=== PATIENT | female | born 1955 | race Caucasian/White ===

== ENCOUNTER 2022-06-28 22:09 | Emergency (ER) | payer MEDICARE, SELFPAY ==
[2022-06-28] VITALS (14 sets, daily range): BP systolic 133–173; BP diastolic 77–97; PULSE 61–73; RESP 20; TEMP 36.3; O2SAT 89–98
--- NOTE | 2022-06-28 22:41 | ED.GENADULT ---
HPI - General Adult General Time Seen by Provider: 22:42 <Ricardo Moore MD - Last Filed: 06/29/22 00:52> Date Seen: 06/28/22 <Ricardo Moore MD - Last Filed: 06/29/22 00:52> Chief complaint: Chest Pain <Ricardo Moore MD - Last Filed: 06/29/22 00:52> Stated complaint: chest pain, pain in arm, hard time breathing <Ricardo Moore MD - Last Filed: 06/29/22 00:52> Time Seen by Provider: 06/28/22 22:25 <Ricardo Moore MD - Last Filed: 06/29/22 00:52> Source: patient, RN notes reviewed and old records reviewed <Ricardo Moore MD - Last Filed: 06/29/22 00:52> Mode of arrival: ambulatory <Ricardo Moore MD - Last Filed: 06/29/22 00:52> Limitations: no limitations <Ricardo Moore MD - Last Filed: 06/29/22 00:52> History of Present Illness HPI narrative: 67-year-old female presents with chest pain and shortness of breath. Review of prior records shows history of obesity, DVT, coronary artery disease with multiple coronary stents in the past. Patient presents today with chest pressure will going into her back and well into her neck, radiation of left arm along with shortness of breath. These represent her typical anginal symptoms. They have been constant all day today, worse with activity, but not gone away. She took her usual medications earlier today. She denies fever chills. No numbness or tingling in the arms or legs. <Ricardo Moore MD - Last Filed: 06/29/22 00:52> Related Data Home medications: Home Medications Medication Instructions Recorded Confirmed aspirin 81 mg tablet,delayed 81 mg PO DAILY 06/28/22 06/28/22 release (Adult Low Dose Aspirin) cholecalciferol (vitamin D3) 50 2,000 unit PO DAILY 06/28/22 06/28/22 mcg (2,000 unit) tablet (Vitamin D3) clopidogrel 75 mg tablet 75 mg PO QAM 06/28/22 06/28/22 esomeprazole magnesium 20 mg 40 mg PO DAILY 06/28/22 06/28/22 capsule,delayed release isosorbide mononitrate 30 mg 30 mg PO TID 06/28/22 06/28/22 tablet,extended release 24 hr lisinopril 20 mg tablet 20 mg PO DAILY 06/28/22 06/28/22 losartan 50 mg tablet 50 mg PO QAM 06/28/22 06/28/22 metformin 500 mg tablet,extended 500 mg PO QAM 06/28/22 06/28/22 release 24 hr metoprolol succinate 25 mg 25 mg PO DAILY 06/28/22 06/28/22 tablet,extended release 24 hr nitroglycerin 0.4 mg sublingual 0.4 mg sublingual PRN angina 06/28/22 06/28/22 tablet pantoprazole 20 mg tablet,delayed 20 mg PO DAILY 06/28/22 06/28/22 release rosuvastatin 40 mg tablet 40 mg PO DAILY 06/28/22 06/28/22 <Ricardo Moore MD - Last Filed: 06/29/22 00:52> Allergies/adverse reactions: Allergies Allergy/AdvReac Type Severity Reaction Status Date / Time Iodinated Contrast Media Allergy Severe Anaphylaxis Verified 06/28/22 22:53 Sulfa (Sulfonamide Allergy Severe Anaphylaxis Verified 06/28/22 22:53 Antibiotics) bees Allergy Mild Uncoded 06/28/22 22:21 duloxetine Allergy Mild Uncoded 06/28/22 22:22 <Ricardo Moore MD - Last Filed: 06/29/22 00:52> Review of Systems Status of ROS: Reports: 10 or more systems reviewed and unremarkable except as noted in History and below <Ricardo Moore MD - Last Filed: 06/29/22 00:52> [facility] Medical History: Medical History (Updated 06/29/22 @ 00:22 by Ricardo Moore MD) CAD (coronary artery disease) Fibromyalgia GERD (gastroesophageal reflux disease) Hypertension Leg pain NSTEMI (non-ST elevated myocardial infarction) Type 2 diabetes mellitus Venous reflux <Ricardo Moore MD - Last Filed: 06/29/22 00:52> Surgical History: Surgical History (Updated 06/28/22 @ 23:23 by Ainsley Vivar RN) S/P angioplasty with stent <Ricardo Moore MD - Last Filed: 06/29/22 00:52> Social History: Social History Do you use any of these nicotine containing products: None Non-prescribed substance use: denies use <Ricardo Moore MD - Last Filed: 06/29/22 00:52> Exam Narrative: Exam Narrative: General: Well-developed and well-nourished, no acute distress Head: Atraumatic and normocephalic Eyes: Pupils are equal reactive, extraocular motions intact, conjunctiva clear ENT: External nose and ears are normal, posterior pharynx without erythema or exudate Neck: No midline cervical tenderness, full spontaneous range of motion the neck, trachea midline, no adenopathy Heart: Regular rate and rhythm no murmurs or thrills Lungs: Clear to auscultation bilaterally without wheezes or crackles Abdomen: Soft, nontender, nondistended with active bowel sounds Musculoskeletal: No tenderness, deformity, or edema Neurologic: Awake, alert, and oriented x3, no gross focal neurologic deficits, cranial nerves intact as tested Psych: Mood and affect are appropriate Skin: No rashes <Ricardo Moore MD - Last Filed: 06/29/22 00:52> Const: Vital Signs, click to edit/add: Vital Signs - 24 hr 06/29/22 01:10 06/29/22 01:11 06/29/22 01:12 Temperature Pulse Rate 67 66 69 Respiratory Rate 16 Blood Pressure 147/87 H Pulse Oximetry 92 94 94 Oxygen Delivery Me thod Oxygen Flow Rate 06/29/22 01:20 06/29/22 01:22 06/29/22 01:30 Temperature Pulse Rate 64 66 62 Respiratory Rate Blood Pressure 160/91 H Pulse Oximetry 94 95 96 Oxygen Delivery Me thod Oxygen Flow Rate 06/29/22 01:32 06/29/22 01:40 06/29/22 01:42 Temperature Pulse Rate 68 72 69 Respiratory Rate Blood Pressure 179/97 H 192/81 H Pulse Oximetry 96 95 96 Oxygen Delivery Me thod Oxygen Flow Rate 06/29/22 01:52 06/29/22 02:02 06/29/22 02:12 Temperature Pulse Rate 67 67 Respiratory Rate Blood Pressure 161/93 H 178/83 H 165/88 H Pulse Oximetry 96 97 Oxygen Delivery Me thod Oxygen Flow Rate 06/29/22 02:22 06/29/22 02:32 06/29/22 02:42 Temperature Pulse Rate 69 68 65 Respiratory Rate Blood Pressure 145/81 H 155/78 H 139/77 Pulse Oximetry 94 95 96 Oxygen Delivery Me thod Oxygen Flow Rate 06/29/22 02:52 06/29/22 03:02 06/29/22 03:22 Temperature Pulse Rate 66 65 69 Respiratory Rate Blood Pressure 162/86 H 171/92 H 157/80 H Pulse Oximetry 96 98 98 Oxygen Delivery Me thod Nasal Cannula Nasal Cannula Oxygen Flow Rate 2 2 06/29/22 03:42 06/29/22 04:02 06/29/22 04:22 Temperature Pulse Rate 68 67 66 Respiratory Rate 16 Blood Pressure 148/84 H 163/88 H 158/80 H Pulse Oximetry 96 96 95 Oxygen Delivery Me thod Nasal Cannula Oxygen Flow Rate 2 06/29/22 04:42 06/29/22 05:02 06/29/22 05:22 Temperature Pulse Rate 61 62 64 Respiratory Rate 16 Blood Pressure 145/90 H 137/78 154/83 H Pulse Oximetry 96 95 98 Oxygen Delivery Me thod Oxygen Flow Rate 06/29/22 05:42 06/29/22 03:00 06/29/22 06:02 Temperature 98.4 F Pulse Rate 67 73 Respiratory Rate 16 Blood Pressure 166/89 H 149/99 H Pulse Oximetry 98 97 95 Oxygen Delivery Me thod Nasal Cannula Oxygen Flow Rate 2 <Ricardo Moore MD - Last Filed: 06/29/22 00:52> Vital Signs, click to edit/add: Vital Signs - 24 hr 06/29/22 01:10 06/29/22 01:11 06/29/22 01:12 Temperature Pulse Rate 67 66 69 Respiratory Rate 16 Blood Pressure 147/87 H Pulse Oximetry 92 94 94 Oxygen Delivery Me thod Oxygen Flow Rate 06/29/22 01:20 06/29/22 01:22 06/29/22 01:30 Temperature Pulse Rate 64 66 62 Respiratory Rate Blood Pressure 160/91 H Pulse Oximetry 94 95 96 Oxygen Delivery Me thod Oxygen Flow Rate 06/29/22 01:32 06/29/22 01:40 06/29/22 01:42 Temperature Pulse Rate 68 72 69 Respiratory Rate Blood Pressure 179/97 H 192/81 H Pulse Oximetry 96 95 96 Oxygen Delivery Me thod Oxygen Flow Rate 06/29/22 01:52 06/29/22 02:02 06/29/22 02:12 Temperature Pulse Rate 67 67 Respiratory Rate Blood Pressure 161/93 H 178/83 H 165/88 H Pulse Oximetry 96 97 Oxygen Delivery Me thod Oxygen Flow Rate 06/29/22 02:22 06/29/22 02:32 06/29/22 02:42 Temperature Pulse Rate 69 68 65 Respiratory Rate Blood Pressure 145/81 H 155/78 H 139/77 Pulse Oximetry 94 95 96 Oxygen Delivery Me thod Oxygen Flow Rate 06/29/22 02:52 06/29/22 03:02 06/29/22 03:22 Temperature Pulse Rate 66 65 69 Respiratory Rate Blood Pressure 162/86 H 171/92 H 157/80 H Pulse Oximetry 96 98 98 Oxygen Delivery Me thod Nasal Cannula Nasal Cannula Oxygen Flow Rate 2 2 06/29/22 03:42 06/29/22 04:02 06/29/22 04:22 Temperature Pulse Rate 68 67 66 Respiratory Rate 16 Blood Pressure 148/84 H 163/88 H 158/80 H Pulse Oximetry 96 96 95 Oxygen Delivery Me thod Nasal Cannula Oxygen Flow Rate 2 06/29/22 04:42 06/29/22 05:02 06/29/22 05:22 Temperature Pulse Rate 61 62 64 Respiratory Rate 16 Blood Pressure 145/90 H 137/78 154/83 H Pulse Oximetry 96 95 98 Oxygen Delivery Me thod Oxygen Flow Rate 06/29/22 05:42 06/29/22 03:00 06/29/22 06:02 Temperature 98.4 F Pulse Rate 67 73 Respiratory Rate 16 Blood Pressure 166/89 H 149/99 H Pulse Oximetry 98 97 95 Oxygen Delivery Me thod Nasal Cannula Oxygen Flow Rate 2 <Francis Jay MD - Last Filed: 06/30/22 01:06> Course Course Hospital Course: Patient seen and examined, prior records are reviewed. Differential diagnosis includes but not limited to acute coronary syndrome, and angina, heart failure, pneumonia, aortic pathology. Patient with history of coronary disease and numerous stents who comes in today with her typical anginal symptoms of chest tightness radiating to the back and left arm as well as left jaw, shortness of breath. Initial EKG is reassuring initial, troponin negative. Aspirin and nitroglycerin are ordered. Further treatment based on clinical course. <Ricardo Moore MD - Last Filed: 06/29/22 00:52> Reevaluation(s) Reevaluation #1: Labs independently interpreted by me demonstrate normal CBC other than mild anemia, basic panel with mild hyperglycemia otherwise reassuring, BNP is pending, initial troponin negative. Pain improved after nitroglycerin but still present, additional nitroglycerin ordered. <Ricardo Moore MD - Last Filed: 06/29/22 00:52> Time: 23:28 <Ricardo Moore MD - Last Filed: 06/29/22 00:52> Reevaluation #2: Pain improved but not resolved after nitroglycerin. No beds at [facility] and will not consult. Discussed with patient, will contact [facility]. <Ricardo Moore MD - Last Filed: 06/29/22 00:52> Time: 23:35 <Ricardo Moore MD - Last Filed: 06/29/22 00:52> Reevaluation #3: Care discussed with Dr. Lewis, [facility] who agrees with plan for heparin and nitroglycerin. No beds are available at [facility], patient is on the wait list. Care discussed with Dr. Mancia at [facility] in [place] accepts the patient for transfer. Waiting for final bed acceptance. <Ricardo Moore MD - Last Filed: 06/29/22 00:52> Time: 00:20 <Ricardo Moore MD - Last Filed: 06/29/22 00:52> Additional Reevaluation(s): 12:51 a.m. sign out to oncoming provider pending transport to [place]. <Ricardo Moore MD - Last Filed: 06/29/22 00:52> Vital Signs Vital signs: Initial Vital Signs Temperature 97.3 F L 06/28/22 22:18 Temperature Source Temporal Artery Scan 06/28/22 22:18 Pulse Rate 73 06/28/22 22:18 Pulse Rhythm 06/28/22 22:18 Respiratory Rate 20 06/28/22 22:18 Blood Pressure 162/97 H 06/28/22 22:18 Blood Pressure Mean 118 06/28/22 22:18 Blood Pressure Position Sitting 06/28/22 22:18 Pulse Oximetry 98 06/28/22 22:18 Oxygen Delivery Method 06/28/22 22:18 Vital Signs Temperature 97.3 F L 06/28/22 22:18 Pulse Rate 73 06/28/22 22:18 Respiratory Rate 20 06/28/22 22:18 Blood Pressure 162/97 H 06/28/22 22:18 Pulse Oximetry 98 06/28/22 22:18 Oxygen Delivery Method 06/28/22 22:18 Temperature 98.4 F 06/29/22 05:42 Pulse Rate 73 06/29/22 06:02 Respiratory Rate 16 06/29/22 05:42 Blood Pressure 149/99 H 06/29/22 06:02 Pulse Oximetry 95 06/29/22 06:02 Oxygen Delivery Method 06/29/22 03:42 Oxygen Flow Rate 2 06/29/22 03:42 <Ricardo Moore MD - Last Filed: 06/29/22 00:52> Initial Vital Signs Temperature 97.3 F L 06/28/22 22:18 Temperature Source Temporal Artery Scan 06/28/22 22:18 Pulse Rate 73 06/28/22 22:18 Pulse Rhythm 06/28/22 22:18 Respiratory Rate 20 06/28/22 22:18 Blood Pressure 162/97 H 06/28/22 22:18 Blood Pressure Mean 118 06/28/22 22:18 Blood Pressure Position Sitting 06/28/22 22:18 Pulse Oximetry 98 06/28/22 22:18 Oxygen Delivery Method 06/28/22 22:18 Vital Signs Temperature 97.3 F L 06/28/22 22:18 Pulse Rate 73 06/28/22 22:18 Respiratory Rate 20 06/28/22 22:18 Blood Pressure 162/97 H 06/28/22 22:18 Pulse Oximetry 98 06/28/22 22:18 Oxygen Delivery Method 06/28/22 22:18 Temperature 98.4 F 06/29/22 05:42 Pulse Rate 73 06/29/22 06:02 Respiratory Rate 16 06/29/22 05:42 Blood Pressure 149/99 H 06/29/22 06:02 Pulse Oximetry 95 06/29/22 06:02 Oxygen Delivery Method 06/29/22 03:42 Oxygen Flow Rate 2 06/29/22 03:42 <Francis Jay MD - Last Filed: 06/30/22 01:06> Medical Decision Making MDM Narrative Medical decision making narrative: 1:11 a.m. Received Ms.Jr at change of shift. Anticipating transfer to source of primary cardiac care in [place]. Diagnosis of unstable angina and has been initiated on nitro drip and heparin. Vitals stable well. 2:20 a.m. had confirmed prior that discomfort that she would associate with angina is markedly improved with nitro. I go to assess Ms. Norris also on report of intense right-sided neck pain that has been increasing. There is no pulsatile mass in the neck. She is quite tender in the upper right sternocleidomastoid musculature; flinches/jumps with palpation of this. This appears to be the area pain. There are no bruits. Heart in regular rate and rhythm. Pain though is not elicited with rotational movement of the neck/head or flexion toward that side. Strong equal radial pulses. Area of typical discomfort in her mid upper back along the paraspinal musculature is not actually reproducible. D-dimer was added with some concern of dissection/vascular disruption. Unfortunately this is elevated at 1. Unsure what to make of this frankly. I returned to reassess and I discussed my differential with her and son. She notes that is now more relaxed and her neck pain has lessened. With reported anaphylactic allergy to contrast and improved pain with clear reproducibility in the sternocleidomastoid well hold for now on further evaluation. They are in agreement. Transferred ultimately to [place] as planned at 6:00 a.m. managed to sleep in the emergency department. <Francis Jay MD - Last Filed: 06/30/22 01:06> Medical Records Medical records reviewed: Yes I reviewed the patient's medical records <Ricardo Moore MD - Last Filed: 06/29/22 00:52> Lab Data Lab results reviewed: Yes I reviewed the patient's lab results <Ricardo Moore MD - Last Filed: 06/29/22 00:52> Labs: Lab Results 06/28/22 06/28/22 06/28/22 Range/Units 22:25 22:25 22:25 WBC 9.67 (4.50-11.00) K/uL RBC 4.39 (4.00-5.20) m/uL Hgb 11.8 L (12.0-16.0) gm/dL Hct 37.1 (33.0-51.0) % MCV 85 (80-100) fL MCH 27 (26-34) pg MCHC 32 (32-36) gm/dL RDW Coeff of Felicia 14.0 (11.5-15.5) % Plt Count 299 (140-440) K/uL Neut % (Auto) 51.8 (42.0-72.0) % Lymph % (Auto) 37.0 (20-44) % [place] % (Auto) 7.0 (0.0-11.0) % Eos % (Auto) 3.7 (0.0-7.0) % Baso % (Auto) 0.3 (0.0-3.0) % Neut # (Auto) 5.00 (1.7-7.0) K/uL Lymph # (Auto) 3.58 H (0.90-2.90) K/uL Winona # (Auto) 0.70 (0.00-0.90) K/UL Eos # (Auto) 0.36 (0.00-0.50) K/uL Baso # (Auto) 0.03 (0.00-0.30) K/uL INR 0.87 L (0.91-1.10) APTT 25 (23-33) Seconds D-Dimer Quant (PE/DVT) 1.05 H (0.00-0.50) ug/ml Sodium 138 (135-149) mmol/L Potassium 3.6 (3.6-5.1) mmol/L Chloride 104 (96-114) mmol/L Carbon Dioxide 28 (20-32) mmol/L BUN 13 (7-30) mg/dL Creatinine 0.9 (0.5-1.5) mg/dL Estimated GFR 71 ml/min Glucose 116 H (60-115) mg/dL Calcium 9.1 (8.4-10.6) mg/dL NT-Pro-B Natriuret Pep 164 pg/mL POC Troponin I (0.01-0.04) ng/ml 06/28/22 06/29/22 Range/Units 22:25 00:30 WBC (4.50-11.00) K/uL RBC (4.00-5.20) m/uL Hgb (12.0-16.0) gm/dL Hct (33.0-51.0) % MCV (80-100) fL MCH (26-34) pg MCHC (32-36) gm/dL RDW Coeff of Felicia (11.5-15.5) % Plt Count (140-440) K/uL Neut % (Auto) (42.0-72.0) % Lymph % (Auto) (20-44) % [place] % (Auto) (0.0-11.0) % Eos % (Auto) (0.0-7.0) % Baso % (Auto) (0.0-3.0) % Neut # (Auto) (1.7-7.0) K/uL Lymph # (Auto) (0.90-2.90) K/uL Win[place] # (Auto) (0.00-0.90) K/UL Eos # (Auto) (0.00-0.50) K/uL Baso # (Auto) (0.00-0.30) K/uL INR (0.91-1.10) APTT (23-33) Seconds D-Dimer Quant (PE/DVT) (0.00-0.50) ug/ml Sodium (135-149) mmol/L Potassium (3.6-5.1) mmol/L Chloride (96-114) mmol/L Carbon Dioxide (20-32) mmol/L BUN (7-30) mg/dL Creatinine (0.5-1.5) mg/dL Estimated GFR ml/min Glucose (60-115) mg/dL Calcium (8.4-10.6) mg/dL NT-Pro-B Natriuret Pep pg/mL POC Troponin I 0.00 L 0.00 L (0.01-0.04) ng/ml <Ricardo Moore MD - Last Filed: 06/29/22 00:52> Lab Results 06/28/22 06/28/22 06/28/22 Range/Units 22:25 22:25 22:25 WBC 9.67 (4.50-11.00) K/uL RBC 4.39 (4.00-5.20) m/uL Hgb 11.8 L (12.0-16.0) gm/dL Hct 37.1 (33.0-51.0) % MCV 85 (80-100) fL MCH 27 (26-34) pg MCHC 32 (32-36) gm/dL RDW Coeff of Felicia 14.0 (11.5-15.5) % Plt Count 299 (140-440) K/uL Neut % (Auto) 51.8 (42.0-72.0) % Lymph % (Auto) 37.0 (20-44) % [place] % (Auto) 7.0 (0.0-11.0) % Eos % (Auto) 3.7 (0.0-7.0) % Baso % (Auto) 0.3 (0.0-3.0) % Neut # (Auto) 5.00 (1.7-7.0) K/uL Lymph # (Auto) 3.58 H (0.90-2.90) K/uL Win[place] # (Auto) 0.70 (0.00-0.90) K/UL Eos # (Auto) 0.36 (0.00-0.50) K/uL Baso # (Auto) 0.03 (0.00-0.30) K/uL INR 0.87 L (0.91-1.10) APTT 25 (23-33) Seconds D-Dimer Quant (PE/DVT) 1.05 H (0.00-0.50) ug/ml Sodium 138 (135-149) mmol/L Potassium 3.6 (3.6-5.1) mmol/L Chloride 104 (96-114) mmol/L Carbon Dioxide 28 (20-32) mmol/L BUN 13 (7-30) mg/dL Creatinine 0.9 (0.5-1.5) mg/dL Estimated GFR 71 ml/min Glucose 116 H (60-115) mg/dL Calcium 9.1 (8.4-10.6) mg/dL NT-Pro-B Natriuret Pep 164 pg/mL POC Troponin I (0.01-0.04) ng/ml 06/28/22 06/29/22 Range/Units 22:25 00:30 WBC (4.50-11.00) K/uL RBC (4.00-5.20) m/uL Hgb (12.0-16.0) gm/dL Hct (33.0-51.0) % MCV (80-100) fL MCH (26-34) pg MCHC (32-36) gm/dL RDW Coeff of Felicia (11.5-15.5) % Plt Count (140-440) K/uL Neut % (Auto) (42.0-72.0) % Lymph % (Auto) (20-44) % Win[place] % (Auto) (0.0-11.0) % Eos % (Auto) (0.0-7.0) % Baso % (Auto) (0.0-3.0) % Neut # (Auto) (1.7-7.0) K/uL Lymph # (Auto) (0.90-2.90) K/uL Win[place] # (Auto) (0.00-0.90) K/UL Eos # (Auto) (0.00-0.50) K/uL Baso # (Auto) (0.00-0.30) K/uL INR (0.91-1.10) APTT (23-33) Seconds D-Dimer Quant (PE/DVT) (0.00-0.50) ug/ml Sodium (135-149) mmol/L Potassium (3.6-5.1) mmol/L Chloride (96-114) mmol/L Carbon Dioxide (20-32) mmol/L BUN (7-30) mg/dL Creatinine (0.5-1.5) mg/dL Estimated GFR ml/min Glucose (60-115) mg/dL Calcium (8.4-10.6) mg/dL NT-Pro-B Natriuret Pep pg/mL POC Troponin I 0.00 L 0.00 L (0.01-0.04) ng/ml <Francis Jay MD - Last Filed: 06/30/22 01:06> Imaging Data Chest x-ray: Attestation: I have reviewed the pertinent imaging results. <Ricardo Moore MD - Last Filed: 06/29/22 00:52> My impression: Negative <Ricardo Moore MD - Last Filed: 06/29/22 00:52> ECG Data Attestation: I personally reviewed and interpreted this ECG as follows: <Ricardo Moore MD - Last Filed: 06/29/22 00:52> Prior ECG tracings: not available for review <Ricardo Moore MD - Last Filed: 06/29/22 00:52> Interpretation: Performed at 10:17 p.m. independently interpreted by me demonstrates normal sinus rhythm rate 79, no acute ST elevations or depressions, normal intervals, normal axis, QTC 463, CA 172. No prior for comparison. <Ricardo Moore MD - Last Filed: 06/29/22 00:52> Critical Care Time Critical Care Time Critical Care Time: Yes Attestation: The patient required my highest level preparedness to intervene emergently and I personally spent this critical care time directly and personally managing the patient. This critical care time included: Obtaining a history; Examining the patient; Pulse oximetry; Ordering and reviewing of studies; Arranging urgent treatment with development of a management plan; Evaluation of patients response to treatment; Frequent reassessment discussions with other providers. This critical care time was performed to assess and manage the high probability of imminent life-threatening deterioration that could result in multiorgan failure. It was exclusive of separate billable procedures and treating other patients and teaching time. <Ricardo Moore MD - Last Filed: 06/29/22 00:52> Total Critical Care Time in Minutes: 140 <Ricardo Moore MD - Last Filed: 06/29/22 00:52> Discharge Plan Discharge Clinical Impression: CAD (coronary artery disease), Unstable angina pectoris <Ricardo Moore MD - Last Filed: 06/29/22 00:52> Patient Disposition: [facility] <Ricardo Moore MD - Last Filed: 06/29/22 00:52> Condition: Stable <Ricardo Moore MD - Last Filed: 06/29/22 00:52> Additional Instructions: To [facility] <Ricardo oMore MD - Last Filed: 06/29/22 00:52>
--- NOTE | 2022-06-28 22:57 | CRLHL7_ITS ---
For Patients: As a result of the Century Cures Act, medical imaging exams and procedure reports are released immediately into your electronic medical record. You may view this report before your referring provider. If you have questions, please contact your health care provider. INDICATION: chest pain, dyspnea INDICATION: Chest pain, dyspnea. TECHNIQUE: Chest 1 view. COMPARISON: None FINDINGS: Cardiovascular and mediastinum: Heart size and vasculature are normal in caliber and appearance. Mediastinum is within normal limits. Lungs and pleural space: Lungs are clear. No sign of infiltrate or mass. No sign of pleural effusion. No pneumothorax. Bones and soft tissues: secured entrance monitor leads overlie the patient. IMPRESSION: Lungs are clear. Dictated by Arpan Alexander MD @ 06/28/2022 11:59:31 PM Dictated by: Arpan Alexander MD @ 06/28/2022 23:59:37 (Electronically Signed)
[2022-06-28] MEDS: NITROGLYCERIN 0.4 MG TAB.SUBL SUBLINGUAL ×3 (22:58→23:43)
[2022-06-28] MEDS: ASPIRIN 81 MG TAB.CHEW 324 MG PO (22:58)
[2022-06-28 23:06] LABS: Basophils Absolute Auto 0.03 K/uL (0.00-0.30); Basophils Percent Auto 0.3 % (0.0-3.0); Eosinophils Absolute Auto 0.36 K/uL (0.00-0.50); Eosinophils Percent Auto 3.7 % (0.0-7.0); Hematocrit 37.1 % (33.0-51.0); Hemoglobin* 11.8 gm/dL (12.0-16.0); Immature Granulocytes Abs Auto 0.02 K/uL (0.00-0.30); Immature Granulocytes Pct Auto 0.2 %; Lymphocytes Absolute Auto 3.58 K/uL (0.90-2.90); Mean Corpuscular HGB Conc 32 gm/dL (32-36); Mean Corpuscular Hemoglobin 27 pg (26-34); Mean Corpuscular Volume 85 fL (80-100); Neutrophils Percent Auto 51.8 % (42.0-72.0); Platelet Count* 299 K/uL (140-440); Red Blood Count 4.39 m/uL (4.00-5.20); White Blood Count* 9.67 K/uL (4.50-11.00)
--- NOTE | 2022-06-28 23:08 | ED.NURSE ---
Addendum entered by Ainsley Vivar RN 06/28/22 23:11: MD Updated. Original Note: post nitro, pain 8 to 6, pt states this is a good relief.
[2022-06-28 23:15] LABS: Slide Review Reflex No
[2022-06-28 23:19] LABS: Chloride* 104 mmol/L (96-114); Potassium* 3.6 mmol/L (3.6-5.1); Sodium* 138 mmol/L (135-149)
[2022-06-28 23:21] LABS: INR 0.87 (0.91-1.10); Prothrombin Time 12.4 Seconds
[2022-06-28 23:22] LABS: Carbon Dioxide* 28 mmol/L (20-32); Creatinine* 0.9 mg/dL (0.5-1.5); Estimated Glomerular Filt Rate 71 ml/min
[2022-06-28 23:23] LABS: Blood Urea Nitrogen* 13 mg/dL (7-30); Calcium* 9.1 mg/dL (8.4-10.6); Glucose* 116 mg/dL (60-115)
[2022-06-28 23:33] LABS: NT Pro B Type NatriureticPept* 164 pg/mL
--- NOTE | 2022-06-28 23:45 | ED.NURSE ---
patient states pain decreased to 4 after 2nd nitro. 3rd given per MD verbal.
[2022-06-29] VITALS (38 sets, daily range): BP systolic 134–192; BP diastolic 77–99; PULSE 60–73; RESP 16; TEMP 36.9; O2SAT 92–98
[2022-06-29] MEDS: NITROGLYCERIN 0.4 MG TAB.SUBL SUBLINGUAL (00:41)
[2022-06-29] MEDS: HEPARIN 5,000 UNIT/0.5 ML INJ 4000 UNIT IVP (01:03)
[2022-06-29] MEDS: NITROGLYCERIN/DEXTROSE 25,000 MCG/250 ML BOTTLE 6 MCG IVPB (01:03)
[2022-06-29] MEDS: HEPARIN 25,000 UNIT/500 ML BAG 20 UNIT IV (01:04)
[2022-06-29 01:07] LABS: Partial Thromboplastin Time* 25 Seconds (23-33)
--- NOTE | 2022-06-29 01:24 | ED.NURSE ---
report to [facility] nurse Sherly MATIAS. will update once transport arranged.
[2022-06-29 01:57] LABS: D Dimer Quantitative* 1.05 ug/ml (0.00-0.50)
--- NOTE | 2022-06-29 02:40 | ED.NURSE ---
2LNC applied - pt dozing off and o2 saturation dropping to mid/low 80%. Pt states she has ANASTASIA but has not done her final sleep study yet, when patient awakens on room air pt returns to 96%.
--- NOTE | 2022-06-29 06:15 | ED.NURSE ---
Report to [facility] at bedside, pt transported with no CP or SOB.
== END 2022-06-29 06:15 | disposition short-term general hospital (02) ==
PROVIDERS: Emergency Provider Family Medicine; PCP Internal Medicine
DX: I25.110 Atherosclerotic heart disease of native coronary artery with unstable angina pectoris (principal)
CPT/HCPCS: 36415; 71045; 80048; 83880; 84484; 85025; 85379; 85610; 85730; 93005; 99285; 99291; 99292; A9270; J1644

== ENCOUNTER 2022-06-29 06:03 | Outpatient (CLI) | payer MEDICARE, SELFPAY | END 2022-06-29 06:04 | disposition home or self-care (01) | LOC: AMB 06-30 11:26 | PROVIDERS: PCP Internal Medicine; Visit Provider Family Medicine | DX: R07.89 Other chest pain (principal) | CPT/HCPCS: A0425; A0434 ==

== ENCOUNTER 2022-07-15 10:29 | Outpatient (CLI) | payer MEDICARE, SELFPAY ==
--- NOTE | 2022-07-15 10:45 | CRLHL7_ITS ---
For Patients: As a result of the Cures Act, medical imaging exams and procedure reports are released immediately into your electronic medical record. You may view this report before your referring provider. If you have questions, please contact your health care provider. BILATERAL SCREENING MAMMOGRAM WITH COMPUTER-AIDED DETECTION AND TOMOSYNTHESIS TECHNIQUE: CC and MLO views were obtained. These mammographic images have been obtained using full-field digital technique. These mammographic images were interpreted with the benefit of computer-aided detection. Breast tomosynthesis was used in this interpretation. COMPARISON FILM: 01/19/21, 12/14/17,12/08/17,03/08/13. FINDINGS: There are scattered areas of fibroglandular density. IMPRESSION: There is no radiographic evidence for malignancy. ASSESSMENT: BI-RADS Category 2: Benign RECOMMENDATION: Routine screening mammogram in 1 year. A lay language report of this examination will be provided to the patient. FRANCIS RAMOS M.D. Diagnostic Radiologist [email or web address] Transcribed: 07/27/2022, 11:[address]/Dictated by: Francis Ramos MD @ 07/26/2022 8:21:00 AM (Electronically Signed)
== END 2022-07-15 10:30 | disposition home or self-care (01) ==
LOC: MAMMO 10:30
PROVIDERS: Visit Provider Internal Medicine
DX: Z12.31 Encounter for screening mammogram for malignant neoplasm of breast (principal)
CPT/HCPCS: 77063; 77067

== ENCOUNTER 2022-10-17 11:30 | Outpatient (CLI) | payer MEDICARE, SELFPAY | END 2022-10-17 11:31 | disposition home or self-care (01) | PROVIDERS: PCP Internal Medicine; Visit Provider Internal Medicine | DX: I10 Essential (primary) hypertension (principal); E11.9 Type 2 diabetes mellitus without complications | CPT/HCPCS: 80048 ==

== ENCOUNTER 2023-05-30 08:06 | Outpatient (CLI) | payer MEDICARE, SELFPAY | END 2023-05-30 08:07 | disposition home or self-care (01) | LOC: NFLDREF 16:05 | PROVIDERS: PCP Internal Medicine; Referring Provider Internal Medicine; Visit Provider Internal Medicine | DX: E11.9 Type 2 diabetes mellitus without complications (principal); E78.5 Hyperlipidemia, unspecified; I10 Essential (primary) hypertension; E66.9 Obesity, unspecified; I25.10 Atherosclerotic heart disease of native coronary artery without angina pectoris | CPT/HCPCS: 80053; 80061; 82043; 82570 ==

== ENCOUNTER 2023-07-11 09:45 | Outpatient (CLI) | payer MEDICARE, SELFPAY ==
--- NOTE | 2023-07-11 11:42 | W.ANESCHARGE ---
Anesthesia Charges Start Date/Time Anesthesia Start Date: 07/11/23 Anesthesia Start Time: 10:39 Stop Date/Time Anesthesia Stop Date: 07/11/23 Anesthesia Stop Time: 11:09
--- NOTE | 2023-07-11 12:10 | W.ANESCHARGE ---
Anesthesia Charges Start Date/Time Anesthesia Start Date: 07/11/23 Anesthesia Start Time: 10:39 Stop Date/Time Anesthesia Stop Date: 07/11/23 Anesthesia Stop Time: 11:09
== END 2023-07-11 09:46 | disposition home or self-care (01) ==
PROVIDERS: PCP Internal Medicine; Visit Provider Surgery
DX: Z12.11 Encounter for screening for malignant neoplasm of colon (principal); Z80.0 Family history of malignant neoplasm of digestive organs
CPT/HCPCS: 00811; 00812; 45378; J2704

== ENCOUNTER 2023-10-03 12:43 | Outpatient (CLI) | payer MEDICARE, SELFPAY ==
--- OUTSIDE RECORDS SUMMARY | 2023-10-03 12:46 | XMS_ITS | Encounter Summary ---
Author Organization [facility] Address [address] [place] [address] Care Team Providers Care Cable Supervisor Name Role Phone Carolynn Norris MD Primary Care Provider Tana Louie MD Primary Care Provider Unavailab le Provider, No Primary Primary Care Provider Unava ilable Carolynn Norris MD Unavailable [phone] Tana Louie MD Unavailable Unavailable Anisa Diana Unavailable Unavailabl e Provider, No Primary Unavailable Unavailable Carolynn Norris MD Primary Care Provider [phone] Skyler Roman MD Unavailable [phone] Skyler Roman MD Unavailable August Reina MD Unavailable [phone] August Reina MD Unavailable [phone] Nawaf Tian MD Primary Care Provider Unavail able Yen Zuluaga TECHNICAL SERVICES SPECIALIST Unavailable -[id number] Lenny Alatorre MD Primary Care Provider [phone] Provider, No Primary Primary Care Provider Unava ilable August Reina MD Unavailable [phone] Encounter Details Date Type Department Care Team (Late st Contact Info) Description 12/19/2006 HIM Supervisor Treating And Pumping Generic Supervisor Treating And Pumping [address] [id number] Social History Tobacco Use Types Packs/Day Years Used Date Smoking Tobacco: Never Alcohol Use Standard Drinks/Week Comments No 0 (1 standard drink = 0.6 oz pur e alcohol) Sex and Gender Information Value Date Recorded Sex Assigned at Not on file Gender Identity Not on file Sexual Orientation Not on file documented as of this encounter Plan of Treatment Not on file documented as of this encounter Visit Diagnoses Not on filedocumented in this encounter Care Teams Cable Supervisor Relationship Specialty Start Date End Date Carolynn Norris MD [address] [id number] PCP - General 03/02/07 10/02/16 Tana Louie MD PCP - General 10/24/06 03/01/07 Provider, [place] [address] PCP - General 10/03/16 08/09/17 Carolynn Norris MD [address] [address] PCP - General Internal Medicine 08/10/17 01/10/21 Nawaf Tian MD [address] [place] [address] PCP - General Student Education Training 01/11/21 10/14/21 Lenny Alatorre MD [address] [facility] [address] [place] [id number] PCP - General Student Education Training 10/15/21 11/04/21 Provider, No Primary . [place] [address] PCP - General 11/05/21 Carolynn Norris MD [address] [place] [address] 05/15/17 Tana Louie MD 05/15/17 Anisa Diana PA 05/15/17 Provider, No Primary . 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
--- OUTSIDE RECORDS SUMMARY | 2023-10-03 12:46 | XMS_ITS | Encounter Summary ---
Author Organization [facility] Address [address] [place] [address] Care Team Providers Care Verification Specialist Name Role Phone Carolynn Norris MD Primary Care Provider [phone] Tana Louie MD Primary Care Provider Unavailab le Provider, No Primary Primary Care Provider Unava ilable Carolynn Norris MD Unavailable [phone] Tana Louie MD Unavailable Unavailable Anisa Diana Unavailable Unavailabl e Provider, No Primary Unavailable Unavailable Carolynn Norris MD Primary Care Provider [phone] Skyler Roman MD Unavailable [phone] Skyler Roman MD Unavailable August Reina MD Unavailable August Reina MD Unavailable [phone] Nawaf Tian MD Primary Care Provider Unavail able Yen Zuluaga WEB WEAVER Unavailable -[phone] Lenny Alatorre MD Primary Care Provider Provider, No Primary Primary Care Provider Unava ilable August Reina MD Unavailable [phone] Encounter Details Date Type Department Care Team (Late st Contact Info) Description 01/05/2007 Clinic Encounter [facility] Internal Medicine [address] [place] [address] Social History Tobacco Use Types Packs/Day Years [...] on file documented as of this encounter Procedures Procedure Name Priority Date/Time Associated Diagnosis Comments OVA AND PARASITES Routine 01/05/2007 12: 05 PM CDT documented in this encounter Results * OVA PARASITES (01/05/2007 12:05 PM CDT) SPECIMEN DESCRIPTION [facility] SPECIAL REQUESTS PERFORMED AT [facility] PARASITE NO OVA OR PARASITES SEEN O&P EXAM DOES NOT ALLOW IDENTIFICATION OFCRYPTOSPORIDIUM , CYCLOSPORA OR MICROSPORIDIA [facility] REPORT STATUS FINAL 01/06/2007 [facility] STOOL SPECIMEN / Unknown 01/05/2007 12:05 PM CDT 01/05/2007 12:06 PM CDT Carolynn Norris MD LAB MICROBIOLOGY ORD ERABLES [facility] [address] [place] [address] [phone] [id number] [facility] documented in this encounter Visit Diagnoses Not on filedocumented in this encounter Care Teams Verification Specialist Relationship Specialty Start Date End Date Carolynn Norris MD [address] [facility] [address] [place] [phone] PCP - General 03/02/07 10/02/16 Tana Louie MD PCP - General 10/24/06 03/01/07 Provider, [place] [address] PCP - General 10/03/16 08/09/17 Carolynn Norris MD [address] [facility] [address] [place] [phone] PCP - General Internal Medicine 08/10/17 01/10/21 Nawaf Tian MD [address] [facility] [place] [address] PCP - General Student Education Training 01/11/21 10/14/21 Lenny Alatorre MD [address] [facility] [address] [place] [phone] PCP - General Student Education Training 10/15/21 11/04/21 Provider, [place] [address] PCP - General 11/05/21 Carolynn Norris MD [address] [facility] [address] [place] [address] 05/15/17 Tana Louie MD 05/15/17 Anisa Diana PA 05/15/17 Provider, No Primary . 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
--- OUTSIDE RECORDS SUMMARY | 2023-10-03 12:46 | XMS_ITS | Referral Summary ---
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 Name Role Phone Carolynn Norris MD Unavailable [phone] Tana Louie MD Unavailable Unavailable Anisa Diana Unavailable Unavailabl e Provider, No Primary Unavailable Unavailable Skyler Roman MD Unavailable [phone] Skyler Roman MD Unavailable [phone] August Reina MD Unavailable Provider, No Primary Primary Care Provider Unava ilable August Reina MD Unavailable Allergies Active Allergy Reactions Criticality Noted Date Comments Bee Sting Swelling 12/01/2006 Contrast Dye Anaphylaxis / Throat Swelling,Hives High 09/24/2011 Rosuvastatin Muscle Pain Low 06/29/2022 Duloxetine Swelling 02/09/2012 Environmental Substances Runny Nose 12/01/2006 Sulfa (Sulfonamide Antibiotics) Anaphylaxis / Throat Swelling High 12/01/2006 Medications Medication Sig Dispensed Refills Start Date End Date Status loratadine (AKA: CLARITIN) 10 mg oral Tablet Take 10 mg by mouth daily as needed. Active aspirin (AKA: ECOTRIN) 81 mg oral Tablet, Delayed Release (E.C.) Take 81 mg by mouth every morning. Active metFORMIN XR (GLUCOPHAGE XR) 500 mg oral Tablet Sustained Release 24HRIndications:Type 2 diabetes mellitus with hyperlipidemia (HCC) Take 1 Tablet (500 mg) by mouth daily with breakfast. 90 Tablet 3 08/13/2021 Active losartan (COZAAR) 50 mg oral TabletIndications:Coron mahesh artery disease involving lower el[place]a coronary artery of lower [place]a heart with unstable angina pectoris (HCC) Take 1 Tablet (50 mg) by mouth in the morning. 90 Tablet 3 10/12/2021 Active isosorbide mononitrate (IMDUR) 30 mg oral Tablet Sustained Release 24HRIndications:Coronar y artery disease involving lower el[place]a coronary artery of lower [place] heart with unstable angina pectoris (HCC) Take 3 Tablets (90 mg) by mouth in the morning. 90 Tablet 03/28/2022 Active cholecalciferol, vitamin D3, (VITAMIN D3) 2,000 unit oral Capsule Take 2,000 Units by mouth once daily. Active metoprolol succinate (TOPROL XL) 25 mg oral Tablet Sustained Release 24HRIndications:Angina concurrent with and due to arteriosclerosis of coronary artery ([facility]) Take 1 Tablet (25 mg) by mouth in the morning and 1 Tablet (25 mg) in the evening. 60 Tablet 07/03/2022 Active blood sugar diagnostic stripsIndications:Type 2 diabetes mellitus without complication, without long-term current use of insulin ([facility]) Test once daily. Testing once daily at varied times. 50 Each 5 07/03/2022 Active lancets 33 gaugeIndications:Type 2 diabetes mellitus without complication, without long-term current use of insulin ([facility]) Test once daily. Testing blood sugar once daily at varied times. 100 Each 5 07/03/2022 Active spironolactone (ALDACTONE) 25 mg oral TabletIndications:Angin a concurrent with and due to arteriosclerosis of coronary artery ([facility]) Take 1 Tablet (25 mg) by mouth daily in the morning. 30 Tablet 07/04/2022 Active blood-glucose meter Test once daily as directed 1 Each 07/03/2022 Active clopidogreL (PLAVIX) 75 mg oral TabletIndications:NSTEM I (non-ST elevated myocardial infarction) (HCC) Take 1 Tablet (75 mg) by mouth in the morning. 90 Tablet 08/03/2022 Active nitroglycerin (NITROSTAT) 0.4 mg sublingual Tablet, SublingualIndications:N STEMI (non-ST elevated myocardial infarction) (HCC) DISSOLVE ONE TABLET UNDER THE TONGUE EVERY 5 MINUTES NEEDED FOR CHEST PAIN. 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 09/06/2021 Type 2 diabetes mellitus with hyperlipidemia Adjustment disorder with mixed anxiety and depre ssed mood 10/09/2017 Jaw pain 10/04/2017 Allergic reaction caused by a drug 09/27/2017 S/P primary angioplasty with coronary stent 09/15 Unstable angina 09/25/2017 NSTEMI (non-ST elevated myocardial infarction) 0 08/13/2017 Leg pain 01/17/2013 Venous reflux 02/09/2012 Fibromyalgia 05/27/2009 Hyperlipidemia 05/27/2009 GERD (gastroesophageal reflux disease) 8 Disturbance in sleep behavior 02/15/2008 Muscle pain 02/15/2008 Hyperlipidemia Hypertension CAD (coronary artery disease) Overview: 09/26/17 JERALD OM3 (2.5x15 Xience), JERALD OM2 (2.25 x 28 Xience), 08/11/17 JERALD RCA (2.75x23,2.5x28 Alpine), JERALD LAD (3x23 Alpine), JERALD 2nd Diag (2.25x18 Alpine), JERALD Cx (3x12 Alpine) Resolved Problems Problem Noted Date Diagnosed Date Resolved Date BMI 40.0-44.9, adult 10/20/2017 022 Overview: BMI of 40.5 Chest pain 10/19/2017 09/06/2021 Class 2 obesity due to exces s calories with body mass index (BMI) of 38.0 to 38.9 in adult 09/26/2017 11/05/2021 Overview: BMI of 42.05 Chest pain at rest 08/11/2017 DVT (deep venous thrombosis) 05/22/2012 08/09/2012 Accelerating angina 11/14/2011 09/07/19 22 Immunizations Name Administration Dates Next Due Influenza Vac, IM, Quadrival ent Preserv Free, (>6 months) 01/22/2018 Influenza Vac, IM, Trivalent (>3 Yrs) 01/15/2006 Td, Tetanus/Diphtheria, IM, >7 Yrs 08/15/1998 Tdap Vaccine, IM, (Adacel)(Boostrix) 07/20/2011, 05/27/2009 Social History Tobacco Use Types Packs/Day Years Used Date Smoking Tobacco: Never Smokeless Tobacco: Never Comments:Family smokes, expo sure Alcohol Use Standard Drinks/Week Comments No 0 (1 standard drink = 0.6 oz pur e alcohol) Humiliation, Afraid, Rape, and Kick questionnair e Answer Date Recorded Within the last year, have y ou been afraid of your partner or ex-partner? No 01/11/2021 Within the last year, have y ou been humiliated or emotionally abused in other ways by your partner or ex-partner? No Within the last year, have y ou been kicked, hit, slapped, or otherwise physically hurt by your partner or ex-partner? No 01/11/2021 Within the last year, have y ou been raped or forced to have any kind of sexual activity by your partner or ex-partner? No 01/11/2021 Social Connection and Isolat ion Panel [NHANES] Answer Date Recorded In a typical week, how many times do you talk on the phone with family, friends, or neighbors? More than three times a week 01/11/2021 How often do you get togethe r with friends or relatives? Twice a week 01/11/2021 How often do you attend chur or advent services? More than 4 times per year 01/11/2021 Do you belong to any clubs o r organizations such as mormon groups, unions, fraternal or athletic groups, or school groups? Yes 01/11/2021 How often do you attend meet ings of the clubs or organizations you belong to? More than 4 times per year 01/11/2021 Are you , , di vorced, , never , or living with a partner? 01/11/2021 AUDIT-C Answer Date Recorded Q1: How often do you have a drink containing alc ohol? Never 01/11/2021 Q2: How many drinks containi ng alcohol do you have on a typical day when you are drinking? Patient declined 01/11/2021 Q3: How often do you have si x or more drinks on one occasion? Never 01/11/2021 Overall Financial Resource Strain (CARDIA) Answe r Date Recorded How hard is it for you to pa y for the very basics like food, housing, medical care, and heating? Somewhat hard 01/11/2021 [facility] - Occupational Stress Questionnaire Answer Date Recorded Do you feel stress - tense, restless, nervous, or anxious, or unable to sleep at night because your mind is troubled all the time - these days? Not at all 01/11/2021 Exercise Vital Sign Answer Date Recorde d On average, how many days pe r week do you engage in moderate to strenuous exercise (like a brisk walk)? 3 days 01/11/2021 On average, how many minutes do you engage in exercise at this level? 30 min 01/11/2021 Hunger Vital Sign Answer Date Recorded Within the past 12 months, y ou worried that your food would run out before you got the money to buy more. Sometimes true Within the past 12 months, t he food you bought just didn't last and you didn't have money to get more. Sometimes true PRAPARE - Transportation Answer Date Re corded In the past 12 months, has l ack of transportation kept you from medical appointments or from getting medications? No 12/17 In the past 12 months, has l ack of transportation kept you from meetings, work, or from getting things needed for daily living? No 01/11/2021 Housing Stability Answer Date Recorded In the last 12 months, was t here a time when you were not able to pay the mortgage or rent on time? Yes 01/11/2021 In the last 12 months, how many places have you lived? 1 01/11/2021 Number of Places Lived in the Last Year (Outpati ent) Not on file 01/11/2021 Number of Places Lived in the Last Year (Inpatie nt) Not on file 01/11/2021 In the last 12 months, was t here a time when you did not have a steady place to sleep or slept in a nursing home (including now)? No 01/11/2021 Depression (PHQ-9) Answer Date Recorded Last PHQ-9 Score Not on file 01/21/2022 Thoughts of self harm Not at all 01/21/2022 Intimate Partner Violence Answer Date R ecorded Physically hurt, threatened and/or made to feel afraid No 05/04/2023 Sex and Gender Information Value Date Recorded Sex Assigned at Not on file Gender Identity Not on file Sexual Orientation Not on file Last Filed Vital Signs Vital Sign Reading Time Taken Comments Blood Pressure 110/58 07/03/2022 4:44 PM CDT Pulse 68 07/03/2022 4:44 PM CDT Temperature 36.6 ??C (97.8 ??F) 07/03/2022 4:44 PM CD T Respiratory Rate 15 07/03/2022 4:44 PM CDT Oxygen Saturation 94% 07/03/2022 4:44 PM CDT Inhaled Oxygen Concentration - - Weight 103 kg (227 lb 1.6 oz) 07/03/2022 5:20 AM CDT Height 163.8 cm (5' 4.5) 06/29/2022 8:33 AM CDT Body Mass Index 38.38 06/29/2022 8:33 AM CDT Functional Status Functional Status Response Date of Assess ment Are you deaf or do you have serious difficulty h earing? No 06/29/2022 Are you blind or do you have serious difficulty seeing, even when wearing glasses? No 06/29/2022 Do you have serious difficul ty walking or climbing stairs? Yes 06/29/2022 Do you have difficulty dressing or bathing? No 06/29/2022 Do you have difficulty doing errands alone such as visiting a doctor's office or shopping because of a physical, mental, or emotional condition? No 06/29/2022 Cognitive Status Response Date of Assessm ent Do you have trouble concentr ating, remembering, or making decisions because of a physical, mental, or emotional condition? 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 Comment: Pre-Diabetic: 5.7-6.4 % Diabetic: ?>6.5 % Estimated Average Glucose 146 mg/dL 06/29/2022 1:11 PM CDT [facility] Blood VENOUS BLOOD / Unknown Venipuncture / Unknown 06/29/2022 9:37 AM CDT 06/29/2022 9:47 AM CDT Mehran Velazquez MD LAB CHEMISTRY ORD ERABLES [facility] [address] [place] [address], [place] [phone] * (ABNORMAL) LIPID PANEL (06/29/2022 9:37 AM CDT) Cholesterol 248(H) <200 mg/dL 06/29/2022 10:12 AM CDT [facility] Triglycerides 223(H) 30 - 150 mg/dL 06/29/2022 10:12 AM CDT [facility] Cholesterol, LDL (Calculated) 166(H) 0 - 159 mg/dL 06/29/2022 10:12 AM CDT [facility] Cholesterol, HDL 37(L) >40 mg/dL 06/30/19 23 10:12 AM CDT [facility] Cholesterol, vLDL 45 mg/dL 023 10:12 AM CDT [facility] Blood VENOUS BLOOD / Unknown Venipuncture / Unknown 06/29/2022 9:37 AM CDT 06/29/2022 9:47 AM CDT Mehran Velazquez MD LAB CHEMISTRY ORD ERABLES [facility] [address] [place] [address], * DEXA HIP AND SPINE (08/05/2021 2:12 PM CDT) Anatomical Region Laterality Modality Hip, Spine Other Narrative 08/11/2021 12:33 PM CDT INTERPRETING PROVIDER: ??Emilia Frausto MD BONE DENSITOMETRY: Patient reported pertinent medications: Plavix Diagnosis: Estrogen deficiency Total hip: T-score= -0.1 BMD(g/cm2)= 0.930 % change from baseline(11-24-06) = -8.2* % change from previous(NA) Femoral neck: T-score= -0.9 BMD(g/cm2)= 0.753 % change from baseline(11-24-06) = -6.1* % change from previous(NA) Lumbar spine: T-score= -0.2 BMD(g/cm2)= 1.030 % change from baseline(11-24-06) = +4.9* % change from previous(NA) Conclusion: This patient has normal bone mineral density, therefore at no increased risk for fracture. When compared to her previous study in 2006, decline is present at the total hip and femoral neck, improvement noted at the lumbar spine. Consider repeating imaging in five years' time. *Asterisks denote statistically ??significant changes. ??Clinical risk factors include (but are not limited to): Postmenopausal women >65 yrs., osteopenia on x-ray. Postmenopausal women <65 yrs. if or , weight <127 lbs, surgical or natural menopause before 40, tobacco use, alcohol >2 drinks/day, first degree relative with a fracture after 45 yrs. Other: Premenopausal amenorrhea > 1 yr., RA, Crohn's, Prednisone>7.5 mg qd 3 months or longer, transplant pt. Osteopenia (T-score between -1.0 and -2.5) Osteoporosis (T-score more negative than -2.5) WHO criteria for postmenopausal females & men > age 65 or men 50-65 years with risk factors. Z-score of -2.0 or lower is defined as below the expected range for age. All treatment decisions require clinical judgment and consideration of individual patient factors, including patient preferences, co morbidities, previous drug use, risk factors not captured in the FRAX model (e.g., frailty, falls, vitamin D deficiency, increased bone turnover, interval significant decline in bone density) and possible under- or over- estimation of fracture risk by FRAX. ?? According to the National Osteoporosis Foundation, FRAX is to be used to assist with treatment decisions only in the following populations: ??An untreated postmenopausal woman or man age 50 or older with low bone mass (T-score between -1.0 and -2.5), with no prior hip or vertebral fracture, and an evaluable hip for DEXA study. ??Untreated patients include: ??No estrogen or hormone therapy, SERM, calcitonin, PTH, denosumab for the past one year, no bisphosphonates for the past two years (unless oral taken for <2 months). In addition, the National Osteoporosis Foundation Guide recommends that FDA-approved medical therapies be considered in postmenopausal women and men > or = to 50 yrs with: a. ??Hip or vertebral (clinical or morphometric) fracture. b. ??T-score of, or = -2.5 at the spine or hip c. ??Ten-year fracture probability by FRAX of > or = to 3% for hip fracture, or > or = to 20% for major osteoporotic fracture. ?? Nawaf Tian MD RAD DEXASCAN * MICROALBUMIN, RANDOM, URINE (03/01/2021 3:52 PM SENIOR SQL SERVER DATABASE DEVELOPER) Microalbumin, Urine 13.0 mg/L 03/01/2021 5:08 PM SENIOR SQL SERVER DATABASE DEVELOPER [facility] Creatinine, Urine 72.3 mg/dL 03/01/2021 5:08 PM SENIOR SQL SERVER DATABASE DEVELOPER [facility] Microalbumin/C reatinine Ratio 18 <21 mg/g 03/01/2021 5:08 PM SENIOR SQL SERVER DATABASE DEVELOPER [facility] Urine SPOT URINE SPECIMEN / Unknown Non-blood Collection / Unknown 03/01/2021 3:52 PM SENIOR SQL SERVER DATABASE DEVELOPER 03/01/2021 3:52 PM SENIOR SQL SERVER DATABASE DEVELOPER Nawaf Tian MD LAB URINE ORDERABLES [facility] [address] [place] [address], * MAMMO DIAG HYUN W 3D (01/19/2021 12:31 PM CDT) Anatomical Region Laterality Modality Breast Bilateral Mammography 01/19/2021 1:06 PM CDT Narrative 01/19/2021 1:10 PM CDT EXAM: US BREAST UNILATERAL LIMITED LT; MAMMO DIAG HYUN W 3D INDICATION: Breast mass; Breast lump TECHNIQUE: Diagnostic digital breast tomography of both breasts were obtained with synthesized and/or digital 2D views. ? This examination was reviewed with the aid of computer aided detection (CAD). ??Real time two-dimensional US also performed. COMPARISON: 12/14/2017 MAMMO DIAG UNIL RT 12/08/2017 MAMMO SCREEN HYUN 08/07/2014 MAMMOGRAM BREAST COMPOSITION: BC 2: There are scattered areas of fibroglandular densities. FINDINGS: MAMMOGRAM FINDINGS: No suspicious abnormality is confirmed in the area of concern on recent screening mammogram. ULTRASOUND FINDINGS: Hypoechoic structure within the superficial tissues of the left breast at approximately 8:30 position measuring 2.8 x 0.9 x 2.0 cm in size. ??The margins are well circumscribed. ??No internal blood flow. ??Findings are compatible with a lipoma. ??No suspicious axillary lymphadenopathy. IMPRESSION: 1. Findings compatible with a lipoma in the region of the patient's palpable abnormality. ??No evidence of malignancy. 2. Annual screening mammography is recommended. These findings were discussed with the patient at the time of the examination. RECOMMENDATION: ??BL: Bilateral RC 1: Screening Mammograms BI-RADS: BIRADS 2: Benign Procedure Note Aashish Crisostomo MD - 01/19/2021 EXAM: US BREAST UNILATERAL LIMITED LT; MAMMO DIAG HYUN W 3D INDICATION: Breast mass; Breast lump TECHNIQUE: Diagnostic digital breast tomography of both breasts were obtained with synthesized and/or digital 2D views. This examination was reviewedwith the aid of computer aided detection (CAD). Real time two-dimensional USalso performed. COMPARISON: 12/14/2017 MAMMO DIAG UNIL RT 12/08/2017 MAMMO SCREEN HYUN 08/07/2014 MAMMOGRAM BREAST COMPOSITION: BC 2: There are scattered areas of fibroglandular densities. FINDINGS: MAMMOGRAM FINDINGS: No suspicious abnormality is confirmed in the area of concern on recent screening mammogram. ULTRASOUND FINDINGS: Hypoechoic structure within the superficial tissues of the left breastat approximately 8:30 position measuring 2.8 x 0.9 x 2.0 cm in size. Themargins are well circumscribed. No internal blood flow. Findings are compatiblewith a lipoma. No suspicious axillary lymphadenopathy. IMPRESSION: 1. Findings compatible with a lipoma in the region of the patient'spalpable abnormality. No evidence of malignancy. 2. Annual screening mammography is recommended. These findings were discussed with the patient at the time of theexamination. RECOMMENDATION: BL: Bilateral RC 1: Screening Mammograms BI-RADS: BIRADS 2: Benign Nawaf Tian MD RAD MAMMO * EYE EXAM - EXTERNAL (03/15/2018) RETINOPATHY Negative [facility] Patient Reported NURSING COMMUNICATIO N Performing Organization Address [facility] Co de Phone Number [facility] [address] [place] [address], * HEPATITIS C ANTIBODY (12/08/2017 11:19 AM CDT) HEPATITIS C ANTIBODY NONREACTIVE NONR [facility] Comment: A NONREACTIVE RESULT INDICATES THE ABSENCE OF DETECTABLE LEVELS OF ANTIBODY TO HEPATITIS C VIRUS. AT PRESENT, THERE IS NO RECOGNIZED STANDARD FOR EVALUATING THE PRESENCE OR ABSENCE OF HEPATITIS C VIRUS ANTIBODIES IN HUMAN BLOOD. THEREFORE, THIS RESULT DOES NOT PRECLUDE EXPOSURE TO OR INFECTION WITH HEPATITIS C VIRUS. Blood specimen (specimen) BLOOD SPECIMEN / Unknown 12/08/2017 11:19 AM CDT 12/08/2017 2:12 PM CDT Carolynn Norris MD LAB SEROLOGY ORDERAB LES Performing Organization Address [facility] Co de Phone Number [facility] [address] [place] [address] * COLONOSCOPY (12/01/2006 3:45 PM CDT) 12/01/2006 3:45 PM CDT Narrative [facility] - 12/01/2006 4:32 PM CDT [facility] Patient Name: Yen Jr Procedure: ? Colonoscopy Indications: ? Diarrhea (longstanding and episodic), FH of Colon Cancer - ? 1st degree relative (mother age 62) Providers: ? Сергей Sandoval MD Referring MD: ?Tana Luoie MD Medicines: ? Midazolam 6 mg IV, Meperidine 50 mg IV Complications: ?? No immediate complications Procedure: ? After I obtained informed consent, the scope was passed ? under direct vision. Throughout the procedure, the patient's ? blood pressure, pulse, and oxygen saturations were monitored ? continuously. The colonoscope [id number] was introduced through ? the anus and advanced to the ileum. The quality of the prep ? was excellent. Findings: ?The terminal ileum was normal. The entire examined colon was ? normal. Biopsies were taken with a cold forceps for ? histology. Impression: ?- The terminal ileum is normal. ? - The colon is normal. This was biopsied. Recommend: ? - Await pathology results. ? - Repeat colonoscopy in 5 years for screening purposes. Сергей Sandoval MD Signed Date: 12/01/2006 4:32:37 PM Note generated on 12/01/2006 3:45:08 PM Tana Louie MD GI PROCEDURES [facility] from Last 3 Months or Most Recently Relevant to Health Maintenance Advance Directives * Full Code (Latest Code Status on File) Date Activated Date Inactivated Comments 06/29/2022 8:50 AM 07/03/2022 8:56 PM * Full Code Date Activated Date Inactivated Comments 04/03/2018 12:17 AM 04/04/2018 2:42 PM * Full Code Date Activated Date Inactivated Comments 10/19/2017 4:27 PM 10/21/2017 4:05 PM * Full Code Date Activated Date Inactivated Comments 10/04/2017 11:03 PM 10/06/2017 2:51 PM * Full Code Date Activated Date Inactivated Comments 09/25/2017 8:00 AM 09/27/2017 5:35 PM 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 [facility] [id number] PCP - General 11/05/21 Carolynn Norris MD [address] [facility] [address] [place] [phone] 05/15/17 Tana Louie MD 05/15/17 Anisa Diana PA 05/15/17 Provider, No Primary . [facility] [place] [address] 05/15/17 Skyler Roman MD [address] [place] [phone] Cardiology-Interventio nal 08/13/17 Skyler Roman MD [address] [facility] [place] [phone] Cardiology-Interventio nal 09/27/17 August Reina MD [address] [place] [phone] Cardiology-Invasive 04/04/18 August Riena MD [address] [place] [phone] Consulting Provider Cardiology-Invasive 07/03/22 Additional Source Comments PLEASE NOTE: Replies to this message will not be received.[facility]
--- OUTSIDE RECORDS SUMMARY | 2023-10-03 12:46 | XMS_ITS | Encounter Summary ---
Author Organization [employer] Address [address] [place] [address] Care Team Providers Care Principal Network Architect Name Role Phone Carolynn Norris MD Primary Care Provider [phone] Tana Louie MD Primary Care Provider Unavailab le Provider, No Primary Primary Care Provider Unava ilable Carolynn Norris MD Unavailable [phone] Tana Louie MD Unavailable Unavailable Anisa Diana Unavailable Unavailabl e Provider, No Primary Unavailable Unavailable Carolynn Norirs MD Primary Care Provider [phone] Skyler Roman MD Unavailable [phone] Skyler Roman MD Unavailable August Reina MD Unavailable August Reina MD Unavailable [phone] Nawaf Tian MD Primary Care Provider Unavail able Yen Zuluaga GRANITE SANDBLASTER APPRENTICE Unavailable -[phone] Lenny Alatorre MD Primary Care Provider Provider, No Primary Primary Care Provider Unava ilable August Reina MD Unavailable [phone] Encounter Details Date Type Department Care Team (Late st Contact Info) Description 12/15/2006 HIM Instrument Setter Generic Instrument Setter [address] [id number] Social History Tobacco Use Types Packs/Day Years [...] on filedocumented in this encounter Care Teams Principal Network Architect Relationship Specialty Start Date End Date Carolynn Norris MD [address] [phone] PCP - General 03/02/07 10/02/16 Tana Louie MD PCP - General 10/24/06 03/01/07 Provider, [place] [address] PCP - General 10/03/16 08/09/17 Carolynn Norris MD [address] [address] PCP - General Internal Medicine 08/10/17 01/10/21 Nawaf Tian MD [address] [place] [address] PCP - General Student Education Training 01/11/21 10/14/21 Lenny Alatorre MD [address] [facility] [address] [place] [phone] PCP - General Student Education Training 10/15/21 11/04/21 Provider, No Primary . [place] [address] PCP - General 11/05/21 Carolynn Norris MD [address] [place] [address] 05/15/17 Tana Louie MD 05/15/17 Anisa Diana PA 05/15/17 Provider, No Primary . [place] [address] 05/15/17 Skyler Roman MD [address] [place] [address] Cardiology-Interventio nal 08/13/17 Skyler Roman MD [address] [place] [address] Cardiology-Interventio nal 09/27/17 August Reina MD [address] [place] [address] Cardiology-Invasive 10/06/17 10/20/17 August Reina MD [address] [place] [address] Cardiology-Invasive 04/04/18 Yen Zuluaga, [facility] [phone] (Work) Cone Worker Reject Opener And Filler 01/14/21 02/13/21 August Reina MD [address] [place] [address] Consulting Provider Cardiology-Invasive 07/03/22 documented as of this encounter Additional Source Comments PLEASE NOTE: Replies to this message will not be received.[facility] and [facility]
--- OUTSIDE RECORDS SUMMARY | 2023-10-03 12:46 | XMS_ITS | Clinical Summary ---
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 90 Tablet 3 10/12/2021 Active isosorbide mononitrate (IMDUR) 30 mg oral Tablet Sustained Release 24HRIndications:Coronar y artery disease involving augustine coronary artery of augustine heart with unstable angina pectoris (HCC) Take 3 Tablets (90 mg) by mouth in the morning. 90 Tablet 03/28/2022 Active cholecalciferol, vitamin D3, (VITAMIN D3) 2,000 unit oral Capsule Take 2,000 Units by mouth once daily. 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 60 Tablet 07/03/2022 Active blood sugar diagnostic stripsIndications:Type 2 diabetes mellitus without complication, without long-term current use of insulin ([facility]) Test once daily. Testing once daily at varied times. 50 Each 5 07/03/2022 Active lancets 33 gaugeIndications:Type 2 diabetes mellitus without complication, without long-term current use of insulin ([facility]) Test once daily. Testing blood sugar once daily at varied times. 100 Each 5 07/03/2022 Active spironolactone (ALDACTONE) 25 mg oral TabletIndications:Angin a concurrent with and due to arteriosclerosis of coronary artery ([facility]) Take 1 Tablet (25 mg) by mouth [...] 08/15/1998 Tdap Vaccine, IM, (Adacel)(Boostrix) 07/20/2011, 05/27/2009 Family History Medical History Relation Name Comments Other Brother 1 coronary artery disease Other Brother 2 triple bypass a t age 32 Other Daughter alcoholism Diabetes Father Other Father coronary artery disease Colon Cancer Mother age 65 Other Mother glaucoma Cancer (other) Sister skin Relation Name Status Comments Brother 1 Brother 2 Daughter Father Mother Sister Social History Tobacco Use Types Packs/Day Years [...] week 01/11/2021 How often do you attend [facility] or baptism services? More than 4 times per year 01/11/2021 Do you belong to any clubs o r organizations such as quaker groups, unions, fraternal or athletic groups, or [...] medical care, and heating? Somewhat hard 01/11/2021 [facility] - Occupational Stress [...] place to sleep or slept in a senior care (including now)? No 01/11/2021 Depression (PHQ-9) Answer [...] Mass Index 38.38 06/29/2022 8:33 AM CDT Plan of Treatment Health Maintenance Due Date Last Done Comments Pneumococcal Vaccine (65+ Years) (1 of 2 - PCV) [address] Medicare Annual Visit [address] Colonography 2001 Fecal Immunochemical DNA Test (FIT-DNA) 2001 Fecal Immunochemical Test (FIT) 2001 Varicella Zoster Sequential (1 of 2) 2006 Colonoscopy 12/02/2011 12/01/2006 Colorectal Cancer Screening 12/02/2011 Respiratory Syncytial Virus (RSV) Vaccine (1 - 1-dose 60+ series) 2016 Foot Exam 12/08/2018 12/08/2017 Eye Exam 03/15/2019 03/15/2018, 03/15/2018 DTaP/Tdap/Td Vaccines (3 - Td or Tdap) 07/19/2021 07/20/2011, 05/27/2009, 08/15/1998 PHQ-9 Depression Screening 01/11/2022 01/11/2021 Mammogram Standard 01/19/2022 01/19/2021, 0 12/14/2017, 12/08/2017, Additional history exists Renal Assessment 03/01/2022 03/01/2021, 12/08/2017 COVID-19 Vaccine ( season) 2022 Hemoglobin A1C 12/30/2022 06/29/2022, 06/16, 01/11/2021, Additional history exists Lipids 06/30/2023 06/29/2022, 12/17, 04/02/2018, Additional history exists Influenza Vaccine (Season Ended) 2023 01/22/2018, 01/15/2006 Osteoporosis Screening 08/06/2031 08/05/2021, 2006 Hepatitis C Testing Completed 12/08/2017 HIB Vaccines Aged Out No longer eligi ble based on patient's age to complete this topic HPV Vaccines Aged Out No longer eligi ble based on patient's age to complete this topic Hepatitis A Vaccines Aged Out No long er eligible based on patient's age to complete this topic Hepatitis B Vaccines Aged Out No long er eligible based on patient's age to complete this topic Meningococcal Vaccines Aged Out No lo nger eligible based on patient's age to complete this topic Procedures Procedure Name Priority Date/Time Associated Diagnosis Comments LIPID PANEL Routine 06/29/2022 9:37 AM CDT GLYCOSYLATED HEMOGLOBIN, A1C Add On 06/29/2022 9:37 AM CDT DEXA HIP AND SPINE Routine 08/05/2021 2: 12 PM CDT Estrogen deficiency MICROALBUMIN, RANDOM, URINE Routine 03/01/2021 3:52 PM VOIP TECHNICIAN Type 2 diabetes mellitus with hyperlipidemia (HCC) [...] 6.7(H) <5.7 % 06/29/2022 1:11 PM CDT [facility] Comment: Pre-Diabetic: 5.7-6.4 % Diabetic: ?>6.5 % Estimated Average Glucose 146 mg/dL 06/29/2022 1:11 PM CDT [facility] Blood VENOUS BLOOD / Unknown Venipuncture / Unknown 06/29/2022 9:37 AM CDT 06/29/2022 9:47 AM CDT Mehran Velazquez MD LAB CHEMISTRY ORD ERABLES [facility] [address] [place] [address], * (ABNORMAL) LIPID PANEL (06/29/2022 9:37 AM CDT) Cholesterol 248(H) <200 mg/dL 06/29/2022 10:12 AM CDT [facility] Triglycerides 223(H) 30 - 150 mg/dL 06/29/2022 10:12 AM CDT [facility] Cholesterol, LDL (Calculated) 166(H) 0 - 159 mg/dL 06/29/2022 10:12 AM CDT [facility] Cholesterol, HDL 37(L) >40 mg/dL 06/30/19 23 10:12 AM CDT [facility] Cholesterol, vLDL 45 mg/dL 023 10:12 AM CDT [facility] Blood VENOUS BLOOD / Unknown Venipuncture / Unknown 06/29/2022 9:37 AM CDT 06/29/2022 9:47 AM CDT Mehran Velazquez MD LAB CHEMISTRY ORD ERABLES [facility] [address] [place] [address], [place] [phone] * DEXA HIP AND SPINE (08/05/2021 2:12 [...] * MICROALBUMIN, RANDOM, URINE (03/01/2021 3:52 PM VOIP TECHNICIAN) Microalbumin, Urine 13.0 mg/L 03/01/2021 5:[address] [facility] Creatinine, Urine 72.3 mg/dL 03/01/2021 5:[address] [facility] Microalbumin/C reatinine Ratio 18 <21 mg/g 03/01/2021 5:[address] [facility] Urine SPOT URINE SPECIMEN / Unknown Non-blood Collection / Unknown 03/01/2021 3:52 PM VOIP TECHNICIAN 03/01/2021 3:52 PM VOIP TECHNICIAN Nawaf Tian MD LAB URINE ORDERABLES [facility] [address] [place] [address], [place] * MAMMO DIAG HYUN W 3D (01/19/2021 [...] EYE EXAM - EXTERNAL (03/15/2018) RETINOPATHY Negative [facility] Patient Reported NURSING COMMUNICATIO N Performing Organization Address [facility] Co de Phone Number [facility] [address] [place] [address], * HEPATITIS C ANTIBODY (12/08/2017 11:19 AM CDT) HEPATITIS C ANTIBODY NONREACTIVE NONR [facility] Comment: A NONREACTIVE RESULT INDICATES THE ABSENCE [...] LAB SEROLOGY ORDERAB LES Performing Organization Address City/[facility] Co de Phone Number [facility] [address] [place] [address] * COLONOSCOPY (12/01/2006 3:45 PM CDT) 12/01/2006 3:45 PM CDT [facility] - 12/01/2006 4:32 PM CDT [facility] Patient Name: Yen Norris Procedure: ? Colonoscopy Indications: ? Diarrhea (longstanding and episodic), FH of Colon Cancer - ? 1st degree relative (mother age 62) Providers: ? Сергей Sandoval MD Referring MD: ?Tana Louie MD Medicines: ? Midazolam 6 mg IV, Meperidine 50 mg IV Complications: ?? No immediate complications Procedure: ? After I obtained informed consent, the scope was passed ? under direct vision. Throughout the procedure, the patient's ? blood pressure, pulse, and oxygen saturations were monitored ? continuously. The colonoscope [id number] was introduced through ? the anus and [...] 3:45:08 PM Tana Louie MD GI PROCEDURES Performing Organization Address City/State/[facility] de Phone Number [facility] from Last 3 Months or Most [...] 8:00 AM 09/27/2017 5:35 PM Care Teams Transport Manager Relationship Specialty Start Date End Date Provider, No Primary . [place] [address] PCP - General 11/05/21 Carolynn Norris MD [address] [facility] [address] [place] [phone] 05/15/17 Tana Louie MD 05/15/17 Anisa Diana PA 05/15/17 Provider, No Primary . [facility] [address] 05/15/17 Skyler Roman MD [address] [place] [address] Cardiology-Interventio nal 08/13/17 Skyler Roman MD [address] [place] [address] Cardiology-Interventio nal 09/27/17 August Reina MD [address] [place] [address] Cardiology-Invasive 04/04/18 August Reina MD [address] [place] [address] Consulting Provider Cardiology-Invasive 07/03/22 Additional Source Comments PLEASE NOTE: Replies to this message will not be received.[facility] and [facility]
--- OUTSIDE RECORDS SUMMARY | 2023-10-03 12:46 | XMS_ITS | Encounter Summary ---
Author Organization [employer] [facility] Address [address] [place] [address] Care Team Providers Care Air Traffic Control Manager Name Role Phone Carolynn Norris MD Primary Care Provider Tana Louie MD Primary Care Provider Unavailab le Provider, No Primary Primary Care Provider Unava ilable Carolynn Norris MD Unavailable [phone] Tana Louie MD Unavailable Unavailable Anisa Diana Unavailable Unavailabl e Provider, No Primary Unavailable Unavailable Carolynn Norris MD Primary Care Provider [phone] Skyler Roman MD Unavailable [phone] Skyler Roman MD Unavailable August Reina MD Unavailable August Reina MD Unavailable [phone] Nawaf Tian MD Primary Care Provider Unavail able Yen Zuluaga INTAKE NURSE Unavailable -[id number] Lenny Alatorre MD Primary Care Provider [phone] Provider, No Primary Primary Care Provider Unava ilable August Reina MD Unavailable [phone] Encounter Details Date Type Department Care Team (Late st Contact Info) Description 12/25/2006 HIM Ski Technician Generic Ski Technician [address] [id number] Social History Tobacco Use Types Packs/Day Years [...] on filedocumented in this encounter Care Teams Air Traffic Control Manager Relationship Specialty Start Date End Date Carolynn Norris MD [address] [phone] PCP - General 03/02/07 10/02/16 Tana Louie MD PCP - General 10/24/06 03/01/07 Provider, [place] [address] PCP - General 10/03/16 08/09/17 Carolynn Norris MD [address] [address] PCP - General Internal Medicine 08/10/17 01/10/21 Nawaf Tian MD [address] [place] [address] PCP - General Student Education Training 01/11/21 10/14/21 Lenny Alatorre MD [address] [facility] [address] [place] [phone] PCP - General Student Education Training 10/15/21 11/04/21 Provider, No Primary . [place] [address] PCP - General 11/05/21 Carolynn Norris MD [address] [place] [address] 05/15/17 Tana Louie MD 05/15/17 Anisa Diana PA 05/15/17 Provider, No Primary . [place] [address] 05/15/17 Skyler Roman MD [address] [place] [address] Cardiology-Interventio nal 08/13/17 Skyler Roman MD [address] [place] [address] Cardiology-Interventio nal 09/27/17 August Riena MD [address] [place] [place] [address] Cardiology-Invasive 10/06/17 10/20/17 August Reina MD [address] [place] [address] Cardiology-Invasive 04/04/18 Yen Zuluaga, [facility] [phone] (Work) Plug Paster Junior Technical Writer 01/14/21 02/13/21 August Reina MD [address] [place] [address] Consulting Provider Cardiology-Invasive 07/03/22 documented as of this encounter Additional Source Comments PLEASE NOTE: Replies to this message will not be received.[facility] and [facility]
--- OUTSIDE RECORDS SUMMARY | 2023-10-03 12:46 | XMS_ITS | Encounter Summary ---
Author Organization [employer] [facility] Address [address] [place] [address] Care Team Providers Care Mortgage Specialist Name Role Phone Carolynn Norris MD Primary Care Provider [phone] Tana Louie MD Primary Care Provider Unavailab le Provider, No Primary Primary Care Provider Unava ilable Carolynn Norris MD Unavailable [phone] Tana Louie MD Unavailable Unavailable Anisa Diana Unavailable Unavailabl e Provider, No Primary Unavailable Unavailable Carolynn Norris MD Primary Care Provider [phone] Skyler Roman MD Unavailable [phone] Skyler Roman MD Unavailable August Reina MD Unavailable [phone] August Reina MD Unavailable [phone] Nawaf Tian MD Primary Care Provider Unavail able Yen Zuluaga SENIOR CLINICIAN Unavailable -[id number] Lenny Alatorre MD Primary Care Provider Provider, No Primary Primary Care Provider Unava ilable August Reina MD Unavailable [phone] Encounter Details Date Type Department Care Team (Late st Contact Info) Description 12/21/2006 HIM Cell Biology Scientist Generic Cell Biology Scientist [address] [id number] Social History Tobacco Use Types Packs/Day Years [...] on filedocumented in this encounter Care Teams Mortgage Specialist Relationship Specialty Start Date End Date Carolynn Norris MD [address] [phone] PCP - General 03/02/07 10/02/16 Tana Louie MD PCP - General 10/24/06 03/01/07 Provider, [place] [address] PCP - General 10/03/16 08/09/17 Carolynn Norris MD [address] [address] PCP - General Internal Medicine 08/10/17 01/10/21 Nawaf Tian MD [address] [place] [address] PCP - General Student Education Training 01/11/21 10/14/21 Lenny Alatorre MD [address] [facility] [address] [place] [phone] PCP - General Student Education Training 10/15/21 11/04/21 Provider, No Primary . [place] [address] PCP - General 11/05/21 Carolynn Norris MD [address] [place] [address] 05/15/17 Tana Louie MD 05/15/17 Anisa Diana PA 05/15/17 Provider, No Primary . [place] [address] 05/15/17 Skyler Roman MD [address] [place] [address] Cardiology-Interventio nal 08/13/17 Skyler Roman MD [address] [place] [address] Cardiology-Interventio nal 09/27/17 August Reina MD [address] [place] [address] Cardiology-Invasive 10/06/17 10/20/17 August Reina MD [address] [place] [address] Cardiology-Invasive 04/04/18 Yen Zuluaga, [facility] [phone] (Work) Emt Intermediate Skidder Operator 01/14/21 02/13/21 August Reina MD [address] [place] [address] Consulting Provider Cardiology-Invasive 07/03/22 documented as of this encounter Additional Source Comments PLEASE NOTE: Replies to this message will not be received.[facility] and [facility]
--- OUTSIDE RECORDS SUMMARY | 2023-10-03 12:47 | XMS_ITS | Clinical Summary ---
Author Organization [facility] Address [address] [place] [address] Care Team Providers Care Hydro Operator Name Role Phone Elsewhere, Pcp Primary Care Provider Unavailabl e Source Comments Patient records contain information from all sites at [facility]. For routine questions regarding patient records, call [phone] during business hours, M-F 8:00 AM - 5:00 PM Central Time. Record requests for emergency care only can be directed to [phone] at any time.[facility] Allergies Active Allergy Reactions Criticality Noted Date Comments Atorvastatin Myalgia 07/02/2021 Bee Venom Protein (Honey Bee) Swelling Low 12/01/2006 Celecoxib Rash 05/15/2013 breathing difficulty Duloxetine Swelling 02/09/2012 Iodinated Contrast Media Anaphylaxis,Hives (Reselect Reaction) High 09/24/2011 Pollen Extracts Other (see comments) 12/01/2006 Rosuvastatin Myalgia Low 06/29/2022 Sulfa (Sulfonamide Antibiotics) Anaphylaxis High 12/01/2006 Medications Medication Sig Dispensed Refills Start Date End Date Status cholecalciferol (VITAMIN D3) 50 mcg (2,000 Unit) tablet Take 2,000 Units by mouth daily. Active clopidogreL (PLAVIX) 75 mg tablet Take 75 mg by mouth daily. 08/05/2022 Active esomeprazole (NexIUM) [address] capsule Take 40 mg by mouth every morning before breakfast. 07/29/2022 Active losartan (COZAAR) 50 mg tablet Take 50 mg by mouth every morning. 06/28/2022 Active loratadine (CLARITIN) 10 mg tablet Take 10 mg by mouth daily. Active metFORMIN XR (GLUCOPHAGE-XR) 500 mg 24 hr tablet Take 500 mg by mouth daily. 05/13/2022 Active nitroglycerin (NITROSTAT) 0.[address] 0.4 mg under the tongue every 5 (five) minutes as needed. Do not exceed a total of 3 doses in 15 minutes. 07/12/2022 Active spironolactone (ALDACTONE) 25 mg tablet Take 25 mg by mouth daily. 08/08/2022 Active cyanocobalamin (vitamin B-12) 1,000 mcg tablet Take 1,000 mcg by mouth daily. Active aspirin 81 mg chewable tablet Chew 1 tablet (81 mg total) 2 (two) times a day. Please take this medication twice a day for 6 weeks. After 6 weeks you can resume taking aspirin as previously prescribed. 108 tablet 03/03/2023 Active meloxicam (MOBIC) 15 mg tablet Take 1 tablet by mouth once daily 30 tablet 05/03/2023 Active ezetimibe (ZETIA) 10 mg tablet 10 mg daily. 06/05/2023 Active isosorbide mononitrate (IMDUR) 120 mg 24 hr tablet Take 1 tablet by mouth once daily 90 tablet 3 07/28/2023 Active meloxicam (MOBIC) 15 mg tablet Take 1 tablet by mouth once daily 30 tablet 08/29/2023 Active metoprolol tartrate (LOPRESSOR) 100 mg tablet Take 1 tablet by mouth twice daily 60 tablet 09/12/2023 Active metoprolol tartrate (LOPRESSOR) 100 mg tablet Take 1 tablet by mouth twice daily 60 tablet 08/17/2023 4 Discontinued Active Problems Problem Noted Date Diagnosed Date Morbid Obesity Body Mass Index 40.0-44.9 Adult 1 06/14/2022 Overview: Estimated body mass index is 40.37 kg/m?? as calculated from the following: Height as of 03/03/23: 159.5 cm. Weight as of 03/03/23: 103 kg. Aftercare Total Knee Arthroplasty 03/04/2023 Hypertension NOS 01/18/2023 Primary Osteoarthritis Knee Right 12/20/2022 Primary Osteoarthritis Knee Left 12/20/2022 Angina Unstable 08/12/2022 Coronary Artery Disease Without Angina Pectoris 08/12/2022 Hyperlipidemia 08/12/2022 Diabetes Mellitus Type 2 With Other Complication 10/09/2017 Presence Of Coronary Angiopl asty Implant And Graft Status Post 09/27/2017 Gastroesophageal Reflux Disease NOS 02/15/2008 Encounters Date Type Department Care Team Description 09/26/2023 Refill Department of Orthopedic Surgery in [place], [place] [address] [place] [phone] Gustabo Lau M.D., M.B.A. Med Refill 09/11/2023 Refill Division of Cardiovascular Diseases in [address] [address] Parul Oreilly M.B.B.S., Ph.D. Med Refill 08/28/2023 Refill Department of Orthopedic Surgery in [address] [address] Gustabo Lau M.D., M.B.A. Med Refill 08/17/2023 Refill Division of Cardiovascular Diseases in [address] [address] Parul Oreilly M.B.B.S., Ph.D. Med Refill 07/31/2023 Refill Department of Orthopedic Surgery in [address] [address] Prabhjot Haddad M.D. Med Refill 07/27/2023 Refill Department of Cardiovascular Medicine in [place], [place] [address] [place] [phone] Miguel Bagley M.D. Med Refill 07/05/2023 Orders Only Department of Orthopedic Surgery in [address] [address] Silvia Carrillo P.A.-C., M.S. 07/05/2023 Clinical Communication Department of Orthopedic Surgery in [address] [address] Gustabo Lau M.D., M.B.A. from Last 3 Months Family History Medical History Relation Name Comments Coronary artery disease Brother 1 Stone Jean Baptiste Benja druple by-pass Hyperlipidemia Brother 1 Stone Jean Baptiste Hypertension Brother 1 Stone Jean Baptiste Thyroid disease Brother 1 Stone Jean Baptiste Coronary artery disease Brother 2 Slava Jean Baptiste Rufus nts Hypertension Brother 2 Slava Jean Baptiste Hyperlipidemia Brother 3 Arpan Jean Baptiste Thyroid disease Brother 3 Arpan Jean Baptiste Arthritis Father Arpan Jean Baptiste Clotting disorder Father Arpan Jean Baptiste Colon cancer Father Arpan Jean Baptiste Colon polyps Father Arpan Jean Baptiste Coronary artery disease Father Arpan Jean Baptiste T riple by-pass Diabetes Father Arpan Jean Baptiste Hyperlipidemia Father Arpan Jean Baptiste Hypertension Father Arpan Jean Baptiste Kidney disease Father Arpan Jean Baptiste Leukemia Father Arpan Jean Baptiste The slow act ing/ dormant LCC? Thyroid disease Father Arpan Jean Baptiste Colon polyps Mother Lynne Jean Baptiste Hyperlipidemia Mother Lynne Jean Baptiste Other cancer Mother Lynne Jean Baptiste Not sure of the type Thyroid disease Mother Lynne Jean Baptiste Arthritis Paternal Grandmother Marsha Campos Markel Coronary artery disease Sister 1 Talsiha Cross Sten ts & double bypass Hyperlipidemia Sister 1 Talisha Cross Hypertension Sister 1 Talisha Cross Thyroid disease Sister 1 Talisha Cross Coronary artery disease Sister 2 Holly Palma S tents Hyperlipidemia Sister 2 Holly Palma Hypertension Sister 2 Holly Louie Thyroid disease Sister 2 Holly Louie Relation Name Status Comments Brother 1 Stone Markel Brother 2 Slava Jean Baptiste Brother 3 Arpan Jean Baptiste Father Arpan Jean Baptiste Mother Lynne Jean Baptiste Paternal Grandmother Marsha Jean Baptiste Sister 1 Talisha Mcraet Sister 2 Holly Louie Social History Tobacco Use Types Packs/Day Years Used Date Smoking Tobacco: Never Smokeless Tobacco: Never Tobacco Cessation:Counseling Given: Not Answered Alcohol Use Standard Drinks/Week Comments Never 0 (1 standard drink = 0.6 oz pur e alcohol) Humiliation, Afraid, Rape, and Kick questionnair e Answer Date Recorded Within the last year, have y ou been afraid of your partner or ex-partner? No 08/09/2022 Within the last year, have y ou been humiliated or emotionally abused in other ways by your partner or ex-partner? Patient declined 08/09/2022 Within the last year, have y ou been kicked, hit, slapped, or otherwise physically hurt by your partner or ex-partner? No 08/09/2022 Within the last year, have y ou been raped or forced to have any kind of sexual activity by your partner or ex-partner? No 08/09/2022 Social Connection and Isolat ion Panel [NHANES] Answer Date Recorded In a typical week, how many times do you talk on the phone with family, friends, or neighbors? More than three times a week 08/09/2022 How often do you get togethe r with friends or relatives? Three times a week 08/09/2022 How often do you attend chur ch or faith services? More than 4 times per year 08/09/2022 Do you belong to any clubs o r organizations such as caodaism groups, unions, fraternal or athletic groups, or school groups? Yes 08/09/2022 How often do you attend meet ings of the clubs or organizations you belong to? More than 4 times per year 08/09/2022 Are you , , di vorced, , never , or living with a partner? 08/09/2022 AUDIT-C Answer Date Recorded Q1: How often do you have a drink containing alc ohol? Never 08/09/2022 Average Number of Drinks Not on file 023 Frequency of Binge Drinking Not on file 07/17 Overall Financial Resource Strain (CARDIA) Answe r Date Recorded How hard is it for you to pa y for the very basics like food, housing, medical care, and heating? Somewhat hard 08/09/2022 [facility] - Occupational Stress Questionnaire Answer Date Recorded Do you feel stress - tense, restless, nervous, or anxious, or unable to sleep at night because your mind is troubled all the time - these days? To some extent 08/09/2022 Exercise Vital Sign Answer Date Recorde d On average, how many days pe r week do you engage in moderate to strenuous exercise (like a brisk walk)? 3 days 08/09/2022 On average, how many minutes do you engage in exercise at this level? 30 min 08/09/2022 Hunger Vital Sign Answer Date Recorded Within the past 12 months, y ou worried that your food would run out before you got the money to buy more. Never true 08/10/19 23 Within the past 12 months, t he food you bought just didn't last and you didn't have money to get more. Never true 08/09/2022 PRAPARE - Transportation Answer Date Re corded In the past 12 months, has l ack of transportation kept you from medical appointments or from getting medications? No 07/17 In the past 12 months, has l ack of transportation kept you from meetings, work, or from getting things needed for daily living? No 08/09/2022 Housing Stability Vital Sign Answer Egdar e Recorded In the last 12 months, was t here a time when you were not able to pay the mortgage or rent on time? Yes 08/09/2022 In the last 12 months, how many places have you lived? 2 08/09/2022 In the last 12 months, was t here a time when you did not have a steady place to sleep or slept in a fdc (including now)? No 08/09/2022 Nutrition Answer Date Recorded Nutrition: EVOO Fat Source Yes 08/09 On average, how many serving s of fruits and vegetables do you eat per day (serving size is equal to 1 cup or approximately the size of a tennis ball)? 4-5 08/09/2022 Dental Answer Date Recorded Dental: Regular Dentist No 08/10/19 Employment Answer Date Recorded Employment status Retired 08/09/2022 Education Answer Date Recorded What is the highest level of school you have completed or the highest degree you have received? Associate degree: academic program 08/09/2022 Sex and Gender Information Value Date Recorded Sex Assigned at Female 08/09/2022 12:21 PM CDT Gender Identity Female 08/09/2022 12:21 PM CDT Sexual Orientation Straight 08/09/2022 12 :21 PM CDT Last Filed Vital Signs Vital Sign Reading Time Taken Comments Blood Pressure 97/61 03/04/2023 12:34 PM TRAVEL AGENCY MANAGER Pulse 56 03/04/2023 12:10 PM TRAVEL AGENCY MANAGER Temperature 36.8 ??C (98.2 ??F) 03/04/2023 12:[address] Respiratory Rate 17 03/04/2023 12:10 PM TRAVEL AGENCY MANAGER Oxygen Saturation 93% 03/04/2023 12:10 PM TRAVEL AGENCY MANAGER Inhaled Oxygen Concentration - - Weight 103 kg (226 lb 6.6 oz) 03/03/2023 7:45 AM TRAVEL AGENCY MANAGER Height 159.5 cm (5' 2.8) 03/03/2023 7:45 AM TRAVEL AGENCY MANAGER Body Mass Index 40.37 03/03/2023 7:45 AM TRAVEL AGENCY MANAGER Plan of Treatment Scheduled Procedures Name Priority Associated Diagnoses Date/Ti me ARTHROPLASTY REPLACEMENT TOT AL KNEE Primary Osteoarthritis Knee Right Health Maintenance Due Date Last Done Comments Bone Density Scan (Osteoporo sis Screen) 1956 CT Colonography 1956 Cologuard 1956 Diabetic Office Visit with F oot Exam 1956 Dilated Eye Exam 1956 Hepatitis C Screening 1955 Urine Albumin 1956 Pneumococcal vaccine (65+ ye ars) (1 of 2 - PCV) 1962 Zoster Vaccines (1 of 2) 2006 Colonoscopy 12/02/2011 12/01/2006 Colorectal Cancer Surveillance 12/02/2011 Hepatitis B Vaccines (1 of 3 - Risk 3-dose series) 2016 DTaP,Tdap,and Td Vaccines (3 - Td or Tdap) 07/19/2021 07/20/2011, 05/27/2009 Mammogram 01/19/2022 01/19/2021, 08/2020, 12/08/2017, Additional history exists COVID-19 Vaccine (1 - 2022-2 4 season) 2022 Influenza Vaccine (#1) 2023 01/22/2018, 2005 Depression Screening (Annual PHQ-2) 04/17/2023 Fall Risk Screen (Annual) 04/17/2023 Lipid (Cholesterol) Screening 08/13/2023 08/12/2022 Hemoglobin A1C 08/25/2023 02/24/2023, 08/12/2022 Office Visit for Blood Press ure Check / Re-check 02/25/2024 02/24/2023 Creatinine Level (Kidney Fun ction Test) 03/04/2024 03/04/2023, 02/24/2023, 08/12/2022 Potassium Level 03/04/2024 03/04/2023, 02/15, 08/12/2022 Sodium Level 03/04/2024 03/04/2023, 02/15, 08/12/2022 Medical Devices Implanted Type Area Management Advisor Device Identifier Shelf Expiration Date Model / Serial / Lot Cardiac Stent Cardiac Stent Heart Description:EIGHT CARDIAC ST ENTS Bsplt Tib Trt Sz2 - [id number] Implanted:Qty: 1 on 03/03/2023 by Gustabo Lau M.D., M.B.A. at [facility] Knee Implant Right: Knee [place] 10/14/2027 [id number] / / [id number] Kn Fem Trt Por Cr Bead Rt Sz3 - [id number] Implanted:Qty: 1 on 03/03/2023 by Gustabo Lau M.D., M.B.A. at [facility] Knee Implant Right: Knee [place] 09/08/2027 [id number] / / [id number] Ins Tib Trt Cs Sz2 9 - [id number] Implanted:Qty: 1 on 03/03/2023 by Gustabo Lau M.D., M.B.A. at [facility] Knee Implant Right: Knee Johnson 09/04/2027 [id number] / / [id number] Procedures Procedure Name Priority Date/Time Associated Diagnosis Comments BASIC METABOLIC PANEL, S/P Routine 03/04/2023 3:38 AM TRAVEL AGENCY MANAGER HEMOGLOBIN A1C, B Routine 02/24/2023 8:0 5 AM TRAVEL AGENCY MANAGER Primary Osteoarthritis Knee Right LIPID PANEL, S Routine 08/12/2022 8:12 AM CDT Coronary Artery Disease Without Angina Pectoris BI BREAST DIAGNOSTIC BILATERAL WITH TOMOSYNTHESIS RAD - Routine (most inpatients and all outpatients) 01/19/2021 12:31 PM CDT from Last 3 Months or Most Recently Relevant to Health Maintenance Results * (ABNORMAL) Basic Metabolic Panel (03/04/2023 3:38 AM TRAVEL AGENCY MANAGER) [facility] Potassium, S 4.9 3.6 - 5.2 mmol/L 03/04/2023 4:20 AM TRAVEL AGENCY MANAGER DTL Sodium, S 138 135 - 145 mmol/L 03/04/2023 4:20 AM TRAVEL AGENCY MANAGER DTL Chloride, S 104 98 - 107 mmol/L 03/04/2023 4:20 AM TRAVEL AGENCY MANAGER DTL Bicarbonate, S 25 22 - 29 mmol/L 03/04/2023 4:20 AM TRAVEL AGENCY MANAGER DTL Anion Gap 9 7 - 15 03/04/2023 4:20 AM TRAVEL AGENCY MANAGER DTL BUN (Blood Urea Nitrogen), S 18 6 - 21 mg/dL 03/04/2023 4:20 AM TRAVEL AGENCY MANAGER DTL Creatinine 1.18(H) 0.59 - 1.04 mg/dL 03/04/2023 4:20 AM TRAVEL AGENCY MANAGER DTL Estimated GFR (eGFR) 51(L) >=60 mL/min/BSA 03/04/2023 4:20 AM TRAVEL AGENCY MANAGER DTL Comment: Estimated GFR calculated using the 2020 CKD_EPI creatinine equation. Calcium, Total, S 8.9 8.8 - 10.2 mg/dL 03/04/2023 4:20 AM TRAVEL AGENCY MANAGER DTL Glucose, S 138 70 - 140 mg/dL 03/04/2023 4:20 AM TRAVEL AGENCY MANAGER DTL Blood (Blood, Venous) 03/04/2023 3:38 AM TRAVEL AGENCY MANAGER 03/04/2023 4:03 AM TRAVEL AGENCY MANAGER Renee Eduardo M.D. LAB BLOOD ADD-ON [facility] [address] [place] [address], [facility] [address] [place] [address] * (ABNORMAL) Hemoglobin A1c (02/24/2023 8:05 AM TRAVEL AGENCY MANAGER) Hemoglobin A1c, B 6.4(H) 4.0 - 5.6 % 02/24/2023 9:06 AM TRAVEL AGENCY MANAGER DTL Comment: Hemoglobin A1c values of 5.7-6.4 percent indicate an increased risk for developing diabetes mellitus. In diabetic patients, HbA1c goals should be discussed with healthcare provider. Blood (Blood, Venous) 02/24/2023 8:05 AM TRAVEL AGENCY MANAGER 02/24/2023 8:27 AM TRAVEL AGENCY MANAGER Gustabo Lau M.D., M.B.A. LAB BLOOD ADD-ON [facility] [address] [place] [address], [facility] [address] [place] [address] * (ABNORMAL) Lipid Panel (08/12/2022 8:12 AM CDT) Triglycerides 218(H) mg/dL 08/12/2022 9:24 AM CDT DTL Comment: ----REFERENCE VALUE---- Normal: <150 mg/dL Borderline High: 150-199 mg/dL High: 200-499 mg/dL Very High: > or =500 mg/dL Cholesterol, Total 237(H) mg/dL 2022 9:24 AM CDT DTL Comment: ----REFERENCE VALUE---- Desirable: < 200 mg/dL Borderline High: 200 - 239 mg/dL High: > or = 240 mg/dL Cholesterol, LDL, Calculated 155(H) mg/dL 08/12/2022 9:24 AM CDT DTL Comment: ----REFERENCE VALUE---- Desirable: <100 mg/dL Above Desirable: 100-129 mg/dL Borderline High: 130-159 mg/dL High: 160-189 mg/dL Very High: >=190 mg/dL ----ADDITIONAL INFORMATION---- LDL cholesterol calculated using the Pineda/NIH equation. Cholesterol, HDL, S 42(L) >=50 mg/dL 08/12/2022 9:24 AM CDT DTL Cholesterol, Non-HDL, Calculated 195(H) mg/dL 08/12/2022 9:24 AM CDT DTL Comment: ----REFERENCE VALUE---- Desirable: <130 mg/dL Above Desirable: 130-159 mg/dL Borderline High: 160-189 mg/dL High: 190-219 mg/dL Very High: > or =220 mg/dL Fasting (8 HR or more) Yes 08/12/2022 8:57 AM CDT DTL Blood (Blood, Venous) 08/12/2022 8:12 AM CDT 08/12/2022 8:57 AM CDT Miguel Bagley M.D. LAB BLOOD ADD-ON [facility] [address] [place] [address], [facility] [address] [place] [address] from Last 3 Months or Most Recently Relevant to Health Maintenance Advance Directives For more information, please contact: [phone] * Full Code (Latest Code Status on File) Date Activated Date Inactivated Comments 03/03/2023 4:40 PM 03/04/2023 3:20 PM Question Answer Comments Full Code: Discussed Care Teams Hydro Operator Relationship Specialty Start Date End Date Elsewhere, Pcp PCP - General Internal Medicine 12/15/22
--- OUTSIDE RECORDS SUMMARY | 2023-10-03 12:47 | XMS_ITS | Encounter Summary ---
Author Organization [employer] Address [address] [place] [address] Care Team Providers Care Outreach Assistant Name Role Phone Carolynn Norris MD Primary Care Provider Tana Louie MD Primary Care Provider Unavailab le Provider, No Primary Primary Care Provider Unava ilable Carolynn Norris MD Unavailable [phone] Tana Louie MD Unavailable Unavailable Anisa Diana Unavailable Unavailabl e Provider, No Primary Unavailable Unavailable Carolynn Norris MD Primary Care Provider [phone] Skyler Roman MD Unavailable [phone] Skyler Roman MD Unavailable August Reina MD Unavailable August Reina MD Unavailable [phone] Nawaf Tian MD Primary Care Provider Unavail able Yen Zuluaga AQUARIUM TANK ATTENDANT Unavailable -[phone] Lenny Alatorre MD Primary Care Provider Provider, No Primary Primary Care Provider Unava ilable August Reina MD Unavailable [phone] Encounter Details Date Type Department Care Team (Late st Contact Info) Description 11/17/2006 Clinic Encounter [facility] Obstetrics/Gynecology [address] [place], [place] [phone] Tana Louie MD Social History Tobacco Use Types Packs/Day Years Used Date Smoking Tobacco: Never Assessed Sex and Gender Information Value Date Recorded Sex Assigned at Not on file Gender Identity Not on file Sexual Orientation Not on file documented as of this encounter Plan of Treatment Not on file documented as of this encounter Visit Diagnoses Not on filedocumented in this encounter Care Teams Outreach Assistant Relationship Specialty Start Date End Date Carolynn Norris MD [id number] [place] [phone] PCP - General 03/02/07 10/02/16 Tana Louie MD PCP - General 10/24/06 03/01/07 Provider, [place] [address] PCP - General 10/03/16 08/09/17 Carolynn Norris MD [address] [address] PCP - General Internal Medicine 08/10/17 01/10/21 Nawaf Tian MD [address] [place] [address] PCP - General Student Education Training 01/11/21 10/14/21 Lenny Alatorre MD [address] [facility] [address] [place] [phone] PCP - General Student Education Training 10/15/21 11/04/21 Provider, No Primary . [place] [address] PCP - General 11/05/21 Carolynn Norris MD [address] [place] [address] 05/15/17 Tana Louie MD 05/15/17 Anisa Diana PA 05/15/17 Provider, No Primary . [place] [address] 05/15/17 Skyler Roman MD [address] [place] [address] Cardiology-Interventio nal 08/13/17 Skyler Roman MD [address] [place] [address] Cardiology-Interventio nal 09/27/17 August Reina MD [address] [place] [address] Cardiology-Invasive 10/06/17 10/20/17 August Reina MD [address] [place] [address] Cardiology-Invasive 04/04/18 Yen Zuluaga, [facility] [phone] (Work) Strip Presser Buffing Machine Operator 01/14/21 02/13/21 August Reina MD [address] [place] [address] Consulting Provider Cardiology-Invasive 07/03/22 documented as of this encounter Additional Source Comments PLEASE NOTE: Replies to this message will not be received.[facility] and [facility]
--- OUTSIDE RECORDS SUMMARY | 2023-10-03 12:47 | XMS_ITS | Encounter Summary ---
Author Organization [employer] [facility] Address [address] [place] [address] Care Team Providers Care Assistant Production Manager Name Role Phone Carolynn Norris MD Primary Care Provider Tana Louie MD Primary Care Provider Unavailab le Provider, No Primary Primary Care Provider Unava ilable Carolynn Norris MD Unavailable [phone] Tana Louie MD Unavailable Unavailable Anisa Diana Unavailable Unavailabl e Provider, No Primary Unavailable Unavailable Carolynn Norris MD Primary Care Provider [phone] Skyler Roman MD Unavailable [phone] Skyler Roman MD Unavailable August Reina MD Unavailable August Reina MD Unavailable [phone] Nawaf Tian MD Primary Care Provider Unavail able Yen Zuluaga FOURDRINIER MACHINE TENDER Unavailable -[id number] Lenny Alatorre MD Primary Care Provider [phone] Provider, No Primary Primary Care Provider Unava ilable August Reina MD Unavailable [phone] Encounter Details Date Type Department Care Team (Late st Contact Info) Description 11/24/2006 Clinic Encounter [facility] Internal Medicine [address] [place], [place] [id number] Carolynn Norris MD 1900 [facility] [address] [place] [phone] Social History Tobacco Use Types Packs/Day Years Used Date Smoking Tobacco: Never Assessed Sex and Gender Information Value Date Recorded Sex Assigned at Not on file Gender Identity Not on file Sexual Orientation Not on file documented as of this encounter Progress Notes * Carolynn Norris MD - 12/15/2006 12:00 AM CDT [facility] 1900 [facility], [facility], [place] [address] [place], [place] [id number] OFFICE VISIT - [facility] PATIENT: Yen Norris DATE: 12/15/2006 CHART: [id number] : 1955 AGE: 51 ATTENDING PHYSICIAN: Tana Louie MD, FACOG CHIEF COMPLAINT: Establish care, discuss several concerns. SUBJECTIVE: The patient is a 51-year-old woman who was referred by Dr. Tana Louie for evaluation of hyperlipidemia as well as to establish care. The patient feels as if she is falling apart. Her main concerns today are that of diffuse pain and sleep disturbance. The patient has been told in the past that she has fibromyalgia. She was on nortriptyline for a short time in the past, but does not recall whether this helped or not. She has not been on any medication for her symptoms in some time. In terms of her sleep, she has a very poor sleep pattern at night. She has difficulty falling asleep secondary to musculoskeletal pain and then has frequent awakenings at night as well. She does not feel rested upon waking and constantly feels tired throughout the day. She also has frequent headaches, particularly in the morning, but these may last all day long as well. Her has recently told her that she stops breathing when she sleeps at night, and then starts gasping for air. She does snore as well. She has never had formal sleep testing performed. Chronic musculoskeletal pain/fibromyalgia. As noted above, she has been told she had fibromyalgia in the past, and tried nortriptyline for a short time. She does not recall whether this helped or not. She continues to have diffuse musculoskeletal pain, particularly in her hips and shoulders, but she states her entire body hurts as well. She had MRI testing of the right shoulder on November 24, 2006, which showed moderate AC DJD with mild bursal inflammation and inflammation at the anterior rotator cuff interval; there was also supra and infraspinatus tendinopathy with a small supraspinatus tear. She had MRI of the lumbar spine on November 24, 2006, as well that showed moderate facet degenerative changes at the lower two lumbar levels and very mild disk bulging as well as lateral recess and neural foraminal encroachment, but no evidence of vertebral compression. She has been using ibuprofen for control of her symptoms, but has been using 8 to 16 ibuprofen tablets daily. Even this does not adequately control her pain. Trials of Tylenol in the past have not been effective in controlling her symptoms. She has not noticed any joint swelling, redness, or increased warmth. No muscle weakness. GERD. The patient has a history of GERD and hiatal hernia. She believes her last endoscopy was six to seven years ago, which did show erosions. She has tried multiple proton pump inhibitors in the past, none of which were effective in controlling her symptoms until she tried Nexium. Nexium does seem to control her symptoms and she has been using this once daily. If she does not take the Nexium, she has severe heartburn, epigastric discomfort, and dyspepsia. Hyperlipidemia. The patient had recent lipid testing on October 24, 2006. This showed a total cholesterol of 271, triglycerides 181, HDL 45, and LDL 190. She states that she has tried Lipitor in the past, but this made her feel more achy. She is not interested in any medication therapy at this point. She has been unable to engage in a regular exercise regimen due to her fatigue and chronic pain. REVIEW OF SYSTEMS: As noted above. She has chronic headaches as noted above, occurring on a near daily basis. At times, she will be light sensitive as well. She does not have any associated neurologic changes otherwise. She has been experiencing some loose stools. She underwent colonoscopy on December 01, 2006. Biopsies were taken and there was eosinophilia noted. COMPREHENSIVE REVIEW OF SYSTEMS: Reviewed and is otherwise negative. She completed her full physical with Dr. Louie in October 2006. PAST MEDICAL HISTORY: 1. GERD (gastroesophageal reflux disease)/hiatal hernia. 2. Hyperlipidemia. 3. Obesity. 4. Status post hysterectomy, 1988 secondary to endometriosis. 5. Status post bilateral oophorectomy, 1995. 6. Status post laparoscopic cholecystectomy, 1997 with incidental appendectomy. 7. Status post tonsillectomy. CURRENT MEDICATIONS: 1. Ibuprofen 8 to 16 tablets daily. 2. Nexium 40 mg daily. 3. B-Complex vitamin daily. ALLERGIES: SULFA. SOCIAL HISTORY: She is and has three children and 12 grandchildren. She works at [employer]. She does not smoke. Occasional alcohol use. FAMILY HISTORY: Mother with a history of glaucoma, and colon cancer diagnosed at age 65. Father with a history of coronary artery disease. Three brothers, one with a history of coronary artery disease and triple bypass at age 32. Three sisters. OBJECTIVE: Vitals: Weight 225, height 63 inches, BMI 41, and blood pressure 132/92. General: Well-appearing, well-nourished woman in no acute distress. HEENT: Normocephalic, atraumatic. Pupils: Reactive. Conjunctivae and sclerae are clear. Mucous membranes: Moist. No oral lesions, erythema, or exudate. Neck: Supple. Nontender. No lymphadenopathy or JVD. Cardiovascular: Regular rate and rhythm. Normal S1 and S2. No appreciable murmurs, rubs, or gallops. Lungs: Clear to auscultation bilaterally. Normal respiratory effort. Back: No spinal or paraspinal tenderness. No CVA tenderness. Abdomen: Soft. Nontender. Bowel sounds present. Extremities: Warm. Nontender. Trace ankle edema. No jaundice or cyanosis. Musculoskeletal: No evidence of active synovitis. Tenderness to palpation over the fibromyalgia pressure points. Neuro: Alert and oriented to person, place, and time. No gross neurologic deficits. TEST DATA: Labs from October 24, 2006, were reviewed with results as noted in Epic. ASSESSMENT AND PLAN: 1. Sleep apnea. Patient has had witnessed apneic episodes. Symptoms also include excessive fatigue, snoring, frequent headaches, and diffuse musculoskeletal pain. She will be scheduled for a sleep study for further evaluation of this with plans for CPAP (continuous positive airway pressure) therapy to be initiated if appropriate. 2. Sleep disturbance. May be multifactorial in etiology due to the sleep apnea, chronic pain, and insomnia. She will plan to start amitriptyline 10 mg p.o. q.h.s. She will contact the office with an update, and the dose will be adjusted as necessary. Sleep study to be performed as noted above. 3. Hyperlipidemia. Lipid panel was reviewed with the patient. Options were discussed. At this time, she is not interested in retrying medication therapy. Discussed weight loss, diet modification, and regular exercise. She will be referred to the dietitian for further evaluation as well. 4. Eosinophilia noted on recent colonoscopy biopsy. May be related to her high NSAID (nonsteroidal anti-inflammatory drug) use. She is advised to decrease and/or avoid her ibuprofen use. Will also obtain a stool O and P (ova and parasites) for further evaluation as well. She will be notified with the results when available. 5. GERD (gastroesophageal reflux disease). Stable at present. Continue Nexium. 6. Chronic headaches. May be multifactorial as well due to the sleep apnea as well as possible rebound affect with her heavy ibuprofen use. She will try to wean off the ibuprofen as noted above. She is given a prescription for Midrin to use as needed. She may also gain some relief from her headaches with the use of the amitriptyline as well. Patient will plan to return within the next one to two months for followup or sooner as needed. Approximately 45 minutes was spent with the patient today, over half of which was spent reviewing her symptoms, prior workup, and management strategies. Carolynn Norris MD / A Doc #: [id number] nc: Tana Louie MD, FACOG documented in this encounter Plan of Treatment Not on file documented as of this encounter Visit Diagnoses Not on filedocumented in this encounter Care Teams Assistant Production Manager Relationship Specialty Start Date End Date Carolynn Norris MD [address] [address] PCP - General 03/02/07 10/02/16 Tana Louie MD PCP - General 10/24/06 03/01/07 Provider, [place] [address] PCP - General 10/03/16 08/09/17 Carolynn Norris MD 1906 [facility] [address] [place] [phone] PCP - General Internal Medicine 08/10/17 01/10/21 Nawaf Tian MD [address] [place] [address] PCP - General Student Education Training 01/11/21 10/14/21 Lenny Alatorre MD [address] [facility] [address] [place] [address] PCP - General Student Education Training 10/15/21 11/04/21 Provider, [place] [address] PCP - General 11/05/21 Carolynn Norris MD [address] [facility] [address] [place] [address] 05/15/17 Tana Louie MD 05/15/17 Anisa Diana PA 05/15/17 Provider, No Primary . [place] [address] 05/15/17 Skyler Roman MD [address] [place] [address] Cardiology-Interventio nal 08/13/17 Skyler Roman MD [address] [place] [address] Cardiology-Interventio nal 09/27/17 August Reina MD [address] [place] [address] Cardiology-Invasive 10/06/17 10/20/17 August Reina MD [address] [place] [address] Cardiology-Invasive 04/04/18 Yen Zuluaga, [facility] [phone] (Work) Financial Planning Analyst Shark Biologist 01/14/21 02/13/21 August Reina MD [address] [place] [address] Consulting Provider Cardiology-Invasive 07/03/22 documented as of this encounter Additional Source Comments PLEASE NOTE: Replies to this message will not be received.[facility] and [facility]
--- OUTSIDE RECORDS SUMMARY | 2023-10-03 12:47 | XMS_ITS | Encounter Summary ---
Author Organization [employer] Address [address] [place] [address] Care Team Providers Care Respite Care Provider Name Role Phone Carolynn Norris MD Primary Care Provider [phone] Tana Louie MD Primary Care Provider Unavailab le Provider, No Primary Primary Care Provider Unava ilable Carolynn Norris MD Unavailable [phone] Tana Louie MD Unavailable Unavailable Anisa Diana Unavailable Unavailabl e Provider, No Primary Unavailable Unavailable Carolynn Norris MD Primary Care Provider [phone] Skyler Roman MD Unavailable [phone] Skyler Roman MD Unavailable August Reina MD Unavailable August Reina MD Unavailable [phone] Nawaf Tian MD Primary Care Provider Unavail able Yen Zuluaga FINANCIAL SALES ADVISOR Unavailable -[id number] Lenny Alatorre MD Primary Care Provider Provider, No Primary Primary Care Provider Unava ilable August Reina MD Unavailable [phone] Encounter Details Date Type Department Care Team (Late st Contact Info) Description 12/08/2006 HIM Shift Production Associate Generic Shift Production Associate [address] [place] [id number] Social History Tobacco Use Types Packs/Day Years [...] on filedocumented in this encounter Care Teams Respite Care Provider Relationship Specialty Start Date End Date Carolynn Norris MD [address] [phone] PCP - General 03/02/07 10/02/16 Tana Louie MD PCP - General 10/24/06 03/01/07 Provider, No Primary . [place] [address] PCP - General 10/03/16 08/09/17 Carolynn Norris MD [address] [address] PCP - General Internal Medicine 08/10/17 01/10/21 Nawaf Tian MD [address] [place] [address] PCP - General Student Education Training 01/11/21 10/14/21 Lenny Alatorre MD [address] [facility] [address] [place] [address] PCP - General Student Education Training 10/15/21 11/04/21 Provider, No Primary . [place] [address] PCP - General 11/05/21 Carolynn Norris MD [address] [place] [address] 05/15/17 Tana Louie MD 05/15/17 Anias Diana PA 05/15/17 Provider, No Primary . [place] [address] 05/15/17 Skyler Roman MD [address] [place] [address] Cardiology-Interventio nal 08/13/17 Skyler Roman MD [address] [place] [address] Cardiology-Interventio nal 09/27/17 August Reina MD [address] [place] [place] [address] Cardiology-Invasive 10/06/17 10/20/17 August Reina MD [address] [place] [address] Cardiology-Invasive 04/04/18 Yen Zuluaga, [facility] [phone] (Work) Child Development Professor Cattle Feeder 01/14/21 02/13/21 August Reina MD [address] [place] [address] Consulting Provider Cardiology-Invasive 07/03/22 documented as of this encounter Additional Source Comments PLEASE NOTE: Replies to this message will not be received.[facility] and [facility]
--- OUTSIDE RECORDS SUMMARY | 2023-10-03 12:47 | XMS_ITS | Encounter Summary ---
Author Organization [employer] [facility] Address [address] [place] [address] Care Team Providers Care Pipefitter Helper Name Role Phone Carolynn Norris MD Primary Care Provider Tana Louie MD Primary Care Provider Unavailab le Provider, No Primary Primary Care Provider Unava ilable Carolynn Norris MD Unavailable [phone] Tana Louie MD Unavailable Unavailable Anisa Diana Unavailable Unavailabl e Provider, No Primary Unavailable Unavailable Carolynn Norris MD Primary Care Provider [phone] Skyler Roman MD Unavailable [phone] Skyler Roman MD Unavailable August Reina MD Unavailable August Reina MD Unavailable [phone] Nawaf Tian MD Primary Care Provider Unavail able Yen Zuluaga SUPERVISOR [employer] Unavailable -[id number] Lenny Alatorre MD Primary Care Provider [phone] Provider, No Primary Primary Care Provider Unava ilable August Reina MD Unavailable [phone] Encounter Details Date Type Department Care Team (Late st Contact Info) Description 11/28/2006 HIM Aircraft Mechanic Generic Aircraft Mechanic [address] [place] [address] Social History Tobacco Use Types Packs/Day Years Used Date Smoking Tobacco: Never Assessed Sex and Gender Information Value Date Recorded Sex Assigned at Not on file Gender Identity Not on file Sexual Orientation Not on file documented as of this encounter Plan of Treatment Not on file documented as of this encounter Visit Diagnoses Not on filedocumented in this encounter Care Teams Pipefitter Helper Relationship Specialty Start Date End Date Carolynn Norris MD [address] [place] [address] PCP - General 03/02/07 10/02/16 Tana Louie MD PCP - General 10/24/06 03/01/07 Provider, No [place] [address] PCP - General 10/03/16 08/09/17 Carolynn Norris MD [address] [place] [address] PCP - General Internal Medicine 08/10/17 01/10/21 Nawaf Tian MD [address] [place] [address] PCP - General Student Education Training 01/11/21 10/14/21 Lenny Alatorre MD [address] [facility] [address] [place] [address] PCP - General Student Education Training 10/15/21 11/04/21 Provider, No Primary . [place] [address] PCP - General 11/05/21 Carolynn Norris MD [address] [facility] [address] [place] [address] 05/15/17 Tana Louie MD 05/15/17 Anisa Diana PA 05/15/17 Provider, No Primary . [place] [address] 05/15/17 Skyler Roman MD [address] [place] [address] Cardiology-Interventio nal 08/13/17 Skyler Roman MD [address] [place] [address] Cardiology-Interventio nal 09/27/17 August Reina MD [address] [place] [address] Cardiology-Invasive 10/06/17 10/20/17 August Reina MD [address] [place] [address] Cardiology-Invasive 04/04/18 Yen Zuluaga, [facility] [phone] (Work) Quality Technician Cloth Washer Back Tender 01/14/21 02/13/21 August Reina MD [address] [place] [address] Consulting Provider Cardiology-Invasive 07/03/22 documented as of this encounter Additional Source Comments PLEASE NOTE: Replies to this message will not be received.[facility] access hospital and [facility]
--- OUTSIDE RECORDS SUMMARY | 2023-10-03 12:47 | XMS_ITS | Encounter Summary ---
Author Organization [employer] [facility] Address [address] [place] [address] Care Team Providers Care Stock Receiver Name Role Phone Carolynn Norris MD Primary Care Provider [phone] Tana Louie MD Primary Care Provider Unavailab le Provider, No Primary Primary Care Provider Unava ilable Carolynn Norris MD Unavailable [phone] Tana Louie MD Unavailable Unavailable Anisa Diana Unavailable Unavailabl e Provider, No Primary Unavailable Unavailable Carolynn Norris MD Primary Care Provider [phone] Skyler Roman MD Unavailable [phone] Skyler Roman MD Unavailable August Reina MD Unavailable [phone] August Reina MD Unavailable [phone] Nawaf Tian MD Primary Care Provider Unavail able Yen Zuluaga TERRAZZO MECHANIC Unavailable -[id number] Lenny Alatorre MD Primary Care Provider Provider, No Primary Primary Care Provider Unava ilable August Reina MD Unavailable [phone] Encounter Details Date Type Department Care Team (Late st Contact Info) Description 10/30/2006 HIM Program Engineer Generic Program Engineer [address] [place] [address] Social History Tobacco Use Types [...] on filedocumented in this encounter Care Teams Stock Receiver Relationship Specialty Start Date End Date Carolynn Norris MD [address] [place] [phone] PCP - General 03/02/07 10/02/16 Tana Louie MD PCP - General 10/24/06 03/01/07 Provider, [place] [address] PCP - General 10/03/16 08/09/17 Carolynn Norris MD [address] [place] [address] PCP - General Internal Medicine 08/10/17 01/10/21 Nawaf Tian MD [address] [place] [address] PCP - General Student Education Training 01/11/21 10/14/21 Lenny Alatorre MD [address] [facility] [address] [place] [address] PCP - General Student Education Training 10/15/21 11/04/21 Provider, No Primary . [place] [address] PCP - General 11/05/21 Carolynn Norris MD [address] [facility] [address] [place] [address] 05/15/17 Tana Louie MD 05/15/17 Anisa Diana PA 05/15/17 Provider, No Primary . [place] [address] 05/15/17 Skyler Roman MD [address] [place] [address] Cardiology-Interventio nal 08/13/17 Skyler Roman MD [address] [place] [address] Cardiology-Interventio nal 09/27/17 August Reina MD [address] [place] [address] Cardiology-Invasive 10/06/17 10/20/17 August Reina MD [address] [place] [address] Cardiology-Invasive 04/04/18 Yen Zuluaga, [facility] [phone] (Work) Technical Training Instructor Quiller Hand 01/14/21 02/13/21 August Reina MD [address] [place] [address] Consulting Provider Cardiology-Invasive 07/03/22 documented as of this encounter Additional Source Comments PLEASE NOTE: Replies to this message will not be received.[facility] and [facility]
--- OUTSIDE RECORDS SUMMARY | 2023-10-03 12:47 | XMS_ITS | Encounter Summary ---
Author Organization [employer] [facility] Address [address] [place] [address] Care Team Providers Care Apple Sorter Name Role Phone Carolynn Norris MD Primary Care Provider [phone] Tana Louie MD Primary Care Provider Unavailab Anisa Frazier Primary Care Provider Unav ailable Provider, No Primary Primary Care Provider Unava ilable Carolynn Norris MD Unavailable [phone] Tana Louie MD Unavailable Unavailable Anisa Diana Unavailable Unavailabl e Provider, No Primary Unavailable Unavailable Carolynn Norris MD Primary Care Provider [phone] Skyler Roman MD Unavailable + [phone] Skyler Roman MD Unavailable + [phone] August Reina MD Unavailable [phone] August Reina MD Unavailable [phone] Nawaf Tian MD Primary Care Provider Unavail able Yen Zuluaga ENGRAVER HAND HARD METALS Unavailable -[id number] Lenny Alatorre MD Primary Care Provider Provider, No Primary Primary Care Provider Unava ilable Mahowald, Noé MD Unavailable Encounter Details Date Type Department Care Team (Late st Contact Info) Description 10/17/2006 Clinic Encounter [facility] Obstetrics/Gynecology [address] [place] [address] Tana Louie MD Social History Tobacco Use Types Packs/Day Years Used Date Smoking Tobacco: Never Assessed Sex and Gender Information Value Date Recorded Sex Assigned at Not on file Gender Identity Not on file Sexual Orientation Not on file documented as of this encounter Progress Notes * Tana Louie MD - 10/24/2006 12:00 AM CDT [facility] Yen Norris [id number] 10/24/2006 Attending Physician: Tana Louie MD, FACOG SUBJECTIVE: A 51 -year-old 4 para 3013 who presents for annual physical. MEDICATIONS: Nexium 40 -mg daily in the morning and a generic form of Claritin. ALLERGIES: She has a sulfa allergy. MAJOR PROBLEMS: Hiatal hernia/esophageal reflux. There is mention of coronary vascular disease with hyperlipidemia, untreated. SURGERIES: She has had a hysterectomy in 1988 secondary to endometriosis, bilateral oophorectomy in 1995 at [facility], lap cholecystectomy in with incidental appendectomy and angiogram in 1999. Tonsillectomy. SOCIAL HISTORY: She denies habits of excess including alcohol, tobacco. 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 FAMILY HISTORY: Glaucoma in her mother and she currently is living. She also was diagnosed with colon cancer at age 66. Her father has had heart disease, bypass surgery of four vessels. She has three brothers, one brother at the age of 32 had a triple bypass, three sisters, one sister as an infant. She has three living children, had one stillbirth in 1976. had a pelvic fracture at childbirth she states. Her concerns today are I'm 51 so everything is falling apart. She states at this time she is currently on no medications for hypercholesterolemia. There is question of a blockage that was diagnosed at [place] and she denies chest pain or shortness of breath. She does state that her right shoulder and bicep, as well as her low back hurt. She is tired, has insomnia, just can't quite get comfortable and questions whether or not she may have fibromyalgia. OBJECTIVE: VITAL SIGNS: Height is 5'4, weight 119, BMI 37-38, blood pressure 140/78. NECK: She has no thyromegaly. CHEST: Clear. HEART: Regular rate and rhythm. BREASTS: No masses bilaterally. No nipple discharge. No lymphadenopathy. ABDOMEN: Soft and nontender. No rebound and no guarding. PELVIC: External genitalia is without lesions. Speculum is placed into the vagina. Cervix is visualized and Pap smear is performed. Uterus is small, mobile, nontender, and no adnexal masses. Rectum: digital exam reveals no masses, no abnormalities. ASSESSMENT 1. GYNECOLOGIC MAINTENANCE, PAP SMEAR PERFORMED. 2. PREVIOUS ENDOMETRIOSIS, NOW CURRENTLY HAS HAD A HYSTERECTOMY AND OOPHORECTOMY. Has been on no hormones since 1995. She at this time is really not needing Pap smears in the future as she has no cervix. 3. HEALTH MAINTENANCE: Up to date on tetanus as of 1998. Did receive a mammogram today and is doing breast self-examination. 4. POSTMENOPAUSE: Recommended a DEXA scan at her convenience. 5. ESOPHAGEAL REFLUX: Currently on Nexium 40 -mg daily. This was refilled. 6. RIGHT SHOULDER PAIN AND BACK PAIN: Recommend a right shoulder MRI along with lumbar spine MRI, possible physical therapy referral based on results, and/or orthopedic referral. 7. HEART DISEASE RISK FACTOR: She has a strong family history, she has questionable history of coronary artery blockage. It is unclear in the chart as to what it truly was. She has had a history of elevated blood pressure, today is borderline elevated. Has refused lipid treatment in the past with LDLs of 193 and HDLs of 41. She also is obese. Although she has no diabetes she will need to be tested for diabetes and feel as though comprehensive metabolic profile, as well as lipid profile is important today. 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 Feel as though she does need internal medicine follow-up and needs to establish care with an internal medicine clinic. She has a lot of risk factors for heart disease and feel as though these need to be evaluated fully. She may need to be on blood pressure medications, she may need to be on anti-cholesterol medications. PLAN: 1. Await Pap, await labs including TSH, FSH, lipid, comprehensive metabolic profile. 2. Await shoulder and back pain follow-up and will refer to internal medicine regarding her hypercholesterolemia, borderline blood pressures and concern over the potential history of blockage of her heart. This has not been addressed in the past and feel as though we do need to get her in with a primary care clinic to establish in internal medicine. Refill for Nexium 40 -mg was also given. Tana oLuie MD, FACOG/sbf P P Doc#: [id number] cc: documented in this encounter Plan of Treatment Not on file documented as of this encounter Procedures Procedure Name Priority Date/Time Associated Diagnosis Comments FOLLICLE STIMULATING HORMONE Routine 10/24/2006 12:20 PM CDT COMPREHENSIVE METABOLIC PANEL Routine 10/24/2006 12:20 PM CDT LIPID PANEL Routine 10/24/2006 12:20 PM CDT THYROID STIMULATING HORMONE Routine 10/24/2006 12:20 PM CDT documented in this encounter Results * THYROID STIMULATING HORMONE (10/24/2006 12:20 PM CDT) TSH 3.09 0.47 - 5.00 UIU/ML [facility] 10/24/2006 12:2 0 PM CDT 10/24/2006 12:21 PM CDT Tana Louie MD LAB CHEMISTRY ORDERA BLES [facility] [address] [place], [place] [phone] [id number] * (ABNORMAL) COMPREHENSIVE METABOLIC PANEL (10/24/2006 12:20 PM CDT) GLUCOSE 94 70 - 100 MG/DL [facility] BLOOD UREA NITROGEN 12.0 10.0 - 20.0 MG/DL [facility] CREATININE 0.9 0.4 - 1.4 MG/DL [facility] GFR, EST (OTHER RACES) 70 [facility] GFR,EST() >80 [facility] Comment: REFERENCE RANGE: NORMAL >80 ml/min/1.73m`2 BORDERLINE 60-80 ml/min/1.73m`2 GFR NOT CALCULATED IF <18 YEARS OLD BUN/CREAT RATIO 14.3 11.7 - 22.9 [facility] SODIUM 144 136 - 146 MMOL/L [facility] POTASSIUM 4.0 3.8 - 5.3 MMOL/L [facility] CHLORIDE 103 100 - 108 MMOL/L [facility] CO2 30.0(H) 25.0 - 29.0 MMOL/L [facility] CALCIUM 9.2 8.5 - 10.5 MG/DL [facility] TOTAL PROTEIN 7.6 6.0 - 8.0 GM/DL [facility] ALBUMIN 4.0 3.5 - 4.5 GM/DL [facility] GLOBULIN 3.6(H) 2.5 - 3.5 GM/DL [facility] A/G RATIO 1.1 1.0 - 2.0 [facility] SGPT (ALT) 40 8 - 45 U/L [facility] SGOT (AST) 37 5 - 41 U/L [facility] ALK P'TASE 89 50 - 136 U/L [facility] TOTAL BILI 0.3 0.0 - 1.5 MG/DL [facility] 10/24/2006 12:2 0 PM CDT 10/24/2006 12:21 PM CDT Tana Louie MD LAB CHEMISTRY LUKE AGUILERA [facility] * (ABNORMAL) LIPID PROFILE (10/24/2006 12:20 PM CDT) CHOLESTEROL 271(H) 0 - 200 MG/DL [facility] TRIGLYCERIDES 181(H) 30 - 150 MG/DL [facility] HDL CHOLESTEROL 45 >40 MG/DL [facility] CALCULATED VLDL 36 MG/DL [facility] CALCULATED LDL 190 MG/DL [facility] Comment: ATP III GUIDELINES (LDL) OPTIMAL: ?<100 MG/DL ABOVE OPTIMAL: 100-129 MG/DL BORDERLINE HI: 130-159 MG/DL HIGH: ?160-189 MG/DL VERY HIGH: ?>190 MG/DL 10/24/2006 12:2 0 PM CDT 10/24/2006 12:21 PM CDT Tana Louie MD LAB CHEMISTRY LUKE AGUILERA [facility] * FOLLICLE STIMULATING HORMONE (10/24/2006 12:20 PM CDT) FSH 78.1 mIU/ML [facility] Comment: EXPECTED VALUES: MALES: ?1-18 FOLLICULAR: ?? 4-13 MID-CYCLE: ?5-22 LUTEAL: ? 2-13 POST: ? 20-138 UNITS: ?mIU/ML 10/24/2006 12:2 0 PM CDT 10/24/2006 12:21 PM CDT Tana Louie MD LAB CHEMISTRY LUKE AGUILERA Performing Organization Address [facility] Co de Phone Number [facility] documented in this encounter Visit Diagnoses Not on filedocumented in this encounter Care Teams Apple Sorter Relationship Specialty Start Date End Date Carolynn Norris MD [address] [facility] [address] [place] [address] PCP - General 03/02/07 10/02/16 Tana Louie MD PCP - General 10/24/06 03/01/07 Anisa Diana PA PCP - General 11/16/05 10/23/06 Provider, [place] [address] PCP - General 10/03/16 08/09/17 Carolynn Norris MD [address] [facility] [address] [place] [address] PCP - General Internal Medicine 08/10/17 01/10/21 Nawaf Tian MD [address] [place] [place] [address] PCP - General Student Education Training 01/11/21 10/14/21 Lenny Alatorre MD [address] [facility] [address] [place] [address] PCP - General Student Education Training 10/15/21 11/04/21 Provider, [place] [address] PCP - General 11/05/21 Carolynn Norris MD [address] [facility] [address] [place] [phone] 05/15/17 Tana Louie MD 05/15/17 Anisa Diana PA 05/15/17 Provider, No Primary . [facility] [place] [address] 05/15/17 Skyler Roman MD [address] [place] [place] [address] Cardiology-Interventio nal 08/13/17 Skyler Roman MD [address] [place] [address] Cardiology-Interventio nal 09/27/17 August Reina MD [address] [place] [place] [address] Cardiology-Invasive 10/06/17 10/20/17 August Reina MD [address] [place] [address] Cardiology-Invasive 04/04/18 Yen Zuluaga, ENGRAVER HAND HARD METALS [phone] (Work) Member Of [employer] 01/14/21 02/13/21 August Reina MD [address] [place] [address] Consulting Provider Cardiology-Invasive 07/03/22 documented as of this encounter Additional Source Comments PLEASE NOTE: Replies to this message will not be received.[facility]
--- OUTSIDE RECORDS SUMMARY | 2023-10-03 12:47 | XMS_ITS | Encounter Summary ---
Author Organization [employer] [facility] Address [address] [place] [address] Care Team Providers Care Marriage Counselor Name Role Phone Carolynn Norris MD Primary Care Provider [phone] Tana Louie MD Primary Care Provider Unavailab Anisa Frazier Primary Care Provider Unav ailable Provider, No Primary Primary Care Provider Unava ilable Carolynn Norris MD Unavailable [phone] Tana Louie MD Unavailable Unavailable Anisa Diana Unavailable Unavailabl e Provider, No Primary Unavailable Unavailable Carolynn Norris MD Primary Care Provider [phone] Skyler Roman MD Unavailable + [phone] Skyler Roman MD Unavailable + [phone] August Reina MD Unavailable [phone] August Reina MD Unavailable [phone] Nawaf Tian MD Primary Care Provider Unavail able Yen Zuluaga PV DESIGN ENGINEER Unavailable -[id number] Lenny Alatorre MD Primary Care Provider Provider, No Primary Primary Care Provider Unava ilable Mahowald, Noé MD Unavailable Encounter Details Date Type Department Care Team (Late st Contact Info) Description 03/04/2005 Scan [facility] [address] [place] [address] Unknown, [place] [address] Social History Tobacco Use Types Packs/Day Years Used Date Smoking Tobacco: Never Assessed Sex and Gender Information Value Date Recorded Sex Assigned at Not on file Gender Identity Not on file Sexual Orientation Not on file documented as of this encounter Plan of Treatment Not on file documented as of this encounter Procedures Procedure Name Priority Date/Time Associated Diagnosis Comments STRESS TEST TRACINGS - S 03/04/2005 12:07 PM HARM REDUCTION WORKER documented in this encounter Results * STRESS TEST TRACINGS - S (03/04/2005 12:07 PM HARM REDUCTION WORKER) Anatomical Region Laterality Modality Other Scan Moises PROCEDURE NOTE documented in this encounter Visit Diagnoses Not on filedocumented in this encounter Care Teams Marriage Counselor Relationship Specialty Start Date End Date Carolynn Norris MD [address] [facility] [address] [facility] [place] [phone] PCP - General 03/02/07 10/02/16 Tana Louie MD PCP - General 10/24/06 03/01/07 Anisa Diana PA PCP - General 11/16/05 10/23/06 Provider, [place] [address] PCP - General 10/03/16 08/09/17 Carolynn Norris MD [id number] [place] [phone] PCP - General Internal Medicine 08/10/17 01/10/21 Nawaf Tian MD [address] [place] [address] PCP - General Student Education Training 01/11/21 10/14/21 Lenny Alatorre MD [address] [facility] [address] [place] [phone] PCP - General Student Education Training 10/15/21 11/04/21 Provider, No Primary . [place] [address] PCP - General 11/05/21 Carolynn Norris MD [address] [facility] [address] [place] [phone] 05/15/17 Tana Louie MD 05/15/17 Anisa Diana PA 05/15/17 Provider, [place] [address] 05/15/17 Skyler Roman MD [address] [place] [address] Cardiology-Interventio nal 08/13/17 Skyler Roman MD [address] [place] [address] Cardiology-Interventio nal 09/27/17 August Reina MD [address] [place] [address] Cardiology-Invasive 10/06/17 10/20/17 August Reina MD [address] [place] [address] Cardiology-Invasive 04/04/18 Yen Zuluaga, [facility] [phone] (Work) Psych Therapist Film Processing Supervisor 01/14/21 02/13/21 August Reina MD [address] [place] [address] Consulting Provider Cardiology-Invasive 07/03/22 documented as of this encounter Additional Source Comments PLEASE NOTE: Replies to this message will not be received.[facility]
--- OUTSIDE RECORDS SUMMARY | 2023-10-03 12:47 | XMS_ITS | Encounter Summary ---
Author Organization [employer] [facility] Address [address] [place] [address] Care Team Providers Care Nursing Coordinator Name Role Phone Carolynn Norris MD Primary Care Provider Tana Louie MD Primary Care Provider Unavailab Anisa Frazier Primary Care Provider Unav ailable Provider, No Primary Primary Care Provider Unava ilable Carolynn Norris MD Unavailable [phone] Tana Louie MD Unavailable Unavailable Anisa Diana Unavailable Unavailabl e Provider, No Primary Unavailable Unavailable Carolynn Norris MD Primary Care Provider [phone] Skyler Roman MD Unavailable + [phone] Skyler Roman MD Unavailable + [phone] August Reina MD Unavailable [phone] August Reina MD Unavailable [phone] Nawaf Tian MD Primary Care Provider Unavail able Yen Zuluaga SALES PROMOTER Unavailable -[id number] Lenny Alatorre MD Primary Care Provider [phone] Provider, No Primary Primary Care Provider Unava ilable Mahowald, Noé MD Unavailable Encounter Details Date Type Department Care Team (Late st Contact Info) Description 06/14/2006 HIM Bench Assembler Operator Generic Bench Assembler Operator [address] [place] [id number] Social History Tobacco Use Types Packs/Day Years Used Date Smoking Tobacco: Never Assessed Sex and Gender Information Value Date Recorded Sex Assigned at Not on file Gender Identity Not on file Sexual Orientation Not on file documented as of this encounter Plan of Treatment Not on file documented as of this encounter Visit Diagnoses Not on filedocumented in this encounter Care Teams Nursing Coordinator Relationship Specialty Start Date End Date Carolynn Norris MD [address] [phone] PCP - General 03/02/07 10/02/16 Tana Louie MD PCP - General 10/24/06 03/01/07 Anisa Diana PA PCP - General 11/16/05 10/23/06 Provider, [place] [address] PCP - General 10/03/16 08/09/17 Carolynn Norris MD [address] [phone] PCP - General Internal Medicine 08/10/17 01/10/21 Nawaf Tian MD [address] [place] [address] PCP - General Student Education Training 01/11/21 10/14/21 Lenny Alatorre MD [address] [facility] [address] [place] [phone] PCP - General Student Education Training 10/15/21 11/04/21 Provider, No Primary . [place] [address] PCP - General 11/05/21 Carolynn Norris MD [address] [phone] 05/15/17 Tana Louie MD 05/15/17 Anisa Diana PA 05/15/17 Provider, No Primary . [place] [address] 05/15/17 Skyler Roman MD [address] [place] [address] Cardiology-Interventio nal 08/13/17 Skyler Roman MD [address] [place] [address] Cardiology-Interventio nal 09/27/17 August Reina MD [address] [place] [address] Cardiology-Invasive 10/06/17 10/20/17 August Reina MD [address] [place] [address] Cardiology-Invasive 04/04/18 Yen Zuluaga, [facility] [phone] (Work) Bulk Plant Manager Material Processor 01/14/21 02/13/21 August Reina MD [address] [place] [phone] Consulting Provider Cardiology-Invasive 07/03/22 documented as of this encounter Additional Source Comments PLEASE NOTE: Replies to this message will not be received.[facility]
--- OUTSIDE RECORDS SUMMARY | 2023-10-03 12:47 | XMS_ITS | Encounter Summary ---
Author Organization [facility] Address [address] [place] [address] Care Team Providers Care Supervisor Production Managing Name Role Phone Elsewhere, Pcp Primary Care Provider Unavailabl e Reason for Visit * Reason Comments Med Refill Encounter Details Date Type Department Care Team (Late st Contact Info) Description 09/26/2023 Refill Department of Orthopedic Surgery in [place], [place] [address] [place] [phone] Gustabo Lau M.D., M.B.A. [address] [place] [phone] Med Refill Social History Tobacco Use Types Packs/Day Years Used Date Smoking Tobacco: Never Smokeless Tobacco: Never Alcohol Use Standard Drinks/Week Comments Never 0 [...] 08/09/2022 How often do you attend chur or moravian services? More than 4 times per year 08/09/2022 Do you belong to any clubs o r organizations such as anabaptism groups, unions, fraternal or athletic groups, or [...] medical care, and heating? Somewhat hard 08/09/2022 [facility] - Occupational Stress Questionnaire Answer Date [...] No 08/09/2022 Housing Stability Vital Sign Answer Edgar e Recorded In the last 12 months, [...] place to sleep or slept in a usp (including now)? No 08/09/2022 Nutrition Answer Date [...] Orientation Straight 08/09/2022 12 :21 PM CDT documented as of this encounter Plan of Treatment Scheduled Procedures Name Priority Associated Diagnoses Date/Ti me ARTHROPLASTY REPLACEMENT TOT AL KNEE Primary Osteoarthritis Knee Right documented as of this encounter Visit Diagnoses Not on filedocumented in this encounter Care Teams Supervisor Production Managing Relationship Specialty Start Date End Date Elsewhere, Pcp PCP - General Internal Medicine 12/15/22 documented as of this encounter
--- OUTSIDE RECORDS SUMMARY | 2023-10-03 12:47 | XMS_ITS | Encounter Summary ---
Author Organization [employer] [facility] Address [address] [place] [address] Care Team Providers Care Tint Layer Name Role Phone Carolynn Valerio MD Primary Care Provider Tana Louie MD Primary Care Provider Unavailab le Provider, No Primary Primary Care Provider Unava ilable Carolynn Valerio MD Unavailable [phone] Tana Louie MD Unavailable Unavailable Anisa Diana Unavailable Unavailabl e Provider, No Primary Unavailable Unavailable Carolynn Valerio MD Primary Care Provider [phone] Skyler Roman MD Unavailable [phone] Skyler Roman MD Unavailable August Reina MD Unavailable August Reina MD Unavailable [phone] Nawaf Tian MD Primary Care Provider Unavail able Yen Zuluaga CREDIT CARD INTERVIEWER Unavailable -[id number] Lenny Alatorre MD Primary Care Provider Provider, No Primary Primary Care Provider Unava ilable August Reina MD Unavailable [phone] Encounter Details Date Type Department Care Team (Late st Contact Info) Description 10/29/2006 Historical Notes [place] [address] [address] [facility] [place] [address] Francis Hermosillo MD Social History Tobacco Use Types Packs/Day Years Used Date Smoking Tobacco: Never Assessed Sex and Gender Information Value Date Recorded Sex Assigned at Not on file Gender Identity Not on file Sexual Orientation Not on file documented as of this encounter Miscellaneous Notes * Outside ETC Note - Francis Hermosillo MD - 10/29/2006 12:00 AM CDT [facility]/HEALTH INFORMATION SERVICES DEPARTMENT [address] [place] [address], [place] [address] * [phone] * FAX [phone] PATIENT: YEN VALERIO PT. STATUS: DEP UNIT #: [id number] /BED: DATE OF VISIT: 10/29/06 AGE: 51 PHYSICIAN: Francis Hermosillo MD. : 56 EMERGENCY ROOM RECORD CHIEF COMPLAINT: Bee sting. HISTORY OF PRESENT ILLNESS: Patient is a 51-year-old female seen because of a bee sting in her right hand. It is between the metacarpophalangeal joints of the second and third digits where it is hurting the most. Actually, the bee sting was on the long finger. She has been noting increased achiness in through the joints and was concerned. She does not really have any history of bee stings. This one happened on 10/27/06. She was getting progressively stiff in the joint and so was in for evaluation. PAST MEDICAL HISTORY: Unremarkable. She states she just had a physical. She does have some gastroesophageal reflux disease. ALLERGIES: Sulfa. MEDICATIONS: Nexium. PHYSICAL EXAMINATION: BP: Quite elevated at 186/109, 167/100. She states that at her physical last week nothing was said about blood pressure problems, so this is likely a pain response. Afebrile. TEMP: 36.8. PULSE: 82. RESP: 28. She rates the pain as 8 out of 10. Exam shows swelling and edema of the area around the bee sting involving the dorsum of the hand. There is really no erythema, no increased warmth to touch. ASSESSMENT: 1) Bee sting reaction. PLAN: Put her on some prednisone. She will take 20 mg b.i.d. for the next 4 days and then stop. If she continues to have problems, she was recommended to follow up with her physician. HL [id number] Francis Hermosillo MD 1544 CC: documented in this encounter Plan of Treatment Not on file documented as of this encounter Visit Diagnoses Not on filedocumented in this encounter Care Teams Tint Layer Relationship Specialty Start Date End Date Carolynn Valerio MD [address] [place] [phone] PCP - General 03/02/07 10/02/16 Tana Louie MD PCP - General 10/24/06 03/01/07 Provider, [place] [address] PCP - General 10/03/16 08/09/17 Carolynn Valerio MD [address] [address] PCP - General Internal Medicine 08/10/17 01/10/21 Nawaf Tian MD [address] [place] [address] PCP - General Student Education Training 01/11/21 10/14/21 Lenny Alatorre MD [address] [facility] [address] [place] [phone] PCP - General Student Education Training 10/15/21 11/04/21 Provider, [place] [address] PCP - General 11/05/21 Carolynn Valerio MD [address] [facility] [address] [place] [phone] 05/15/17 Tana Louie MD 05/15/17 Anisa Diana PA 05/15/17 Provider, No Primary . [facility] [place] [place] [address] 05/15/17 Skyler Roman MD [address] [place] [address] Cardiology-Interventio nal 08/13/17 Skyler Roman MD [address] [place] [place] [address] Cardiology-Interventio nal 09/27/17 August Reina MD [address] [place] [place] [address] Cardiology-Invasive 10/06/17 10/20/17 August Reina MD [address] [place] [place] [address] Cardiology-Invasive 04/04/18 Yen Zuluaga, CREDIT CARD INTERVIEWER [phone] (Work) Cloth Layer Marketing Operations Coordinator 01/14/21 02/13/21 August Reina MD [address] [place] [address] Consulting Provider Cardiology-Invasive 07/03/22 documented as of this encounter Additional Source Comments PLEASE NOTE: Replies to this message will not be received.[facility] and [facility]
--- OUTSIDE RECORDS SUMMARY | 2023-10-03 12:47 | XMS_ITS | Encounter Summary ---
Author Organization [employer] [facility] Address [address] [place] [address] Care Team Providers Care Machine Hoop Maker Helper Name Role Phone Carolynn Norris MD Primary Care Provider Tana Louie MD Primary Care Provider Unavailab le Provider, No Primary Primary Care Provider Unava ilable Carolynn Norris MD Unavailable [phone] Tana Louie MD Unavailable Unavailable Anisa Diana Unavailable Unavailabl e Provider, No Primary Unavailable Unavailable Carolynn Norris MD Primary Care Provider [phone] Skyler Roman MD Unavailable [phone] Skyler Roman MD Unavailable August Reina MD Unavailable August Reina MD Unavailable [phone] Nawaf Tian MD Primary Care Provider Unavail able Yen Zuluaga APPLICATION DESIGN ENGINEER Unavailable -[id number] Lenny Alatorre MD Primary Care Provider Provider, No Primary Primary Care Provider Unava ilable August Reina MD Unavailable [phone] Encounter Details Date Type Department Care Team (Late st Contact Info) Description 10/26/2006 HIM Wet Mix Operator Generic Wet Mix Operator [address] [place] [address] Social History Tobacco Use Types [...] on filedocumented in this encounter Care Teams Machine Hoop Maker Helper Relationship Specialty Start Date End Date Carolynn Norris MD [address] [place] [phone] PCP - General 03/02/07 10/02/16 Tana Louie MD PCP - General 10/24/06 03/01/07 Provider, [place] [address] PCP - General 10/03/16 08/09/17 Carolynn Norris MD [address] [place] [phone] PCP - General Internal Medicine 08/10/17 01/10/21 Nawaf Tian MD [address] [place] [address] PCP - General Student Education Training 01/11/21 10/14/21 Lenny Alatorre MD [address] [facility] [address] [place] [phone] PCP - General Student Education Training 10/15/21 11/04/21 Provider, No Primary . [place] [address] PCP - General 11/05/21 Carolynn Norris MD [address] [facility] [address] [place] [phone] 05/15/17 Tana Louie MD 05/15/17 Anisa Diana PA 05/15/17 Provider, No Primary . [place] [address] 05/15/17 Skyler Roman MD [address] [place] [phone] Cardiology-Interventio nal 08/13/17 Skyler Roman MD [address] [place] [phone] Cardiology-Interventio nal 09/27/17 August Reina MD [address] [place] [phone] Cardiology-Invasive 10/06/17 10/20/17 August Reina MD [address] [place] [phone] Cardiology-Invasive 04/04/18 Yen Zuluaga, [facility] [phone] (Work) Bench Tool Maker Cafe Or Restaurant Manager 01/14/21 02/13/21 August Reina MD [address] [place] [address] Consulting Provider Cardiology-Invasive 07/03/22 documented as of this encounter Additional Source Comments PLEASE NOTE: Replies to this message will not be received.[facility] and [facility]
--- OUTSIDE RECORDS SUMMARY | 2023-10-03 12:47 | XMS_ITS | Encounter Summary ---
Author Organization [employer] [facility] Address [address] [place] [address] Care Team Providers Care Electroplating Worker Name Role Phone Carolynn Norris MD Primary Care Provider Tana Louie MD Primary Care Provider Unavailab le Provider, No Primary Primary Care Provider Unava ilable Carolynn Norris MD Unavailable [phone] Tana Louie MD Unavailable Unavailable Anisa Diana Unavailable Unavailabl e Provider, No Primary Unavailable Unavailable Carolynn Norris MD Primary Care Provider [phone] Skyler Roman MD Unavailable [phone] Skyler Roman MD Unavailable August Reina MD Unavailable August Reina MD Unavailable [phone] Nawaf Tian MD Primary Care Provider Unavail able Yen Zuluaga PROBATION WORKER Unavailable -[id number] Lenny Alatorre MD Primary Care Provider Provider, No Primary Primary Care Provider Unava ilable August Reina MD Unavailable [phone] Encounter Details Date Type Department Care Team (Late st Contact Info) Description 12/13/2006 HIM Teletypesetter Generic Teletypesetter [address] [id number] Social History Tobacco Use Types Packs/Day Years [...] on filedocumented in this encounter Care Teams Electroplating Worker Relationship Specialty Start Date End Date Carolynn Norris MD [address] [phone] PCP - General 03/02/07 10/02/16 Tana Louie MD PCP - General 10/24/06 03/01/07 [place], [place] [address] PCP - General 10/03/16 08/09/17 Carolynn Norris MD [address] [address] PCP - General Internal Medicine 08/10/17 01/10/21 Nawaf Tian MD [address] [place] [address] PCP - General Student Education Training 01/11/21 10/14/21 Lenny Alatorre MD [address] [facility] [address] [place] [phone] PCP - General Student Education Training 10/15/21 11/04/21 Provider, No Primary . [place] [address] PCP - General 11/05/21 Carolynn Norris MD [address] [place] [address] 05/15/17 Tana Louie MD 05/15/17 Anisa Diana PA 05/15/17 Provider, No Primary . [place] [address] 05/15/17 Skyler Roman MD [address] [place] [address] Cardiology-Interventio nal 08/13/17 Skyler Roman MD [address] [place] [address] Cardiology-Interventio nal 09/27/17 August Reina MD [address] [place] [place] [address] Cardiology-Invasive 10/06/17 10/20/17 August Reina MD [address] [place] [address] Cardiology-Invasive 04/04/18 Yen Zuluaga, [facility] [phone] (Work) Senior Core Java Developer Assistant Project Manager 01/14/21 02/13/21 August Reina MD [address] [place] [address] Consulting Provider Cardiology-Invasive 07/03/22 documented as of this encounter Additional Source Comments PLEASE NOTE: Replies to this message will not be received.[facility] and [facility]
--- OUTSIDE RECORDS SUMMARY | 2023-10-03 12:47 | XMS_ITS ---
Author Organization [facility] Address [address] [place] [address] Care Team Providers Care Pipe Line Maintenance Supervisor Name Role Phone Unavailable Unavailable Unavailable Surgery Details Not on file Complications Check Surgery Details section. Procedure Estimated Blood Loss Check Surgery Details section. Procedure Findings Check Surgery Details section. Procedure Specimens Taken Check Surgery Details section.
--- OUTSIDE RECORDS SUMMARY | 2023-10-03 12:47 | XMS_ITS | Referral Summary ---
Author Organization [facility] Address [address] [place] [address] Care Team Providers Care Flea Market Seller Name Role Phone Elsewhere, Pcp Primary Care Provider Unavailabl e Source Comments Patient records contain information from all sites at [facility]. For routine questions regarding patient records, call [phone] during business hours, M-F 8:00 AM - 5:00 PM Central Time. Record requests for emergency care only can be directed to [phone] at any time.[facility] Encounters Date Type Department Care Team Description 09/26/2023 Refill Department of Orthopedic Surgery in [place], [place] [address] [place] [address] Gustabo Lau M.D., M.B.A. Med Refill 09/11/2023 Refill Division of Cardiovascular Diseases in [address] [address] Parul Oreilly M.B.B.S., Ph.D. Med Refill 08/28/2023 Refill Department of Orthopedic Surgery in [place], [place] [address] [place] [address] Gustabo Lau M.D., M.B.A. Med Refill 08/17/2023 Refill Division of Cardiovascular Diseases in [address] [address] Parul Oreilly M.B.B.S., Ph.D. Med Refill 07/31/2023 Refill Department of Orthopedic Surgery in [place], [place] [address] [place] [address] Prabhjot Haddad M.D. Med Refill 07/27/2023 Refill Department of Cardiovascular Medicine in [place], [place] [address] [place] [address] Miguel Bagley M.D. Med Refill 07/05/2023 Orders Only Department of Orthopedic Surgery in [place], [place] [address] [place] [address] Silvia Carrillo P.A.-C., M.S. 07/05/2023 Clinical Communication Department of Orthopedic Surgery in [place], [place] [address] [place] [address] Gustabo Lau M.D., M.B.A. from Last 3 Months Allergies Active Allergy Reactions Criticality Noted Date [...] by mouth twice daily 60 tablet 08/17/2023 Discontinued Active Problems Problem Noted Date Diagnosed [...] Post 09/27/2017 Gastroesophageal Reflux Disease NOS 02/15/2008 Social History Tobacco Use Types Packs/Day Years [...] often do you attend chur ch or moravian services? More than 4 times per year 08/09/2022 Do you belong to any clubs o r organizations such as latter day groups, unions, fraternal or athletic groups, or [...] medical care, and heating? Somewhat hard 08/09/2022 [facility] of Occupat ional Health - Occupational Stress [...] money to buy more. Never true 08/10/19 Within the past 12 months, t he [...] in a senior care (including now)? No 08/09/2022 Nutrition Answer Date [...] Comments Blood Pressure 97/61 03/04/2023 12:34 PM ADOPTION COUNSELOR Pulse 56 03/04/2023 12:10 PM ADOPTION COUNSELOR Temperature 36.8 ??C (98.2 ??F) 03/04/2023 12:[address] Respiratory Rate 17 03/04/2023 12:10 PM ADOPTION COUNSELOR Oxygen Saturation 93% 03/04/2023 12:10 PM ADOPTION COUNSELOR Inhaled Oxygen Concentration - - Weight 103 kg (226 lb 6.6 oz) 03/03/2023 7:45 AM ADOPTION COUNSELOR Height 159.5 cm (5' 2.8) 03/03/2023 7:45 AM ADOPTION COUNSELOR Body Mass Index 40.37 03/03/2023 7:45 AM ADOPTION COUNSELOR Plan of Treatment Scheduled Procedures Name Priority Associated Diagnoses Date/Ti me ARTHROPLASTY REPLACEMENT TOT AL KNEE Primary Osteoarthritis Knee Right Medical Devices Implanted Type Area Compensation Specialist Device Identifier Shelf Expiration Date Model / Serial / Lot Cardiac Stent Cardiac Stent Heart Description:EIGHT CARDIAC ST ENTS Bsplt Tib Trt Sz2 - [id number] Implanted:Qty: 1 on 03/03/2023 by Gustabo Lau M.D., M.B.A. at [facility] Knee Implant Right: Knee Edison 10/14/2027 [id number] / / [id number] Kn Fem Trt Por Cr Bead Rt Sz3 - [id number] Implanted:Qty: 1 on 03/03/2023 by Gustabo Lau M.D., M.B.A. at [facility] Knee Implant Right: Knee Edison 09/08/2027 5517-[id number] / / [id number] Ins Tib Trt Cs Sz2 9 - [id number] Implanted:Qty: 1 on 03/03/2023 by Gustabo Lau M.D., M.B.A. at [facility] Knee Implant Right: Knee Johnson 09/04/2027 [id number] -[id number] / / [id number] Procedures Procedure Name Priority Date/Time Associated Diagnosis Comments BASIC METABOLIC PANEL, S/P Routine 03/04/2023 3:38 AM ADOPTION COUNSELOR HEMOGLOBIN A1C, B Routine 02/24/2023 8:0 5 AM ADOPTION COUNSELOR Primary Osteoarthritis Knee Right LIPID PANEL, S Routine 08/12/2022 8:12 AM CDT Coronary Artery Disease Without Angina Pectoris BI BREAST DIAGNOSTIC BILATERAL WITH TOMOSYNTHESIS RAD - Routine (most inpatients and all outpatients) 01/19/2021 12:31 PM CDT from Last 3 Months or Most Recently Relevant to Health Maintenance Results * (ABNORMAL) Basic Metabolic Panel (03/04/2023 3:38 AM ADOPTION COUNSELOR) Pathologist [facility] Potassium, S 4.9 3.6 - 5.2 mmol/L 03/04/2023 4:20 AM ADOPTION COUNSELOR DTL Sodium, S 138 135 - 145 mmol/L 03/04/2023 4:20 AM ADOPTION COUNSELOR DTL Chloride, S 104 98 - 107 mmol/L 03/04/2023 4:20 AM ADOPTION COUNSELOR DTL Bicarbonate, S 25 22 - 29 mmol/L 03/04/2023 4:20 AM ADOPTION COUNSELOR DTL Anion Gap 9 7 - 15 03/04/2023 4:20 AM ADOPTION COUNSELOR DTL BUN (Blood Urea Nitrogen), S 18 6 - 21 mg/dL 03/04/2023 4:20 AM ADOPTION COUNSELOR DTL Creatinine 1.18(H) 0.59 - 1.04 mg/dL 03/04/2023 4:20 AM ADOPTION COUNSELOR DTL Estimated GFR (eGFR) 51(L) >=60 mL/min/BSA 03/04/2023 4:20 AM ADOPTION COUNSELOR DTL Comment: Estimated GFR calculated using the 2020 CKD_EPI creatinine equation. Calcium, Total, S 8.9 8.8 - 10.2 mg/dL 03/04/2023 4:20 AM ADOPTION COUNSELOR DTL Glucose, S 138 70 - 140 mg/dL 03/04/2023 4:20 AM ADOPTION COUNSELOR DTL Blood (Blood, Venous) 03/04/2023 3:38 AM ADOPTION COUNSELOR 03/04/2023 4:03 AM ADOPTION COUNSELOR Renee Eduardo M.D. LAB BLOOD ADD-ON Performing Organization Address [facility] Co de Phone Number [facility] [address] [place] [address] * (ABNORMAL) Hemoglobin A1c (02/24/2023 8:05 AM ADOPTION COUNSELOR) Hemoglobin A1c, B 6.4(H) 4.0 - 5.6 % 02/24/2023 9:06 AM ADOPTION COUNSELOR DTL Comment: Hemoglobin A1c values of 5.7-6.4 percent indicate an increased risk for developing diabetes mellitus. In diabetic patients, HbA1c goals should be discussed with healthcare provider. Blood (Blood, Venous) 02/24/2023 8:05 AM ADOPTION COUNSELOR 02/24/2023 8:27 AM ADOPTION COUNSELOR Gustabo Lau M.D., M.B.A. LAB BLOOD ADD-ON Performing Organization Address [facility] Co de Phone Number [facility] [address] [place] [address] * (ABNORMAL) Lipid Panel (08/12/2022 8:12 AM [...] CDT Miguel Bagley M.D. LAB BLOOD ADD-ON [facility] [address] [place] [address], [facility] [address] [place] [address] from Last 3 Months or Most Recently Relevant to Health Maintenance Advance Directives For more information, please contact: [phone] * Full Code (Latest Code Status on File) Date Activated Date Inactivated Comments 03/03/2023 4:40 PM 03/04/2023 3:20 PM Question Answer Comments Full Code: Discussed Care Teams Flea Market Seller Relationship Specialty Start Date End Date Elsewhere, Pcp PCP - General Internal Medicine 12/15/22
--- OUTSIDE RECORDS SUMMARY | 2023-10-03 12:48 | XMS_ITS | Encounter Summary ---
Author Organization [facility] Address [address] [place] [address] Care Team Providers Care Dairy Science Teacher Name Role Phone Elsewhere, Pcp Primary Care Provider Unavailabl e Reason for Visit * Reason Comments Med Refill Encounter Details Date Type Department Care Team (Late st Contact Info) Description 07/27/2023 Refill Department of Cardiovascular Medicine in [place], [place] [address] [place] [address] Miguel Bagley M.D. [address] [place] [address] Med Refill Social History Tobacco Use Types [...] often do you attend chur ch or hoahaoism services? More than 4 times per year [...] medical care, and heating? Somewhat hard 08/09/2022 [facility] of Occupat ional Health - [...] place to sleep or slept in a detention (including now)? No 08/09/2022 Nutrition Answer Date [...] on filedocumented in this encounter Care Teams Dairy Science Teacher Relationship Specialty Start Date End Date Elsewhere, Pcp PCP - General Internal Medicine 12/15/22 documented as of this encounter
--- OUTSIDE RECORDS SUMMARY | 2023-10-03 12:48 | XMS_ITS | Encounter Summary ---
Author Organization [facility] Address [address] [place] [address] Care Team Providers Care Software Development Advisor Name Role Phone Elsewhere, Pcp Primary Care Provider Unavailabl e Reason for Visit * Reason Comments Med Refill Encounter Details Date Type Department Care Team (Late st Contact Info) Description 09/11/2023 Refill Division of Cardiovascular Diseases in [place], [place] [address] [place] [phone] Parul Oreilly M.B.B.S., Ph.D. [address] [place] [phone] Med Refill Social History Tobacco Use Types [...] often do you attend chur ch or rastafari services? More than 4 times per year 08/09/2022 Do you belong to any clubs o r organizations such as druze groups, unions, fraternal or athletic groups, or [...] medical care, and heating? Somewhat hard 08/09/2022 [facility] of Occupat ional Health [...] place to sleep or slept in a mcc (including now)? No 08/09/2022 Nutrition Answer Date [...] on filedocumented in this encounter Care Teams Software Development Advisor Relationship Specialty Start Date End Date Elsewhere, Pcp PCP - General Internal Medicine 12/15/22 documented as of this encounter
--- OUTSIDE RECORDS SUMMARY | 2023-10-03 12:48 | XMS_ITS | Encounter Summary ---
Author Organization [facility] Address [address] [place] [address] Care Team Providers Care Replanting Machine Crewman Name Role Phone Elsewhere, Pcp Primary Care Provider Unavailabl e Encounter Details Date Type Department Care Team (Late st Contact Info) Description 07/05/2023 Clinical Communication Department of Orthopedic Surgery in [place], [place] [address] [place] [address] Gustabo Lau M.D., M.B.A. [address] [place] [phone] Social History Tobacco Use Types Packs/Day Years [...] How often do you attend chur or yarsanism services? More than 4 times per year [...] medical care, and heating? Somewhat hard 08/09/2022 [facility] of Occupat ional Health - [...] place to sleep or slept in a long term (including now)? No 08/09/2022 Nutrition Answer Date [...] on filedocumented in this encounter Care Teams Replanting Machine Crewman Relationship Specialty Start Date End Date Elsewhere, Pcp PCP - General Internal Medicine 12/15/22 documented as of this encounter
--- OUTSIDE RECORDS SUMMARY | 2023-10-03 12:48 | XMS_ITS | Encounter Summary ---
Author Organization [facility] Address [address] [place] [address] Care Team Providers Care Utility Worker Roller Shop Name Role Phone Elsewhere, Pcp Primary Care Provider Unavailabl e Reason for Visit * Reason Comments Med Refill Encounter Details Date Type Department Care Team (Late st Contact Info) Description 08/17/2023 Refill Division of Cardiovascular Diseases in [place], [place] [address] [place] [phone] Parul Oreilly M.B.B.S., Ph.D. [address] [place] [phone] Med Refill Social History Tobacco Use Types [...] often do you attend chur ch or buddhist services? More than 4 times per year 08/09/2022 Do you belong to any clubs o r organizations such as sikhism groups, unions, fraternal or athletic groups, or [...] medical care, and heating? Somewhat hard 08/09/2022 [facility] of Occupat ional Health - Occupational Stress [...] place to sleep or slept in a half-way (including now)? No 08/09/2022 Nutrition Answer Date [...] on filedocumented in this encounter Care Teams Utility Worker Roller Shop Relationship Specialty Start Date End Date Elsewhere, Pcp PCP - General Internal Medicine 12/15/22 documented as of this encounter
--- OUTSIDE RECORDS SUMMARY | 2023-10-03 12:48 | XMS_ITS | Encounter Summary ---
Author Organization [facility] Address [address] [place] [address] Care Team Providers Care Meter Tester Name Role Phone Elsewhere, Pcp Primary Care Provider Unavailabl e Reason for Visit * Reason Comments Med Refill Encounter Details Date Type Department Care Team (Late st Contact Info) Description 06/20/2023 Refill Department of Orthopedic Surgery in [place], [place] [address] [place] [phone] Gustabo Lau M.D., M.B.A. [address] [place] [phone] Med Refill Social History Tobacco Use Types [...] How often do you attend chur or buddhist services? More than 4 times per year 08/09/2022 Do you belong to any clubs o r organizations such as christianity groups, unions, fraternal or athletic groups, or [...] medical care, and heating? Somewhat hard 08/09/2022 [facility] - Occupational Stress Questionnaire Answer Date [...] in a nursing home (including now)? No 08/09/2022 Nutrition Answer Date [...] on filedocumented in this encounter Care Teams Meter Tester Relationship Specialty Start Date End Date Elsewhere, Pcp PCP - General Internal Medicine 12/15/22 documented as of this encounter
--- OUTSIDE RECORDS SUMMARY | 2023-10-03 12:48 | XMS_ITS | Encounter Summary ---
Author Organization [facility] Address [address] [place] [address] Care Team Providers Care Wire Border Assembler Name Role Phone Elsewhere, Pcp Primary Care Provider Unavailabl e Reason for Visit * Reason Comments Med Refill Encounter Details Date Type Department Care Team (Late st Contact Info) Description 08/28/2023 Refill Department of Orthopedic Surgery in [place], [place] [address] [place] [phone] Gustabo Lau M.D., M.B.A. [address] [place] [phone] Med Refill Social History Tobacco Use Types [...] How often do you attend chur or mosque services? More than 4 times per year 08/09/2022 Do you belong to any clubs o r organizations such as yarsani groups, unions, fraternal or athletic groups, or [...] medical care, and heating? Somewhat hard 08/09/2022 [facility] - Occupational Stress Questionnaire Answer Date [...] on filedocumented in this encounter Care Teams Wire Border Assembler Relationship Specialty Start Date End Date Elsewhere, Pcp PCP - General Internal Medicine 12/15/22 documented as of this encounter
--- OUTSIDE RECORDS SUMMARY | 2023-10-03 12:48 | XMS_ITS | Encounter Summary ---
Author Organization [facility] Address [address] [place] [address] Care Team Providers Care Knife Blade Polisher Name Role Phone Elsewhere, Pcp Primary Care Provider Unavailabl e Encounter Details Date Type Department Care Team (Late st Contact Info) Description 07/05/2023 Orders Only Department of Orthopedic Surgery in [place], [place] [address] [place] [address] Silvia Carrillo P.A.-Andrea., M.S. [address] [place] [address] Social History Tobacco Use Types Packs/Day Years [...] How often do you attend chur or yazidi services? More than 4 times per year 08/09/2022 Do you belong to any clubs o r organizations such as alevism groups, unions, fraternal or athletic groups, or [...] medical care, and heating? Somewhat hard 08/09/2022 [facility] - [...] on filedocumented in this encounter Care Teams Knife Blade Polisher Relationship Specialty Start Date End Date Elsewhere, Pcp PCP - General Internal Medicine 12/15/22 documented as of this encounter
--- OUTSIDE RECORDS SUMMARY | 2023-10-03 12:48 | XMS_ITS | Encounter Summary ---
Author Organization [facility] Address [address] [place] [address] Care Team Providers Care Mail Machine Operator Name Role Phone Elsewhere, Pcp Primary Care Provider Unavailabl e Reason for Visit * Reason Comments Med Refill Encounter Details Date Type Department Care Team (Late st Contact Info) Description 07/31/2023 Refill Department of Orthopedic Surgery in [place], [place] [address] [place] [phone] Prabhjot Haddad M.D. [address] [place] [phone] Med Refill Social History Tobacco Use Types [...] often do you attend chur ch or zoroastrian services? More than 4 times per year 08/09/2022 Do you belong to any clubs o r organizations such as roman catholic groups, unions, fraternal or athletic groups, or [...] medical care, and heating? Somewhat hard 08/09/2022 [facility] Occup[facility] ional Health - Occupational [...] place to sleep or slept in a assisted (including now)? No 08/09/2022 Nutrition Answer Date [...] on filedocumented in this encounter Care Teams Mail Machine Operator Relationship Specialty Start Date End Date Elsewhere, Pcp PCP - General Internal Medicine 12/15/22 documented as of this encounter
--- NOTE | 2023-10-03 13:20 | CRLHL7_ITS ---
For Patients: As a result of the Century Cures Act, medical imaging exams and procedure reports are released immediately into your electronic medical record. You may view this report before your referring provider. If you have questions, please contact your health care provider. BILATERAL SCREENING MAMMOGRAM WITH COMPUTER-AIDED DETECTION AND TOMOSYNTHESIS TECHNIQUE: CC and MLO views were obtained. These mammographic images have been obtained using full-field digital technique. These mammographic images were interpreted with the benefit of computer-aided detection. Breast tomosynthesis was used in this interpretation. COMPARISON FILM: 07/15/22, 01/19/21, 12/08/17. FINDINGS: There are scattered areas of fibroglandular density. IMPRESSION: There is no radiographic evidence for malignancy. ASSESSMENT: BI-RADS Category 2: Benign RECOMMENDATION: Routine screening mammogram in 1 year. A lay language report of this examination will be provided to the patient. FRANCIS RAMOS M.D. Diagnostic Radiologist [email or web address] Transcribed: 2:[address]/Dictated by: Francis Ramos MD @ 10/04/2023 12:30:00 PM (Electronically Signed)
== END 2023-10-03 12:44 | disposition home or self-care (01) ==
LOC: MAMMO 12:44
PROVIDERS: PCP Internal Medicine; Visit Provider Internal Medicine
DX: Z12.31 Encounter for screening mammogram for malignant neoplasm of breast (principal)
CPT/HCPCS: 77063; 77067

== ENCOUNTER 2024-01-12 10:03 | Outpatient (CLI) | payer MEDICARE, SELFPAY ==
--- OUTSIDE RECORDS SUMMARY | 2024-01-16 22:37 | XMS_ITS | Encounter Summary ---
Author Organization [employer] [facility] Address [address] [place] [address] Care Team Providers Care Beehive Kiln Supervisor Name Role Phone Carolynn Norris MD Primary Care Provider Tana Louie MD Primary Care Provider Unavailab le Provider, No Primary Primary Care Provider Unava ilable Carolynn Norris MD Unavailable [phone] Tana Louie MD Unavailable Unavailable Anisa Diana Unavailable Unavailabl e Provider, No Primary Unavailable Unavailable Carolynn Norris MD Primary Care Provider [phone] Skyler Roman MD Unavailable [phone] Skyler Roman MD Unavailable August Reina MD Unavailable August Reina MD Unavailable [phone] Nawaf Tian MD Primary Care Provider Unavail able Yen Zuluaga PRINCIPAL CONSULTANT Unavailable -[id number] Lenny Alatorre MD Primary Care Provider Provider, No Primary Primary Care Provider Unava ilable August Reina MD Unavailable [phone] Encounter Details Date Type Department Care Team (Late st Contact Info) Description 12/08/2006 HIM Relays Draftsperson Generic Relays Draftsperson [address] [id number] Social History Tobacco Use Types Packs/Day Years [...] on filedocumented in this encounter Care Teams Beehive Kiln Supervisor Relationship Specialty Start Date End Date Carolynn Norris MD [address] [phone] PCP - General 03/02/07 10/02/16 Tana Louie MD PCP - General 10/24/06 03/01/07 Provider, [place] [address] PCP - General 10/03/16 08/09/17 Carolynn Norris MD [address] [address] PCP - General Internal Medicine 08/10/17 01/10/21 Nawaf Tian MD [address] [place] [address] PCP - General Student Education Training 01/11/21 10/14/21 Lenny Alatorre MD [address] [facility] [address] [place] [phone] PCP - General Student Education Training 10/15/21 11/04/21 Provider, No Primary . [place] [address] PCP - General 11/05/21 Carolynn Norris MD [address] [place] [address] 05/15/17 Tana Louie MD 05/15/17 Anisa Diana PA 05/15/17 Provider, No Primary . [place] [address] 05/15/17 Skyler Roman MD [address] [place] [address] Cardiology-Interventio nal 08/13/17 Skyler Roman MD [address] [place] [address] Cardiology-Interventio nal 09/27/17 August Reina MD [address] [place] [address] Cardiology-Invasive 10/06/17 10/20/17 August Reina MD [address] [place] [address] Cardiology-Invasive 04/04/18 Yen Zuluaga, [facility] [phone] (Work) Medical Housekeeper Amortization Schedule Clerk 01/14/21 02/13/21 August Reina MD [address] [place] [address] Consulting Provider Cardiology-Invasive 07/03/22 documented as of this encounter Additional Source Comments PLEASE NOTE: Replies to this message will not be received.[facility] and [facility]
--- OUTSIDE RECORDS SUMMARY | 2024-01-16 22:37 | XMS_ITS | Encounter Summary ---
Author Organization [employer] [facility] Address [address] [place] [address] Care Team Providers Care Charger Name Role Phone Carolynn Norris MD Primary Care Provider Tana Louie MD Primary Care Provider Unavailab le Provider, No Primary Primary Care Provider Unava ilable Carolynn Norris MD Unavailable [phone] Tana Louie MD Unavailable Unavailable Anisa Diana Unavailable Unavailabl e Provider, No Primary Unavailable Unavailable Carolynn Norris MD Primary Care Provider [phone] Skyler Roman MD Unavailable [phone] Skyler Roman MD Unavailable August Reina MD Unavailable [phone] August Reina MD Unavailable [phone] Nawaf Tian MD Primary Care Provider Unavail able Yen Zuluaga MENTALLY IMPAIRED TEACHER Unavailable -[id number] Lenny Alatorre MD Primary Care Provider Provider, No Primary Primary Care Provider Unava ilable August Reina MD Unavailable [phone] Encounter Details Date Type Department Care Team (Late st Contact Info) Description 12/19/2006 HIM Bit Tripoler Generic Bit Tripoler [address] [id number] Social History Tobacco Use Types Packs/Day Years [...] on filedocumented in this encounter Care Teams Charger Relationship Specialty Start Date End Date Carolynn Norris MD [address] [phone] PCP - General 03/02/07 10/02/16 Tana Louie MD PCP - General 10/24/06 03/01/07 Provider, [place] [address] PCP - General 10/03/16 08/09/17 Carolynn Norris MD [address] [address] PCP - General Internal Medicine 08/10/17 01/10/21 Nawaf Tian MD [address] [place] [address] PCP - General Student Education Training 01/11/21 10/14/21 Lenny Alatorre MD [address] [facility] [address] [place] [phone] PCP - General Student Education Training 10/15/21 11/04/21 Provider, No Primary . [place] [address] PCP - General 11/05/21 Carolynn Norris MD [address] [place] [address] 05/15/17 Tana Louie MD 05/15/17 Anisa Diana PA 05/15/17 Provider, No Primary . [place] [address] 05/15/17 Skyler Roman MD [address] [place] [address] Cardiology-Interventio nal 08/13/17 Skyler Roman MD [address] [place] [address] Cardiology-Interventio nal 09/27/17 August Reina MD [address] [place] [address] Cardiology-Invasive 10/06/17 10/20/17 August Reina MD [address] [place] [address] Cardiology-Invasive 04/04/18 Yen Zuluaga, [facility] [phone] (Work) Executive Cyber Leader Dermatology Nurse Practitioner 01/14/21 02/13/21 August Reina MD [address] [place] [address] Consulting Provider Cardiology-Invasive 07/03/22 documented as of this encounter Additional Source Comments PLEASE NOTE: Replies to this message will not be received.[facility] and [facility]
--- OUTSIDE RECORDS SUMMARY | 2024-01-16 22:37 | XMS_ITS | Encounter Summary ---
Author Organization [employer] [facility] Address [address] [place] [address] Care Team Providers Care Crew Leader Name Role Phone Carolynn Norris MD Primary Care Provider Tana Louie MD Primary Care Provider Unavailab le Provider, No Primary Primary Care Provider Unava ilable Carolynn Norris MD Unavailable [phone] Tana Louie MD Unavailable Unavailable Anisa Diaan Unavailable Unavailabl e Provider, No Primary Unavailable Unavailable Carolynn Norris MD Primary Care Provider [phone] Skyler Roman MD Unavailable [phone] Skyler Roman MD Unavailable August Reina MD Unavailable [phone] August Reina MD Unavailable [phone] Nawaf Tian MD Primary Care Provider Unavail able Yen Zuluaga RADIATION CONTROL HEALTH PHYSICIST Unavailable -[id number] Lenny Alatorre MD Primary Care Provider Provider, No Primary Primary Care Provider Unava ilable August Reina MD Unavailable [phone] Encounter Details Date Type Department Care Team (Late st Contact Info) Description 12/13/2006 HIM Flight Communications Specialist Generic Flight Communications Specialist [address] [phone] Social History Tobacco Use Types Packs/Day Years [...] on filedocumented in this encounter Care Teams Crew Leader Relationship Specialty Start Date End Date Carolynn Norris MD [address] [phone] PCP - General 03/02/07 10/02/16 Tana Louie MD PCP - General 10/24/06 03/01/07 Provider, [place] [address] PCP - General 10/03/16 08/09/17 Carolynn Norris MD [address] [address] PCP - General Internal Medicine 08/10/17 01/10/21 Nawaf Tian MD [address] [place] [address] PCP - General Student Education Training 01/11/21 10/14/21 Lenny Alatorre MD [address] [facility] [address] [place] [address] PCP - General Student Education Training 10/15/21 11/04/21 Provider, No Primary . [place] [address] PCP - General 11/05/21 Carolynn Norris MD [address] [place] [address] 05/15/17 Tana Louie MD 05/15/17 Anisa Diana PA 05/15/17 Provider, No Primary . [place] [address] 05/15/17 Skyler Roman MD [address] [place] [address] Cardiology-Interventio nal 08/13/17 Skyler Roman MD [address] [place] [address] Cardiology-Interventio nal 09/27/17 August Reina MD [address] [place] [address] Cardiology-Invasive 10/06/17 10/20/17 August Reina MD [address] [place] [address] Cardiology-Invasive 04/04/18 Yen Zuluaga, [facility] [phone] (Work) Instrument Repair Specialist Dimensional Integration Engineer 01/14/21 02/13/21 uAgust Reina MD [address] [place] [address] Consulting Provider Cardiology-Invasive 07/03/22 documented as of this encounter Additional Source Comments PLEASE NOTE: Replies to this message will not be received.[facility] and [facility]
--- OUTSIDE RECORDS SUMMARY | 2024-01-16 22:37 | XMS_ITS | Encounter Summary ---
Author Organization [employer] [facility] Address [address] [place] [address] Care Team Providers Care Blueprint Processor Name Role Phone Carolynn Norris MD Primary Care Provider [phone] Tana Louie MD Primary Care Provider Unavailab le Provider, No Primary Primary Care Provider Unava ilable Carolynn Norris MD Unavailable [phone] Tana Louie MD Unavailable Unavailable Anisa Diana Unavailable Unavailabl e Provider, No Primary Unavailable Unavailable Carolynn Norris MD Primary Care Provider [phone] Skyler Roman MD Unavailable [phone] Skyler Roman MD Unavailable August Reina MD Unavailable August Reina MD Unavailable [phone] Nawaf Tian MD Primary Care Provider Unavail able Yen Zuluaga DISHWASHING MACHINE OPERATOR Unavailable -[id number] Lenny Alatorre MD Primary Care Provider [phone] Provider, No Primary Primary Care Provider Unava ilable August Reina MD Unavailable [phone] Encounter Details Date Type Department Care Team (Late st Contact Info) Description 11/28/2006 HIM Delivery Tech Generic Delivery Tech [address] [place] [address] Social History Tobacco Use Types [...] on filedocumented in this encounter Care Teams Blueprint Processor Relationship Specialty Start Date End Date Carolynn Norris MD [address] [place] [phone] PCP - General 03/02/07 10/02/16 Tana Louie MD PCP - General 10/24/06 03/01/07 Provider, [place] [address] PCP - General 10/03/16 08/09/17 Carolynn Norris MD [address] [place] [address] PCP - General Internal Medicine 08/10/17 01/10/21 Nawaf Tian MD [address] [place] [address] PCP - General Student Education Training 01/11/21 10/14/21 Lenny Alatorre MD [address] [facility] [address] [place] [phone] PCP - General Student Education Training 10/15/21 11/04/21 Provider, No Primary . [place] [address] PCP - General 11/05/21 Carolynn Norris MD [address] [facility] [address] [place] [address] 05/15/17 Tana Louie MD 05/15/17 Anisa Diana PA 05/15/17 Provider, No Primary . [place] [address] 05/15/17 Skyler Roman MD [address] [place] [address] Cardiology-Interventio nal 08/13/17 Skyler Roman MD [address] [place] [address] Cardiology-Interventio nal 09/27/17 August Reina MD [address] [place] [address] Cardiology-Invasive 10/06/17 10/20/17 August Reina MD [address] [place] [address] Cardiology-Invasive 04/04/18 Yen Zuluaga, [facility] [phone] (Work) Boring Machine Operator Vertical Coffee Roaster 01/14/21 02/13/21 August Reina MD [address] [place] [address] Consulting Provider Cardiology-Invasive 07/03/22 documented as of this encounter Additional Source Comments PLEASE NOTE: Replies to this message will not be received.[facility]
--- OUTSIDE RECORDS SUMMARY | 2024-01-16 22:37 | XMS_ITS | Encounter Summary ---
Author Organization [employer] [facility] Address [address] [place] [address] Care Team Providers Care Manager Cargo Name Role Phone Carolynn Norris MD Primary Care Provider [phone] Tana Louie MD Primary Care Provider Unavailab le Provider, No Primary Primary Care Provider Unava ilable Carolynn Norris MD Unavailable [phone] Tana Louie MD Unavailable Unavailable Anisa Diana Unavailable Unavailabl e Provider, No Primary Unavailable Unavailable Carolynn Norris MD Primary Care Provider [phone] Skyler Roman MD Unavailable [phone] Skyler Roman MD Unavailable August Reina MD Unavailable [phone] August Reina MD Unavailable [phone] Nawaf Tian MD Primary Care Provider Unavail able Yen Zuluaga FISH DRESSING MACHINE FEEDER Unavailable -[id number] Lenny Alatorre MD Primary Care Provider Provider, No Primary Primary Care Provider Unava ilable August Reina MD Unavailable [phone] Encounter Details Date Type Department Care Team (Late st Contact Info) Description 01/05/2007 Clinic Encounter [facility] Internal Medicine [address] [place] [address] Social History Tobacco Use Types Packs/Day Years [...] ST[facility] SPECIAL REQUESTS PERFORMED AT [facility] PARASITE NO OVA OR PARASITES SEEN O&P EXAM DOES NOT ALLOW IDENTIFICATION OFCRYPTOSPORIDIUM , CYCLOSPORA OR MICROSPORIDIA [facility] REPORT STATUS FINAL 01/06/2007 [facility] STOOL SPECIMEN / Unknown 01/05/2007 12:05 PM CDT 01/05/2007 12:06 PM CDT Carolynn Norris MD LAB MICROBIOLOGY ORD ERABLES [facility] [address] [place] [phone] [id number] [facility] documented in this encounter Visit Diagnoses Not on filedocumented in this encounter Care Teams Manager Cargo Relationship Specialty Start Date End Date Carolynn Norris MD [address] [facility] [address] [place] [phone] PCP - General 03/02/07 10/02/16 Tana Louie MD PCP - General 10/24/06 03/01/07 Provider, [place] [address] PCP - General 10/03/16 08/09/17 Carolynn Norris MD [address] [facility] [address] [place] [phone] PCP - General Internal Medicine 08/10/17 01/10/21 Nawaf Tian MD [address] [place] [address] PCP - General Student Education Training 01/11/21 10/14/21 Lenny Alatorre MD [address] [facility] [address] [place] [phone] PCP - General Student Education Training 10/15/21 11/04/21 Provider, [place] [address] PCP - General 11/05/21 Carolynn Norris MD [address] [facility] [address] [place] [address] 05/15/17 Tana Louie MD 05/15/17 Anisa Diana PA 05/15/17 Provider, No Primary . [facility] [address] 05/15/17 Skyler Roman MD [address] [place] [address] Cardiology-Interventio nal 08/13/17 Skyler Roman MD [address] [place] [address] Cardiology-Interventio nal 09/27/17 August Reina MD [address] [place] [address] Cardiology-Invasive 10/06/17 10/20/17 August Reina MD [address] [place] [address] Cardiology-Invasive 04/04/18 Kahlillianne Yen Anshul, [facility] [phone] (Work) Cable Worker Helper Keypunch Operators Supervisor 01/14/21 02/13/21 August Reina MD [address] [place] [address] Consulting Provider Cardiology-Invasive 07/03/22 documented as of this encounter Additional Source Comments PLEASE NOTE: Replies to this message will not be received.[facility]
--- OUTSIDE RECORDS SUMMARY | 2024-01-16 22:37 | XMS_ITS | Encounter Summary ---
Author Organization [employer] [facility] Address [address] [place] [address] Care Team Providers Care Launch Operator Name Role Phone Carolynn Norris MD Primary Care Provider [phone] Tana Louie MD Primary Care Provider Unavailab le Provider, No Primary Primary Care Provider Unava ilable Carolynn Norris MD Unavailable [phone] Tana Louie MD Unavailable Unavailable Anisa Diana Unavailable Unavailabl e Provider, No Primary Unavailable Unavailable Carolynn Norris MD Primary Care Provider [phone] Skyler Roman MD Unavailable [phone] Skyler Roman MD Unavailable August Reina MD Unavailable August Reina MD Unavailable [phone] Nawaf Tian MD Primary Care Provider Unavail able Yen Zuluaga CLINICAL LAB ASSISTANT Unavailable -[id number] Lenny Alatorre MD Primary Care Provider Provider, No Primary Primary Care Provider Unava ilable August Reina MD Unavailable [phone] Encounter Details Date Type Department Care Team (Late st Contact Info) Description 11/24/2006 Clinic Encounter [facility] Internal Medicine [address] [place], [place] [id number] Carolynn Norris MD 1900 [facility] [address] [place] [address] Social History Tobacco Use Types Packs/Day Years Used Date Smoking Tobacco: Never Assessed Sex and Gender Information Value Date Recorded Sex Assigned at Not on file Gender Identity Not on file Sexual Orientation Not on file documented as of this encounter Progress Notes * Carolynn Norris MD - 12/15/2006 12:00 AM CDT [facility] 1900 [facility], [facility] [address] [place], [place] [phone] OFFICE VISIT - [place] [facility] PATIENT: Yen Norris DATE: 12/15/2006 [...] children and 12 grandchildren. She works at [employer]. She does not smoke. Occasional alcohol use. [...] Carolynn Norris MD / A Doc #: [id number] nc: Tana Louie MD, FACOG documented in this encounter Plan of Treatment Not on file documented as of this encounter Visit Diagnoses Not on filedocumented in this encounter Care Teams Launch Operator Relationship Specialty Start Date End Date Carolynn Norris MD [address] [address] PCP - General 03/02/07 10/02/16 Tana Louie MD PCP - General 10/24/06 03/01/07 Provider, [place] [address] PCP - General 10/03/16 08/09/17 Carolynn Norris MD [address] [facility] [address] [place] [address] PCP - General Internal Medicine 08/10/17 01/10/21 Nawaf Tian MD [address] [place] [address] PCP - General Student Education Training 01/11/21 10/14/21 Lenny Alatorre MD [address] [facility] [address] [place] [address] PCP - General Student Education Training 10/15/21 11/04/21 Provider, [place] [address] PCP - General 11/05/21 Carolynn Norris MD [address] [facility] [address] [place] [address] 05/15/17 Tana Louie MD 05/15/17 Anisa Diana PA 05/15/17 Provider, No [place] [address] 05/15/17 Skyler Roman MD [address] [place] [address] Cardiology-Interventio nal 08/13/17 Skyler Roman MD [address] [place] [address] Cardiology-Interventio nal 09/27/17 August Reina MD [address] [place] [address] Cardiology-Invasive 10/06/17 10/20/17 August Reina MD [address] [place] [address] Cardiology-Invasive 04/04/18 Yen Zuluaga, [facility] [phone] (Work) Manager Oncology Postdoctoral Fellow 01/14/21 02/13/21 August Reina MD [address] [place] [address] Consulting Provider Cardiology-Invasive 07/03/22 documented as of this encounter Additional Source Comments PLEASE NOTE: Replies to this message will not be received.[facility] and [facility]
--- OUTSIDE RECORDS SUMMARY | 2024-01-16 22:37 | XMS_ITS | Encounter Summary ---
Author Organization [employer] [facility] Address [address] [place] [address] Care Team Providers Care Host/Hostess Name Role Phone Carolynn Norris MD Primary Care Provider Tana Louie MD Primary Care Provider Unavailab le Provider, No Primary Primary Care Provider Unava ilable Carolynn Norris MD Unavailable [phone] Tana Louie MD Unavailable Unavailable Anisa Diana Unavailable Unavailabl e Provider, No Primary Unavailable Unavailable Carolynn Norris MD Primary Care Provider [phone] Skyler Roman MD Unavailable [phone] Skyler Roman MD Unavailable August Reina MD Unavailable August Reina MD Unavailable [phone] Nawaf Tian MD Primary Care Provider Unavail able Yen Zuluaga ASSOCIATE SALES Unavailable -[id number] Lenny Alatorre MD Primary Care Provider Provider, No Primary Primary Care Provider Unava ilable August Reina MD Unavailable [phone] Encounter Details Date Type Department Care Team (Late st Contact Info) Description 12/21/2006 HIM Plastics Bench Mechanic Generic Plastics Bench Mechanic [address] [place] [id number] Social History Tobacco Use Types Packs/Day Years [...] on filedocumented in this encounter Care Teams Host/Hostess Relationship Specialty Start Date End Date Carolynn Norris MD [address] [phone] PCP - General 03/02/07 10/02/16 Tana Louie MD PCP - General 10/24/06 03/01/07 Provider, [place] [address] PCP - General 10/03/16 08/09/17 Carolynn Norris MD [address] [address] PCP - General Internal Medicine 08/10/17 01/10/21 Nawaf Tian MD [address] [place] [address] PCP - General Student Education Training 01/11/21 10/14/21 Lenny Alatorre MD [address] [facility] [address] [place] [address] PCP - General Student Education Training 10/15/21 11/04/21 Provider, No Primary . [place] [address] PCP - General 11/05/21 Carolynn Norris MD [address] [place] [address] 05/15/17 Tana Louie MD 05/15/17 Anisa Diana PA 05/15/17 Provider, No Primary . [place] [address] 05/15/17 Skyler Roman MD [address] [place] [address] Cardiology-Interventio nal 08/13/17 Skyler Roman MD [address] [place] [address] Cardiology-Interventio nal 09/27/17 August Reina MD [address] [place] [address] Cardiology-Invasive 10/06/17 10/20/17 August Reina MD [address] [place] [address] Cardiology-Invasive 04/04/18 Yen Zuluaga, [facility] [phone] (Work) Sales Engineer Account Manager Mine Car Mechanic 01/14/21 02/13/21 August Reina MD [address] [place] [address] Consulting Provider Cardiology-Invasive 07/03/22 documented as of this encounter Additional Source Comments PLEASE NOTE: Replies to this message will not be received.[facility] and [facility]
--- OUTSIDE RECORDS SUMMARY | 2024-01-16 22:37 | XMS_ITS | Encounter Summary ---
Author Organization [employer] [facility] Address [address] [place] [address] Care Team Providers Care Certified Tower Climber Name Role Phone Carolynn Valerio MD Primary Care Provider [phone] Tana Louie MD Primary Care Provider Unavailab le Provider, No Primary Primary Care Provider Unava ilable Carolynn Valerio MD Unavailable [phone] Tana Louie MD Unavailable Unavailable Anisa Diana Unavailable Unavailabl e Provider, No Primary Unavailable Unavailable Carolynn Valerio MD Primary Care Provider [phone] Skyler Roman MD Unavailable [phone] Skyler Roman MD Unavailable August Reina MD Unavailable [phone] August Reina MD Unavailable [phone] Nawaf Tian MD Primary Care Provider Unavail able Yen Zuluaga HARDENING MACHINE OPERATOR HELPER Unavailable -[id number] Lenny Alatorre MD Primary Care Provider Provider, No Primary Primary Care Provider Unava ilable August Reina MD Unavailable [phone] Encounter Details Date Type Department Care Team (Late st Contact Info) Description 10/29/2006 Historical Notes [place] [address] [address] [facility] [place] [address] Francis Hermosillo MD Social History Tobacco Use Types Packs/Day Years Used Date Smoking Tobacco: Never Assessed Sex and Gender Information Value Date Recorded Sex Assigned at Not on file Gender Identity Not on file Sexual Orientation Not on file documented as of this encounter Miscellaneous Notes * Outside ETC Note - Francis Hermosillo MD - 10/29/2006 12:00 AM CDT [facility]/HEALTH INFORMATION SERVICES DEPARTMENT [address] [place] [address], [place] [address] * [phone] * FAX [phone] PATIENT: YEN VALERIO PT. STATUS: DEP UNIT #: [id number] /BED: DATE OF VISIT: 10/29/06 AGE: 51 [...] on filedocumented in this encounter Care Teams Certified Tower Climber Relationship Specialty Start Date End Date Carolynn Valerio MD [address] [place] [address] PCP - General 03/02/07 10/02/16 Tana Louie MD PCP - General 10/24/06 03/01/07 Provider, [place] [address] PCP - General 10/03/16 08/09/17 Carolynn Valerio MD [address] [address] PCP - General Internal Medicine 08/10/17 01/10/21 Nawaf Tian MD [address] [place] [address] PCP - General Student Education Training 01/11/21 10/14/21 Lenny Alatorre MD [address] [facility] [address] [place] [address] PCP - General Student Education Training 10/15/21 11/04/21 Provider, [place] [address] PCP - General 11/05/21 Carolynn Valerio MD [address] [facility] [address] [place] [address] 05/15/17 Tana Louie MD 05/15/17 Anisa Diana PA 05/15/17 Provider, No Primary . [facility] [place] [address] 05/15/17 Skyler Roman MD [address] [place] [address] Cardiology-Interventio nal 08/13/17 Skyler Roman MD [address] [place] [address] Cardiology-Interventio nal 09/27/17 August Reina MD [address] [place] [address] Cardiology-Invasive 10/06/17 10/20/17 August Renia MD [address] [place] [address] Cardiology-Invasive 04/04/18 Yen Zuluaga, HARDENING MACHINE OPERATOR HELPER [phone] (Work) Ui Architect Railroad Car Painter 01/14/21 02/13/21 August Reina MD [address] [place] [address] Consulting Provider Cardiology-Invasive 07/03/22 documented as of this encounter Additional Source Comments PLEASE NOTE: Replies to this message will not be received.[facility] and [facility]
--- OUTSIDE RECORDS SUMMARY | 2024-01-16 22:37 | XMS_ITS | Encounter Summary ---
Author Organization [employer] [facility] Address [address] [place] [address] Care Team Providers Care Bread Icer Name Role Phone Carolynn Norris MD Primary Care Provider Tana Louie MD Primary Care Provider Unavailab le Provider, No Primary Primary Care Provider Unava ilable Carolynn Norris MD Unavailable [phone] Tana Louie MD Unavailable Unavailable Ainsa Diana Unavailable Unavailabl e Provider, No Primary Unavailable Unavailable Carolynn Norris MD Primary Care Provider [phone] Skyler Roman MD Unavailable [phone] Skyler Roman MD Unavailable August Reina MD Unavailable [phone] August Reina MD Unavailable [phone] Nawaf Tian MD Primary Care Provider Unavail able Yen Zuluaga BASEBALL COACH Unavailable -[id number] Lenny Alatorre MD Primary Care Provider Provider, No Primary Primary Care Provider Unava ilable August Reina MD Unavailable [phone] Encounter Details Date Type Department Care Team (Late st Contact Info) Description 12/25/2006 HIM Home Visits Nurse Generic Home Visits Nurse [address] [place] [id number] Social History Tobacco Use Types Packs/Day Years [...] on filedocumented in this encounter Care Teams Bread Icer Relationship Specialty Start Date End Date Carolynn Norris MD [address] [phone] PCP - General 03/02/07 10/02/16 Tana Louie MD PCP - General 10/24/06 03/01/07 Provider, [place] [address] PCP - General 10/03/16 08/09/17 Carolynn Norris MD [address] [address] PCP - General Internal Medicine 08/10/17 01/10/21 Nawaf Tian MD [address] [place] [address] PCP - General Student Education Training 01/11/21 10/14/21 Lenny Alatorre MD [address] [facility] [address] [place] [address] PCP - General Student Education Training 10/15/21 11/04/21 Provider, No Primary . [place] [address] PCP - General 11/05/21 Carolynn Norris MD [address] [place] [address] 05/15/17 Tana Louie MD 05/15/17 Anisa Diana PA 05/15/17 Provider, No Primary . 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
--- OUTSIDE RECORDS SUMMARY | 2024-01-16 22:37 | XMS_ITS | Encounter Summary ---
Author Organization [employer] [facility] Address [address] [place] [address] Care Team Providers Care Associate Product Integrity Engineer Name Role Phone Carolynn Norris MD Primary Care Provider [phone] Tana Louie MD Primary Care Provider Unavailab le Provider, No Primary Primary Care Provider Unava ilable Carolynn Norris MD Unavailable [phone] Tana Louie MD Unavailable Unavailable Anisa Diana Unavailable Unavailabl e Provider, No Primary Unavailable Unavailable Carolynn Norris MD Primary Care Provider [phone] Skyler Roman MD Unavailable [phone] Skyler Roman MD Unavailable August Reina MD Unavailable August Reina MD Unavailable [phone] Nawaf Tian MD Primary Care Provider Unavail able Yen Zuluaga TRANSPORTATION TECHNICIAN Unavailable -[id number] Lenny Alatorre MD Primary Care Provider Provider, No Primary Primary Care Provider Unava ilable August Reina MD Unavailable [phone] Encounter Details Date Type Department Care Team (Late st Contact Info) Description 10/30/2006 HIM Tire Debeader Generic Tire Debeader [address] [place] [address] Social History Tobacco Use Types [...] on filedocumented in this encounter Care Teams Associate Product Integrity Engineer Relationship Specialty Start Date End Date Carolynn Norris MD [address] [place] [address] PCP - General 03/02/07 10/02/16 Tana Louie MD PCP - General 10/24/06 03/01/07 Provider, [place] [address] PCP - General 10/03/16 08/09/17 Carolynn Norris MD [address] [place] [address] PCP - General Internal Medicine 08/10/17 01/10/21 Nawaf Tian MD [address] [place] [address] PCP - General Student Education Training 01/11/21 10/14/21 Lenny Alatorre MD [address] [facility] [address] [place] [address] PCP - General Student Education Training 10/15/21 11/04/21 Provider, No Primary . [place] [address] PCP - General 11/05/21 Carolynn Norris MD [address] [facility] [address] [place] [address] 05/15/17 Tana Louie MD 05/15/17 Anisa Diana PA 05/15/17 Provider, No Primary . 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
--- OUTSIDE RECORDS SUMMARY | 2024-01-16 22:37 | XMS_ITS | Encounter Summary ---
Author Organization [employer] [facility] Address [address] [place] [address] Care Team Providers Care Flight Test Data Acquisition Technician Name Role Phone Carolynn Norris MD Primary Care Provider Tana Louie MD Primary Care Provider Unavailab le Provider, No Primary Primary Care Provider Unava ilable Carolynn Norris MD Unavailable [phone] Tana Louie MD Unavailable Unavailable Anisa Diana Unavailable Unavailabl e Provider, No Primary Unavailable Unavailable Carolynn Norris MD Primary Care Provider [phone] Skyler Roman MD Unavailable [phone] Skyler Roman MD Unavailable August Reina MD Unavailable [phone] August Reina MD Unavailable [phone] Nawaf Tian MD Primary Care Provider Unavail able Yen Zuluaga FLOOR AND WALL APPLIER LIQUID Unavailable -[id number] Lenny Alatorre MD Primary Care Provider Provider, No Primary Primary Care Provider Unava ilable August Reina MD Unavailable [phone] Encounter Details Date Type Department Care Team (Late st Contact Info) Description 10/26/2006 HIM Change Number Operator Generic Change Number Operator [address] [place] [address] Social History Tobacco Use [...] on filedocumented in this encounter Care Teams Flight Test Data Acquisition Technician Relationship Specialty Start Date End Date Carolynn Norris MD [address] [place] [address] PCP - General 03/02/07 10/02/16 Tana Louie MD PCP - General 10/24/06 03/01/07 Provider, [place] [address] PCP - General 10/03/16 08/09/17 Carolynn Norris MD [address] [place] [address] PCP - General Internal Medicine 08/10/17 01/10/21 Nawaf Tian MD [address] [place] [address] PCP - General Student Education Training 01/11/21 10/14/21 Lenny Alatorre MD [address] [facility] [address] [place] [address] PCP - General Student Education Training 10/15/21 11/04/21 Provider, No Primary . [place] [address] PCP - General 11/05/21 Carolynn Norris MD 1900 [facility] [address] [place] [address] 05/15/17 Tana Louie MD 05/15/17 Anisa Diana PA 05/15/17 Provider, No Primary . 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
--- OUTSIDE RECORDS SUMMARY | 2024-01-16 22:37 | XMS_ITS | Encounter Summary ---
Author Organization [employer] [facility] Address [address] [place] [address] Care Team Providers Care Plant Protection Officer Name Role Phone Carolynn Norris MD Primary Care Provider Tana Louie MD Primary Care Provider Unavailab le Provider, No Primary Primary Care Provider Unava ilable Carolynn Norris MD Unavailable [phone] Tana Louie MD Unavailable Unavailable Anisa Diana Unavailable Unavailabl e Provider, No Primary Unavailable Unavailable Carolynn Norris MD Primary Care Provider [phone] Skyler Roman MD Unavailable [phone] Skyler Roman MD Unavailable August Reina MD Unavailable August Reina MD Unavailable [phone] Nawaf Tian MD Primary Care Provider Unavail able Yen Zuluaga SUPERVISOR AIRCRAFT CLEANING Unavailable -[id number] Lenny Alatorre MD Primary Care Provider Provider, No Primary Primary Care Provider Unava ilable August Reina MD Unavailable [phone] Encounter Details Date Type Department Care Team (Late st Contact Info) Description 12/15/2006 HIM Fitter Type Bar And Segment Generic Fitter Type Bar And Segment [address] [place] [id number] Social History Tobacco Use Types Packs/Day Years [...] on filedocumented in this encounter Care Teams Plant Protection Officer Relationship Specialty Start Date End Date Carolynn Norris MD [address] [phone] PCP - General 03/02/07 10/02/16 Tana Louie MD PCP - General 10/24/06 03/01/07 Provider, [place] [address] PCP - General 10/03/16 08/09/17 Carolynn Norris MD [address] [address] PCP - General Internal Medicine 08/10/17 01/10/21 Nawaf Tian MD [address] [place] [address] PCP - General Student Education Training 01/11/21 10/14/21 Lenny Alatorre MD [address] [facility] [address] [place] [address] PCP - General Student Education Training 10/15/21 11/04/21 Provider, No Primary . [place] [address] PCP - General 11/05/21 Carolynn Norris MD [address] [place] [address] 05/15/17 Tana Louie MD 05/15/17 Anisa Diana PA 05/15/17 Provider, No Primary . [place] [address] 05/15/17 Skyler Roman MD [address] [place] [address] Cardiology-Interventio nal 08/13/17 Skyler Roman MD [address] [place] [address] Cardiology-Interventio nal 09/27/17 August Reina MD [address] [place] [address] Cardiology-Invasive 10/06/17 10/20/17 August Reina MD [address] [place] [address] Cardiology-Invasive 04/04/18 Yen Zuluaga, [facility] [phone] (Work) Inseam Leveler Desktop Architect 01/14/21 02/13/21 August Reina MD [address] [place] [address] Consulting Provider Cardiology-Invasive 07/03/22 documented as of this encounter Additional Source Comments PLEASE NOTE: Replies to this message will not be received.[facility] and [facility]
--- OUTSIDE RECORDS SUMMARY | 2024-01-16 22:37 | XMS_ITS | Referral Summary ---
Author Organization [facility] [employer] [facility] Address [address] [place] [address] Care Team Providers Care Vacuum Drier Tender Name Role Phone Carolynn Norris MD Unavailable [phone] Tana Louie MD Unavailable Unavailable Anisa Diana Unavailable Unavailabl e Provider, No Primary Unavailable Unavailable Skyler Roman MD Unavailable [phone] Skyler Roman MD Unavailable [phone] August Reina MD Unavailable [phone] Provider, No Primary Primary Care Provider Unava ilable August Reina MD Unavailable [phone] Encounters Date Type Department Care Team Description 11/08/2023 Chart Note [facility] V[facility] [place] [address] [place] [address] August Reina MD from Last 3 Months Allergies Active Allergy [...] mg oral TabletIndications: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 90 Tablet 3 10/12/2021 Active isosorbide mononitrate (IMDUR) 30 mg oral Tablet Sustained Release 24HRIndications:Coronar y artery disease involving curyung coronary artery of curyung heart with unstable angina pectoris (HCC) Take 3 Tablets (90 mg) by mouth in the morning. 90 Tablet 03/28/2022 Active cholecalciferol, vitamin D3, (VITAMIN D3) 2,000 unit oral Capsule Take 2,000 Units by mouth once daily. Active metoprolol succinate (TOPROL XL) 25 mg oral Tablet Sustained Release 24HRIndications:Angina concurrent with and due to arteriosclerosis of coronary artery (HCC) Take 1 Tablet (25 mg) by mouth in the morning and 1 Tablet (25 mg) in the evening. 60 Tablet 07/03/2022 Active blood sugar diagnostic stripsIndications:Type 2 diabetes mellitus without complication, without long-term current use of insulin ([facility]) Test once daily. Testing once daily at varied times. 50 Each 5 07/03/2022 Active lancets 33 gaugeIndications:Type 2 diabetes mellitus without complication, without long-term current use of insulin ([facility]) Test once daily. Testing blood sugar once daily at varied times. 100 Each 07/03/2022 Active spironolactone (ALDACTONE) 25 mg oral TabletIndications:Angin a concurrent with and due to arteriosclerosis of coronary artery (HCC) Take 1 Tablet (25 mg) by mouth daily in the morning. 30 Tablet 07/04/2022 Active blood-glucose meter Test once daily as directed 1 Each 07/03/2022 Active clopidogreL (PLAVIX) 75 mg oral TabletIndications:NSTEM I (non-ST elevated myocardial infarction) ([facility]) Take 1 Tablet (75 mg) by mouth in the morning. 90 Tablet 08/03/2022 Active nitroglycerin (NITROSTAT) 0.4 mg sublingual Tablet, SublingualIndications:N STEMI (non-ST elevated myocardial infarction) ([facility]) DISSOLVE ONE TABLET UNDER THE TONGUE EVERY [...] of 42.05 Chest pain at rest 08/11/2017 2 DVT (deep venous thrombosis) 05/22/2012 08/09/2012 Accelerating [...] How often do you attend chur or gnosticism services? More than 4 times per year 01/11/2021 Do you belong to any clubs o r organizations such as cheondoism groups, unions, fraternal or athletic groups, or [...] medical care, and heating? Somewhat hard 01/11/2021 [facility] of Occupat ional Health - Occupational Stress [...] place to sleep or slept in a chcf (including now)? No 01/11/2021 Depression (PHQ-9) Answer [...] LIPID PANEL Routine 06/29/2022 9:37 AM CDT DEXA HIP AND SPINE Routine 08/05/2021 2: 12 PM CDT Estrogen deficiency MAMMO DIAG HYUN W 3D Routine 01/19/2021 1 2:31 PM CDT Breast lump HEPATITIS C AB Add On 12/08/2017 11:19 AM CDT Need for hepatitis C screening test COLONOSCOPY Routine 12/01/2006 3:45 PM CDT from Last 3 Months or Most Recently Relevant to Health Maintenance Results * (ABNORMAL) LIPID PANEL (06/29/2022 9:37 AM CDT) Cholesterol 248(H) <200 mg/dL 06/29/2022 10:12 AM CDT [facility] Triglycerides 223(H) 30 - 150 mg/dL 06/29/2022 10:12 AM CDT [facility] Cholesterol, LDL (Calculated) 166(H) 0 - 159 mg/dL 06/29/2022 10:12 AM CDT [facility] Cholesterol, HDL 37(L) >40 mg/dL 06/30/19 23 10:12 AM CDT [facility] Cholesterol, vLDL 45 mg/dL 023 10:12 AM CDT [facility] Blood VENOUS BLOOD / Unknown Venipuncture / Unknown 06/29/2022 9:37 AM CDT 06/29/2022 9:47 AM CDT Mehran Velazquez MD LAB CHEMISTRY ORD ERABLES [facility] [address] [place] [address], [place] [phone] * DEXA HIP AND SPINE (08/05/2021 2:12 [...] ?? Nawaf Tian MD RAD DEXASCAN * MAMMO DIAG HYUN W 3D (01/19/2021 [...] Benign Nawaf Tian MD RAD MAMMO * HEPATITIS C ANTIBODY (12/08/2017 11:19 AM CDT) HEPATITIS C ANTIBODY NONREACTIVE NONR [facility] Comment: A NONREACTIVE RESULT INDICATES THE [...] LAB SEROLOGY ORDERAB LES Performing Organization Address City/State/[facility] Co de Phone Number [facility] [address] [place] [address] * COLONOSCOPY (12/01/2006 3:45 PM CDT) 12/01/2006 3:45 PM CDT Narrative [facility] - 12/01/2006 4:32 PM CDT [facility] Patient Name: Yen Norris Procedure: ? Colonoscopy [...] saturations were monitored ? continuously. The colonoscope [id number] was introduced through ? the anus and [...] Tana Louie MD GI PROCEDURES [facility] from Last 3 Months or Most [...] 8:00 AM 09/27/2017 5:35 PM Care Teams Vacuum Drier Tender Relationship Specialty Start Date End Date Provider, No Primary . [place] [address] PCP - General 11/05/21 Carolynn Norris MD [address] [facility] [address] [place] [phone] 05/15/17 Tana Louie MD 05/15/17 Anisa Diana PA 05/15/17 Provider, No Primary . [facility] [place] [address] 05/15/17 Skyler Roman MD [address] [place] [address] Cardiology-Interventio nal 08/13/17 Skyler Roman MD [address] [place] [phone] Cardiology-Interventio nal 09/27/17 August Reina MD [address] [place] [phone] Cardiology-Invasive 04/04/18 August Reina MD [address] [place] [address] Consulting Provider Cardiology-Invasive 07/03/22 Additional Source Comments PLEASE NOTE: Replies to this message will not be received.[facility] and [facility]
--- OUTSIDE RECORDS SUMMARY | 2024-01-16 22:37 | XMS_ITS | Encounter Summary ---
Author Organization [facility] [employer] d [facility] Address [address] [place] [address] Care Team Providers Care Fleet Service Clerk Name Role Phone Carolynn Norris MD Unavailable [phone] Tana Louie MD Unavailable Unavailable Anisa Diana Unavailable Unavailabl e Provider, No Primary Unavailable Unavailable Skyler Roman MD Unavailable [phone] Skyler Roman MD Unavailable [phone] August Reina MD Unavailable Provider, No Primary Primary Care Provider Unava ilable August Reina MD Unavailable [phone] Encounter Details Date Type Department Care Team (Late st Contact Info) Description 11/08/2023 Chart Note [facility] Heart [facility] [place] [address] [place] [address] August Reina MD [address] [place] [address] Social History Tobacco Use Types Packs/Day Years [...] 01/11/2021 How often do you attend chur ch or confucianism services? More than 4 times per year 01/11/2021 Do you belong to any clubs o r organizations such as jewish groups, unions, fraternal or athletic groups, or [...] medical care, and heating? Somewhat hard 01/11/2021 [facility] of Occupat ional Health - Occupational Stress [...] place to sleep or slept in a intermediate (including now)? No 01/11/2021 Depression (PHQ-9) Answer [...] on file documented as of this encounter Functional Status Functional Status Response Date of [...] physical, mental, or emotional condition? No 06/29/2022 documented as of this encounter Miscellaneous Notes * Multidisciplinary Note - Leonor Moss - 11/08/2023 11:12 AM CDT scheduling staff have been unable to reach pt to schedule FU/CAD - 5MO JM. Letter has been sent andrecall has been deleted. documented in this encounter Plan of Treatment Not on file documented as of this encounter Visit Diagnoses Not on filedocumented in this encounter Care Teams Fleet Service Clerk Relationship Specialty Start Date End Date Provider, [place] [address] PCP - General 11/05/21 Carolynn Norris MD [address] [facility] [address] [place] [phone] 05/15/17 Tana Louie MD 05/15/17 Anisa Diana PA 05/15/17 Provider, [place] [address] 05/15/17 Skyler Roman MD [address] [place] [phone] Cardiology-Interventio nal 08/13/17 Skyler Roman MD [address] [place] [phone] Cardiology-Interventio nal 09/27/17 August Reina MD [address] [place] [phone] Cardiology-Invasive 04/04/18 August Reina MD [address] [place] [address] Consulting Provider Cardiology-Invasive 07/03/22 documented as of this encounter Additional Source Comments PLEASE NOTE: Replies to this message will not be received.[facility] and [facility]
--- OUTSIDE RECORDS SUMMARY | 2024-01-16 22:37 | XMS_ITS | Clinical Summary ---
Author Organization [employer] [facility] Address [address] [place] [address] Care Team Providers Care Latrine Cleaner Name Role Phone Carolynn Norris MD Unavailable [phone] Tana Louie MD Unavailable Unavailable Anisa Diana Unavailable Unavailabl e Provider, No Primary Unavailable Unavailable Skyler Roman MD Unavailable [phone] Skyler Roman MD Unavailable [phone] August Reina MD Unavailable Provider, No Primary Primary Care Provider Unava ilable August Reina MD Unavailable [phone] Allergies Active Allergy Reactions Criticality Noted Date [...] mg oral TabletIndications: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 90 Tablet 3 10/12/2021 Active isosorbide mononitrate (IMDUR) 30 mg oral Tablet Sustained Release 24HRIndications:Coronar y artery disease involving kobuk coronary artery of kobuk heart with unstable angina pectoris (HCC) Take 3 Tablets (90 mg) by mouth in the morning. 90 Tablet 03/28/2022 Active cholecalciferol, vitamin D3, (VITAMIN D3) 2,000 unit oral Capsule Take 2,000 Units by mouth once daily. Active metoprolol succinate (TOPROL XL) 25 mg oral Tablet Sustained Release 24HRIndications:Angina concurrent with and due to arteriosclerosis of coronary artery ([facility]) Take 1 Tablet (25 mg) by mouth in the morning and 1 Tablet (25 mg) in the evening. 60 Tablet 07/03/2022 Active blood sugar diagnostic stripsIndications:Type 2 diabetes mellitus without complication, without long-term current use of insulin ([facility]) Test once daily. Testing once daily at varied times. 50 Each 5 07/03/2022 Active lancets 33 gaugeIndications:Type 2 diabetes mellitus without complication, without long-term current use of insulin ([facility]) Test once daily. Testing blood sugar once daily at varied times. 100 Each 5 07/03/2022 Active spironolactone (ALDACTONE) 25 mg oral TabletIndications:Angin a concurrent with and due to arteriosclerosis of coronary artery ([facility]) Take 1 Tablet (25 mg) [...] 05/22/2012 08/09/2012 Accelerating angina 11/14/2011 09/07/19 22 Encounters Date Type Department Care Team Description 11/08/2023 Chart Note [facility] Heart & Vascular [place] [address] [facility] [place] [address] August Reina MD from Last 3 Months Immunizations Name Administration Dates Next Due Influenza [...] often do you attend chur ch or cheondoism services? More than 4 times per year 01/11/2021 Do you belong to any clubs o r organizations such as denominational groups, unions, fraternal or athletic groups, or [...] medical care, and heating? Somewhat hard 01/11/2021 [facility] of Occupat ional Health - [...] place to sleep or slept in a longterm (including now)? No 01/11/2021 Depression (PHQ-9) Answer [...] Health Maintenance Due Date Last Done Comments Depression Screening 1968 CT Colonography 2001 Fecal Immunochemical DNA Test (FIT-DNA) 2001 Fecal Immunochemical Test (FIT) 2001 Varicella Zoster Sequential (1 of 2) 2006 Colonoscopy 12/02/2011 12/01/2006 Colorectal Cancer Screening 12/02/2011 Respiratory Syncytial Virus (RSV) Vaccine (1 - 1-dose 60+ series) 2016 Pneumococcal Vaccine (65+ Years) (1 of 1 - PCV) 2021 DTaP/Tdap/Td Vaccines (3 - Td or Tdap) 07/19/2021 07/20/2011, 05/27/2009, 08/15/1998 Mammogram Standard 01/19/2022 01/19/2021, 0 12/14/2017, 12/08/2017, Additional history exists COVID-19 Vaccine ( - 2022- season) 2023 Influenza Vaccine (#1) 2023 01/22/2018, 2005 Lipids Standard 06/30/2027 06/29/2022, 12/17, 04/02/2018, Additional history exists Osteoporosis Screening-Female > 65 Years 08/06/2031 08/05/2021, 11/24/2006 Hepatitis C Testing Completed 12/08/2017 HIB Vaccines [...] 248(H) <200 mg/dL 06/29/2022 10:12 AM CDT [facility] Triglycerides 223(H) 30 - 150 mg/dL 06/29/2022 10:12 AM CDT [facility] Cholesterol, LDL (Calculated) 166(H) 0 - 159 mg/dL 06/29/2022 10:12 AM CDT [facility] Cholesterol, HDL 37(L) >40 mg/dL 06/30/19 23 10:12 AM CDT [facility] Cholesterol, vLDL 45 mg/dL 023 10:12 AM CDT [facility] Blood VENOUS BLOOD / Unknown Venipuncture / Unknown 06/29/2022 9:37 AM CDT 06/29/2022 9:47 AM CDT Mehran Velazquez MD LAB CHEMISTRY ORD ERABLES [facility] [address] [place] [address], * DEXA HIP AND SPINE (08/05/2021 2:12 [...] AM CDT) HEPATITIS C ANTIBODY NONREACTIVE NONR [facility] Comment: A NONREACTIVE RESULT INDICATES THE ABSENCE [...] LAB SEROLOGY ORDERAB LES Performing Organization Address City/State/[facility] Co de Phone Number [facility] [address] [place] [address] * COLONOSCOPY (12/01/2006 3:45 PM CDT) 12/01/2006 3:45 PM CDT Narrative [facility] - 12/01/2006 4:32 PM CDT [facility] Patient Name: Yen Jr Procedure: ? Colonoscopy [...] saturations were monitored ? continuously. The colonoscope [id number] was introduced through ? the anus and [...] 3:45:08 PM Tana Louie MD GI PROCEDURES [facility] from Last 3 Months or Most [...] 8:00 AM 09/27/2017 5:35 PM Care Teams Latrine Cleaner Relationship Specialty Start Date End Date Provider, No Primary . [place] [address] PCP - General 11/05/21 Carolynn Norris MD [address] [facility] [address] [place] [address] 05/15/17 Tana Louie MD 05/15/17 Anisa Diana PA 05/15/17 Provider, No Primary . [place] [address] 05/15/17 Skyler Roman MD [address] [place] [address] Cardiology-Interventio nal 08/13/17 Skyler Roman MD [address] [place] [phone] Cardiology-Interventio nal 09/27/17 August Reina MD [address] [place] [phone] Cardiology-Invasive 04/04/18 August Reina MD [address] [place] [address] Consulting Provider Cardiology-Invasive 07/03/22 Additional Source Comments PLEASE NOTE: Replies to this message will not be received.[facility]
--- OUTSIDE RECORDS SUMMARY | 2024-01-16 22:37 | XMS_ITS | Encounter Summary ---
Author Organization [employer] [facility] Address [address] [place] [address] Care Team Providers Care Weed Science Research Technician Name Role Phone Carolynn Norris MD Primary Care Provider [phone] Tana Louie MD Primary Care Provider Unavailab le Provider, No Primary Primary Care Provider Unava ilable Carolynn Norris MD Unavailable [phone] Tana Louie MD Unavailable Unavailable Anisa Diana Unavailable Unavailabl e Provider, No Primary Unavailable Unavailable Carolynn Norris MD Primary Care Provider [phone] Skyler Roman MD Unavailable [phone] Skyler Roman MD Unavailable August Reina MD Unavailable [phone] August Reina MD Unavailable [phone] Nawaf Tian MD Primary Care Provider Unavail able Yen Zuluaga NEGATIVE TURNER Unavailable -[phone] Lenny Alatorre MD Primary Care Provider Provider, No Primary Primary Care Provider Unava ilable August Reina MD Unavailable [phone] Encounter Details Date Type Department Care Team (Late st Contact Info) Description 11/17/2006 Clinic Encounter [facility] Obstetrics/Gynecology [address] [place], [place] [id number] Tana Louie MD Social History Tobacco Use [...] on filedocumented in this encounter Care Teams Weed Science Research Technician Relationship Specialty Start Date End Date Carolynn Norris MD [address] [place] [address] PCP - General 03/02/07 10/02/16 Tana Louie MD PCP - General 10/24/06 03/01/07 Provider, [place] [address] PCP - General 10/03/16 08/09/17 Carolynn Norris MD [address] [address] PCP - General Internal Medicine 08/10/17 01/10/21 Nawaf Tian MD [address] [place] [address] PCP - General Student Education Training 01/11/21 10/14/21 Lenny Alatorre MD [address] [facility] [address] [place] [phone] PCP - General Student Education Training 10/15/21 11/04/21 Provider, No Primary . [place] [address] PCP - General 11/05/21 Carolynn Norris MD [address] [place] [address] 05/15/17 Tana Louie MD 05/15/17 Anisa Diana PA 05/15/17 Provider, No Primary . [place] [address] 05/15/17 Skyler Roman MD [address] [place] [address] Cardiology-Interventio nal 08/13/17 Skyler Roman MD [address] [place] [address] Cardiology-Interventio nal 09/27/17 August Reina MD [address] [place] [address] Cardiology-Invasive 10/06/17 10/20/17 August Reina MD [address] [place] [address] Cardiology-Invasive 04/04/18 Yen Zuluaga, [facility] [phone] (Work) Heel Turner Lawn Mower Repairer 01/14/21 02/13/21 August Reina MD [address] [place] [address] Consulting Provider Cardiology-Invasive 07/03/22 documented as of this encounter Additional Source Comments PLEASE NOTE: Replies to this message will not be received.[facility] and [facility]
--- OUTSIDE RECORDS SUMMARY | 2024-01-16 22:38 | XMS_ITS ---
Author Organization [facility] Address [address] [place] [address] Care Team Providers Care Advertising Sales Executive Name Role Phone Unavailable Unavailable Unavailable Surgery Details Not on file Complications Check Surgery Details section. Procedure Estimated Blood Loss Check Surgery Details section. Procedure Findings Check Surgery Details section. Procedure Specimens Taken Check Surgery Details section.
--- OUTSIDE RECORDS SUMMARY | 2024-01-16 22:38 | XMS_ITS | Encounter Summary ---
Author Organization [employer] [facility] Address [address] [place] [address] Care Team Providers Care Motorbike Courier Name Role Phone Carolynn Norris MD Primary Care Provider Tana Louie MD Primary Care Provider Unavailab Anisa Frazier Primary Care Provider Unav ailable Provider, No Primary Primary Care Provider Unava ilable Carolynn Norris MD Unavailable [phone] Tana Louie MD Unavailable Unavailable Anisa Diana Unavailable Unavailabl e Provider, No Primary Unavailable Unavailable Carolynn Norris MD Primary Care Provider [phone] Skyler Roman MD Unavailable + [phone] Skyler Roman MD Unavailable + [phone] August Reina MD Unavailable [phone] August Reina MD Unavailable [phone] Nawaf Tian MD Primary Care Provider Unavail able Yen Zuluaga EDUCATION AND DEVELOPMENT MANAGER Unavailable -[phone] Lenny Alatorre MD Primary Care Provider [phone] Provider, No Primary Primary Care Provider Unava ilable [place], Noé MD Unavailable Encounter Details Date Type Department Care Team (Late st Contact Info) Description 06/14/2006 HIM Bricklayer Tender Generic Bricklayer Tender [address] [place] [id number] Social History Tobacco Use Types Packs/Day Years Used Date Smoking Tobacco: Never Assessed Sex and Gender Information Value Date Recorded Sex Assigned at Not on file Gender Identity Not on file Sexual Orientation Not on file documented as of this encounter Plan of Treatment Not on file documented as of this encounter Visit Diagnoses Not on filedocumented in this encounter Care Teams Motorbike Courier Relationship Specialty Start Date End Date Carolynn Norris MD [address] [phone] PCP - General 03/02/07 10/02/16 Tana Louie MD PCP - General 10/24/06 03/01/07 Anisa Diana PA PCP - General 11/16/05 10/23/06 Provider, [place] [address] PCP - General 10/03/16 08/09/17 Carolynn Norris MD [address] [phone] PCP - General Internal Medicine 08/10/17 01/10/21 Nawaf Tian MD [address] [place] [address] PCP - General Student Education Training 01/11/21 10/14/21 Lenny Alatorre MD [address] [facility] [address] [place] [phone] PCP - General Student Education Training 10/15/21 11/04/21 Provider, No Primary . [place] [address] PCP - General 11/05/21 Carolynn Norris MD [address] [phone] 05/15/17 Tana Louie MD 05/15/17 Anisa Diana PA 05/15/17 Provider, No Primary . [place] [address] 05/15/17 Skyler Roman MD [address] [place] [address] Cardiology-Interventio nal 08/13/17 Skyler Roman MD [address] [place] [address] Cardiology-Interventio nal 09/27/17 August Reina MD [address] [place] [address] Cardiology-Invasive 10/06/17 10/20/17 August Reina MD [address] [place] [address] Cardiology-Invasive 04/04/18 Yen Zuluaga, [facility] [phone] (Work) Guidance Director Feather Duster Winder 01/14/21 02/13/21 August Reina MD [address] [place] [address] Consulting Provider Cardiology-Invasive 07/03/22 documented as of this encounter Additional Source Comments PLEASE NOTE: Replies to this message will not be received.[facility] and [facility]
--- OUTSIDE RECORDS SUMMARY | 2024-01-16 22:38 | XMS_ITS | Clinical Summary ---
Author Organization [facility] Address [address] [place] [address] Care Team Providers Care Calender Roll Press Operator Name Role Phone Elsewhere, Pcp Primary Care Provider Unavailabl e Source Comments Patient records contain information from all sites at [facility]. For routine questions regarding patient records, call [phone] during business hours, M-F 8:00 AM - 5:00 PM Central Time. Record requests for emergency care only can be directed to [phone] at any time.[facility] Allergies Active Allergy Reactions Criticality Noted Date [...] daily 90 tablet 3 07/28/2023 Active meloxicam (Mobic) 15 mg tablet Take 1 tablet by mouth once daily 30 tablet 01/01/2024 Active metoprolol tartrate (Lopressor) 100 mg tablet Take 1 tablet by mouth twice daily 60 tablet 01/01/2024 Active metoprolol tartrate (Lopressor) 100 mg tablet Take 1 tablet by mouth twice daily 60 tablet 11/08/2023 4 Discontinued meloxicam (Mobic) 15 mg tablet Take 1 tablet by mouth once daily 30 tablet 12/01/2023 4 Discontinued Active Problems Problem Noted Date Diagnosed Date Morbid Obesity Body Mass Index 40.0-44.9 Adult 1 06/14/2022 Overview (04/13/2023): Estimated body mass index is 40.37 kg/m?? [...] Encounters Date Type Department Care Team Description 12/31/2023 Refill Division of Cardiovascular Diseases in [address] [address] Parul Oreilly M.B.B.S., Ph.D. Med Refill 12/31/2023 Refill Department of Orthopedic Surgery in [place], [place] [address] [place] [phone] Gustabo Lau M.D., M.B.A. Med Refill 12/01/2023 Refill Department of Orthopedic Surgery in [place], [place] [address] [place] [phone] Meghann Suarez, [facility], [facility].-C. Med Refill 11/08/2023 Refill Division of Cardiovascular Diseases in [address] [address] Parul Oreilly M.B.B.S., Ph.D. Med Refill 10/30/2023 Refill Department of Orthopedic Surgery in [place], [place] [address] [place] [phone] Gustabo Lau M.D., M.B.A. Med Refill from Last 3 Months Family History Medical [...] Jean Baptiste Coronary artery disease Father Arpan Gruber riple by-pass Diabetes Father Arpan Jean Baptiste [...] Lynne Jean Baptiste Arthritis Paternal Grandmother Marsha Jean Baptiste Coronary artery disease Sister 1 Talisha [place] Sten ts & double bypass Hyperlipidemia Sister 1 Talisha [place] Hypertension Sister 1 Talisha [place] Thyroid disease Sister 1 Talisha Ameirca Coronary artery disease Sister 2 Holly Palma S tents Hyperlipidemia Sister 2 Holly Palma Hypertension Sister 2 Holly Palma Thyroid disease Sister 2 Holly Palma Relation Name Status Comments Brother 1 Stone Jean Baptiste Brother 2 Slava Jean Baptiste Brother 3 Arpan Jean Baptiste Mother Lynne Jean Baptiste Paternal Grandmother Marsha Jean Baptiste Sister 1 Talisha Cross Sister 2 Holly Palma Social History Tobacco Use Types Packs/Day Years [...] often do you attend chur ch or yarsanism services? More than 4 times per year 08/09/2022 Do you belong to any clubs o r organizations such as religious groups, unions, fraternal or athletic groups, or [...] medical care, and heating? Somewhat hard 08/09/2022 [facility] of Occupat ional Health - Occupational [...] Comments Blood Pressure 97/61 03/04/2023 12:34 PM GLUE JOINTER FEEDER Pulse 56 03/04/2023 12:10 PM GLUE JOINTER FEEDER Temperature 36.8 ??C (98.2 ??F) 03/04/2023 12:[address] Respiratory Rate 17 03/04/2023 12:10 PM GLUE JOINTER FEEDER Oxygen Saturation 93% 03/04/2023 12:10 PM GLUE JOINTER FEEDER Inhaled Oxygen Concentration - - Weight 103 kg (226 lb 6.6 oz) 03/03/2023 7:45 AM GLUE JOINTER FEEDER Height 159.5 cm (5' 2.8) 03/03/2023 7:45 AM GLUE JOINTER FEEDER Body Mass Index 40.37 03/03/2023 7:45 AM GLUE JOINTER FEEDER Plan of Treatment Scheduled Procedures Name Priority [...] 01/19/2022 01/19/2021, 08/2020, 12/08/2017, Additional history exists Depression Screening (Annual PHQ-2) 04/17/2023 Fall Risk Screen (Annual) 04/17/2023 Lipid (Cholesterol) Screening 08/13/2023 08/12/2022 Hemoglobin A1C 08/25/2023 02/24/2023, 08/12/2022 COVID-19 Vaccine ( - 2023-2 5 season) 2023 Influenza Vaccine (#1) 2024 01/22/2018, 2005 Office Visit for Blood Press ure Check / Re-check 02/25/2024 02/24/2023 Creatinine Level (Kidney Fun ction Test) 03/04/2024 03/04/2023, 02/24/2023, 08/12/2022 Potassium Level 03/04/2024 03/04/2023, 02/15, 08/12/2022 Sodium Level 03/04/2024 03/04/2023, 02/15, 08/12/2022 Medical Devices Implanted Type Area Nightclub Manager Device Identifier Shelf Expiration Date Model / Serial / Lot Cardiac Stent Cardiac Stent Heart Description:EIGHT CARDIAC ST ENTS Bsplt Tib Trt Sz2 - [id number] Implanted:Qty: 1 on 03/03/2023 by Gustabo Lau M.D., M.B.A. at [facility] Knee Implant Right: Knee [place] 10/14/2027 5536-B-200 / / [id number] Kn Fem Trt Por Cr Bead Rt Sz3 - [id number] Implanted:Qty: 1 on 03/03/2023 by Gustabo Lau M.D., M.B.A. at [facility] Knee Implant Right: Knee [place] 09/08/2027 5517-F-302 / / [id number] Ins Tib Trt Cs Sz2 9 - [id number] Implanted:Qty: 1 on 03/03/2023 by Gustabo Lau M.D., M.B.A. at [facility] Knee Implant Right: Knee [place] 09/04/2027 [id number]-G-[id number] -[id number] / / [id number] Procedures Procedure Name Priority Date/Time Associated Diagnosis Comments BASIC METABOLIC PANEL, S/P Routine 03/04/2023 3:38 AM GLUE JOINTER FEEDER HEMOGLOBIN A1C, B Routine 02/24/2023 8:0 5 AM GLUE JOINTER FEEDER Primary Osteoarthritis Knee Right LIPID PANEL, S Routine 08/12/2022 8:12 AM CDT Coronary Artery Disease Without Angina Pectoris from Last 3 Months or Most Recently Relevant to Health Maintenance Results * (ABNORMAL) Basic Metabolic Panel (03/04/2023 3:38 AM GLUE JOINTER FEEDER) [facility] Potassium, S 4.9 3.6 - 5.2 mmol/L 03/04/2023 4:20 AM GLUE JOINTER FEEDER DTL Sodium, S 138 135 - 145 mmol/L 03/04/2023 4:20 AM GLUE JOINTER FEEDER DTL Chloride, S 104 98 - 107 mmol/L 03/04/2023 4:20 AM GLUE JOINTER FEEDER DTL Bicarbonate, S 25 22 - 29 mmol/L 03/04/2023 4:20 AM GLUE JOINTER FEEDER DTL Anion Gap 9 7 - 15 03/04/2023 4:20 AM GLUE JOINTER FEEDER DTL BUN (Blood Urea Nitrogen), S 18 6 - 21 mg/dL 03/04/2023 4:20 AM GLUE JOINTER FEEDER DTL Creatinine 1.18(H) 0.59 - 1.04 mg/dL 03/04/2023 4:20 AM GLUE JOINTER FEEDER DTL Estimated GFR (eGFR) 51(L) >=60 mL/min/BSA 03/04/2023 4:20 AM GLUE JOINTER FEEDER DTL Comment: Estimated GFR calculated using the 2020 CKD_EPI creatinine equation. Calcium, Total, S 8.9 8.8 - 10.2 mg/dL 03/04/2023 4:20 AM GLUE JOINTER FEEDER DTL Glucose, S 138 70 - 140 mg/dL 03/04/2023 4:20 AM GLUE JOINTER FEEDER DTL Blood (Blood, Venous) 03/04/2023 3:38 AM GLUE JOINTER FEEDER 03/04/2023 4:03 AM GLUE JOINTER FEEDER Renee Eduardo M.D. LAB BLOOD ADD-ON Performing Organization Address City/[facility] Co de Phone Number [address] [place] [address] * (ABNORMAL) Hemoglobin A1c (02/24/2023 8:05 AM GLUE JOINTER FEEDER) Hemoglobin A1c, B 6.4(H) 4.0 - 5.6 % 02/24/2023 9:06 AM GLUE JOINTER FEEDER DTL Comment: Hemoglobin A1c values of 5.7-6.4 percent indicate an increased risk for developing diabetes mellitus. In diabetic patients, HbA1c goals should be discussed with healthcare provider. Blood (Blood, Venous) 02/24/2023 8:05 AM GLUE JOINTER FEEDER 02/24/2023 8:27 AM GLUE JOINTER FEEDER Gustabo Lau M.D., M.B.A. LAB BLOOD ADD-ON [facility] [address] [place], [place] [address] [place] [address] [place] [address] * (ABNORMAL) Lipid Panel (08/12/2022 8:12 AM [...] CDT Miguel Bagley M.D. LAB BLOOD ADD-ON [facility] [address] [place] [address], [facility] [address] [place] [address] from Last 3 Months or Most Recently Relevant to Health Maintenance Advance Directives For more information, please contact: [phone] * Full Code (Latest Code Status on File) Date Activated Date Inactivated Comments 03/03/2023 4:40 PM 03/04/2023 3:20 PM Question Answer Comments Full Code: Discussed Care Teams Calender Roll Press Operator Relationship Specialty Start Date End Date Elsewhere, Pcp PCP - General Internal Medicine 12/15/22
--- OUTSIDE RECORDS SUMMARY | 2024-01-16 22:38 | XMS_ITS | Encounter Summary ---
Author Organization [facility] Address [address] [place] [address] Care Team Providers Care Pm Technician Name Role Phone Carolynn Norris MD Primary Care Provider [phone] Tana Louie MD Primary Care Provider Unavailab Anisa Frazier Primary Care Provider Unav ailable Provider, No Primary Primary Care Provider Unava ilable Carolynn Norris MD Unavailable [phone] Tana Louie MD Unavailable Unavailable Anisa Diana Unavailable Unavailabl e Provider, No Primary Unavailable Unavailable Carolynn Norris MD Primary Care Provider [phone] Skyler Roman MD Unavailable + [phone] Skyler Roman MD Unavailable + [phone] August Reina MD Unavailable [phone] August Reina MD Unavailable [phone] Nawaf Tian MD Primary Care Provider Unavail able Yen Zuluaga ORIENTAL MEDICINE PRACTITIONER Unavailable -[phone] Lenny Alatorre MD Primary Care Provider Provider, No Primary Primary Care Provider Unava ilable [place]owald, Noé MD Unavailable Encounter Details Date Type Department Care Team (Late st Contact Info) Description 10/17/2006 Clinic Encounter [facility] Obstetrics/Gynecology [address] [place] [address] Tana Louie MD Social History Tobacco Use Types Packs/Day Years Used Date Smoking Tobacco: Never Assessed Sex and Gender Information Value Date Recorded Sex Assigned at Not on file Gender Identity Not on file Sexual Orientation Not on file documented as of this encounter Progress Notes * Tana Louie MD - 10/24/2006 12:00 AM CDT [facility] Yen Norris [id number] 10/24/2006 [...] to endometriosis, bilateral oophorectomy in 1995 at [facility], lap cholecystectomy in with incidental appendectomy and angiogram in 1999. Tonsillectomy. SOCIAL HISTORY: She denies habits of excess including alcohol, tobacco. 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 Has been for 32 years. FAMILY HISTORY: Glaucoma in her mother and she currently is living. She also was diagnosed with colon cancer at age 66. Her father has had heart disease, bypass surgery of four vessels. She has three brothers, one brother at the age of 32 had a triple bypass, three sisters, one sister as an . She has three living children, had one stillbirth in 1976. had a pelvic fracture at childbirth she states. Her concerns today are I'm 51 so everything is falling apart. She states at this time she is currently on no medications for hypercholesterolemia. There is question of a blockage that was diagnosed at [facility] and she denies chest pain or shortness [...] her being seen by gynecology versus an studio control operator. Feel as though she does need internal [...] Nexium 40 -mg was also given. Tana Louie MD, FACOG/sbf P P Doc#: [id number] cc: documented in this encounter Plan of [...] CDT) TSH 3.09 0.47 - 5.00 UIU/ML [facility] 10/24/2006 12:2 0 PM CDT 10/24/2006 12:21 PM CDT Tana Louie MD LAB CHEMISTRY ORDERA BLES [facility] [address] [place], [place] [phone] [id number] * (ABNORMAL) COMPREHENSIVE METABOLIC PANEL (10/24/2006 12:20 [...] LAB CHEMISTRY LUKE AGUILERA Performing Organization Address [facility] Co de Phone Number [facility] documented in this encounter Visit Diagnoses Not on filedocumented in this encounter Care Teams Pm Technician Relationship Specialty Start Date End Date Carolynn Norris MD [address] [facility] [address] [place] [address] PCP - General 03/02/07 10/02/16 Tana Louie MD PCP - General 10/24/06 03/01/07 Anisa Diana PA PCP - General 11/16/05 10/23/06 Provider, [place] [address] PCP - General 10/03/16 08/09/17 Carolynn Norris MD [address] [facility] [address] [place] [address] PCP - General Internal Medicine 08/10/17 01/10/21 Nawaf Tian MD [address] [place] [address] PCP - General Student Education Training 01/11/21 10/14/21 Lenny Alatorre MD [address] [facility] [address] [place] [address] PCP - General Student Education Training 10/15/21 11/04/21 Provider, [place] [address] PCP - General 11/05/21 Carolynn Norris MD [address] [facility] [address] [place] [phone] 05/15/17 Tana Louie MD 05/15/17 Anisa Diana PA 05/15/17 Provider, No Primary . [facility] [place] [address] 05/15/17 Skyler Roman MD [address] [place] [address] Cardiology-Interventio nal 08/13/17 Skyler Roman MD [address] [place] [address] Cardiology-Interventio nal 09/27/17 August Reina MD [address] [place] [address] Cardiology-Invasive 10/06/17 10/20/17 August Reina MD [address] [place] [address] Cardiology-Invasive 04/04/18 Yen Zuluaga, ORIENTAL MEDICINE PRACTITIONER [phone] (Work) Energy Sales Broker Transportation Engineering Technician 01/14/21 02/13/21 August Reina MD [address] [place] [address] Consulting Provider Cardiology-Invasive 07/03/22 documented as of this encounter Additional Source Comments PLEASE NOTE: Replies to this message will not be received.[facility] [place] [facility], [facility]
--- OUTSIDE RECORDS SUMMARY | 2024-01-16 22:38 | XMS_ITS | Referral Summary ---
Author Organization [facility] Address [address] [place] [address] Care Team Providers Care Recruitment Assistant Name Role Phone Elsewhere, Pcp Primary Care Provider Unavailabl e Source Comments Patient records contain information from all sites at [facility]. For routine questions regarding patient records, call [phone] during business hours, M-F 8:00 AM - 5:00 PM Central Time. Record requests for emergency care only can be directed to [phone] at any time.[facility] Encounters Date Type Department Care Team Description 12/31/2023 Refill Division of Cardiovascular Diseases in [address] [address] Parul Oreilly M.B.B.S., Ph.D. Med Refill 12/31/2023 Refill Department of Orthopedic Surgery in [place], [place] [address] [place] [phone] Gustabo Lau M.D., M.B.A. Med Refill 12/01/2023 Refill Department of Orthopedic Surgery in [place], [place] [address] [place] [phone] Meghann Suarez, ROXS, P.A.-C. Med Refill 11/08/2023 Refill Division of Cardiovascular Diseases in [address] [address] Parul Oreilly M.B.B.S., Ph.D. Med Refill 10/30/2023 Refill Department of Orthopedic Surgery in [place], [place] [address] [place] [address] Gustabo Lau M.D., M.B.A. Med Refill from Last 3 Months Allergies Active Allergy [...] How often do you attend chur or muslim services? More than 4 times per year 08/09/2022 Do you belong to any clubs o r organizations such as yarsanism groups, unions, fraternal or athletic groups, or [...] medical care, and heating? Somewhat hard 08/09/2022 [facility] of Occupat ional Health - Occupational Stress [...] Comments Blood Pressure 97/61 03/04/2023 12:34 PM METAL CANS SUPERVISOR Pulse 56 03/04/2023 12:10 PM METAL CANS SUPERVISOR Temperature 36.8 ??C (98.2 ??F) 03/04/2023 12:[address] Respiratory Rate 17 03/04/2023 12:10 PM METAL CANS SUPERVISOR Oxygen Saturation 93% 03/04/2023 12:10 PM METAL CANS SUPERVISOR Inhaled Oxygen Concentration - - Weight 103 kg (226 lb 6.6 oz) 03/03/2023 7:45 AM METAL CANS SUPERVISOR Height 159.5 cm (5' 2.8) 03/03/2023 7:45 AM METAL CANS SUPERVISOR Body Mass Index 40.37 03/03/2023 7:45 AM METAL CANS SUPERVISOR Plan of Treatment Scheduled Procedures Name Priority Associated Diagnoses Date/Ti me ARTHROPLASTY REPLACEMENT TOT AL KNEE Primary Osteoarthritis Knee Right Medical Devices Implanted Type Area Teen Counselor Device Identifier Shelf Expiration Date Model / Serial / Lot Cardiac Stent Cardiac Stent Heart Description:EIGHT CARDIAC ST ENTS Bsplt Tib Trt Sz2 - [id number] Implanted:Qty: 1 on 03/03/2023 by Gustabo Lau M.D., M.B.A. at [facility] Knee Implant Right: Knee [place] 10/14/2027 5536-B-200 / / [id number] Kn Fem Trt Por Cr Bead Rt Sz3 - [id number] Implanted:Qty: 1 on 03/03/2023 by Gustabo Lau M.D., M.B.A. at [facility] Knee Implant Right: Knee [place] 09/08/2027 5517-F-302 / / [id number] Ins Tib Trt Cs Sz2 9 - [id number] Implanted:Qty: 1 on 03/03/2023 by Gustabo Lau M.D., M.B.A. at [facility] Knee Implant Right: Knee [place] 09/04/2027 5531-G-209 -E / / [id number] Procedures Procedure Name Priority Date/Time Associated Diagnosis Comments BASIC METABOLIC PANEL, S/P Routine 03/04/2023 3:38 AM METAL CANS SUPERVISOR HEMOGLOBIN A1C, B Routine 02/24/2023 8:0 5 AM METAL CANS SUPERVISOR Primary Osteoarthritis Knee Right LIPID PANEL, S Routine 08/12/2022 8:12 AM CDT Coronary Artery Disease Without Angina Pectoris from Last 3 Months or Most Recently Relevant to Health Maintenance Results * (ABNORMAL) Basic Metabolic Panel (03/04/2023 3:38 AM METAL CANS SUPERVISOR) Potassium, S 4.9 3.6 - 5.2 mmol/L 03/04/2023 4:20 AM METAL CANS SUPERVISOR DTL Sodium, S 138 135 - 145 mmol/L 03/04/2023 4:20 AM METAL CANS SUPERVISOR DTL Chloride, S 104 98 - 107 mmol/L 03/04/2023 4:20 AM METAL CANS SUPERVISOR DTL Bicarbonate, S 25 22 - 29 mmol/L 03/04/2023 4:20 AM METAL CANS SUPERVISOR DTL Anion Gap 9 7 - 15 03/04/2023 4:20 AM METAL CANS SUPERVISOR DTL BUN (Blood Urea Nitrogen), S 18 6 - 21 mg/dL 03/04/2023 4:20 AM METAL CANS SUPERVISOR DTL Creatinine 1.18(H) 0.59 - 1.04 mg/dL 03/04/2023 4:20 AM METAL CANS SUPERVISOR DTL Estimated GFR (eGFR) 51(L) >=60 mL/min/BSA 03/04/2023 4:20 AM METAL CANS SUPERVISOR DTL Comment: Estimated GFR calculated using the 2020 CKD_EPI creatinine equation. Calcium, Total, S 8.9 8.8 - 10.2 mg/dL 03/04/2023 4:20 AM METAL CANS SUPERVISOR DTL Glucose, S 138 70 - 140 mg/dL 03/04/2023 4:20 AM METAL CANS SUPERVISOR DTL Blood (Blood, Venous) 03/04/2023 3:38 AM METAL CANS SUPERVISOR 03/04/2023 4:03 AM METAL CANS SUPERVISOR Renee Eduardo M.D. LAB BLOOD ADD-ON [facility] [address] [place] [address], [facility] [address] [place] [address] * (ABNORMAL) Hemoglobin A1c (02/24/2023 8:05 AM METAL CANS SUPERVISOR) Hemoglobin A1c, B 6.4(H) 4.0 - 5.6 % 02/24/2023 9:06 AM METAL CANS SUPERVISOR DTL Comment: Hemoglobin A1c values of 5.7-6.4 percent indicate an increased risk for developing diabetes mellitus. In diabetic patients, HbA1c goals should be discussed with healthcare provider. Blood (Blood, Venous) 02/24/2023 8:05 AM METAL CANS SUPERVISOR 02/24/2023 8:27 AM METAL CANS SUPERVISOR Gustabo Lau M.D., M.B.A. LAB BLOOD ADD-ON [facility] [address] [place] [address], [facility] [address] [place] [address] * (ABNORMAL) Lipid Panel (08/12/2022 8:12 AM [...] CDT Miguel Bagley M.D. LAB BLOOD ADD-ON [facility] [address] [place] [address], [facility] [address] [place] [address] from Last 3 Months or Most Recently Relevant to Health Maintenance Advance Directives For more information, please contact: [phone] * Full Code (Latest Code Status on File) Date Activated Date Inactivated Comments 03/03/2023 4:40 PM 03/04/2023 3:20 PM Question Answer Comments Full Code: Discussed Care Teams Recruitment Assistant Relationship Specialty Start Date End Date Elsewhere, Pcp PCP - General Internal Medicine 12/15/22
--- OUTSIDE RECORDS SUMMARY | 2024-01-16 22:38 | XMS_ITS | Encounter Summary ---
Author Organization [facility] Address [address] [place] [address] Care Team Providers Care Snuff Drier Name Role Phone Elsewhere, Pcp Primary Care Provider Unavailabl e Reason for Visit * Reason Comments Med Refill Encounter Details Date Type Department Care Team (Late st Contact Info) Description 12/31/2023 Refill Department of Orthopedic Surgery in [place], [place] [address] [place] [phone] Gustabo Lau M.D., M.B.A. [address] [place] [phone] Med Refill Social History Tobacco Use Types [...] often do you attend chur ch or druze services? More than 4 times per year 08/09/2022 Do you belong to any clubs o r organizations such as bahai groups, unions, fraternal or athletic groups, or [...] care, and heating? Somewhat hard 08/09/2022 [facility] of Occupat ionfl Health - Occupational Stress Questionnaire Answer Date [...] place to sleep or slept in a jail (including now)? No 08/09/2022 Nutrition Answer Date [...] on filedocumented in this encounter Care Teams Snuff Drier Relationship Specialty Start Date End Date Elsewhere, Pcp PCP - General Internal Medicine 12/15/22 documented as of this encounter
--- OUTSIDE RECORDS SUMMARY | 2024-01-16 22:38 | XMS_ITS | Encounter Summary ---
Author Organization [employer] [facility] Address [address] [place] [address] Care Team Providers Care Logistics Team Lead Name Role Phone Carolynn Norris MD Primary Care Provider Tana Louie MD Primary Care Provider Unavailab Anisa Frazier Primary Care Provider Unav ailable Provider, No Primary Primary Care Provider Unava ilable Carolynn Norris MD Unavailable [phone] Tana Louie MD Unavailable Unavailable Anisa Diana Unavailable Unavailabl e Provider, No Primary Unavailable Unavailable Carolynn Norris MD Primary Care Provider [phone] Skyler Roman MD Unavailable + [phone] Skyler Roman MD Unavailable + [phone] August Reina MD Unavailable [phone] August Reina MD Unavailable [phone] Nawaf Tian MD Primary Care Provider Unavail able Yen Zuluaga FRAMING MILL OPERATOR HELPER Unavailable -[phone] Lenny Alatorre MD Primary Care Provider Provider, No Primary Primary Care Provider Unava ilable [place], Noé MD Unavailable Encounter Details Date Type Department Care Team (Late st Contact Info) Description 03/04/2005 Scan [facility] [address] [place] [address] Unknown, [place] [address] Social History Tobacco Use Types Packs/Day Years [...] TEST TRACINGS - S 03/04/2005 12:07 PM CORN CROP SUPERVISOR documented in this encounter Results * STRESS TEST TRACINGS - S (03/04/2005 12:07 PM CORN CROP SUPERVISOR) Anatomical Region Laterality Modality Other Scan Moises PROCEDURE NOTE documented in this encounter Visit Diagnoses Not on filedocumented in this encounter Care Teams Logistics Team Lead Relationship Specialty Start Date End Date Carolynn Norris MD [address] [facility] [address] [facility] [place] [phone] PCP - General 03/02/07 10/02/16 Tana Louie MD PCP - General 10/24/06 03/01/07 Anisa Diana PA PCP - General 11/16/05 10/23/06 Provider, [place] [address] PCP - General 10/03/16 08/09/17 Carolynn Norris MD [id number] [place] [phone] PCP - General Internal Medicine 08/10/17 01/10/21 Nawaf Tian MD [address] [place] [address] PCP - General Student Education Training 01/11/21 10/14/21 Lenny Alatorre MD [address] [facility] [address] [place] [phone] PCP - General Student Education Training 10/15/21 11/04/21 Provider, No Primary . [place] [address] PCP - General 11/05/21 Carolynn Norris MD [address] [facility] [address] [place] [phone] 05/15/17 Tana Louie MD 05/15/17 Anisa Diana PA 05/15/17 Provider, 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
--- OUTSIDE RECORDS SUMMARY | 2024-01-16 22:38 | XMS_ITS | Encounter Summary ---
Author Organization [facility] Address [address] [place] [address] Care Team Providers Care Shell Trim Operator Name Role Phone Elsewhere, Pcp Primary Care Provider Unavailabl e Reason for Visit * Reason Comments Med Refill Encounter Details Date Type Department Care Team (Late st Contact Info) Description 09/26/2023 Refill Department of Orthopedic Surgery in [place], [place] [address] [place] [phone] Gustabo Lau M.D., M.B.A. [address] [place] [phone] Med Refill Social History Tobacco Use Types [...] often do you attend chur ch or mandaeism services? More than 4 times per year 08/09/2022 Do you belong to any clubs o r organizations such as judaism groups, unions, fraternal or athletic groups, or [...] medical care, and heating? Somewhat hard 08/09/2022 [facility] Occupat ionnc Health - Occupational Stress Questionnaire Answer Date [...] on filedocumented in this encounter Care Teams Shell Trim Operator Relationship Specialty Start Date End Date Elsewhere, Pcp PCP - General Internal Medicine 12/15/22 documented as of this encounter
--- OUTSIDE RECORDS SUMMARY | 2024-01-16 22:38 | XMS_ITS | Encounter Summary ---
Author Organization [facility] Address [address] [place] [address] Care Team Providers Care Automotive Buyer Name Role Phone Elsewhere, Pcp Primary Care Provider Unavailabl e Reason for Visit * Reason Comments Med Refill Encounter Details Date Type Department Care Team (Late st Contact Info) Description 11/08/2023 Refill Division of Cardiovascular Diseases in [place], [place] [address] [place] [phone] Parul Oreilly M.B.B.S., Ph.D. [address] [place] [phone] Med Refill Social History Tobacco Use Types [...] any clubs o r organizations such as gnosticist groups, unions, fraternal or athletic groups, or [...] medical care, and heating? Somewhat hard 08/09/2022 [facility] of Occupat ional Health - Occupational [...] place to sleep or slept in a fpc (including now)? No 08/09/2022 Nutrition Answer Date [...] on filedocumented in this encounter Care Teams Automotive Buyer Relationship Specialty Start Date End Date Elsewhere, Pcp PCP - General Internal Medicine 12/15/22 documented as of this encounter
--- OUTSIDE RECORDS SUMMARY | 2024-01-16 22:38 | XMS_ITS | Encounter Summary ---
Author Organization [facility] Address [address] [place] [address] Care Team Providers Care Paid Intern Name Role Phone Elsewhere, Pcp Primary Care Provider Unavailabl e Reason for Visit * Reason Comments Med Refill Encounter Details Date Type Department Care Team (Late st Contact Info) Description 10/30/2023 Refill Department of Orthopedic Surgery in [place], [place] [address] [place] [phone] Gustabo Lau M.D., M.B.A. [address] [place] [phone] Med Refill Social History Tobacco Use Types [...] often do you attend chur ch or caodaism services? More than 4 times per year [...] medical care, and heating? Somewhat hard 08/09/2022 [facility] of Occupat ionmn Health - Occupational Stress Questionnaire Answer Date [...] place to sleep or slept in a [facility] (including now)? No 08/09/2022 Nutrition Answer Date [...] on filedocumented in this encounter Care Teams Paid Intern Relationship Specialty Start Date End Date Elsewhere, Pcp PCP - General Internal Medicine 12/15/22 documented as of this encounter
--- OUTSIDE RECORDS SUMMARY | 2024-01-16 22:38 | XMS_ITS | Clinical Summary ---
Author Organization [employer] [facility] [employer] [facility] Address [place], [place] [address] Care Team Providers Care Blasting Contract Miner Name Role Phone Pcp, No Primary Care Provider Unavailabl e Allergies Active Allergy Reactions Criticality Noted Date Comments Yridnkv-Yyv-Dts Reductase Inhibitors *Unknown 07/11/2022 Sulfa (Sulfonamide Antibiotics) *Unknown 06/16 Medications Medication Sig Dispensed Refills Start Date End Date Status spironolactone (Aldactone) 25 mg tablet Take 25 mg by mouth once daily. Active metoprolol succinate (Toprol XL) 25 mg Sustained-Release tablet Take 25 mg by mouth two times daily. Active aspirin chewable 81 mg chewable tablet Chew 81 mg by mouth once daily with a meal. Active clopidogreL (Plavix) 75 mg tablet Take 75 mg by mouth once daily. Active esomeprazole (NexIUM) 40 mg capsule Take 40 mg by mouth once daily before a meal. Active isosorbide mononitrate (IMDUR ORAL) Take 90 mg by mouth once daily. Active loratadine (Claritin) 10 mg chewable tablet Chew 10 mg by mouth once daily. Active metFORMIN sustained release (GLUMETZA) 500 mg tablet Take 500 mg by mouth once daily with evening meal. Active nitroglycerin (NITROSTAT) 0.[address] 0.4 mg under the tongue every 5 minutes if needed for Chest Pain. Active cholecalciferol, Vitamin D3, (Vitamin D-3) 2,000 unit tablet Take 2,000 units by mouth once daily. Active Social History Tobacco Use Types Packs/Day Years Used Date Smoking Tobacco: Never Assessed Sex and Gender Information Value Date Recorded Sex Assigned at Not on file Gender Identity Not on file Sexual Orientation Not on file Last Filed Vital Signs Vital Sign Reading Time Taken Comments Blood Pressure 162/85 07/27/2022 1:57 PM CDT Pulse 84 07/27/2022 1:57 PM CDT Temperature 36.7 ??C (98 ??F) 07/27/2022 1:57 PM CDT Respiratory Rate 20 07/27/2022 1:57 PM CDT Oxygen Saturation 95% 07/27/2022 1:57 PM CDT Inhaled Oxygen Concentration - - Weight 103.9 kg (229 lb) 07/27/2022 1:57 PM CDT Height 162.6 cm (5' 4) 07/27/2022 1:57 PM CDT Body Mass Index 39.31 07/27/2022 1:57 PM CDT Plan of Treatment Not on file Care Teams Blasting Contract Miner Relationship Specialty Start Date End Date Pcp, No . PCP - General 10/06/22
--- OUTSIDE RECORDS SUMMARY | 2024-01-16 22:38 | XMS_ITS | Encounter Summary ---
Author Organization [facility] Address [address] [place] [address] Care Team Providers Care Fireperson Name Role Phone Elsewhere, Pcp Primary Care Provider Unavailabl e Reason for Visit * Reason Comments Med Refill Encounter Details Date Type Department Care Team (Late st Contact Info) Description 12/31/2023 Refill Division of Cardiovascular Diseases in [place], [place] [address] [place] [phone] Parul Oreilly M.B.B.S., Ph.D. [address] [place] [phone] Med Refill Social History Tobacco Use Types [...] often do you attend chur ch or protestant services? More than 4 times per year [...] medical care, and heating? Somewhat hard 08/09/2022 [facility] of Occupat ional Health - [...] place to sleep or slept in a [place] (including now)? No 08/09/2022 Nutrition Answer Date [...] on filedocumented in this encounter Care Teams Fireperson Relationship Specialty Start Date End Date Elsewhere, Pcp PCP - General Internal Medicine 12/15/22 documented as of this encounter
--- OUTSIDE RECORDS SUMMARY | 2024-01-16 22:38 | XMS_ITS | Encounter Summary ---
Author Organization [facility] Address [address] [place] [address] Care Team Providers Care Managing Member Name Role Phone Elsewhere, Pcp Primary Care Provider Unavailabl e Reason for Visit * Reason Comments Med Refill Encounter Details Date Type Department Care Team (Late st Contact Info) Description 10/12/2023 Refill Division of Cardiovascular Diseases in [place], [place] [address] [place] [phone] Parul Oreilly M.B.B.S., Ph.D. [address] [place] [phone] Med Refill Social History Tobacco Use Types [...] any clubs o r organizations such as methodist groups, unions, fraternal or athletic groups, or [...] medical care, and heating? Somewhat hard 08/09/2022 [facility] of Occupat ional [...] place to sleep or slept in a snf (including now)? No 08/09/2022 Nutrition Answer Date [...] on filedocumented in this encounter Care Teams Managing Member Relationship Specialty Start Date End Date Elsewhere, Pcp PCP - General Internal Medicine 12/15/22 documented as of this encounter
--- OUTSIDE RECORDS SUMMARY | 2024-01-16 22:38 | XMS_ITS | Encounter Summary ---
Author Organization [facility] Address [address] [place] [address] Care Team Providers Care Skoog Operator Name Role Phone Elsewhere, Pcp Primary Care Provider Unavailabl e Reason for Visit * Reason Comments Med Refill Encounter Details Date Type Department Care Team (Late st Contact Info) Description 12/01/2023 Refill Department of Orthopedic Surgery in [place], [place] [address] [place] [phone] Meghann Suarez, MPAS, P.A.-C. [address] [place] [phone] Med Refill Social History Tobacco Use Types [...] often do you attend chur ch or orthodox services? More than 4 times per year 08/09/2022 Do you belong to any clubs o r organizations such as christian groups, unions, fraternal or athletic groups, or [...] medical care, and heating? Somewhat hard 08/09/2022 [facility]at [facility] Health - Occupational Stress Questionnaire Answer Date [...] place to sleep or slept in a long-term (including now)? No 08/09/2022 Nutrition Answer Date [...] on filedocumented in this encounter Care Teams Skoog Operator Relationship Specialty Start Date End Date Elsewhere, Pcp PCP - General Internal Medicine 12/15/22 documented as of this encounter
== END 2024-01-12 10:04 | disposition home or self-care (01) ==
LOC: NFLDREF 01-16 22:34
PROVIDERS: PCP Internal Medicine; Referring Provider Internal Medicine; Visit Provider Internal Medicine
DX: E78.5 Hyperlipidemia, unspecified (principal)
CPT/HCPCS: 80061

== ENCOUNTER 2024-04-08 10:09 | Outpatient (CLI) | payer MEDICARE, SELFPAY | END 2024-04-08 10:10 | disposition home or self-care (01) | PROVIDERS: PCP Internal Medicine; Visit Provider Internal Medicine | DX: I25.10 Atherosclerotic heart disease of native coronary artery without angina pectoris (principal); I10 Essential (primary) hypertension | CPT/HCPCS: 80048 ==

== ENCOUNTER 2024-04-22 10:13 | Outpatient (CLI) | payer MEDICAID, SELFPAY | END 2024-04-22 10:14 | disposition home or self-care (01) | LOC: NFLDREF 04-23 02:32 | PROVIDERS: PCP Internal Medicine; Referring Provider Internal Medicine; Visit Provider Internal Medicine | DX: E11.9 Type 2 diabetes mellitus without complications (principal); I50.30 Unspecified diastolic (congestive) heart failure; E78.5 Hyperlipidemia, unspecified | CPT/HCPCS: 80053; 80061; 82043; 82570 ==

== ENCOUNTER 2024-05-14 10:08 | Emergency (ER) | payer MEDICARE, SELFPAY ==
[2024-05-14] VITALS (9 sets, daily range): BP systolic 123–131; BP diastolic 70–91; PULSE 50–57; RESP 18; TEMP 36.3; O2SAT 93–97; BMI 38.3
--- NOTE | 2024-05-14 13:32 | ED.GENADULT ---
HPI - General Adult General Date Seen: 05/14/24 Chief complaint: Cough Stated complaint: Cough, diarrhea, chest pain 1 1/2 weeks Time Seen by Provider: 05/14/24 12:56 History of Present Illness HPI narrative: 68 yo F with a past medical history including coronary artery disease, hyperlipidemia, CHF with preserved ejection fraction, DVT, type 2 diabetes, hypertension, elevated BMI, fibromyalgia, GERD. She does not have a history of asthma or lung disease. She has been sick now for about 10 days with symptoms of fever, cough, fever and chills, stuffy nose, sore throat, and diarrhea. Symptoms started with a fever who last Monday, 10 days ago. Since then fevers been coming and going she has had fairly persistent cough that is largely nonproductive but sometimes sounds wet. She is not having shortness of breath or chest pain. She has had a lot of fatigue and progressive weakness over the past couple of days. Also frequent watery diarrhea. No mucousy or bloody stool. No abdominal pain. No vomiting. She has been working hard to stay hydrated and prefers to drink a lot of Dr. Pepper because is the thing that she seems to feel best with in her stomach. She is eating some food stay and her jet. Since her cough is not going away, she came here to the ER today. She suspicious she has pneumonia. She is outside the window for Paxlovid or Tamiflu and would prefer not to have a nasal swab. Related Data Home Medications ?Medication ?Instructions ?Recorded ?Confirmed aspirin 81 mg tablet,delayed 81 mg PO DAILY 06/28/22 05/02/24 release (Adult Low Dose Aspirin) cholecalciferol (vitamin D3) 50 2,000 unit PO DAILY 06/28/22 05/02/24 mcg (2,000 unit) tablet (Vitamin D3) isosorbide mononitrate 120 mg 120 mg PO DAILY 10/17/22 05/02/24 tablet,extended release 24 hr metoprolol tartrate 100 mg tablet 100 mg PO BID 10/17/22 05/02/24 meloxicam 15 mg tablet 15 mg PO DAILY 06/05/23 05/02/24 isosorbide mononitrate 60 mg 60 mg PO DAILY 04/08/24 05/02/24 tablet,extended release 24 hr Previous Rx's ?Medication ?Instructions ?Recorded clopidogrel 75 mg tablet 75 mg PO [facility] #90 tabs 01/03/24 nitroglycerin 0.4 mg sublingual 0.4 mg sublingual PRN angina #90 01/16/24 tablet tabs metformin 500 mg tablet,extended 500 mg PO QAM #90 tabs 02/16/24 release 24 hr esomeprazole magnesium 40 mg 40 mg PO DAILY #90 caps 03/18/24 capsule,delayed release losartan 50 mg tablet 50 mg PO QAM #90 tabs 04/05/24 spironolactone 25 mg tablet 25 mg PO DAILY #90 tabs 05/08/24 benzonatate 100 mg capsule 100 mg PO TID PRN cough #14 caps 05/14/24 doxycycline monohydrate 100 mg 100 mg PO BID #14 caps 05/14/24 capsule Allergies Allergy/AdvReac Type Severity Reaction Status Date / Time Iodinated Contrast Media Allergy Severe Anaphylaxis Verified 05/02/24 10:50 Sulfa (Sulfonamide Allergy Severe Anaphylaxis Verified 05/02/24 10:50 Antibiotics) ezetimibe Allergy Intermediate Verified 05/02/24 10:50 bee venom protein (honey bee) Allergy Unknown Swelling Verified 05/02/24 10:50 duloxetine Allergy Unknown Swelling Verified 05/02/24 10:50 rosuvastatin AdvReac Unknown Muscle Pain Verified 05/02/24 10:50 PFSH PFSH Medical History (Updated 05/14/24 @ 13:56 by Donald Hunt MD) History of DVT of lower extremity ?Z86.718 - Personal history of other venous thrombosis and embolism (ICD-10) Surgical History (Updated 06/05/23 @ 15:42 by Sada Chun MD) History of total knee replacement ?Z96.659 - Presence of unspecified artificial knee joint (ICD-10) History of cholecystectomy (~2002) ?Z90.49 - Acquired absence of other specified parts of digestive tract (ICD-10) History of appendectomy (1995) ?Z90.49 - Acquired absence of other specified parts of digestive tract (ICD-10) History of coronary artery stent placement ?Z95.5 - Presence of coronary angioplasty implant and graft (ICD-10) History of surgery on right wrist ?Z98.890 - Other specified postprocedural states (ICD-10) History of total hysterectomy with bilateral salpingo-oophorectomy (BSO) (1995) ?Z90.710 - Acquired absence of both cervix and uterus (ICD-10) ?Z90.722 - Acquired absence of ovaries, bilateral (ICD-10) ?Z90.79 - Acquired absence of other genital organ(s) (ICD-10) History of tonsillectomy and adenoidectomy ?Z90.89 - Acquired absence of other organs (ICD-10) Family History (Updated 10/19/22 @ 15:12 by Christi Streeter) Father Colon cancer Coronary artery disease Leukemia High blood pressure High cholesterol Diabetes Thyroid disease Kidney disease Clotting disorder Mother Colon cancer High cholesterol Thyroid disease Glaucoma Brother Coronary artery disease Thyroid disease High cholesterol High blood pressure Sister Coronary artery disease High blood pressure High cholesterol Thyroid disease Skin cancer Son Bicuspid aortic valve Aortic stenosis Daughter Alcohol dependence Social History (Updated 06/06/23 @ 08:15 by Gladis Rivas ~ [facility]) What is your current living situation?: I presently have a place to live Problems where you live: no known problems In the past 12 months, utilities in danger of being shut off: no In past 12 months, lack of transportation kept you from medical appts, meetings, work, or getting things needed for daily living: no In the past 12 mos, have been you worried that your food would run out before you had money to buy more?: never true In the past 12 mos, the food you bought just didn't last and you didn't have money to buy more?: sometimes true Smoking Status: Never smoker Do you use any of these nicotine containing products: None Second hand tobacco smoke exposure: Yes How often do you have a drink containing alcohol: never AUDIT-C Alcohol total score: 0 Non-prescribed substance use: denies use How often does anyone, including family, friends and others, physically hurt you: never How often does anyone, including family, friends and others, insult or talk down to you: rarely How often does anyone, including family, friends and others, threaten you with harm: never How often does anyone, including family, friends and others, scream or curse at you: never service: No Health Related Social Needs: food insecurity (Z59.41) and Other personal risk factors, not elsewhere classified (Z91.89) Exam Narrative: Exam Narrative: Constitutional: Appears well-developed and well-nourished. Alert. Conversant. Non toxic. Overall looks good HENT: Head: Atraumatic. Nose: Nose normal. Mouth/Throat: Oral mucosa is clear . Mucous membranes are somewhat dry but not desiccated her crack. no trismus. Pharynx normal. Tonsils symmetric. No tonsillar enlargement, erythema, or exudate. Eyes: Conjunctivae normal. EOM normal. Pupils equal, round, and reactive to light. No scleral icterus. Neck: Normal range of motion. Neck supple. No tracheal deviation present. Cardiovascular: Normal rate, regular rhythm. No gallop. No friction rub. No murmur heard. Symmetric radial artery pulses Pulmonary/Chest: Effort normal. No stridor. No respiratory distress. No wheezes. Right basilar rales and rhonchi. No tenderness. Abdominal: Soft. Bowel sounds normal. No distension. No mass. No tenderness. No rebound. No guarding. Musculoskeletal: RUE: Normal range of motion. No tenderness. No deformity LUE: Normal range of motion. No tenderness. No deformity RLE: Normal range of motion. No edema. No tenderness. No deformity LLE: Normal range of motion. No edema. No tenderness. No deformity Neurological: Alert and oriented to person, place, and time. Normal strength. CN II-VII intact. No sensory deficit. GCS eye subscore is 4. GCS verbal subscore is 5. GCS motor subscore is 6. Normal coordination Skin: Skin is warm and dry. No rash noted. No pallor. Normal capillary refill. Psychiatric: Normal mood. Normal affect. Const: Vital Signs, click to edit/add: Vital Signs - 24 hr 05/14/24 10:33 05/14/24 13:31 05/14/24 13:32 Temperature 97.3 F L Pulse Rate 51 L 52 L Pulse Rate [Pulse Oximeter] 57 L Respiratory Rate 18 Blood Pressure 124/91 H Blood Pressure [Ri ght Upper Arm] 123/71 Pulse Oximetry 95 97 93 Oxygen Delivery Me thod Room Air 05/14/24 13:45 05/14/24 13:46 05/14/24 14:00 Temperature Pulse Rate 55 L 54 L 55 L Pulse Rate [Pulse Oximeter] Respiratory Rate Blood Pressure 128/81 Blood Pressure [Ri ght Upper Arm] Pulse Oximetry 97 97 94 Oxygen Delivery Me thod 05/14/24 14:01 05/14/24 14:15 05/14/24 14:16 Temperature Pulse Rate 50 L 57 L 52 L Pulse Rate [Pulse Oximeter] Respiratory Rate Blood Pressure 127/90 H 131/70 Blood Pressure [Ri ght Upper Arm] Pulse Oximetry 96 97 95 Oxygen Delivery Me thod Course Vital Signs Vital signs: Initial Vital Signs Temperature 97.3 F L 05/14/24 10:33 Temperature Source Temporal Artery Scan 05/14/24 10:33 Pulse Rate 57 L 05/14/24 10:33 Respiratory Rate 18 05/14/24 10:33 Blood Pressure 123/71 05/14/24 10:33 Blood Pressure Mean 88 05/14/24 10:33 Blood Pressure Position Sitting 05/14/24 10:33 Pulse Oximetry 95 05/14/24 10:33 Oxygen Delivery Method Room Air 05/14/24 10:33 Vital Signs Temperature 97.3 F L 05/14/24 10:33 Pulse Rate 57 L 05/14/24 10:33 Respiratory Rate 18 05/14/24 10:33 Blood Pressure 123/71 05/14/24 10:33 Pulse Oximetry 95 05/14/24 10:33 Oxygen Delivery Method Room Air 05/14/24 10:33 Temperature 97.3 F L 05/14/24 10:33 Pulse Rate 52 L 05/14/24 14:16 Respiratory Rate 18 05/14/24 10:33 Blood Pressure 131/70 05/14/24 14:16 Pulse Oximetry 95 05/14/24 14:16 Oxygen Delivery Method Room Air 05/14/24 10:33 Medical Decision Making MDM Narrative Medical decision making narrative: Pleasant 68-year-old female with a complex past medical history presenting to the ER today with an illness ongoing for about 10 days which includes cough, fever and chills, nasal congestion, sore throat, and diarrhea. She is concerned that she has pneumonia since she is not getting better. It sounds like she came to the ER today just because she is not improving, not because she has had any particular deterioration overnight or today. She politely declines COVID/flu swab, and I think it is reasonable to admit that since she is outside the window for any antiviral treatment On my clinical exam she has definitive rales and rhonchi in the right base which are highly suggestive for a right lower lobe pneumonia. Discussed with the patient options for workup including chest imaging with x-ray, laboratory workup to check CBC and white count, electrolytes, blood sugar, kidney function. However she would prefer simply just to treat empirically. She does have a cough here in the ER but is otherwise hemodynamically stable. Oxygen is normal. No respiratory distress. Mental status is completely normal. Therefore will treat her with a 7 day course of doxycycline 100 mg p.o. b.i.d.. Also Tessalon for symptomatic relief of cough. Given her medical comorbidities she understands the risk for worsening illness and she will return to the ER if any worsening occurs. At that time would need more complete workup. Discharge Plan Discharge Clinical Impression: Right lower lobe pneumonia, Diarrhea Patient Disposition: Home, Self-Care Condition: Stable Instructions: Acute Diarrhea (ED), Community Acquired Pneumonia (DC) Additional Instructions: As we discussed, please come back to the ER right away if you have worsening symptoms especially trouble breathing, worsening cough, or fever, weakness, uncontrolled diarrhea or dehydration. If you are not substantially improved within 48 hours, please recheck with your regular doctor or return to the ER. You should stay home until your symptoms are improving, cough is improving, and after you been afebrile for 24 hours. Prescriptions: New doxycycline monohydrate 100 mg capsule 100 mg PO BID Qty: 14 0RF benzonatate 100 mg capsule 100 mg PO TID PRN (Reason: cough) Qty: 14 0RF No Action metoprolol tartrate 100 mg tablet 100 mg PO BID isosorbide mononitrate 120 mg tablet extended release 24 hr 120 mg PO DAILY isosorbide mononitrate 60 mg tablet extended release 24 hr 60 mg PO DAILY meloxicam 15 mg tablet 15 mg PO DAILY nitroglycerin 0.4 mg tablet, sublingual 0.4 mg sublingual PRN Qty: 90 6RF aspirin [Adult Low Dose Aspirin] 81 mg tablet,delayed release (DR/EC) 81 mg PO DAILY cholecalciferol (vitamin D3) [Vitamin D3] 50 mcg (2,000 unit) tablet 2,000 unit PO DAILY clopidogrel 75 mg tablet 75 mg PO QAM Qty: 90 0RF metformin 500 mg tablet extended release 24 hr 500 mg PO QAM Qty: 90 0RF esomeprazole magnesium 40 mg capsule,delayed release(DR/EC) 40 mg PO DAILY Qty: 90 0RF losartan 50 mg tablet 50 mg PO QAM Qty: 90 0RF spironolactone 25 mg tablet 25 mg PO DAILY Qty: 90 1RF Follow Up/Referrals: Sada Chun MD [Primary Care Provider] - Stand Alone Forms: AppMesh Info Instructions
--- OUTSIDE RECORDS SUMMARY | 2024-05-15 13:33 | XMS_ITS | Encounter Summary ---
Author Organization [facility] Address [address] [place] [address] Care Team Providers Care Reefer Engineer Name Role Phone Elsewhere, Pcp Primary Care Provider Unavailabl e Reason for Visit * Reason Comments Med Refill Encounter Details Date Type Department Care Team (Late st Contact Info) Description 04/04/2024 Refill Department of Orthopedic Surgery in [place], [place] [address] [place] [phone] Fiona Durant M.D. [address] [place] [phone] Med Refill Social History Tobacco Use Types Packs/Day Years Used Date Smoking Tobacco: Never Smokeless Tobacco: Never Alcohol Use Standard Drinks/Week Comments Never 0 (1 standard drink = 0.6 oz pur e alcohol) [facility] Utilities Answer Date Recorded In the past 12 months has th e electric, gas, oil, or water company threatened to shut off services in your home? No 03/22/2024 Humiliation, Afraid, Rape, a nd Kick questionnaire Answer Date Recorded Within the last year, have y ou been afraid of your partner or ex-partner? Patient unable to answer 03/23/2024 Within the last year, have y ou been humiliated or emotionally abused in other ways by your partner or ex-partner? Patient unable to answer 03/23/2024 Within the last year, have y ou been kicked, hit, slapped, or otherwise physically hurt by your partner or ex-partner? Patient unable to answer 03/23/2024 Within the last year, have y ou been raped or forced to have any kind of sexual activity by your partner or ex-partner? Patient unable to answer 03/23/2024 Social Connection and Isolat ion Panel [NHANES] Answer Date Recorded In a typical week, how many times do you talk on the phone with family, friends, or neighbors? More than three times a week 08/09/2022 How often do you get togethe r with friends or relatives? Three times a week 08/09/2022 How often do you attend chur or voodoo services? More than 4 times per year 08/09/2022 Do you belong to any clubs o r organizations such as taoist groups, unions, fraternal or athletic groups, or [...] medical care, and heating? Somewhat hard 08/09/2022 [facility] [place] of Occupat ional Health - Occupational Stress [...] to strenuous exercise (like a brisk walk)? 6 days 02/29/2024 On average, how many minutes do you engage in exercise at this level? 20 min 02/29/2024 Hunger Vital Sign Answer Date Recorded Within the past 12 months, y ou worried that your food would run out before you got the money to buy more. Sometimes true Within the past 12 months, t he food you bought just didn't last and you didn't have money to get more. Sometimes true 09/2023 PRAPARE - Transportation Answer Date Re corded In the past 12 months, has l ack of transportation kept you from medical appointments or from getting medications? No 09/2023 In the past 12 months, has l ack of transportation kept you from meetings, work, or from getting things needed for daily living? No 03/22/2024 Nutrition Answer Date Recorded On average, how many serving s of fruits and vegetables do you eat per day (serving size is equal to 1 cup or approximately the size of a tennis ball)? 0-2 02/29/2024 Dental Answer Date Recorded Dental: Regular Dentist Yes 02/29/20 Employment Answer Date Recorded Employment status Retired 02/29/2024 Housing Stability Answer Date Recorded What is your living situation today? I have a [facility] place to live 03/22/2024 Education Answer Date Recorded What is the highest level of school you have completed or the highest degree you have received? Associate degree: academic program 08/09/2022 Comments No Sex and Gender Information Value Date Recorded Sex Assigned at Female 08/09/2022 12:21 PM CDT Legal Sex Female 4:02 PM GI TECHNICIAN Gender Identity Female 08/09/2022 12:21 PM CDT Sexual Orientation Straight 08/09/2022 12 :21 PM CDT documented as of this encounter Plan of Treatment Scheduled Procedures Name Priority Associated Diagnoses Date/Ti me ARTHROPLASTY REPLACEMENT TOT AL KNEE Primary Osteoarthritis Knee Right documented as of this encounter Visit Diagnoses Not on filedocumented in this encounter Care Teams Reefer Engineer Relationship Specialty Start Date End Date Elsewhere, Pcp PCP - General Internal Medicine 03/22/24 documented as of this encounter
--- OUTSIDE RECORDS SUMMARY | 2024-05-15 13:33 | XMS_ITS | Encounter Summary ---
Author Organization [facility] Address [address] [place] [address] Care Team Providers Care Injection Specialist Name Role Phone Elsewhere, Pcp Primary Care Provider Unavailabl e Reason for Visit * Reason Comments Med Refill Encounter Details Date Type Department Care Team (Late st Contact Info) Description 05/08/2024 Refill Department of Orthopedic Surgery in [place], [place] [address] [place] [phone] Fiona Durant M.D. [address] [place] [phone] Med Refill Social History Tobacco Use Types Packs/Day Years Used Date Smoking Tobacco: Never Smokeless Tobacco: Never Alcohol Use Standard Drinks/Week Comments Never 0 (1 standard drink = 0.6 oz pur e alcohol) [facility] Utilities Answer Date Recorded In the past [...] any clubs o r organizations such as advent groups, unions, fraternal or athletic groups, or [...] medical care, and heating? Somewhat hard 08/09/2022 [facility] [place] of Occupat ional Health - Occupational Stress [...] your living situation today? I have a [facility] place to live 03/22/2024 Education Answer Date Recorded What is the highest level of school you have completed or the highest degree you have received? Associate degree: academic program 08/09/2022 Comments No Sex and Gender Information Value Date Recorded Sex Assigned at Female 08/09/2022 12:21 PM CDT Legal Sex Female 4:02 PM DOUBLE END SEWER Gender Identity Female 08/09/2022 12:21 PM CDT Sexual Orientation Straight 08/09/2022 12 :21 PM CDT documented as of this encounter Plan of Treatment Scheduled Procedures Name Priority Associated Diagnoses Date/Ti me ARTHROPLASTY REPLACEMENT TOT AL KNEE Primary Osteoarthritis Knee Right documented as of this encounter Visit Diagnoses Not on filedocumented in this encounter Care Teams Injection Specialist Relationship Specialty Start Date End Date Elsewhere, Pcp PCP - General Internal Medicine 03/22/24 documented as of this encounter
--- OUTSIDE RECORDS SUMMARY | 2024-05-15 13:33 | XMS_ITS | Encounter Summary ---
Author Organization [facility] Address [address] [place] [address] Care Team Providers Care Mud Mixer Operator Name Role Phone Elsewhere, Pcp Primary Care Provider Unavailabl e Reason for Visit * Reason Comments Med Refill Encounter Details Date Type Department Care Team (Late st Contact Info) Description 04/16/2024 Refill Division of Cardiovascular Diseases in [place], [place] [address] [place] [phone] Parul Oreilly M.B.B.S., Ph.D. [address] [place] [phone] Med Refill Social History Tobacco Use Types Packs/Day Years Used Date Smoking Tobacco: Never Smokeless Tobacco: Never Alcohol Use Standard Drinks/Week Comments Never 0 (1 standard drink = 0.6 oz pur e alcohol) [facility] Utilities Answer Date Recorded In the past 12 months has e electric, gas, oil, or water company [...] How often do you attend chur or pentecostalism services? More than 4 times per year 08/09/2022 Do you belong to any clubs o r organizations such as mosque groups, unions, fraternal or athletic groups, or [...] medical care, and heating? Somewhat hard 08/09/2022 [facility] of Occupat ional Health - Occupational Stress [...] your living situation today? I have a [facility] place to live 03/22/2024 Education Answer Date Recorded What is the highest level of school you have completed or the highest degree you have received? Associate degree: academic program 08/09/2022 Comments No Sex and Gender Information Value Date Recorded Sex Assigned at Female 08/09/2022 12:21 PM CDT Legal Sex Female 4:02 PM WEATHERIZATION SPECIALIST Gender Identity Female 08/09/2022 12:21 PM CDT Sexual Orientation Straight 08/09/2022 12 :21 PM CDT documented as of this encounter Plan of Treatment Scheduled Procedures Name Priority Associated Diagnoses Date/Ti me ARTHROPLASTY REPLACEMENT TOT AL KNEE Primary Osteoarthritis Knee Right documented as of this encounter Visit Diagnoses Not on filedocumented in this encounter Care Teams Mud Mixer Operator Relationship Specialty Start Date End Date Elsewhere, Pcp PCP - General Internal Medicine 03/22/24 documented as of this encounter
--- OUTSIDE RECORDS SUMMARY | 2024-05-15 13:33 | XMS_ITS | Encounter Summary ---
Author Organization [facility] Address [address] [place] [id number] Care Team Providers Care Net Repairer Name Role Phone Elsewhere, Pcp Primary Care Provider Unavailabl e Reason for Visit * Reason Comments Med Refill Encounter Details Date Type Department Care Team (Late st Contact Info) Description 05/12/2024 Refill Division of Cardiovascular Diseases in [place], [place] [address] [place] [phone] Parul Oreilly M.B.B.S., Ph.D. [address] [place] [phone] Med Refill Social History Tobacco Use Types Packs/Day Years Used Date Smoking Tobacco: Never Smokeless Tobacco: Never Alcohol Use Standard Drinks/Week Comments Never 0 (1 standard drink = 0.6 oz pur e alcohol) [facility] Utilities Answer Date Recorded In the [...] How often do you attend chur or religion services? More than 4 times per year 08/09/2022 Do you belong to any clubs o r organizations such as scientology groups, unions, fraternal or athletic groups, or [...] medical care, and heating? Somewhat hard 08/09/2022 [facility] [place] of Occupat ional Health - Occupational Stress [...] your living situation today? I have a [facility] place to live 03/22/2024 Education Answer Date Recorded What is the highest level of school you have completed or the highest degree you have received? Associate degree: academic program 08/09/2022 Comments No Sex and Gender Information Value Date Recorded Sex Assigned at Female 08/09/2022 12:21 PM CDT Legal Sex Female 4:02 PM DIE PRESS OPERATOR Gender Identity Female 08/09/2022 12:21 PM CDT Sexual Orientation Straight 08/09/2022 12 :21 PM CDT documented as of this encounter Plan of Treatment Scheduled Procedures Name Priority Associated Diagnoses Date/Ti me ARTHROPLASTY REPLACEMENT TOT AL KNEE Primary Osteoarthritis Knee Right documented as of this encounter Visit Diagnoses Not on filedocumented in this encounter Care Teams Net Repairer Relationship Specialty Start Date End Date Elsewhere, Pcp PCP - General Internal Medicine 03/22/24 documented as of this encounter
--- OUTSIDE RECORDS SUMMARY | 2024-05-15 13:34 | XMS_ITS | Clinical Summary ---
Author Organization [facility] Address [address] [place] [address] Care Team Providers Care Cultural Historian Name Role Phone Elsewhere, Pcp Primary Care Provider Unavailabl e Source Comments Patient records contain information from all sites at [facility]. For routine questions regarding patient records, call [phone] during business hours, M-F 8:00 AM - 5:00 PM Central Time. Record requests for emergency care only can be directed to [phone] at any time.[facility] Allergies Active Allergy Reactions Criticality Noted Date Comments Atorvastatin Myalgia High 07/02/2021 Bee Venom Protein (Honey Bee) Swelling Low 12/01/2006 Celecoxib Rash 05/15/2013 breathing difficulty - Duloxetine Swelling 02/09/2012 Ezetimibe Myalgia High 02/26/2024 Iodinated Contrast Media Anaphylaxis,Hives (Reselect Reaction) High 09/24/2011 Pollen Extracts Itching High 12/01/2006 Rosuvastatin Myalgia High 06/29/2022 Sulfa (Sulfonamide Antibiotics) Anaphylaxis High 12/01/2006 Medications cholecalciferol (VITAMIN D3) 50 mcg (2,000 Unit) tablet Take 2,000 Units by mouth daily. Active losartan (COZAAR) 50 mg tablet Take 50 mg by mouth every morning. 06/29/19 Active loratadine (CLARITIN) 10 mg tablet Take 10 mg by mouth daily. Active nitroglycerin (NITROSTAT) 0.[address] 0.4 mg under the tongue every 5 (five) minutes as needed. Do not exceed a total of 3 doses in 15 minutes. 07/13/19 Active spironolactone (ALDACTONE) 25 mg tablet Take 25 mg by mouth daily. 08/09/19 Active cyanocobalamin (vitamin B-12) 1,000 mcg tablet Take 1,000 mcg by mouth daily. Active isosorbide mononitrate (Imdur) 120 mg 24 hr tablet Take 1 tablet (120 mg total) by mouth daily. 90 tablet 3 02/29/20 24 025 Active isosorbide mononitrate (Imdur) 60 mg 24 hr tablet Take 1 tablet (60 mg total) by mouth daily. 90 tablet 3 02/29/20 24 Active ranolazine (Ranexa) 500 mg 12 hr tablet Take 1 tablet (500 mg total) by mouth 2 (two) times a day. 180 tablet 3 02/29/20 24 025 Active aspirin 81 mg chewable tablet Chew 1 tablet (81 mg total) daily. Indication: Coronary artery disease 03/24/20 24 025 Active clopidogreL (Plavix) 75 mg tablet Take 1 tablet (75 mg total) by mouth daily. Indication: Coronary artery disease with cardiac stents 90 tablet 3 03/24/20 24 025 Active metFORMIN XR (Glucophage-XR) 500 mg 24 hr tablet Take 1 tablet (500 mg total) by mouth daily. Indication: diabetes type 2 90 tablet 3 03/26/20 24 Active esomeprazole (NexIUM) [address] capsule Take 1 capsule (40 mg total) by mouth daily before morning meal. 90 capsule 03/24/20 24 Active meloxicam (Mobic) 15 mg tablet Take 1 tablet by mouth once daily 30 tablet 05/08/19 25 Active metoprolol tartrate (Lopressor) 100 mg tablet Take 1 tablet by mouth twice daily 60 tablet 05/12/19 25 Active metoprolol tartrate (Lopressor) 100 mg tablet Take 1 tablet by mouth twice daily 60 tablet 03/21/20 24 024 Discontinued meloxicam (Mobic) 15 mg tablet Take 1 tablet (15 mg total) by mouth daily as needed for pain. 30 tablet 03/24/20 24 025 Discontinued metoprolol tartrate (Lopressor) 100 mg tablet Take 1 tablet by mouth twice daily 60 tablet 04/16/20 24 025 Discontinued Active Problems Problem Noted Date Diagnosed Date Morbid Obesity Body Mass Index 40.0-44.9 Adult 1 06/14/2022 Overview (04/13/2023): Estimated body mass index is 40.37 kg/m as calculated from the following: Height as [...] Encounters Date Type Department Care Team Description 05/12/2024 Refill Division of Cardiovascular Diseases in [address] [phone] Parul Oreilly M.B.B.S., Ph.D. Med Refill 05/08/2024 Refill Department of Orthopedic Surgery in [place], [place] [address] [place] [address] Fiona Durant M.D. Med Refill 04/16/2024 Refill Division of Cardiovascular Diseases in [address] [phone] Parul Oreilly M.B.B.S., Ph.D. Med Refill 04/04/2024 8:00 AM MANUFACTURING AUTOMATION ENGINEER Virtual Visit Department of Cardiovascular Medicine in [place], [place] [address] [place] [address] Shayy Licona, ENGRAVER SET UP OPERATOR, C.N.P., D.N.P. Atherosclerotic Heart Disease Of [place] Coronary Artery Without Angina Pectoris (Primary Dx); Myocardial Infarction Old; Coronary Stent Status Post 04/04/2024 Refill Department of Orthopedic Surgery in [place], [place] [address] [place] [address] Fiona Durant M.D. Med Refill 03/25/2024 Clinical Communication Department of Cardiovascular Medicine in [place], [place] [address] [place] [address] Katelin Peña, BALJIT Cardiac Rehab Referral 03/23/2024 12:35 PM MANUFACTURING AUTOMATION ENGINEER - 03/23/2024 1:50 PM MANUFACTURING AUTOMATION ENGINEER Surgery Division of Cardiovascular Diseases in [place], [place] [address] [place] [phone] Geremias Camp M.D., Ph.D. CORONARY ANGIOGRAPHY 03/22/2024 3:57 PM MANUFACTURING AUTOMATION ENGINEER - 03/24/2024 3:05 PM MANUFACTURING AUTOMATION ENGINEER Hospital Encounter [facility], Sixth Floor [address] [place] [phone] Jarad Prescott M.D. Alfred Zuniga M.D. Nguyen, Duy T, M.D. Angina Unstable (HCC) (Primary Dx); Morbid Obesity Body Mass Index 40.0-44.9 Adult (HCC); Coronary Artery Disease Without Angina Pectoris Discharge Disposition: Home or Self Care 03/21/2024 Refill Department of Orthopedic Surgery in [place], [place] [address] [place] [phone] Fiona Durant M.D. Med Refill 03/21/2024 Refill Division of Cardiovascular Diseases in [place], [place] [address] [place] [phone] Parul Oreilly M.B.B.S., Ph.D. Med Refill 02/29/2024 8:30 AM MANUFACTURING AUTOMATION ENGINEER Comprehensive Visit Department of Cardiovascular Medicine in [place], [place] [address] [place] [address] Shayy Licona, CHUNG, C.N.P., D.N.P. Atherosclerotic Heart Disease [place] Coronary Artery With Other Forms Angina Pectoris (Stable Angina/Angina Of Exertion) (HCC) (Primary Dx); Myocardial Infarction Old; Coronary Stent Status Post; Obesity Body Mass Index 30-39.9 Adult; Diabetes Mellitus Type 2 (HCC); Hyperlipidemia; Hypertension Essential Primary 02/29/2024 6:50 AM MANUFACTURING AUTOMATION ENGINEER - 02/29/2024 11:59 PM MANUFACTURING AUTOMATION ENGINEER Hospital Encounter Department of Laboratory Medicine and Pathology, [facility] in [place], [place] [address] [place] [phone] Krishna Dia M.D. Coronary Artery Disease With Stable Angina (HCC) Discharge Disposition: Home or Self Care 02/28/2024 3:42 PM MANUFACTURING AUTOMATION ENGINEER - 02/28/2024 11:59 PM MANUFACTURING AUTOMATION ENGINEER Hospital Encounter Department of Radiology, [place], [place] [address] [place] [phone] Krishna Dia M.D. Coronary Artery Disease With Stable Angina (HCC) Discharge Disposition: Home or Self Care 02/26/2024 3:15 PM MANUFACTURING AUTOMATION ENGINEER Clinical Communication Virtual Review in [place], [place] [address] [place] [address] Pre-visit Intake 02/23/2024 Refill Department of Orthopedic Surgery in [place], [place] [address] [place] [phone] Gustabo Lau M.D., M.B.A. Med Refill 02/23/2024 Refill Division of Cardiovascular Diseases in [place], [place] [address] [place] [phone] Parul Oreilly M.B.B.S., Ph.D. Med Refill from Last 3 Months Family [...] Jean Baptiste Coronary artery disease Father Arpan Thompson riple by-pass Diabetes Father Arpan Jean Baptiste [...] Baptiste Coronary artery disease Sister 1 Talisha Mcraet Sten ts & double bypass Hyperlipidemia Sister 1 Talisha Ellerigt Hypertension Sister 1 Talisha Ellerigt Thyroid disease Sister 1 Talisha Ellerigt Coronary artery disease Sister 2 Holly Palma S tents Hyperlipidemia Sister 2 Holly Palma Hypertension Sister 2 Holly oLuie Thyroid disease Sister 2 Holly Louie Relation [...] drink = 0.6 oz pur e alcohol) [facility] Utilities Answer Date Recorded In the past 12 months has [employer], gas, oil, or water [employer] threatened to shut off services in your [...] often do you attend chur ch or gnosticist services? More than 4 times per year 08/09/2022 Do you belong to any clubs o r organizations such as buddhist groups, unions, fraternal or athletic groups, or [...] medical care, and heating? Somewhat hard 08/09/2022 [facility] - Occupational Stress Questionnaire Answer Date [...] your living situation today? I have a [facility] place to live 03/22/2024 Education Answer Date Recorded What is the highest level of school you have completed or the highest degree you have received? Associate degree: academic program 08/09/2022 Comments No Sex and Gender Information Value Date Recorded Sex Assigned at Female 08/09/2022 12:21 PM CDT Legal Sex Female 4:02 PM MANUFACTURING AUTOMATION ENGINEER Gender Identity Female 08/09/2022 12:21 PM CDT Sexual Orientation Straight 08/09/2022 12 :21 PM CDT Last Filed Vital Signs Vital Sign Reading Time Taken Comments Blood Pressure 120/63 03/24/2024 2:04 PM MANUFACTURING AUTOMATION ENGINEER Pulse 55 03/24/2024 2:04 PM MANUFACTURING AUTOMATION ENGINEER Temperature 37 C (98.6 F) 03/24/2024 2:04 PM MANUFACTURING AUTOMATION ENGINEER Respiratory Rate 15 03/24/2024 2:04 PM MANUFACTURING AUTOMATION ENGINEER Oxygen Saturation 96% 03/24/2024 2:04 PM MANUFACTURING AUTOMATION ENGINEER Inhaled Oxygen Concentration - - Weight 101 kg (222 lb 0.1 oz) 03/24/2024 3:42 AM MANUFACTURING AUTOMATION ENGINEER Height 163 cm (5' 4.17) 03/22/2024 11:51 PM MANUFACTURING AUTOMATION ENGINEER Body Mass Index 37.9 03/22/2024 11:51 PM MANUFACTURING AUTOMATION ENGINEER Plan of Treatment Scheduled Procedures Name Priority Associated Diagnoses Date/Ti me ARTHROPLASTY REPLACEMENT TOT AL KNEE Primary Osteoarthritis Knee Right Health Maintenance Due Date Last Done Comments Bone Density Scan (Osteoporosis Screen) 1956 CT Colonography 1955 Cologuard 1956 Diabetic Office Visit with Foot Exam 1956 Dilated Eye Exam 1956 Hepatitis C Screening 1955 Urine Albumin 1956 Pneumococcal vaccine (50+ years) (1 of 2 - PCV) 1975 Zoster Vaccines (1 of 2) 2006 Colonoscopy 12/02/2011 12/01/2006 Colorectal Cancer Surveillance 12/02/2011 Hepatitis B Vaccines (1 of 3 - Risk 3-dose series) 2016 RSV vaccine - (32-36 weeks) or 60+ years (1 - Risk 60-74 years 1-dose series) 2016 DTaP,Tdap,and Td Vaccines (3 - Td or Tdap) 07/19/2021 07/20/2011, 05/27/2009 Mammogram 01/19/2022 01/19/2021, 08/2020, 12/08/2017, Additional history exists COVID-19 Vaccine ( - season) 2023 Influenza Vaccine (#1) 2024 01/22/2018, 2005 Depression Screening (Annual PHQ-2) 04/17/2024 Fall Risk Screen (Annual) 04/17/2024 Hemoglobin A1C 08/28/2024 02/29/2024, 02/15, 08/12/2022 Lipid (Cholesterol) Screening 02/28/2025 02/29/2024, 08/12/2022 Office Visit for Blood Pressure Check / Re-check 02/28/2025 02/29/2024 Creatinine Level (Kidney Function Test) 03/24/2025 03/24/2024, 03/23/2024, 03/22/2024, Additional history exists Potassium Level 03/24/2025 03/24/2024, 120 10/2023, 03/22/2024, Additional history exists Sodium Level 03/24/2025 03/24/2024, 12/0 10/2023, 03/22/2024, Additional history exists IPV Vaccines Aged Out No longer eligi ble based on patient's age to complete this topic Medical Devices Implanted Type Area Follow Up Rep Device Identifier Shelf Expiration Date Model / Serial / Lot Cardiac Stent Cardiac Stent Heart Description:EIGHT CARDIAC ST ENTS Stnt Synergy Xd De 2.50x16 - [id number] Implanted:Qty : 1 on 03/23/2024 by Geremias Camp M.D., Ph.D. at [facility] Cardiac Stent N/A: Coronary [employer] 08/28/2025 [id number] / / [id number] Description:Distal LAD Stnt Synergy Xd De 2.25x8 - [id number] Implanted:Qty : 1 on 03/23/2024 by Geremias Camp M.D., Ph.D. at [facility] Cardiac Stent N/A: Coronary [employer] 07/31/2024 [id number] / / [id number] Bsplt Tib Trt Sz2 - [id number] Implanted:Qty : 1 on 03/03/2023 by Gustabo Lau M.D., M.B.A. at [facility] Knee Implant Right: Knee [employer] 10/14/2027 5536-B-20 0 / / [id number] Kn Fem Trt Por Cr Bead Rt Sz3 - [id number] Implanted:Qty : 1 on 03/03/2023 by Gustabo Lau M.D., M.B.A. at [facility] Knee Implant Right: Knee [place] 09/08/2027 5517-F-30 2 / / [id number] Ins Tib Trt Cs Sz2 9 - [id number] Implanted:Qty : 1 on 03/03/2023 by Gustabo Lau M.D., M.B.A. at [facility] Knee Implant Right: Knee Johnson 09/04/2027 5531-G-20 9-E / / [id number] Procedures Procedure Name Priority Date/Time Associated Diagnosis Comments ECG Routine 03/24/2024 8:04 AM MANUFACTURING AUTOMATION ENGINEER MAGNESIUM, S Routine 03/24/2024 7:12 AM MANUFACTURING AUTOMATION ENGINEER BASIC METABOLIC PANEL, S/P Routine 03/24/2024 7:12 AM MANUFACTURING AUTOMATION ENGINEER CBC WITHOUT DIFFERENTIAL, B Routine 03/24/2024 7:12 AM MANUFACTURING AUTOMATION ENGINEER CARDIAC CATHETERIZATION Routine 03/23/2024 1:49 PM MANUFACTURING AUTOMATION ENGINEER Angina Unstable (HCC) Morbid Obesity Body Mass Index 40.0-44.9 Adult (HCC) Coronary Artery Disease Without Angina Pectoris CARDIAC CATHETERIZATION Routine 03/23/2024 1:49 PM MANUFACTURING AUTOMATION ENGINEER Angina Unstable (HCC) Morbid Obesity Body Mass Index 40.0-44.9 Adult (HCC) Coronary Artery Disease Without Angina Pectoris CARDIAC CATHETERIZATION Routine 03/23/2024 1:49 PM MANUFACTURING AUTOMATION ENGINEER Angina Unstable (HCC) Morbid Obesity Body Mass Index 40.0-44.9 Adult (HCC) Coronary Artery Disease Without Angina Pectoris ACT, POCT, B Routine 03/23/2024 1:36 PM MANUFACTURING AUTOMATION ENGINEER HEPARIN LEVEL ANTI-XA ASSAY, P Timed 03/23/2024 11:52 AM MANUFACTURING AUTOMATION ENGINEER ADULT OXYGEN THERAPY Routine 03/23/2024 8:01 AM MANUFACTURING AUTOMATION ENGINEER TROPONIN T, 5TH GEN, P Timed 4:32 AM MANUFACTURING AUTOMATION ENGINEER C-REACTIVE PROTEIN (CRP), S/P Timed 03/23/2024 4:32 AM MANUFACTURING AUTOMATION ENGINEER CBC WITHOUT DIFFERENTIAL, B Timed 03/23/2024 4:32 AM MANUFACTURING AUTOMATION ENGINEER BASIC METABOLIC PANEL, S/P Timed 03/23/2024 4:32 AM MANUFACTURING AUTOMATION ENGINEER HEPARIN LEVEL ANTI-XA ASSAY, P Timed 03/23/2024 4:32 AM MANUFACTURING AUTOMATION ENGINEER ECG STAT 03/22/2024 10:04 PM MANUFACTURING AUTOMATION ENGINEER ADULT OXYGEN THERAPY Routine 03/22/2024 9:51 PM MANUFACTURING AUTOMATION ENGINEER ADULT OXYGEN THERAPY Routine 03/22/2024 9:51 PM MANUFACTURING AUTOMATION ENGINEER ADULT OXYGEN THERAPY Routine 03/22/2024 9:51 PM MANUFACTURING AUTOMATION ENGINEER TROPONIN T, 2H/6H REFLEX, 5TH GEN, P Timed 03/22/2024 6:22 PM MANUFACTURING AUTOMATION ENGINEER DX CHEST AP OR PA AND LATERAL 2 VIEWS RAD - Semiurgent (Fast; most ED patients; some inpatients) 03/22/2024 4:57 PM MANUFACTURING AUTOMATION ENGINEER ACTIVATED PARTIAL THROMBOPLASTIN TIME (APTT), P STAT 03/22/2024 4:24 PM MANUFACTURING AUTOMATION ENGINEER NT-PRO B-TYPE NATRIURETIC PEPTIDE (BNP), S STAT 03/22/2024 4:24 PM MANUFACTURING AUTOMATION ENGINEER PROTHROMBIN TIME (PT), P STAT 03/22/2024 4:24 PM MANUFACTURING AUTOMATION ENGINEER TROPONIN T, BASELINE, 5TH GEN, P STAT 03/22/2024 4:24 PM MANUFACTURING AUTOMATION ENGINEER BASIC METABOLIC PANEL, S/P STAT 03/22/2024 4:24 PM MANUFACTURING AUTOMATION ENGINEER CBC WITH DIFFERENTIAL, B STAT 03/22/2024 4:24 PM MANUFACTURING AUTOMATION ENGINEER ECG STAT 03/22/2024 4:05 PM MANUFACTURING AUTOMATION ENGINEER ALANINE AMINOTRANSFERASE (ALT), S/P Routine 02/29/2024 7:28 AM MANUFACTURING AUTOMATION ENGINEER Coronary Artery Disease With Stable Angina (HCC) ASPARTATE AMINOTRANSFERASE (AST), S/P Routine 02/29/2024 7:28 AM MANUFACTURING AUTOMATION ENGINEER Coronary Artery Disease With Stable Angina (HCC) LIPID PANEL, S Routine 02/29/2024 7:28 AM MANUFACTURING AUTOMATION ENGINEER Coronary Artery Disease With Stable Angina (HCC) PROTHROMBIN TIME (PT), P Routine 02/29/2024 7:28 AM MANUFACTURING AUTOMATION ENGINEER Coronary Artery Disease With Stable Angina (HCC) HEMOGLOBIN A1C, B Routine 02/29/2024 7:2 8 AM MANUFACTURING AUTOMATION ENGINEER Coronary Artery Disease With Stable Angina (HCC) GLUCOSE, FASTING, S/P Routine 02/29/2024 7:28 AM MANUFACTURING AUTOMATION ENGINEER Coronary Artery Disease With Stable Angina (HCC) SODIUM, S/P Routine 02/29/2024 7:28 AM MANUFACTURING AUTOMATION ENGINEER Coronary Artery Disease With Stable Angina (HCC) POTASSIUM, S/P Routine 02/29/2024 7:28 AM MANUFACTURING AUTOMATION ENGINEER Coronary Artery Disease With Stable Angina (HCC) CREATININE WITH EGFR, S/P Routine 02/29/2024 7:28 AM MANUFACTURING AUTOMATION ENGINEER Coronary Artery Disease With Stable Angina (HCC) CHLORIDE, S/P Routine 02/29/2024 7:28 AM MANUFACTURING AUTOMATION ENGINEER Coronary Artery Disease With Stable Angina (HCC) BUN (BLOOD UREA NITROGEN), S/P Routine 02/29/2024 7:28 AM MANUFACTURING AUTOMATION ENGINEER Coronary Artery Disease With Stable Angina (HCC) BICARBONATE, B/S/P Routine 02/29/2024 7: 28 AM MANUFACTURING AUTOMATION ENGINEER Coronary Artery Disease With Stable Angina (HCC) CBC WITH DIFFERENTIAL, B Routine 02/29/2024 7:28 AM MANUFACTURING AUTOMATION ENGINEER Coronary Artery Disease With Stable Angina (HCC) DX CHEST AP OR PA AND LATERAL 2 VIEWS RAD - Routine (most inpatients and all outpatients) 02/28/2024 3:55 PM MANUFACTURING AUTOMATION ENGINEER Coronary Artery Disease With Stable Angina (HCC) ECG Routine 02/28/2024 3:29 PM MANUFACTURING AUTOMATION ENGINEER Coronary Artery Disease With Stable Angina (HCC) from Last 3 Months Results * ECG 12 Lead (03/24/2024 8:04 AM MANUFACTURING AUTOMATION ENGINEER) Only the most recent of4 resultswithin the time period is included. Ventricular Rate ECG/Min 61 BPM MUSE IA Interval 190 ms MUSE QRSD Interval 86 ms MUSE QT Interval 446 ms MUSE QTC Interval 448 ms MUSE P [place] 67 degrees MUSE R [place] 13 degrees MUSE T Wave [place] 30 degrees MUSE 03/24/2024 8:04 AM MANUFACTURING AUTOMATION ENGINEER 03/24/2024 8:16 AM MANUFACTURING AUTOMATION ENGINEER Impressions MUSE - 03/24/2024 8:16 AM MANUFACTURING AUTOMATION ENGINEER Normal sinus rhythm Normal ECG When compared with ECG of 22-Mar-2024 22:04, No significant change was found Reviewed by WARREN Chakraborty Narrative Procedure Note Demetrius Negrete M.D. - 03/24/2024 IMPRESSION: Normal sinus rhythm Normal ECG When compared with ECG of 22-Mar-2024 22:04, No significant change was found Reviewed by WARREN Chakraborty us Francis Manzano M.D. ECG ORDERABLES Final Result Performing Organization Address City/[facility] Co de Phone Number MUSE NA * (ABNORMAL) CBC without Differential (03/24/2024 7:12 AM MANUFACTURING AUTOMATION ENGINEER) Only the most recent of2 resultswithin the time period is included. Hemoglobin 11.0(L) 11.6 - 15.0 g/dL 03/24/2024 8:02 AM MANUFACTURING AUTOMATION ENGINEER DTL Hematocrit 34.6(L) 35.5 - 44.9 % 03/24/2024 8:02 AM MANUFACTURING AUTOMATION ENGINEER DTL Erythrocytes 4.02 3.92 - 5.13 x10(12)/L 03/24/2024 8:02 AM MANUFACTURING AUTOMATION ENGINEER DTL MCV 86.1 78.2 - 97.9 fL 03/24/2024 8:02 AM MANUFACTURING AUTOMATION ENGINEER DTL RBC Distrib Width 13.8 12.2 - 16.1 % 03/24/2024 8:02 AM MANUFACTURING AUTOMATION ENGINEER DTL Platelet Count 261 157 - 371 x10(9)/L 03/24/2024 8:02 AM MANUFACTURING AUTOMATION ENGINEER DTL Leukocytes 10.7(H) 3.4 - 9.6 x10(9)/L 03/24/2024 8:02 AM MANUFACTURING AUTOMATION ENGINEER DTL Blood (Blood, Venous) 03/24/2024 7:12 AM MANUFACTURING AUTOMATION ENGINEER 03/24/2024 7:52 AM MANUFACTURING AUTOMATION ENGINEER us Cher Rodriguez APRN, C.N.P. LAB BLOOD ADD-ON Fin al Result [facility] [address] [place] [address], [facility] [address] [place] [address] * Magnesium (03/24/2024 7:12 AM MANUFACTURING AUTOMATION ENGINEER) Magnesium, S 2.1 1.7 - 2.3 mg/dL 03/24/2024 8:21 AM MANUFACTURING AUTOMATION ENGINEER DTL Blood (Blood, Venous) 03/24/2024 7:12 AM MANUFACTURING AUTOMATION ENGINEER 03/24/2024 8:03 AM MANUFACTURING AUTOMATION ENGINEER us Cher Rodriguez APRN, C.N.P. LAB BLOOD ADD-ON Fin al Result [facility] [address] [place] [address], [facility] [address] [place] [address] * (ABNORMAL) Basic Metabolic Panel (03/24/2024 7:12 AM MANUFACTURING AUTOMATION ENGINEER) Only the most recent of3 resultswithin the time period is included. Potassium, S 4.4 3.6 - 5.2 mmol/L 03/24/2024 8:21 AM MANUFACTURING AUTOMATION ENGINEER DTL Sodium, S 138 135 - 145 mmol/L 03/24/2024 8:21 AM MANUFACTURING AUTOMATION ENGINEER DTL Chloride, S 103 98 - 107 mmol/L 03/24/2024 8:21 AM MANUFACTURING AUTOMATION ENGINEER DTL Bicarbonate, S 27 22 - 29 mmol/L 03/24/2024 8:21 AM MANUFACTURING AUTOMATION ENGINEER DTL Anion Gap 8 7 - 15 03/24/2024 8:21 AM MANUFACTURING AUTOMATION ENGINEER DTL BUN (Blood Urea Nitrogen), S 17 6 - 21 mg/dL 03/24/2024 8:21 AM MANUFACTURING AUTOMATION ENGINEER DTL Creatinine 1.28(H) 0.59 - 1.04 mg/dL 03/24/2024 8:21 AM MANUFACTURING AUTOMATION ENGINEER DTL Estimated GFR (eGFR) 46(L) >=60 mL/min/BSA 03/24/2024 8:21 AM MANUFACTURING AUTOMATION ENGINEER DTL Comment: Estimated GFR calculated using the 2020 CKD_EPI creatinine equation. Calcium, Total, S 9.3 8.8 - 10.2 mg/dL 03/24/2024 8:21 AM MANUFACTURING AUTOMATION ENGINEER DTL Glucose, S 103 70 - 140 mg/dL 03/24/2024 8:21 AM MANUFACTURING AUTOMATION ENGINEER DTL Blood (Blood, Venous) 03/24/2024 7:12 AM MANUFACTURING AUTOMATION ENGINEER 03/24/2024 8:03 AM MANUFACTURING AUTOMATION ENGINEER Cher Rodriguez APRN C.N.P. LAB BLOOD ADD-ON Fin al Result [facility] [address] [place] [address], [facility] DTL [facility] [address] [place] [address] * CORONARY ANGIOGRAPHY, PERCUTANEOUS CORONARY ANGIOPLASTY, STENT PLACEMENT (03/23/2024 1:49 PM MANUFACTURING AUTOMATION ENGINEER) Anatomical Region Laterality Modality X-Ray Angiograph y 03/23/2024 12:5 0 PM MANUFACTURING AUTOMATION ENGINEER Narrative 03/26/2024 8:50 AM MANUFACTURING AUTOMATION ENGINEER For the complete report, see the Order-Level Documents. PROCEDURE TYPES 1. CORONARY ANGIOGRAPHY 2. PERCUTANEOUS CORONARY ANGIOPLASTY 3. CORONARY STENT PLACEMENT FINAL DIAGNOSIS 1. Coronary artery atherosclerosis 2. Coronary calcification 3. Successful percutaneous coronary intervention with drug eluting stent PRE-PROCEDURE DIAGNOSIS 1. Angina Unstable (HCC) 2. Morbid Obesity Body Mass Index 40.0-44.9 Adult (HCC) 3. Morbid Obesity Body Mass Index 40.0-44.9 Adult (HCC) INTERVENTIONAL NOTE Indication:? Non ST-elevation myocardial infarction Procedure:? Percutaneous coronary intervention with drug-eluting stent deployment x2 to the distal left anterior descending artery The risks, benefits, alternatives, goals, and the need for team approach were discussed with the patient who elected to proceed.?Standard sterile procedures were used.?Arterial access was obtained via the right common femoral artery using a short 6 [place] sheath.?Angiography demonstrated severe stenosis in the mid left anterior descending artery. Following discussions with the referring physician, we elected to proceed with PCI.? Pretreatment with aspirin and clopidogrel was initiated prior to arrival to the cardiac catheterization lab.?Heparin boluses were administered, and ACT monitored throughout.?The left main was engaged using a 3.5 XB guide which provided adequate support.? The LAD was primarily wired using a BMW wire. Pre dilation was performed using a 2.5 x 15 mm balloon at 16 atmospheres.?A 2.5 x 16 mm Synergy drug-eluting stent was deployed at 14 atmospheres. There was some residual disease distal to this stent, and a 2.25 x 8 mm Synergy drug-eluding stent was deployed distally at 12 atmospheres. The final angiographic result was excellent without complications.? Patient remained hemodynamically stable. Asymptomatic at the end of the procedure.?Transferred to the PCU in a stable condition. CORONARY DIAGNOSTIC SUMMARY Coronary artery dominance is right. The left main coronary artery is 20% obstructed by a discrete lesion. The distal left anterior descending artery is 80% obstructed by a tubular lesion and 90% obstructed by diffuse disease. The distal segment is small size. The proximal circumflex artery is 60% obstructed by a discrete lesion. The proximal right coronary artery is 30% obstructed by a discrete lesion. The distal right coronary artery is 20% obstructed by a discrete lesion. CORONARY INTERVENTION SUMMARY Successful intervention of the Distal Left Anterior Descending Artery. The preintervention stenosis was 80%. The post intervention stenosis was 0%. Devices used include PTCA and Stent. RADIATION DOSE DATA Procedure cumulative skin dose (mGy): 470.81 Procedure cumulative dose area product (Gy-cm2): 20.44 Fluoro Time (Min): 11.32 CONTRAST DOSE DATA iohexoL 350 mg iodine/mL solution (Omnipaque): 145mL For the complete report, see the Order-Level Documents. Procedure Note Geremias Camp M.D., Ph.D. - 03/26/2024 For the complete report, see the Order-Level Documents. PROCEDURE TYPES 1. CORONARY ANGIOGRAPHY 2. PERCUTANEOUS CORONARY ANGIOPLASTY 3. CORONARY STENT PLACEMENT FINAL DIAGNOSIS 1. Coronary artery atherosclerosis 2. Coronary calcification 3. Successful percutaneous coronary intervention with drug eluting stent PRE-PROCEDURE DIAGNOSIS 1. Angina Unstable (HCC) 2. Morbid Obesity Body Mass Index 40.0-44.9 Adult (HCC) 3. Morbid Obesity Body Mass Index 40.0-44.9 Adult (HCC) INTERVENTIONAL NOTE Indication:? Non ST-elevation myocardial infarction Procedure:? Percutaneous coronary intervention with drug-eluting stentdeployment x2 to the distal left anterior descending artery The risks, benefits, alternatives, goals, and the need for team approachwere discussed with the patient who elected to proceed.?Standard sterileprocedures were used.?Arterial access was obtained via the right commonfemoral artery using a short 6 Gibraltarian sheath.?Angiography demonstratedsevere stenosis in the mid left anterior descending artery. Followingdiscussions with the referring physician, we elected to proceed with PCI.?Pretreatment with aspirin and clopidogrel was initiated prior to arrivalto the cardiac catheterization lab.?Heparin boluses were administered, andACT monitored throughout.?The left main was engaged using a 3.5 XB guidewhich provided adequate support.? The LAD was primarily wired using a BMWwire. Pre dilation was performed using a 2.5 x 15 mm balloon at 16atmospheres.?A 2.5 x 16 mm Synergy drug-eluting stent was deployed at 14atmospheres. There was some residual disease distal to this stent, and a2.25 x 8 mm Synergy drug-eluding stent was deployed distally at 12atmospheres. The final angiographic result was excellent withoutcomplications.? Patient remained hemodynamically stable. Asymptomatic atthe end of the procedure.?Transferred to the PCU in a stable condition. CORONARY DIAGNOSTIC SUMMARY Coronary artery dominance is right. The left main coronary artery is 20% obstructed by a discrete lesion. The distal left anterior descending artery is 80% obstructed by a tubularlesion and 90% obstructed by diffuse disease. The distal segment is smallsize. The proximal circumflex artery is 60% obstructed by a discrete lesion. The proximal right coronary artery is 30% obstructed by a discrete lesion. The distal right coronary artery is 20% obstructed by a discrete lesion. CORONARY INTERVENTION SUMMARY Successful intervention of the Distal Left Anterior Descending Artery. Thepreintervention stenosis was 80%. The post intervention stenosis was 0%.Devices used include PTCA and Stent. RADIATION DOSE DATA Procedure cumulative skin dose (mGy): 470.81 Procedure cumulative dose area product (Gy-cm2): 20.44 Fluoro Time (Min): 11.32 CONTRAST DOSE DATA iohexoL 350 mg iodine/mL solution (Omnipaque): 145mL For the complete report, see the Order-Level Documents. us Mary Conway APRN, C.N.P. CV CARDIAC CATH PRO CEDURES Final Result * (ABNORMAL) ACT (Activated Clotting Time), POCT (03/23/2024 1:36 PM MANUFACTURING AUTOMATION ENGINEER) Activated Clotting Time, POCT 303(H) 84 - 139 sec 03/23/2024 1:37 PM MANUFACTURING AUTOMATION ENGINEER [facility] Blood 03/23/2024 1:36 PM MANUFACTURING AUTOMATION ENGINEER 03/23/2024 1:37 PM MANUFACTURING AUTOMATION ENGINEER Unknown Provider LAB POCT ORDERABLES - DEVICE Fi nal Result POC RST [facility] IN[facility] [address] [place], [place] [id number] [place] [address] [facility] [address] [place] [address] * Heparin Anti-Xa Assay (03/23/2024 11:52 AM MANUFACTURING AUTOMATION ENGINEER) Only the most recent of2 resultswithin the time period is included. Pathologist [facility] Heparin Anti-Xa, P 0.59 IU/mL 2023 12:45 PM MANUFACTURING AUTOMATION ENGINEER DTL Comment: UFH therapeutic range: 0.30-0.70 IU/mL LMWH therapeutic range: 0.50-1.00 IU/mL 0.50-1.00 IU/mL for twice daily dosing 1.00-2.00 IU/mL for once daily dosing (sample obtained 4-6 hours following subcutaneous injection) LMWH prophylactic range:0.10-0.30 IU/mL ----ADDITIONAL INFORMATION---- Heparin Anti-Xa is used to measure heparin concentrations in patients receiving low molecular weight heparin (LMWH) or unfractionated heparin (UFH). Blood (Blood, Venous) 03/23/2024 11:52 AM MANUFACTURING AUTOMATION ENGINEER 03/23/2024 12:18 PM MANUFACTURING AUTOMATION ENGINEER Alfred Zuniga M.D. LAB BLOOD NON ADD-ON Eliane l Result [facility] [address] [place] [address], [facility] DTL [facility] [address] [place] [address] * (ABNORMAL) CRP (C-Reactive Protein) (03/23/2024 4:32 AM MANUFACTURING AUTOMATION ENGINEER) Pathologist [facility] C-Reactive Protein (CRP), S 14.0(H) <5.0 mg/L 03/23/2024 5:36 AM MANUFACTURING AUTOMATION ENGINEER DTL Blood (Blood, Venous) 03/23/2024 4:32 AM MANUFACTURING AUTOMATION ENGINEER 03/23/2024 4:51 AM MANUFACTURING AUTOMATION ENGINEER Mary Conway APRN, C.N.P. LAB BLOOD ADD-ON Fi nal Result [facility] [address] DTL [facility] [address] [place] [address] * Troponin T, 5th Generation (03/23/2024 4:32 AM MANUFACTURING AUTOMATION ENGINEER) [facility] Troponin T, 5th gen 10 <=10 ng/L 03/23/2024 4:55 AM MANUFACTURING AUTOMATION ENGINEER STMA Blood (Blood, Venous) 03/23/2024 4:32 AM MANUFACTURING AUTOMATION ENGINEER 03/23/2024 4:39 AM MANUFACTURING AUTOMATION ENGINEER Mary Conway APRN, C.N.P. LAB BLOOD ADD-ON Fi nal Result [facility] [address] [place] [address] * Troponin T, 2 Hour with 6 Hour Reflex, 5th Gen (03/22/2024 6:22 PM MANUFACTURING AUTOMATION ENGINEER) Pathologist [facility] Troponin T, 2 hr, 5th gen 9 <=10 ng/L 03/22/2024 6:53 PM MANUFACTURING AUTOMATION ENGINEER STMA 2H Delta -2 ng/L 03/22/2024 6:53 PM MANUFACTURING AUTOMATION ENGINEER STMA Comment:6 hour collection no t indicated. 2H Delta Interp Not Changing 03/22/2024 6:53 PM MANUFACTURING AUTOMATION ENGINEER STMA Blood 03/22/2024 6:22 PM MANUFACTURING AUTOMATION ENGINEER 03/22/2024 6:30 PM MANUFACTURING AUTOMATION ENGINEER Ismael Newell APRN, C.N.P. LAB BLOOD TROPONI N Final Result [facility] [address] [place] [address], [facility] [address] [place] [address] * DX Chest AP or PA and Lateral 2 Views (03/22/2024 4:57 PM MANUFACTURING AUTOMATION ENGINEER) Only the most recent of2 resultswithin the time period is included. Anatomical Region Laterality Modality Chest, Thoracic RST LOS, Tho racic ARZ LOS, Thoracic FLA LOS N/A Digital Radiography Impressions 03/22/2024 5:20 PM MANUFACTURING AUTOMATION ENGINEER No significant change since 02/28/2024. Normal cardiomediastinal silhouette. No pneumothorax, significant pleural effusion, or consolidation. Coronary artery stenting. Calcified hilar lymph nodes. Mild aortic calcifications. Degenerative and hypertrophic changes of the spine. Surgical clips right upper quadrant. Narrative 03/22/2024 5:20 PM MANUFACTURING AUTOMATION ENGINEER EXAM: DX CHEST AP OR PA AND LATERAL 2 VIEWS Procedure Note Clarice Landis M.B., Ch.B. - 03/22/2024 EXAM: DX CHEST AP OR PA AND LATERAL 2 VIEWS IMPRESSION: No significant change since 02/28/2024. Normal cardiomediastinalsilhouette. No pneumothorax, significant pleural effusion, orconsolidation. Coronary artery stenting. Calcified hilar lymph nodes. Mildaortic calcifications. Degenerative and hypertrophic changes of the spine. Surgical clips right upper quadrant. Ismael Newell APRN, C.N.P. IMG DIAGNOSTIC IM AGING PROCEDURES Final Result * (ABNORMAL) Troponin T, Baseline with 2 Hour/6 Hour Reflex Biomarker Panel (03/22/2024 4:24 PM MANUFACTURING AUTOMATION ENGINEER) Troponin T, Baseline, 5th gen 11(H) <=10 ng/L 03/22/2024 4:56 PM MANUFACTURING AUTOMATION ENGINEER [facility] Blood (Blood, Venous) 03/22/2024 4:24 PM MANUFACTURING AUTOMATION ENGINEER 03/22/2024 4:29 PM MANUFACTURING AUTOMATION ENGINEER Ismael Newell APRN, C.N.P. LAB BLOOD TROPONI N Final Result Performing Organization Address [facility]/ZIP Co de Phone Number [facility] [address] [place] [address], [facility] [address] [place] [address] * NT-Pro B-Type Natriuretic Peptide (BNP) (03/22/2024 4:24 PM MANUFACTURING AUTOMATION ENGINEER) [facility] NT-Pro BNP 236 <=540 pg/mL 03/22/2024 4:56 PM MANUFACTURING AUTOMATION ENGINEER [facility] Comment: NT-proBNP values less than 300 pg/mL have a 99% negative predictive value for excluding acute congestive heart failure. A cutoff of 1200 pg/mL for patients with an eGFR<60 yields a diagnostic sensitivity and specificity of 89% and 72% for acute congestive heart failure. A diagnostic NT-proBNP cutoff of 900 pg/mL has been suggested in adults 50-75 years of age in the absence of renal failure. Blood (Blood, Venous) 03/22/2024 4:24 PM MANUFACTURING AUTOMATION ENGINEER 03/22/2024 4:29 PM MANUFACTURING AUTOMATION ENGINEER Ismael Newell APRN, C.N.P. LAB BLOOD ADD-ON Final Result Performing Organization Address City/[facility]/ZIP Co de Phone Number [facility] [address] [place] [address], [facility] [address] [place] [address] * APTT (Activated Partial Thromboplastin Time) (03/22/2024 4:24 PM MANUFACTURING AUTOMATION ENGINEER) [facility] Activated Partial Thrombopl Time, P 27 25 - 37 sec 03/22/2024 7:40 PM MANUFACTURING AUTOMATION ENGINEER [facility] Blood (Blood, Venous) 03/22/2024 4:24 PM MANUFACTURING AUTOMATION ENGINEER 03/22/2024 7:28 PM MANUFACTURING AUTOMATION ENGINEER Jarad Prescott M.D. LAB BLOOD ADD-ON Final Result Performing Organization Address [facility] Co de Phone Number [facility] [address] [place] [address] * Prothrombin Time (PT) (03/22/2024 4:24 PM MANUFACTURING AUTOMATION ENGINEER) Only the most recent of2 resultswithin the time period is included. Prothrombin Time, P 10.9 9.4 - 12.5 sec 03/22/2024 4:47 PM MANUFACTURING AUTOMATION ENGINEER STMA INR 1.0 0.9 - 1.1 03/22/2024 4:47 PM MANUFACTURING AUTOMATION ENGINEER [facility] Comment: ----ADDITIONAL INFORMATION---- Standard intensity warfarin therapeutic range: 2.0 to 3.0 High intensity warfarin therapeutic range: 2.5 to 3.5 Blood (Blood, Venous) 03/22/2024 4:24 PM MANUFACTURING AUTOMATION ENGINEER 03/22/2024 4:29 PM MANUFACTURING AUTOMATION ENGINEER Trey Ocasio APRNNAngie. LAB BLOOD ADD-ON Final Result Performing Organization Address [facility] Co de Phone Number [facility] [address] [place], [place] [phone] [place] [address] [address] [place] [address] * (ABNORMAL) CBC with Differential, Blood (03/22/2024 4:24 PM MANUFACTURING AUTOMATION ENGINEER) Only the most recent of2 resultswithin the time period is included. Hemoglobin 11.2(L) 11.6 - 15.0 g/dL 03/22/2024 4:34 PM MANUFACTURING AUTOMATION ENGINEER STMA Hematocrit 35.7 35.5 - 44.9 % 03/22/2024 4:34 PM MANUFACTURING AUTOMATION ENGINEER STMA Erythrocytes 4.07 3.92 - 5.13 x10(12)/L 03/22/2024 4:34 PM MANUFACTURING AUTOMATION ENGINEER STMA MCV 87.7 78.2 - 97.9 fL 03/22/2024 4:34 PM MANUFACTURING AUTOMATION ENGINEER STMA RBC Distrib Width 13.8 12.2 - 16.1 % 03/22/2024 4:34 PM MANUFACTURING AUTOMATION ENGINEER STMA Platelet Count 286 157 - 371 x10(9)/L 03/22/2024 4:34 PM MANUFACTURING AUTOMATION ENGINEER ST[facility] Leukocytes 9.5 3.4 - 9.6 x10(9)/L 03/22/2024 4:34 PM MANUFACTURING AUTOMATION ENGINEER STMA Neutrophils 5.55 1.56 - 6.45 x10(9)/L 03/22/2024 4:34 PM MANUFACTURING AUTOMATION ENGINEER DH[facility] Lymphocytes 2.76 0.95 - 3.07 x10(9)/L 03/22/2024 4:34 PM MANUFACTURING AUTOMATION ENGINEER STMA Monocytes 0.66 0.26 - 0.81 x10(9)/L 03/22/2024 4:34 PM MANUFACTURING AUTOMATION ENGINEER STMA Eosinophils 0.47 0.03 - 0.48 x10(9)/L 03/22/2024 4:34 PM MANUFACTURING AUTOMATION ENGINEER STMA Basophils 0.05 0.01 - 0.08 x10(9)/L 03/22/2024 4:34 PM MANUFACTURING AUTOMATION ENGINEER STMA Blood (Blood, Venous) 03/22/2024 4:24 PM MANUFACTURING AUTOMATION ENGINEER 03/22/2024 4:29 PM MANUFACTURING AUTOMATION ENGINEER us Ismael Newell APRN, C.N.P. LAB BLOOD ADD-ON Final Result [facility] [address] [place] [address], [facility] STMA [facility] [address] [place] [address] DHPM [facility] [address] [place] [address] * (ABNORMAL) Lipid Panel (02/29/2024 7:28 AM MANUFACTURING AUTOMATION ENGINEER) [facility] Triglycerides 167(H) mg/dL 02/29/2024 8:45 AM MANUFACTURING AUTOMATION ENGINEER DTL Comment: ----REFERENCE VALUE---- Normal: <150 mg/dL Borderline High: 150-199 mg/dL High: 200-499 mg/dL Very High: > or =500 mg/dL Cholesterol, Total 226(H) mg/dL 2023 8:45 AM MANUFACTURING AUTOMATION ENGINEER DTL Comment: ----REFERENCE VALUE---- Desirable: < 200 mg/dL Borderline High: 200 - 239 mg/dL High: > or = 240 mg/dL Cholesterol, LDL, Calculated 156(H) mg/dL 02/29/2024 8:45 AM MANUFACTURING AUTOMATION ENGINEER DTL Comment: ----REFERENCE VALUE---- Desirable: <100 mg/dL Above Desirable: 100-129 mg/dL Borderline High: 130-159 mg/dL High: 160-189 mg/dL Very High: >=190 mg/dL ----ADDITIONAL INFORMATION---- LDL cholesterol calculated using the Pineda/NIH equation. Cholesterol, HDL, S 39(L) >=50 mg/dL 02/29/2024 8:45 AM MANUFACTURING AUTOMATION ENGINEER DTL Cholesterol, Non-HDL, Calculated 187(H) mg/dL 02/29/2024 8:45 AM MANUFACTURING AUTOMATION ENGINEER DTL Comment: ----REFERENCE VALUE---- Desirable: <130 mg/dL Above Desirable: 130-159 mg/dL Borderline High: 160-189 mg/dL High: 190-219 mg/dL Very High: > or =220 mg/dL Fasting (8 HR or more) Yes 02/29/2024 7:28 AM MANUFACTURING AUTOMATION ENGINEER DTL Blood (Blood, Venous) 02/29/2024 7:28 AM MANUFACTURING AUTOMATION ENGINEER 02/29/2024 8:15 AM MANUFACTURING AUTOMATION ENGINEER Krishna Dia M.D. LAB BLOOD ADD-ON Final Re sult [facility] [address] [place] [address], [facility] DTDepartment of Veterans Affairs [facility] [address] [place] [address] * BUN (Blood Urea Nitrogen) (02/29/2024 7:28 AM MANUFACTURING AUTOMATION ENGINEER) BUN (Blood Urea Nitrogen), S 19 6 - 21 mg/dL 02/29/2024 8:45 AM MANUFACTURING AUTOMATION ENGINEER DTL Blood (Blood, Venous) 02/29/2024 7:28 AM MANUFACTURING AUTOMATION ENGINEER 02/29/2024 8:15 AM MANUFACTURING AUTOMATION ENGINEER Krishna Dia M.D. LAB BLOOD ADD-ON Final Re sult Performing Organization Address City/[facility]/ZIP Co de Phone Number [facility] [address] [place] [address] * ALT (Alanine Aminotransferase) (02/29/2024 7:28 AM MANUFACTURING AUTOMATION ENGINEER) Alanine Aminotransferase (ALT), S 13 7 - 45 U/L 02/29/2024 8:45 AM MANUFACTURING AUTOMATION ENGINEER DTL Blood (Blood, Venous) 02/29/2024 7:28 AM MANUFACTURING AUTOMATION ENGINEER 02/29/2024 8:15 AM MANUFACTURING AUTOMATION ENGINEER Krishna Dia M.D. LAB BLOOD ADD-ON Final Re sult Performing Organization Address [facility] Co de Phone Number [facility] [address] [place], [place] [phone] [place] [address] [address] [place] [address] * AST (Aspartate Aminotransferase) (02/29/2024 7:28 AM MANUFACTURING AUTOMATION ENGINEER) Aspartate Aminotransferase (AST), S 14 8 - 43 U/L 02/29/2024 8:45 AM MANUFACTURING AUTOMATION ENGINEER DTL Blood (Blood, Venous) 02/29/2024 7:28 AM MANUFACTURING AUTOMATION ENGINEER 02/29/2024 8:15 AM MANUFACTURING AUTOMATION ENGINEER us Krishna Dia M.D. LAB BLOOD ADD-ON Final Re sult [facility] [address] [place], [place] [address] [place] [address] [address] [place] [address] * Sodium (02/29/2024 7:28 AM MANUFACTURING AUTOMATION ENGINEER) Sodium, S 141 135 - 145 mmol/L 02/29/2024 8:45 AM MANUFACTURING AUTOMATION ENGINEER DT Blood (Blood, Venous) 02/29/2024 7:28 AM MANUFACTURING AUTOMATION ENGINEER 02/29/2024 8:15 AM MANUFACTURING AUTOMATION ENGINEER Krishna Dia M.D. LAB BLOOD ADD-ON Final Re sult [facility] [address] [place] [address], [facility] [address] [place] [address] * Potassium (02/29/2024 7:28 AM MANUFACTURING AUTOMATION ENGINEER) Potassium, S 4.6 3.6 - 5.2 mmol/L 02/29/2024 8:45 AM MANUFACTURING AUTOMATION ENGINEER DT Blood (Blood, Venous) 02/29/2024 7:28 AM MANUFACTURING AUTOMATION ENGINEER 02/29/2024 8:15 AM MANUFACTURING AUTOMATION ENGINEER us Krishna Dia M.D. LAB BLOOD ADD-ON Final Re sult Performing Organization Address City/[facility] Co de Phone Number [facility] [address] [place] [address], [facility] [address] [place] [address] * (ABNORMAL) Hemoglobin A1c (02/29/2024 7:28 AM MANUFACTURING AUTOMATION ENGINEER) Hemoglobin A1c, B 6.3(H) 4.0 - 5.6 % 02/29/2024 8:33 AM MANUFACTURING AUTOMATION ENGINEER DT Comment: Hemoglobin A1c values of 5.7-6.4 percent indicate an increased risk for developing diabetes mellitus. In diabetic patients, HbA1c goals should be discussed with healthcare provider. Blood (Blood, Venous) 02/29/2024 7:28 AM MANUFACTURING AUTOMATION ENGINEER 02/29/2024 8:01 AM MANUFACTURING AUTOMATION ENGINEER Krishna Dia M.D. LAB BLOOD ADD-ON Final Re sult Performing Organization Address City/[facility]/ZIP Co de Phone Number [facility] [address] [place] [address], [facility] [address] [place] [address] * (ABNORMAL) Glucose, Fasting (02/29/2024 7:28 AM MANUFACTURING AUTOMATION ENGINEER) Glucose, P 115(H) 70 - 100 mg/dL 02/29/2024 8:44 AM MANUFACTURING AUTOMATION ENGINEER DTL Last Intake 16 hr 02/29/2024 8:17 AM MANUFACTURING AUTOMATION ENGINEER DTL Blood (Blood, Venous) 02/29/2024 7:28 AM MANUFACTURING AUTOMATION ENGINEER 02/29/2024 8:17 AM MANUFACTURING AUTOMATION ENGINEER Krishna Dia M.D. LAB BLOOD NON ADD-ON Eliane l Result Performing Organization Address City/[facility]/ZIP Co de Phone Number [facility] [address] [place] [address], [facility] DTDepartment of Veterans Affairs [facility] [address] [place] [address] * (ABNORMAL) Creatinine with Estimated GFR (02/29/2024 7:28 AM MANUFACTURING AUTOMATION ENGINEER) Creatinine 1.24(H) 0.59 - 1.04 mg/dL 02/29/2024 8:45 AM MANUFACTURING AUTOMATION ENGINEER DTL Estimated GFR (eGFR) 48(L) >=60 mL/min/BSA 02/29/2024 8:45 AM MANUFACTURING AUTOMATION ENGINEER DTL Comment: Estimated GFR calculated using the 2020 CKD_EPI creatinine equation. Blood (Blood, Venous) 02/29/2024 7:28 AM MANUFACTURING AUTOMATION ENGINEER 02/29/2024 8:15 AM MANUFACTURING AUTOMATION ENGINEER Krishna Dia M.D. LAB BLOOD ADD-ON Final Re sult Performing Organization Address City/[facility]/ZIP Co de Phone Number [facility] [address] [place] [address], [facility] [address] [place] [address] * Chloride (02/29/2024 7:28 AM MANUFACTURING AUTOMATION ENGINEER) Chloride, S 107 98 - 107 mmol/L 02/29/2024 8:45 AM MANUFACTURING AUTOMATION ENGINEER DT Blood (Blood, Venous) 02/29/2024 7:28 AM MANUFACTURING AUTOMATION ENGINEER 02/29/2024 8:15 AM MANUFACTURING AUTOMATION ENGINEER Krishna Dia M.D. LAB BLOOD ADD-ON Final Re sult [facility] [address] [place], [place] [address] [address] [place] [address] * Bicarbonate (02/29/2024 7:28 AM MANUFACTURING AUTOMATION ENGINEER) Bicarbonate, S 25 22 - 29 mmol/L 02/29/2024 8:45 AM MANUFACTURING AUTOMATION ENGINEER DT Blood (Blood, Venous) 02/29/2024 7:28 AM MANUFACTURING AUTOMATION ENGINEER 02/29/2024 8:15 AM MANUFACTURING AUTOMATION ENGINEER Krishna Dia M.D. LAB BLOOD ADD-ON Final Re sult [facility] [address] [place], [place] [phone] [place] [address] [address] [place] [address] from Last 3 Months Insurance [facility] Advance Directives For more information, please contact: [phone] * Full Code (Latest Code Status on File) Date Activated Date Inactivated Comments 03/22/2024 9:51 PM 03/24/2024 5:10 PM Question Answer Comments Full Code: Discussed * Full Code Date Activated Date Inactivated Comments 03/03/2023 4:40 PM 03/04/2023 3:20 PM Question Answer Comments Full Code: Discussed Care Teams Cultural Historian Relationship Specialty Start Date End Date Elsewhere, Pcp PCP - General Internal Medicine 03/22/24
--- OUTSIDE RECORDS SUMMARY | 2024-05-15 13:34 | XMS_ITS ---
Author Name GREG GALVAN Address Unknown Phone [phone] Organization [facility] Phone [phone] Care Team Providers Care Finance Director Name Role Phone MD GREG GALVAN Attending [phone] Allergies and Intolerances Substance Reaction Severity Activated Date Status CONTRASTDIAGNOSTIC CONTRAST Anaphylaxis Severe 023 Active Sulfa Antibiotics Rash Moderate 04/21/2022 Active ASSESSMENT Assessment Charted Date/Time No assessment available Encounter Diagnosis Encounter Diagnosis Diagnosis Date/Time Status Atherosclerotic heart diseas e of [place] coronary artery without angina pectoris [I25.10] 04/21/2022 13:26 completed IMMUNIZATIONS Vaccine Administration Date Status Reason influenza, injectable, quadr ivalent, preservative 01/22/2018 Completed Tdap 07/20/2011 Completed Tdap 05/27/2009 Completed Medications Medication Strength Dosage Route Frequency Start Date Stop Date Status Adult Low Dose Aspirin 81 mg tablet,delayed release (DR/EC) 81 mg tablet,delay ed release (DR/EC) 1 tablet by mouth once a day 3 00:00 active Claritin 10 mg tablet 10 mg tablet tablet by mouth as directed 3 00:00 active clopidogrel 75 mg tablet 75 mg tablet 1 tablet by mouth once a day 3 00:00 active esomeprazole magnesium 40 mg capsule,delayed release(DR/EC) 40 mg capsule,burt yed release(DR/E C) 3 00:00 active esomeprazole magnesium 40 mg capsule,delayed release(DR/EC) 40 mg capsule,burt yed release(DR/E C) 1 capsule by mouth once a day 3 00:00 07/30/19 23 00:00 Inactive isosorbide mononitrate 30 mg tablet extended release 24 hr 30 mg tablet extended release 24 hr 3 tablet by mouth once a day 3 00:00 active lisinopril 20 mg tablet 20 mg tablet 1 tablet by mouth once a day 3 00:00 active metformin 500 mg tablet extended release 24 hr 500 mg tablet extended release 24 hr 1 tablet by mouth single dose 3 00:00 active rosuvastatin 40 mg tablet 40 mg tablet 1 tablet by mouth once a day 3 00:00 active Toprol XL 25 mg tablet extended release 24 hr 25 mg tablet extended release 24 hr 1 tablet by mouth once a day 3 00:00 active Vitamin D3 50 mcg (2,000 unit) tablet 50 mcg (2,000 unit) tablet tablet by mouth once a day 3 00:00 active Problem List Condition Onset Resolved Condition Statu s Cholesterol screening (procedure) [847440852] Active Blood glucose abnormal (finding) [451492897] Active Vital Signs Description Result Charted Date/Time [facility] Blood Pressure - Systolic mm[Hg] 129 04/21/19 23 13:47 8480-6 Blood Pressure - Diastolic mm[Hg] 78 023 13:47 8462-4 MAP mm/Hg 95 04/21/2022 13:47 8478-0 Height/Length cm/in 162.56 / 64 04/21/2022 13:47 8302 -2 Weight kg/lb oz 105.23 / 232 04/21/2022 13:47 27242-7 BMI (Ratio) 39.82 04/21/2022 13:47 27065-8 Temperature deg F/Radha 96.7 / 35.9 04/21/2022 13:47 83 10-5 Heart Rate /min 77 04/21/2022 13:47 8867-4 Plan of Treatment Plan Description Date Medication Adult Low Dose Aspirin(aspirin) 04/21/2022 Observation BMP (BASIC METABOLIC PANEL) 08/2022 Medication Claritin(loratadine) 04/21/2022 Medication clopidogrel(clopidogrel) 023 Medication esomeprazole magnesium(esomepraz ole magnesium) 07/29/2022 Instructions: TAKE 1 CAPSULE BY MOUTH ONCE DAILY NEED TO ESTABLISH CARE WITH NEW PROVIDER FOR FURTHER REFILLS. Appointment GREG GALVAN 04/21/2022 Observation HGB A1C (HEMOGLOBIN A1C) 023 Medication isosorbide mononitrate(isosorbid e mononitrate) 04/21/2022 Instructions: Take 1 tablet by mouth once a day Medication lisinopril(lisinopril) 3 Medication metformin(metformin) 04/21/2022 Observation MICROALBUMIN (ALBUMIN-CREATININE RATIO) 04/21/2022 Medication rosuvastatin(rosuvastatin) 04/21 Medication Toprol XL(metoprolol succinate) 04/21/2022 Medication Vitamin D3(cholecalciferol (cas min d3)) 04/21/2022 Social History SOCIAL HISTORY TOBACCO USE Type Status Start Date End Date Last Reviewed Current Smoking Status Never Smoker 04/21/2022 13:45 Gender Identity and Sexual O rientation Type Status Last Reviewed Sex Female 00:00 Social Connection and Isolat ion Description Status Last Reviewed Marital Status Unknown 04/21/2022 13:44 Alcohol and Drug Use Alcohol Use Alcohol Use Answer How often do you have a drink containing alcohol? Never Clinical Notes Notes Name Date/Time Description Clinic - Provider Note 04/22/2022 20:01 Signed D ate/Time: 04/22/2022 20:04 Signed By: GREG GALVAN Entered By: GREG GALVAN <div><renderedtemplate templ [id number]><div style=text- align:center><strong>[facility]</strong></div><div style=text-align:center></div><div><customfilter class=healthlandplugin notefilterhistoryid=2><span><strong>Patient Name:</strong>MACIE VALERIO, <strong>:</strong>1955, <strong>Age:</strong>66 years</span></customfilter></div><div></div><div><customfilter class=healthlandplugin notefilterhistoryid=47><span><strong>Chief Complaint:</strong>MEDICATION REVIEW</span></customfilter></div><div></div><div><strong>HPI:</strong>Trista is a 66-year-old female with a past medical history of coronary artery disease status post stenting, hypertension, and GERD who presents today for medication review. She reports that she is taking all her medications as prescribed except for her statin. She reports that she experienced myopathies with statins. She reports that her entire family struggles with statins and they all seem to experience myopathy when they are on them. She discontinued this 2 weeks ago. She states that she does not think that the statin is helpful as she started taking it faithfully after her for stent was placed and she has had [address] since then. Aside from this she has no acute concerns today.</div><div></div><div><customfilter class=healthlandplugin notefilterhistoryid=14><span><span><strong>Problem List</strong></span> Blood glucose abnormal (finding) Cholesterol screening (procedure)</span></customfilter><div></div><div><customfilter class=healthlandplugin notefilterhistoryid=30><span><strong>Surgery List</strong>: No Surgical History Available</span></customfilter><div></div><div><customfilter class=healthlandplugin notefilterhistoryid=13><table border=1> <thead> <tr> <th colspan=10 style=text-align: center;>Active Home Meds</th> </tr> <tr> <th style=width:198px; text-align: center;>Medication</> <th style=width:83px; text-align: center;>Strength</> <th style=width:78px; text-align: center;>Dosage</> <th style=width:83px; text-align: center;>Route</> <th style=width:83px; text-align: center;>Frequency</> <th style=width:83px; text-align: center;>Start Date</> <th style=width:83px; text-align: center;>Last Dose Date</> <th style=width:83px; text-align: center;>Last Fill Date<> < style=width:25px; text-align: center;>Prescribing MD<> < style=width:83px; text-align: center;>Special Instructions<> </tr> </thead> <tbody> <tr> <td style=text-align:center>isosorbide mononitrate(isosorbide mononitrate)</td> <td style=text-align:center>30 mg tablet extended release 24 hr</td> <td style=text-align:center>3 tablet</td> <td style=text-align:center>by mouth</td> <td style=text- align:center>once a day</td> <td style=text-align:center>04/21/2022 00:00</td> <td style=text-align:center></td> <td style=text-align:center>04/21/2022</td> <td style=text-align:center>Greg Galvan</td> <td style=text- align:center>Take 1 tablet by mouth once a day</td> </tr> <tr> <td style=text-align:center>Toprol XL(metoprolol succinate)</td> <td style=text-align:center>25 mg tablet extended release 24 hr</td> <td style=text-align:center>1 tablet</td> <td style=text-align:center>by mouth</td> <td style=text-align:center>once a day</td> <td style=text- align:center>04/21/2022 00:00</td> <td style=text-align:center></td> <td style=text- align:center></td> <td style=text-align:center>Greg Galvan</td> <td style=text-align:center></td> </tr> <tr> <td style=text-align:center>Claritin(loratadine)</td> <td style=text- align:center>10 mg tablet</td> <td style=text-align:center>tablet</td> <td style=text-align:center>by mouth</td> <td style=text-align:center>as directed</td> <td style=text-align:center>04/21/2022 00:00</td> <td style=text-align:center></td> <td style=text-align:center></td> <td style=text-align:center>Greg Galvan</td> <td style=text-align:center></td> </tr> <tr> <td style=text- align:center>Vitamin D3(cholecalciferol (vitamin d3))</td> <td style=text-align:center>50 mcg (2,000 unit) tablet</td> <td style=text-align:center>tablet</td> <td style=text-align:center>by mouth</td> <td style=text-align:center>once a day</td> <td style=text- align:center>04/21/2022 00:00</td> <td style=text-align:center></td> <td style=text-align:center></td> <td style=text-align:center>Greg Galvan</td> <td style=text- align:center></td> </tr> <tr> <td style=text- align:center>rosuvastatin(rosuvastatin)</td> <td style=text-align:center>40 mg tablet</td> <td style=text-align:center>1 tablet</td> <td style=text-align:center>by mouth</td> <td style=text- align:center>once a day</td> <td style=text-align:center>04/21/2022 00:00</td> <td style=text- align:center></td> <td style=text-align:center></td> <td style=text- align:center>Greg Galvan</td> <td style=text-align:center></td> </tr> <tr> <td style=text- align:center>metformin(metformin)</td> <td style=text-align:center>500 mg tablet extended release 24 hr</td> <td style=text-align:center>1 tablet</td> <td style=text-align:center>by mouth</td> <td style=text-align:center>single dose</td> <td style=text- align:center>04/21/2022 00:00</td> <td style=text-align:center></td> <td style=text- align:center></td> <td style=text-align:center>Greg Galvan</td> <td style=text-align:center></td> </tr> <tr> <td style=text-align:center>lisinopril(lisinopril)</td> <td style=text- align:center>20 mg tablet</td> <td style=text-align:center>1 tablet</td> <td style=text-align:center>by mouth</td> <td style=text-align:center>once a day</td> <td style=text-align:center>04/21/2022 00:00</td> <td style=text- align:center></td> <td style=text-align:center></td> <td style=text-align:center>Greg Galvan</td> <td style=text-align:center></td> </tr> <tr> <td style=text- align:center>esomeprazole magnesium(esomeprazole magnesium)</td> <td style=text-align:center>40 mg capsule,delayed release(DR/EC)</td> <td style=text-align:center>1 capsule</td> <td style=text-align:center>by mouth</td> <td style=text-align:center>once a day</td> <td style=text-align:center>04/21/2022 00:00</td> <td style=text- align:center></td> <td style=text-align:center></td> <td style=text-align:center>Greg Galvan</td> <td style=text-align:center></td> </tr> <tr> <td style=text- align:center>Adult Low Dose Aspirin(aspirin)</td> <td style=text-align:center>81 mg tablet,delayed release (DR/EC)</td> <td style=text-align:center>1 tablet</td> <td style=text- align:center>by mouth</td> <td style=text-align:center>once a day</td> <td style=text- align:center>04/21/2022 00:00</td> <td style=text-align:center></td> <td style=text-align:center></td> <td style=text-align:center>Greg Galvan</td> <td style=text- align:center></td> </tr> <tr> <td style=text- align:center>clopidogrel(clopidogrel)</td> <td style=text-align:center>75 mg tablet</td> <td style=text-align:center>1 tablet</td> <td style=text-align:center>by mouth</td> <td style=text- align:center>once a day</td> <td style=text-align:center>04/21/2022 00:00</td> <td style=text- align:center></td> <td style=text-align:center></td> <td style=text- align:center>Greg Galvan</td> <td style=text-align:center></td> </tr> </tbody></table></customfilter><div></div><div><customfilter class=healthlandplugin notefilterhistoryid=7><span><span><strong>Allergy List</strong></span> Sulfa (Sulfonamide Antibiotics), Allergy CONTRASTDIAGNOSTIC CONTRAST, Allergy</span></customfilter><div></div><div><customfilter [facility] notefilterhistoryid=39><span><strong>Smoking Status:</strong>Never Smoker</span></customfilter></div><div></div><div><customfilter class=[facility] notefilterhistoryid=28><span><strong>Family History List</strong>: No Family History Available</span></customfilter><div></div><div><strong>REVIEW OF SYSTEMS:</strong></div><div>See HPI</div><div>Patient is independent with all ADLs.</div><div></div><div><strong>PHYSICAL EXAMINATION:</strong></div><div><customfilter class=[facility] notefilterhistoryid=23><table border=1> <thead> <tr> <th colspan=13 style=text-align: center;>Vital Signs: This Visit</th> </tr> <tr> <th style=width:61.39833175657138gr; text-align: center;>Date/Time</th> <th style=width:61.40133489530233lm; text-align: center;>Blood Pressure (mm/Hg)</th> <th style=width:61.40596857897175tf; text-align: center;>Heart Rate</th> <th style=width:61.28012277206825mr; text-align: center;>Respiration</th> <th style=width:61.91723738531193fa; text-align: center;>Temperature</th> <th style=width:61.65450081621124yq; text-align: center;>SPO2%</th> <th style=width:61.55639758240159dc; text-align: center;>O2 Device</th> < style=width:61.10897137423226ma; text-align: center;>Blood Sugar (mg/dL)<> < style=width:61.96478389371335wj; text-align: center;>Pain Score</> < style=width:61.84208318548842bx; text-align: center;>Height<> < style=width:61.75032668246281vw; text-align: center;>Weight</> < style=width:61.41451955964983ax; text-align: center;>BMI<> < style=width:61.99061170288255le; text-align: center;>Head Circumference</th> </tr> </thead> <tbody> <tr> <td style=text-align:center>04/21/2022 13:47</td> <td style=text-align:center>129/78</td> <td style=text-align:center>77</td> <td style=text-align:center></td> <td style=text-align:center>96.7 F Forehead</td> <td style=text-align:center></td> <td style=text-align:center></td> <td style=text-align:center></td> <td style=text-align:center></td> <td style=text-align:center>64 in</td> <td style=text-align:center>232 lbs/oz</td> <td style=text- align:center>39.82</td> <td style=text-align:center></td> </tr> </tbody></table></customfilter><div>Cardiac: Regular rate rhythm no gallops rubs or murmurs Pulmonary: Clear to auscultation bilaterally GI: Bowel sounds normal soft nontender Skin: Warm and dry</div><div></div></div><div></div><div><strong>ASSESSMENT:</strong>CAD status post stenting, HLD, and hypertension</div><div></div><div><strong>RECOMMENDATIONS/PLAN:</strong>At this time we will continue on all her medications except for the statin. If she cannot tolerate it then it is so not something we can try. She reports that her sister did try the monoclonal antibody and responded very poorly to it so she is not interested in trying that at this time. She we will follow-up with me in the next few months.</div><div></div><div>Time spent face to face: 25</div><div>Time spend in documentation, medical record review, and preparation on day of service: 15</div><div></div><div><div><customfilter class=healthlandplugin usuhfcqovddakuajblz=755><span><strong>ERD - A1C Results - Last 3</strong>: No Labs Available</span></customfilter><div></div><div><div><div><customfilter class=healthlandplugin avgjycnoazveclpsodm=437><span><strong>ERD - AST ALT Results - Last 3</strong>: No Labs Available</span></customfilter><div></div></div></div><div><customfilter class=health[facility]plugin aowzwssequujdbtslww=019><span><strong>ERD - BMP Results: Last 3</strong>: No Labs Available</span></customfilter><div></div><div><customfilter class=health[facility]plugin mjbsenuuyaafelfsthk=655><span><strong>ERD - Lipid Results - Last 3</strong>: No Labs Available</span></customfilter><div><div></div><div><customfilter class=health[facility]plugin sqqoezqijspcmilszii=868><span><strong>ERD - CBC Results - Last 3</strong>: No Labs Available</span></customfilter></div><div></div></div></div><div><div><div><cust omfilter class=healthlandplugin aekbiycrwhknrhesggw=413><span><strong>ERD - TSH Results - Last 3</strong>: No Labs Available</span></customfilter><div></div><div><customfilter class=healthlandplugin epwbgmkmdtrzvyejtrc=791><span><strong>ERD - Vitamin D Results - Last 3</strong>: No Labs Available</span></customfilter><div></div><div><customfilter class=healthlandplugin hcikdsmmmadauwaetjq=689><span><strong>PSA - Last 3</strong>: No Labs Available</span></customfilter><div></div><div></div></div></div></div></div> </div></div></div></div></div><div><customfilter [facility] notefilterhistoryid=41><span><span><strong>Immunization List</strong></span> influenza, injectable, quadrivalent, preservative, 01/22/2018 00:00 Tdap, 07/20/2011 00:00 Tdap, 05/27/2009 00:00</span></customfilter><div></div><div></div></div><div></div></div></div></ div></div></div></renderedtemplate></div> Transcribed Documents Name Date/Time Description No transcribed documents james ilable Care Team Members Primary Care Physician Name Contact Role Start of Care No Primary Care Physician av ailable Consulting Physicians Name Contact Role Start of Care GREG PEACE Specialty : Family Medicine tel:[phone] Physician Personal Care Team Name Address Relationship No Personal Care Team availa ble
--- OUTSIDE RECORDS SUMMARY | 2024-05-15 13:34 | XMS_ITS | Encounter Summary ---
Author Organization [facility] Address [address] [place] [address] Care Team Providers Care Parts Sales Representative Name Role Phone Elsewhere, Pcp Primary Care Provider Unavailabl e Reason for Referral * Outpatient (Routine) - Authorized Specialty Diagnoses / Procedures Referred By Jazzmine thompson Referred To Contact Diagnoses Coronary Stent Status Post Geremias Camp M.D., Ph.D. [address] [place] [address] Phone: tel: fax: Referral ID Status Reason Start Date Expiration Date Visits Requested Visits Authorized [id number] Authorized Continuity of Care 03/25/2024 09/24/2025 45 45 SIT AUTHORITY POLICE OFFICER Reason for Visit * Reason Onset Date Comments Cardiac Rehab Referral 03/25/2024 Encounter Details Date Type Department Care Team (Latest Contact Info) Description 03/25/2024 Clinical Communication Department of Cardiovascular Medicine in [place], [place] [address] [place] [id number] Katelin Peña, [facility] [place] Cardiac Rehab Referral Social History Tobacco Use Types Packs/Day Years Used Date Smoking Tobacco: Never Smokeless Tobacco: Never Alcohol Use Standard Drinks/Week Comments Never 0 (1 standard drink = 0.6 oz pur e alcohol) [facility] Utilities Answer Date Recorded In the past [...] often do you attend chur ch or sabianist services? More than 4 times per year 08/09/2022 Do you belong to any clubs o r organizations such as restorationist groups, unions, fraternal or athletic groups, or [...] medical care, and heating? Somewhat hard 08/09/2022 [facility] of Occupat ional Health - Occupational Stress [...] your living situation today? I have a [facility] place to live 03/22/2024 Education Answer Date Recorded What is the highest level of school you have completed or the highest degree you have received? Associate degree: academic program 08/09/2022 Comments No Sex and Gender Information Value Date Recorded Sex Assigned at Female 08/09/2022 12:21 PM CDT Legal Sex Female 4:02 PM [employer]ANSIT AUTHOR[employer]ICE OFFICER Gender Identity Female 08/09/2022 12:21 PM CDT Sexual Orientation Straight 08/09/2022 12 :21 PM CDT documented as of this encounter Miscellaneous Notes * Telephone Encounter - Wurst, Paola J - 04/18/2024 10:58 AM CST Three attempts to contact patient regarding cardiac rehabilitation enrollment have been made with no success. No further attempts to contact patient will be made at this time. SIT AUTHORITY POLICE OFFICER * Telephone Encounter - Gisel Rizo CEP - 04/16/2024 9:04 AM TRANSIT AUTHORITY POLICE OFFICER Patient not seen. Telephone call to patient was to follow up on cardiac rehabilitation enrollment status. Left a message stating that this call was for a non-emergent follow up and that someone will try and call again within the next week. SIT AUTHORITY POLICE OFFICER * Telephone Encounter - Paola Houser - 04/15/2024 11:44 AM CST Patient not seen. Telephone call to patient was to follow up on cardiac rehabilitation enrollment status. Left a message stating that this call was for a non-emergent follow up and that someone will try and call again within the next week. SIT AUTHORITY POLICE OFFICER * Telephone Encounter - Katelin ePña - 03/25/2024 12:18 PM CST Cardiac Rehabilitation Referral Reason for Visit: [facility] consultation for referral to cardiac rehabilitation. Liaison met with the patient/family to discuss cardiac rehabilitation referral. Patient/family was provided with progressive verbal and printed home-going exercise guidelines. Patient/family understands and agrees with the exercise guidelines. 1. Participation in a Phase II cardiac rehabilitation program is recommended. Patient was informed about what cardiac rehabilitation has to offer and why it is beneficial. The plan of care for the rehabilitation program consists of risk factor modification, monitored and supervised exercise and assistance in the recovery process with ongoing education and support. Patient is interested in attending a cardiac rehabilitation program. 2. Eligibility: PCI 3. Exceptions/exclusions: None. 4. Referral: Patient agreed with referral to a cardiac rehabilitation program. Please see dischargeorder and/or letter for program details. 5. Appropriate referral information will be sent to the receiving cardiac rehabilitation program asapplicable. Patient provided verbal authorization to send relevant materials to the cardiac rehab program. Patient referred to: [facility] Cardiac Rehabilitation [address] [facility] [id number] Recommend that the patient check with insurance company to verify coverage of the cost of cardiac rehabilitation program visits. SIT AUTHORITY POLICE OFFICER documented in this encounter Plan of Treatment Scheduled Procedures Name Priority Associated Diagnoses Date/Ti me ARTHROPLASTY REPLACEMENT TOT AL KNEE Primary Osteoarthritis Knee Right documented as of this encounter Visit Diagnoses Diagnosis Coronary Stent Status Post- Primary documented in this encounter Care Teams Parts Sales Representative Relationship Specialty Start Date End Date Elsewhere, Pcp PCP - General Internal Medicine 03/22/24 documented as of this encounter
--- OUTSIDE RECORDS SUMMARY | 2024-05-15 13:34 | XMS_ITS | Clinical Summary ---
Author Organization [facility] Address [place], [place] [address] Care Team Providers Care Shoulder Boner Name Role Phone Pcp, No Primary Care Provider Unavailabl e Allergies Active Allergy Reactions Criticality Noted Date Comments Wnnjlli-Nri-Wjm Reductase Inhibitors *Unknown 07/11/2022 Sulfa (Sulfonamide Antibiotics) *Unknown 06/16 Medications spironolactone (Aldactone) 25 mg tablet Take 25 mg by mouth once daily. Active metoprolol succinate (Toprol XL) 25 mg Sustained-Releas e tablet Take 25 mg by mouth two [...] 2,000 units by mouth once daily. Active Encounters Date Type Department Care Team Description 04/30/2024 9:00 AM PRECISION INSTRUMENT MAKER - 04/30/2024 11:59 PM PRECISION INSTRUMENT MAKER Hospital Encounter [facility] [address] [place] [address] Geremias Camp MD S/P drug eluting coronary stent placement 04/30/2024 Travel 04/18/2024 Orders Only [facility] [address] [place] [address] Blanquita Vidales RN <No scans attached> from Last 3 Months Social History Tobacco Use Types Packs/Day Years Used Date Smoking Tobacco: Never Assessed Comments Unknown Sex and Gender Information Value Date Recorded Sex Assigned at Not on file Legal Sex Female 5:52 AM PRECISION INSTRUMENT MAKER Gender Identity Not on file Sexual Orientation Not on file Last Filed Vital Signs Vital Sign Reading Time Taken Comments Blood Pressure 162/85 07/27/2022 1:57 PM CDT Pulse 84 07/27/2022 1:57 PM CDT Temperature 36.7 C (98 F) 07/27/2022 1:57 PM CDT Respiratory Rate 20 07/27/2022 1:57 PM CDT Oxygen Saturation 95% 07/27/2022 1:57 PM CDT Inhaled Oxygen Concentration - - Weight 103.9 kg (229 lb) 07/27/2022 1:57 PM CDT Height 162.6 cm (5' 4) 07/27/2022 1:57 PM CDT Body Mass Index 39.31 07/27/2022 1:57 PM CDT Plan of Treatment Health Maintenance Due Date Last Done Comments Tdap 1967 BMI (ht and wt on same day) for age 18+ 1974 Hepatitis C screening for age 18-79 1974 Tetanus booster 1976 Colonoscopy through age 75 2001 Lipids for age 45-75 2001 Mammogram for age 45-75 2001 Pneumococcal series for age 50+ (1 of 1 - PCV) 2006 Zoster (shingles) series for age 50+ (1 of 2) 2006 DEXA/DXA scan for age 65+ 2021 Depression screening for age 12+ 11/05/2023 11/04/2022, 07/13/2022, 07/11/2022 COVID-19 vaccine series ( - 2023- season) 2023 Influenza for age 65+ 12/17/2023 RSV vaccine for adults or pr egnancy (1 - 1-dose 75+ series) 2031 Insurance MEDICARE PART A HB ONLY [employer] MED[employer]ARE ADVANTAGE Care Teams Shoulder Boner Relationship Specialty Start Date End Date Pcp, No . PCP - General 10/06/22
== END 2024-05-14 14:25 | disposition home or self-care (01) ==
LOC: ED 14:06
PROVIDERS: Emergency Provider Emergency Medicine; PCP Internal Medicine
DX: J18.9 Pneumonia, unspecified organism (principal); R19.7 Diarrhea, unspecified
CPT/HCPCS: 99282; 99283

== ENCOUNTER 2024-05-17 12:36 | Emergency (ER) | payer MEDICARE, SELFPAY ==
--- OUTSIDE RECORDS SUMMARY | 2024-05-17 12:39 | XMS_ITS ---
Author Name GREG GALVAN Address Unknown Phone [phone] Organization [facility] al Phone [phone] Care Team Providers Care Water Resource Specialist Name Role Phone MD GREG GALVAN Attending [phone] Allergies and Intolerances Substance Reaction Severity Activated Date Status CONTRASTDIAGNOSTIC CONTRAST Anaphylaxis Severe 023 Active Sulfa Antibiotics Rash Moderate 04/21/2022 Active ASSESSMENT Assessment Charted Date/Time No assessment available Encounter Diagnosis Encounter Diagnosis Diagnosis Date/Time Status Atherosclerotic heart diseas e of [place] coronary artery without angina pectoris [I25.10] 04/21/2022 [...] magnesium 40 mg capsule,delayed release(DR/EC) 40 mg capsule,butr yed release(DR/E C) 1 capsule by mouth [...] Resolved Condition Statu s Cholesterol screening (procedure) [741375316] Active Blood glucose abnormal (finding) [329920206] Active Vital Signs Description Result Charted Date/Time [facility] Blood Pressure - Systolic mm[Hg] 129 04/21/19 23 13:47 8480-6 Blood Pressure - Diastolic mm[Hg] 78 023 13:47 8462-4 MAP mm/Hg 95 04/21/2022 13:47 8478-0 Height/Length cm/in 162.56 / 64 04/21/2022 13:47 8302 -2 Weight kg/lb oz 105.23 / 232 04/21/2022 13:47 26572-5 BMI (Ratio) 39.82 04/21/2022 13:47 35550-1 Temperature deg F/Radha 96.7 / 35.9 04/21/2022 [...] GALVAN Entered By: GREG GALVAN <div><renderedtemplate templ [email or web address]><div style=text- align:center><strong>[facility]</strong></div><div style=text-align:center></div><div><customfilter class=healthlandplugin notefilterhistoryid=2><span><strong>Patient Name:</strong>MACIE VALERIO, <strong>:</strong>1955, <strong>Age:</strong>66 [...] Sulfa (Sulfonamide Antibiotics), Allergy CONTRASTDIAGNOSTIC CONTRAST, Allergy</span></customfilter><div></div><div><customfilter [facility] notefilterhistoryid=39><span><strong>Smoking Status:</strong>Never Smoker</span></customfilter></div><div></div><div><customfilter class=[facility] notefilterhistoryid=28><span><strong>Family History List</strong>: No Family History Available</span></customfilter><div></div><div><strong>REVIEW OF SYSTEMS:</strong></div><div>See HPI</div><div>Patient is independent with all ADLs.</div><div></div><div><strong>PHYSICAL EXAMINATION:</strong></div><div><customfilter class=[facility] notefilterhistoryid=23><table border=1> <thead> <tr> <th colspan=13 style=text-align: center;>Vital Signs: This Visit</th> </tr> <tr> <th style=width:61.27119664477463iq; text-align: center;>Date/Time</th> <th style=width:61.23667287294979cs; text-align: center;>Blood Pressure (mm/Hg)</th> <th style=width:61.00663220733778hr; text-align: center;>Heart Rate</th> <th style=width:61.37314473239223zl; text-align: center;>Respiration</th> <th style=width:61.53822936623938wd; text-align: center;>Temperature</th> <th style=width:61.29995610619639jq; text-align: center;>SPO2%</th> <th style=width:61.98074593654442vw; text-align: center;>O2 Device</th> < style=width:61.40665943442180rf; text-align: center;>Blood Sugar (mg/dL)<> < style=width:61.64593127137588yx; text-align: center;>Pain Score</> < style=width:61.09208859949189tj; text-align: center;>Height<> < style=width:61.22945184200485jl; text-align: center;>Weight</> < style=width:61.75933136817656vu; text-align: center;>BMI<> < style=width:61.92368577129554df; text-align: center;>Head Circumference</th> </tr> </thead> <tbody> <tr> [...] preparation on day of service: 15</div><div></div><div><div><customfilter class=healthlandplugin wemateezxmwdbvoylue=886><span><strong>ERD - A1C Results - Last 3</strong>: No Labs Available</span></customfilter><div></div><div><div><div><customfilter class=healthlandplugin hcbzknamyaowdtmuvqg=540><span><strong>ERD - AST ALT Results - Last 3</strong>: No Labs Available</span></customfilter><div></div></div></div><div><customfilter class=healthlandplugin opthkswzlnzbodckhmj=293><span><strong>ERD - BMP Results: Last 3</strong>: No Labs Available</span></customfilter><div></div><div><customfilter class=healthlandplugin xoxfdnwhsjgogmsgojc=938><span><strong>ERD - Lipid Results - Last 3</strong>: No Labs Available</span></customfilter><div><div></div><div><customfilter class=healthlandplugin isbxkywwweyldpsxwso=196><span><strong>ERD - CBC Results - Last 3</strong>: No Labs Available</span></customfilter></div><div></div></div></div><div><div><div><cust omfilter class=healthlandplugin muogboppfdlkkkpjbwd=487><span><strong>ERD - TSH Results - Last 3</strong>: No Labs Available</span></customfilter><div></div><div><customfilter class=healthlandplugin sylpjdjzbznnudhukke=995><span><strong>ERD - Vitamin D Results - Last 3</strong>: No Labs Available</span></customfilter><div></div><div><customfilter class=healthlandplugin hgsdpnbrkorgwmokpmk=917><span><strong>PSA - Last 3</strong>: No Labs Available</span></customfilter><div></div><div></div></div></div></div></div> </div></div></div></div></div><div><customfilter class=[facility] notefilterhistoryid=41><span><span><strong>Immunization List</strong></span> influenza, injectable, quadrivalent, preservative, 01/22/2018 00:00 Tdap, 07/20/2011 00:00 Tdap, 05/27/2009 00:00</span></customfilter><div></div><div></div></div><div></div></div></div></ div></div></div></renderedtemplate></div> Transcribed Documents Name Date/Time Description No transcribed documents james ilable Care Team Members Primary Care Physician Name Contact Role Start of Care No Primary Care Physician av ailable Consulting Physicians Name Contact Role Start of Care GREG PEAEC Specialty : Family Medicine tel:[phone] Physician Personal Care Team Name Address Relationship No Personal Care Team availa ble
--- OUTSIDE RECORDS SUMMARY | 2024-05-17 12:39 | XMS_ITS | Encounter Summary ---
Author Organization [facility] Address [address] [place] [address] Care Team Providers Care Rating Officer Name Role Phone Elsewhere, Pcp Primary Care Provider Unavailabl e Reason for Referral * Outpatient (Routine) - Authorized Specialty Diagnoses / Procedures Referred By Jazzmine thompson Referred To Contact Diagnoses Coronary Stent Status Post Geremias Camp M.D., Ph.D. [address] [place] [address] Phone: tel: fax: Referral ID Status Reason Start Date Expiration Date Visits Requested Visits Authorized [id number] Authorized Continuity of Care 03/25/2024 09/24/2025 45 45 EMIC SUPPORT ASSISTANT Reason for Visit * Reason Onset Date Comments Cardiac Rehab Referral 03/25/2024 Encounter Details Date Type Department Care Team (Latest Contact Info) Description 03/25/2024 Clinical Communication Department of Cardiovascular Medicine in [place], [place] [address] [place] [phone] Katelin Peña, [facility] [place] Referral Social History Tobacco Use Types Packs/Day Years Used Date Smoking Tobacco: Never Smokeless Tobacco: Never Alcohol Use Standard Drinks/Week Comments Never 0 (1 standard drink = 0.6 oz pur e alcohol) [facility] Utilities Answer Date Recorded In [...] medical care, and heating? Somewhat hard 08/09/2022 [facility] of Occupat ional Health - Occupational Stress [...] your living situation today? I have a [facility] place to live 03/22/2024 Education Answer Date Recorded What is the highest level of school you have completed or the highest degree you have received? Associate degree: academic program 08/09/2022 Comments No Sex and Gender Information Value Date Recorded Sex Assigned at Female 08/09/2022 12:21 PM CDT Legal Sex Female 4:02 PM ACADEMIC SUPPORT ASSISTANT Gender Identity Female 08/09/2022 12:21 PM CDT Sexual Orientation Straight 08/09/2022 12 :21 PM CDT documented as of this encounter Miscellaneous Notes * Telephone Encounter - Wurst, Paola J - 04/18/2024 10:58 AM CST Three attempts to contact patient regarding cardiac rehabilitation enrollment have been made with no success. No further attempts to contact patient will be made at this time. EMIC SUPPORT ASSISTANT * Telephone Encounter - Gisel Rizo CEP - 04/16/2024 9:04 AM ACADEMIC SUPPORT ASSISTANT Patient not seen. Telephone call to patient was to follow up on cardiac rehabilitation enrollment status. Left a message stating that this call was for a non-emergent follow up and that someone will try and call again within the next week. EMIC SUPPORT ASSISTANT * Telephone Encounter - Poala Houser - 04/15/2024 11:44 AM CST Patient not seen. Telephone call to patient was to follow up on cardiac rehabilitation enrollment status. Left a message stating that this call was for a non-emergent follow up and that someone will try and call again within the next week. EMIC SUPPORT ASSISTANT * Telephone Encounter - Katelin Peña - 03/25/2024 12:18 PM CST Cardiac Rehabilitation [...] the cardiac rehab program. Patient referred to: [facility] Cardiac Rehabilitation [address] [facility] [id number] Recommend that the patient check with insurance company to verify coverage of the cost of cardiac rehabilitation program visits. EMIC SUPPORT ASSISTANT documented in this encounter Plan of Treatment Scheduled Procedures Name Priority Associated Diagnoses Date/Ti me ARTHROPLASTY REPLACEMENT TOT AL KNEE Primary Osteoarthritis Knee Right documented as of this encounter Visit Diagnoses Diagnosis Coronary Stent Status Post- Primary documented in this encounter Care Teams Rating Officer Relationship Specialty Start Date End Date Elsewhere, Pcp PCP - General Internal Medicine 03/22/24 documented as of this encounter
--- OUTSIDE RECORDS SUMMARY | 2024-05-17 12:39 | XMS_ITS | Encounter Summary ---
Author Organization [facility] Address [address] [place] [address] Care Team Providers Care Dry Pan Operator Name Role Phone Elsewhere, Pcp Primary Care Provider Unavailabl e Reason for Visit * Reason Comments Med Refill Encounter Details Date Type Department Care Team (Late st Contact Info) Description 05/12/2024 Refill Division of Cardiovascular Diseases in [place], [place] [address] [place] [phone] Parul Oreilly M.B.B.S., Ph.D. [address] [place] [phone] Med Refill Social History Tobacco Use Types Packs/Day Years Used Date Smoking Tobacco: Never Smokeless Tobacco: Never Alcohol Use Standard Drinks/Week Comments Never 0 (1 standard drink = 0.6 oz pur e alcohol) [facility] Utilities Answer Date Recorded In the [...] How often do you attend chur or buddhism services? More than 4 times per year 08/09/2022 Do you belong to any clubs o r organizations such as pentecostalism groups, unions, fraternal or athletic groups, or [...] medical care, and heating? Somewhat hard 08/09/2022 [facility] [place] of Occupat ional Health - Occupational Stress [...] your living situation today? I have a [facility] place to live 03/22/2024 Education Answer Date Recorded What is the highest level of school you have completed or the highest degree you have received? Associate degree: academic program 08/09/2022 Comments No Sex and Gender Information Value Date Recorded Sex Assigned at Female 08/09/2022 12:21 PM CDT Legal Sex Female 4:02 PM WORLD TRAVEL COUNSELOR Gender Identity Female 08/09/2022 12:21 PM CDT Sexual Orientation Straight 08/09/2022 12 :21 PM CDT documented as of this encounter Plan of Treatment Scheduled Procedures Name Priority Associated Diagnoses Date/Ti me ARTHROPLASTY REPLACEMENT TOT AL KNEE Primary Osteoarthritis Knee Right documented as of this encounter Visit Diagnoses Not on filedocumented in this encounter Care Teams Dry Pan Operator Relationship Specialty Start Date End Date Elsewhere, Pcp PCP - General Internal Medicine 03/22/24 documented as of this encounter
--- OUTSIDE RECORDS SUMMARY | 2024-05-17 12:39 | XMS_ITS | Encounter Summary ---
Author Organization [facility] Address [address] [place] [address] Care Team Providers Care Helper Steel Fabrication Name Role Phone Elsewhere, Pcp Primary Care Provider Unavailabl e Reason for Visit * Reason Comments Med Refill Encounter Details Date Type Department Care Team (Late st Contact Info) Description 05/08/2024 Refill Department of Orthopedic Surgery in [place], [place] [address] [place] [phone] Fiona Durant M.D. [address] [place] [phone] Med Refill Social History Tobacco Use Types Packs/Day Years Used Date Smoking Tobacco: Never Smokeless Tobacco: Never Alcohol Use Standard Drinks/Week Comments Never 0 (1 standard drink = 0.6 oz pur e alcohol) [facility] Utilities Answer Date Recorded In the past [...] How often do you attend chur or hindu services? More than 4 times per year 08/09/2022 Do you belong to any clubs o r organizations such as oriental orthodox groups, unions, fraternal or athletic groups, or [...] medical care, and heating? Somewhat hard 08/09/2022 [facility] of Occupat ional Health - Occupational Stress [...] your living situation today? I have a [facility] place to live 03/22/2024 Education Answer Date Recorded What is the highest level of school you have completed or the highest degree you have received? Associate degree: academic program 08/09/2022 Comments No Sex and Gender Information Value Date Recorded Sex Assigned at Female 08/09/2022 12:21 PM CDT Legal Sex Female 4:02 PM CERTIFIED FIRST ASSISTANT Gender Identity Female 08/09/2022 12:21 PM CDT Sexual Orientation Straight 08/09/2022 12 :21 PM CDT documented as of this encounter Plan of Treatment Scheduled Procedures Name Priority Associated Diagnoses Date/Ti me ARTHROPLASTY REPLACEMENT TOT AL KNEE Primary Osteoarthritis Knee Right documented as of this encounter Visit Diagnoses Not on filedocumented in this encounter Care Teams Helper Steel Fabrication Relationship Specialty Start Date End Date Elsewhere, Pcp PCP - General Internal Medicine 03/22/24 documented as of this encounter
--- OUTSIDE RECORDS SUMMARY | 2024-05-17 12:39 | XMS_ITS | Encounter Summary ---
Author Organization [facility] Address [address] [place] [address] Care Team Providers Care Lending Manager Name Role Phone Elsewhere, Pcp Primary Care Provider Unavailabl e Encounter Details Date Type Department Care Team (Latest Contact Info) Description 04/04/2024 8:00 AM BURRING MACHINE OPERATOR Virtual Visit Department of Cardiovascular Medicine in [place], [place] [address] [place] [phone] Shayy Licona, CHUNG, C.N.P., D.N.P. [address] [place] [phone] Atherosclerotic Heart Disease Of [place] Coronary Artery Without Angina Pectoris (Primary Dx); Myocardial Infarction Old; Coronary Stent Status Post Social History Tobacco Use Types Packs/Day Years Used Date Smoking Tobacco: Never Smokeless Tobacco: Never Alcohol Use Standard Drinks/Week Comments Never 0 (1 standard drink = 0.6 oz pur e alcohol) [facility] Utilities Answer Date Recorded In the past 12 months has th e [facility], gas, oil, or water company threatened to [...] often do you attend chur ch or denominational services? More than 4 times per year 08/09/2022 Do you belong to any clubs o r organizations such as baptism groups, unions, fraternal or athletic groups, or [...] medical care, and heating? Somewhat hard 08/09/2022 [facility] [place] of Occupat ional Health - Occupational Stress [...] your living situation today? I have a [facility] place to live 03/22/2024 Education Answer Date Recorded What is the highest level of school you have completed or the highest degree you have received? Associate degree: academic program 08/09/2022 Comments No Sex and Gender Information Value Date Recorded Sex Assigned at Female 08/09/2022 12:21 PM CDT Legal Sex Female 4:02 PM BURRING MACHINE OPERATOR Gender Identity Female 08/09/2022 12:21 PM CDT Sexual Orientation Straight 08/09/2022 12 :21 PM CDT documented as of this encounter Progress Notes * Shayy Licona, CHUNG, C.N.P., D.N.P. - 04/04/2024 8:00 AM CST RMD-GTHM-SH-FACE PHONE VISIT A phone call care discussion in the setting of the national COVID19 pandemic was completed consistent with [facility] institutional direction. This visit was peformed by telephone call today. HISTORY OF PRESENT ILLNESS Ms. Yen Norris is a 68 y.o. female who presents back via phone call for coronary angiogram follow-up. I saw the patient in person on 02/29/2024. Please refer to my note from that date for additional details. Briefly, she had been experiencing recurrent exertional chest pressure with radiation to the back, jaw, and bilateral arms associated with shortness of breath last 3 months. At that time, patient's had recently and she was hoping to avoid anything invasive unless absolutely necessary, therefore we optimize her medical therapy with plans to reassess her symptoms 4- 6 weeks stillsymptomatic proceed with an invasive coronary angiogram. She presented to the emergency room on 03/22/2024 with chest pain and shortness of breath that occurred at rest. She was diagnosed with unstable angina. She received 2 stents to the distal LAD (2. 5 x16 mm synergy, 2.25 x 8 mm). Residual disease included 20% left main, 60% proximal circumflex (FFR of this in 08/2022 was 0.96), 30% proximal RCA. Her chest pressure improved with the coronary interventions. She has had intermittent shortness of breath which she attributes to her increased life stressors including the passing of her recently and another family member that will be passing away soon. These life stressors had become more pronounced with the current holiday season. She has not gotten back into a regular exercise routineyet. Right femoral access site has been healing well per the patient's verbal report and is without bleeding, edema, or erythema. DIAGNOSTICS I have personally reviewed the patient's available current laboratory, imaging, and other diagnostic studies. ASSESSMENT / PLAN 1. 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 Myocardial Infarction Old 3. Coronary Stent Status Post We reviewed the results of her coronary angiogram in detail. Her chest pressure improved with the coronary interventions. She can try discontinuing the ranolazine at this time, however if she develops recurrent symptoms then it could be resumed. She has remained on long-term DAPT over the years due to her extensive CAD. She has not had any major bleeding while on DAPT and is considered to be a low bleed risk. She will be continuing with thisregimen for now. I highly encouraged her to partake in the cardiac rehab program in its entirety. Patient was agreeable to the plan. All questions and concerns addressed. Follow-up and testing: NA. To continue following with local team Decision Priority (Choose one): No appointment at this time Next visit preference: Any I spent 15 minutes reviewing records, testing, discussion and follow up. ING MACHINE OPERATOR documented in this encounter Plan of Treatment Scheduled Procedures Name Priority Associated Diagnoses Date/Ti me ARTHROPLASTY REPLACEMENT TOT AL KNEE Primary Osteoarthritis Knee Right documented as of this encounter Visit Diagnoses Diagnosis Atherosclerotic Heart Disease Of [place] Coronary Artery Without Angina Pectoris- Primary Myocardial Infarction Old Coronary Stent Status Post documented in this encounter Care Teams Lending Manager Relationship Specialty Start Date End Date Elsewhere, Pcp PCP - General Internal Medicine 03/22/24 documented as of this encounter
--- OUTSIDE RECORDS SUMMARY | 2024-05-17 12:39 | XMS_ITS | Encounter Summary ---
Author Organization [facility] Address [address] [place] [id number] Care Team Providers Care Spud Driller Name Role Phone Elsewhere, Pcp Primary Care Provider Unavailabl e Reason for Visit * Reason Comments Med Refill Encounter Details Date Type Department Care Team (Late st Contact Info) Description 04/16/2024 Refill Division of Cardiovascular Diseases in [place], [place] [address] [place] [phone] Parul Oreilly M.B.B.S., Ph.D. [address] [place] [phone] Med Refill Social History Tobacco Use Types Packs/Day Years Used Date Smoking Tobacco: Never Smokeless Tobacco: Never Alcohol Use Standard Drinks/Week Comments Never 0 (1 standard drink = 0.6 oz pur e alcohol) [facility] Utilities Answer Date Recorded In [...] How often do you attend chur or jewish services? More than 4 times per year 08/09/2022 Do you belong to any clubs o r organizations such as confucianism groups, unions, fraternal or athletic groups, or [...] medical care, and heating? Somewhat hard 08/09/2022 [facility] [place] of Occupat ional Health - Occupational Stress [...] your living situation today? I have a [facility] place to live 03/22/2024 Education Answer Date Recorded What is the highest level of school you have completed or the highest degree you have received? Associate degree: academic program 08/09/2022 Comments No Sex and Gender Information Value Date Recorded Sex Assigned at Female 08/09/2022 12:21 PM CDT Legal Sex Female 4:02 PM RECORD FILING CLERK Gender Identity Female 08/09/2022 12:21 PM CDT Sexual Orientation Straight 08/09/2022 12 :21 PM CDT documented as of this encounter Plan of Treatment Scheduled Procedures Name Priority Associated Diagnoses Date/Ti me ARTHROPLASTY REPLACEMENT TOT AL KNEE Primary Osteoarthritis Knee Right documented as of this encounter Visit Diagnoses Not on filedocumented in this encounter Care Teams Spud Driller Relationship Specialty Start Date End Date Elsewhere, Pcp PCP - General Internal Medicine 03/22/24 documented as of this encounter
--- OUTSIDE RECORDS SUMMARY | 2024-05-17 12:39 | XMS_ITS | Encounter Summary ---
Author Organization [facility] Address [address] [place] [id number] Care Team Providers Care General Manager [employer] Name Role Phone Elsewhere, Pcp Primary Care Provider Unavailabl e Reason for Visit * Reason Comments Med Refill Encounter Details Date Type Department Care Team (Late st Contact Info) Description 04/04/2024 Refill Department of Orthopedic Surgery in [place], [place] [address] [place] [phone] Fiona Durant M.D. [address] [place] [phone] Med Refill Social History Tobacco Use Types Packs/Day Years Used Date Smoking Tobacco: Never Smokeless Tobacco: Never Alcohol Use Standard Drinks/Week Comments Never 0 (1 standard drink = 0.6 oz pur e alcohol) [facility] Utilities Answer Date Recorded In the [...] How often do you attend chur or nondenominational services? More than 4 times per year [...] medical care, and heating? Somewhat hard 08/09/2022 [facility] [place] of Occupat ional Health - Occupational Stress [...] your living situation today? I have a [facility] place to live 03/22/2024 Education Answer Date Recorded What is the highest level of school you have completed or the highest degree you have received? 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
--- OUTSIDE RECORDS SUMMARY | 2024-05-17 12:40 | XMS_ITS | Clinical Summary ---
Author Organization [facility] Address [address] [place] [address] Care Team Providers Care Public Information Relations Manager Name Role Phone Elsewhere, Pcp Primary Care Provider Unavailabl e Source Comments Patient records contain information from all sites at [facility]. For routine questions regarding patient records, call [phone] during business hours, M-F 8:00 AM - 5:00 PM Central Time. Record requests for emergency care only can be directed to [phone] at any time.[facility] Allergies Active Allergy Reactions Criticality Noted Date [...] daily. 90 tablet 3 02/29/20 24 Active isosorbide mononitrate (Imdur) 60 mg 24 hr tablet Take 1 tablet (60 mg total) by mouth daily. 90 tablet 3 02/29/20 24 Active ranolazine (Ranexa) 500 mg 12 hr tablet Take 1 tablet (500 mg total) by mouth 2 (two) times a day. 180 tablet 3 02/29/20 24 Active aspirin 81 mg chewable tablet Chew 1 tablet (81 mg total) daily. Indication: Coronary artery disease 03/24/20 24 Active clopidogreL (Plavix) 75 mg tablet Take [...] twice daily 60 tablet 05/12/19 25 Active meloxicam (Mobic) 15 mg tablet Take [...] 05/12/2024 Refill Division of Cardiovascular Diseases in [address] [phone] Parul Oreilly M.B.B.S., Ph.D. Med Refill 05/08/2024 Refill Department of Orthopedic Surgery in [address] [phone] Fiona Durant M.D. Med Refill 04/16/2024 Refill Division of Cardiovascular Diseases in [address] [phone] Parul Oreilly M.B.B.S., Ph.D. Med Refill 04/04/2024 8:00 AM SURGERY AIDE Virtual Visit Department of Cardiovascular Medicine in [address] [phone] Shayy Licona, CHUNG, C.N.P., D.N.P. Atherosclerotic Heart Disease Of [place] Coronary Artery Without Angina Pectoris (Primary Dx); Myocardial Infarction Old; Coronary Stent Status Post 04/04/2024 Refill Department of Orthopedic Surgery in [place], [place] [address] [place] [phone] Fiona Durant M.D. Med Refill 03/25/2024 Clinical Communication Department of Cardiovascular Medicine in [place], [place] [address] [place] [phone] Katelin Peña, BALJIT Cardiac Rehab Referral 03/23/2024 12:35 PM SURGERY AIDE - 03/23/2024 1:50 PM SURGERY AIDE Surgery Division of Cardiovascular Diseases in [address] [phone] eGremias Camp M.D., Ph.D. CORONARY ANGIOGRAPHY 03/22/2024 3:57 PM SURGERY AIDE - 03/24/2024 3:05 PM SURGERY AIDE Hospital Encounter [facility], [facility], Sixth Floor [address] [place] [phone] Jarad Prescott M.D. Alfred Zuniga M.D. Yaniv Powell M.D. Angina Unstable (HCC) (Primary Dx); Morbid Obesity Body Mass Index 40.0-44.9 Adult (HCC); Coronary Artery Disease Without Angina Pectoris Discharge Disposition: Home or Self Care 03/21/2024 Refill Department of Orthopedic Surgery in [place], [place] [address] [place] [phone] Fiona Durant M.D. Med Refill 03/21/2024 Refill Division of Cardiovascular Diseases in [place] [id number] [place] [phone] Parul Oreilly M.B.B.S., Ph.D. Med Refill 02/29/2024 8:30 AM SURGERY AIDE Comprehensive Visit Department of Cardiovascular Medicine in [place], [place] [address] [place] [phone] Shayy Licona, CHUNG, C.N.P., D.N.P. Atherosclerotic Heart Disease [place] Coronary Artery With Other Forms Angina Pectoris (Stable Angina/Angina Of Exertion) (HCC) (Primary Dx); Myocardial Infarction Old; Coronary Stent Status Post; Obesity Body Mass Index 30-39.9 Adult; Diabetes Mellitus Type 2 (HCC); Hyperlipidemia; Hypertension Essential Primary 02/29/2024 6:50 AM SURGERY AIDE - 02/29/2024 11:59 PM SURGERY AIDE Hospital Encounter Department of Laboratory Medicine and Pathology, [facility] in [place], [place] [address] [place] [phone] Krishna Dia M.D. Coronary Artery Disease With Stable Angina (HCC) Discharge Disposition: Home or Self Care 02/28/2024 3:42 PM SURGERY AIDE - 02/28/2024 11:59 PM SURGERY AIDE Hospital Encounter Department of Radiology, [facility] in [place], [place] [address] [place] [phone] Krishna Dia M.D. Coronary Artery Disease With Stable Angina (HCC) Discharge Disposition: Home or Self Care 02/26/2024 3:15 PM [facility] Clinical Communication Virtual Review in [place], [place] [address] [place] [address] Pre-visit Intake 02/23/2024 Refill Department of Orthopedic Surgery in [place], [place] [address] [place] [phone] Gustabo Lau M.D., M.B.A. Med Refill 02/23/2024 Refill Division of Cardiovascular Diseases in [place], [place] [address] [place] [phone] Parul Oreilly M.B.B.S., Ph.D. Med Refill from [...] Baptiste Coronary artery disease Sister 1 Talisha Cross Sten ts & double bypass Hyperlipidemia Sister 1 Talisha Mcraet Hypertension Sister 1 Talisha Cross Thyroid disease [...] Sister 1 Talisha Mcraet Sister 2 Holly Palma Social History Tobacco Use Types Packs/Day Years Used Date Smoking Tobacco: Never Smokeless Tobacco: Never Tobacco Cessation:Counseling Given: Not Answered Alcohol Use Standard Drinks/Week Comments Never 0 (1 standard drink = 0.6 oz pur e alcohol) [facility] Utilities Answer Date Recorded In the past 12 months has [place], gas, oil, or water [place] threatened to shut off services in your [...] medical care, and heating? Somewhat hard 08/09/2022 [facility] - Occupational [...] your living situation today? I have a [facility] place to live 03/22/2024 Education Answer Date Recorded What is the highest level of school you have completed or the highest degree you have received? Associate degree: academic program 08/09/2022 Comments No Sex and Gender Information Value Date Recorded Sex Assigned at Female 08/09/2022 12:21 PM CDT Legal Sex Female 4:02 PM SURGERY AIDE Gender Identity Female 08/09/2022 12:21 PM CDT Sexual Orientation Straight 08/09/2022 12 :21 PM CDT Last Filed Vital Signs Vital Sign Reading Time Taken Comments Blood Pressure 120/63 03/24/2024 2:04 PM SURGERY AIDE Pulse 55 03/24/2024 2:04 PM SURGERY AIDE Temperature 37 C (98.6 F) 03/24/2024 2:04 PM SURGERY AIDE Respiratory Rate 15 03/24/2024 2:04 PM SURGERY AIDE Oxygen Saturation 96% 03/24/2024 2:04 PM SURGERY AIDE Inhaled Oxygen Concentration - - Weight 101 kg (222 lb 0.1 oz) 03/24/2024 3:42 AM SURGERY AIDE Height 163 cm (5' 4.17) 03/22/2024 11:51 PM SURGERY AIDE Body Mass Index 37.9 03/22/2024 11:51 PM SURGERY AIDE Plan of Treatment Scheduled Procedures Name Priority [...] 12/08/2017, Additional history exists COVID-19 Vaccine ( season) 2023 Influenza Vaccine (#1) 2024 01/22/2018, 2005 Depression Screening (Annual PHQ-2) 04/17/2024 Fall Risk Screen (Annual) 04/17/2024 Hemoglobin A1C 08/28/2024 02/29/2024, 02/15, 08/12/2022 Lipid (Cholesterol) Screening 02/28/2025 02/29/2024, 08/12/2022 Office Visit for Blood Pressure Check / Re-check 02/28/2025 02/29/2024 Creatinine Level (Kidney Function Test) 03/24/2025 03/24/2024, 03/23/2024, 03/22/2024, Additional history exists Potassium Level 03/24/2025 03/24/2024, 12/0 10/2023, 03/22/2024, Additional history exists Sodium Level 03/24/2025 03/24/2024, 120 10/2023, 03/22/2024, Additional history exists IPV Vaccines Aged Out No longer eligi ble based on patient's age to complete this topic Medical Devices Implanted Type Area Welfare Investigator Device Identifier Shelf Expiration Date Model / Serial / Lot Cardiac Stent Cardiac Stent Heart Description:EIGHT CARDIAC ST ENTS Stnt Synergy Xd De 2.50x16 - [id number] Implanted:Qty : 1 on 03/23/2024 by Geremias Camp M.D., Ph.D. at [facility] Cardiac Stent N/A: Coronary [employer] 08/28/2025 [id number] / / [id number] Description:Distal LAD Stnt Synergy Xd De 2.25x8 - [id number] Implanted:Qty : 1 on 03/23/2024 by Geremias Camp M.D., Ph.D. at [facility] Cardiac Stent N/A: Coronary [employer] 07/31/2024 [id number] / / [id number] Bsplt Tib Trt Sz2 - [id number] Implanted:Qty : 1 on 03/03/2023 by Gustabo Lau M.D., M.B.A. at [facility] Knee Implant Right: Knee [place] 10/14/2027 5536-B-20 0 / / [id number] Kn Fem Trt Por Cr Bead Rt Sz3 - [id number] Implanted:Qty : 1 on 03/03/2023 by Gustabo Lau M.D., M.B.A. at [facility] Knee Implant Right: Knee [place] 09/08/2027 5517-F-30 2 / / [id number] Ins Tib Trt Cs Sz2 9 - [id number] Implanted:Qty : 1 on 03/03/2023 by Gustabo Lau M.D., M.B.A. at [facility] Knee Implant Right: Knee [place] 09/04/2027 5531-G-20 9-E / / [id number] Procedures Procedure Name Priority Date/Time Associated Diagnosis Comments ECG Routine 03/24/2024 8:04 AM SURGERY AIDE MAGNESIUM, S Routine 03/24/2024 7:12 AM SURGERY AIDE BASIC METABOLIC PANEL, S/P Routine 03/24/2024 7:12 AM SURGERY AIDE CBC WITHOUT DIFFERENTIAL, B Routine 03/24/2024 7:12 AM SURGERY AIDE CARDIAC CATHETERIZATION Routine 03/23/2024 1:49 PM SURGERY AIDE Angina Unstable (HCC) Morbid Obesity Body Mass Index 40.0-44.9 Adult (HCC) Coronary Artery Disease Without Angina Pectoris CARDIAC CATHETERIZATION Routine 03/23/2024 1:49 PM SURGERY AIDE Angina Unstable (HCC) Morbid Obesity Body Mass Index 40.0-44.9 Adult (HCC) Coronary Artery Disease Without Angina Pectoris CARDIAC CATHETERIZATION Routine 03/23/2024 1:49 PM SURGERY AIDE Angina Unstable (HCC) Morbid Obesity Body Mass Index 40.0-44.9 Adult (HCC) Coronary Artery Disease Without Angina Pectoris ACT, POCT, B Routine 03/23/2024 1:36 PM SURGERY AIDE HEPARIN LEVEL ANTI-XA ASSAY, P Timed 03/23/2024 11:52 AM SURGERY AIDE ADULT OXYGEN THERAPY Routine 03/23/2024 8:01 AM SURGERY AIDE TROPONIN T, 5TH GEN, P Timed 4:32 AM SURGERY AIDE C-REACTIVE PROTEIN (CRP), S/P Timed 03/23/2024 4:32 AM SURGERY AIDE CBC WITHOUT DIFFERENTIAL, B Timed 03/23/2024 4:32 AM SURGERY AIDE BASIC METABOLIC PANEL, S/P Timed 03/23/2024 4:32 AM SURGERY AIDE HEPARIN LEVEL ANTI-XA ASSAY, P Timed 03/23/2024 4:32 AM SURGERY AIDE ECG STAT 03/22/2024 10:04 PM SURGERY AIDE ADULT OXYGEN THERAPY Routine 03/22/2024 9:51 PM SURGERY AIDE ADULT OXYGEN THERAPY Routine 03/22/2024 9:51 PM SURGERY AIDE ADULT OXYGEN THERAPY Routine 03/22/2024 9:51 PM SURGERY AIDE TROPONIN T, 2H/6H REFLEX, 5TH GEN, P Timed 03/22/2024 6:22 PM SURGERY AIDE DX CHEST AP OR PA AND LATERAL 2 VIEWS RAD - Semiurgent (Fast; most ED patients; some inpatients) 03/22/2024 4:57 PM SURGERY AIDE ACTIVATED PARTIAL THROMBOPLASTIN TIME (APTT), P STAT 03/22/2024 4:24 PM SURGERY AIDE NT-PRO B-TYPE NATRIURETIC PEPTIDE (BNP), S STAT 03/22/2024 4:24 PM SURGERY AIDE PROTHROMBIN TIME (PT), P STAT 03/22/2024 4:24 PM SURGERY AIDE TROPONIN T, BASELINE, 5TH GEN, P STAT 03/22/2024 4:24 PM SURGERY AIDE BASIC METABOLIC PANEL, S/P STAT 03/22/2024 4:24 PM SURGERY AIDE CBC WITH DIFFERENTIAL, B STAT 03/22/2024 4:24 PM SURGERY AIDE ECG STAT 03/22/2024 4:05 PM SURGERY AIDE ALANINE AMINOTRANSFERASE (ALT), S/P Routine 02/29/2024 7:28 AM SURGERY AIDE Coronary Artery Disease With Stable Angina (HCC) ASPARTATE AMINOTRANSFERASE (AST), S/P Routine 02/29/2024 7:28 AM SURGERY AIDE Coronary Artery Disease With Stable Angina (HCC) LIPID PANEL, S Routine 02/29/2024 7:28 AM SURGERY AIDE Coronary Artery Disease With Stable Angina (HCC) PROTHROMBIN TIME (PT), P Routine 02/29/2024 7:28 AM SURGERY AIDE Coronary Artery Disease With Stable Angina (HCC) HEMOGLOBIN A1C, B Routine 02/29/2024 7:2 8 AM SURGERY AIDE Coronary Artery Disease With Stable Angina (HCC) GLUCOSE, FASTING, S/P Routine 02/29/2024 7:28 AM SURGERY AIDE Coronary Artery Disease With Stable Angina (HCC) SODIUM, S/P Routine 02/29/2024 7:28 AM SURGERY AIDE Coronary Artery Disease With Stable Angina (HCC) POTASSIUM, S/P Routine 02/29/2024 7:28 AM SURGERY AIDE Coronary Artery Disease With Stable Angina (HCC) CREATININE WITH EGFR, S/P Routine 02/29/2024 7:28 AM SURGERY AIDE Coronary Artery Disease With Stable Angina (HCC) CHLORIDE, S/P Routine 02/29/2024 7:28 AM SURGERY AIDE Coronary Artery Disease With Stable Angina (HCC) BUN (BLOOD UREA NITROGEN), S/P Routine 02/29/2024 7:28 AM SURGERY AIDE Coronary Artery Disease With Stable Angina (HCC) BICARBONATE, B/S/P Routine 02/29/2024 7: 28 AM SURGERY AIDE Coronary Artery Disease With Stable Angina (HCC) CBC WITH DIFFERENTIAL, B Routine 02/29/2024 7:28 AM SURGERY AIDE Coronary Artery Disease With Stable Angina (HCC) DX CHEST AP OR PA AND LATERAL 2 VIEWS RAD - Routine (most inpatients and all outpatients) 02/28/2024 3:55 PM SURGERY AIDE Coronary Artery Disease With Stable Angina (HCC) ECG Routine 02/28/2024 3:29 PM SURGERY AIDE Coronary Artery Disease With Stable Angina (HCC) from Last 3 Months Results * ECG 12 Lead (03/24/2024 8:04 AM [facility]) Only the most recent of4 resultswithin the time period is included. Ventricular Rate ECG/Min 61 BPM MUSE GA Interval 190 ms MUSE QRSD Interval 86 ms MUSE QT Interval 446 ms MUSE QTC Interval 448 ms MUSE P [place] 67 degrees MUSE R [place] 13 degrees MUSE T Wave [place] 30 degrees MUSE 03/24/2024 8:04 AM SURGERY AIDE 03/24/2024 8:16 AM SURGERY AIDE Impressions MUSE - 03/24/2024 8:16 AM [facility] Normal sinus rhythm Normal ECG When compared with ECG of 22-Mar-2024 22:04, No significant change was found Reviewed by WARREN Chakraborty Narrative Procedure Note Demetrius Negrete M.D. - 03/24/2024 IMPRESSION: Normal sinus rhythm Normal ECG When compared with ECG of 22-Mar-2024 22:04, No significant change was found Reviewed by WARREN Chakraborty us Francis Manzano M.D. ECG ORDERABLES Final Result Performing Organization Address [facility] Co de Phone Number MUSE NA * (ABNORMAL) CBC without Differential (03/24/2024 7:12 AM SURGERY AIDE) Only the most recent of2 resultswithin the time period is included. Hemoglobin 11.0(L) 11.6 - 15.0 g/dL 03/24/2024 8:02 AM SURGERY AIDE DTL Hematocrit 34.6(L) 35.5 - 44.9 % 03/24/2024 8:02 AM SURGERY AIDE DTL Erythrocytes 4.02 3.92 - 5.13 x10(12)/L 03/24/2024 8:02 AM SURGERY AIDE DTL MCV 86.1 78.2 - 97.9 fL 03/24/2024 8:02 AM SURGERY AIDE DTL RBC Distrib Width 13.8 12.2 - 16.1 % 03/24/2024 8:02 AM SURGERY AIDE DTL Platelet Count 261 157 - 371 x10(9)/L 03/24/2024 8:02 AM SURGERY AIDE DTL Leukocytes 10.7(H) 3.4 - 9.6 x10(9)/L 03/24/2024 8:02 AM SURGERY AIDE DTL Blood (Blood, Venous) 03/24/2024 7:12 AM SURGERY AIDE 03/24/2024 7:52 AM SURGERY AIDE us Cher Rodriguez APRN, C.N.P. LAB BLOOD ADD-ON Fin al Result Performing Organization Address [facility]/ZIP Co de Phone Number [facility] [place] [address] [place] [address], [facility] DTL [facility] [address] [place] [address] * Magnesium (03/24/2024 7:12 AM SURGERY AIDE) Magnesium, S 2.1 1.7 - 2.3 mg/dL 03/24/2024 8:21 AM SURGERY AIDE DTL Blood (Blood, Venous) 03/24/2024 7:12 AM SURGERY AIDE 03/24/2024 8:03 AM SURGERY AIDE us Cher Rodriguez APRN, C.N.P. LAB BLOOD ADD-ON Fin al Result [address] [address], [facility] [address] [address] * (ABNORMAL) Basic Metabolic Panel (03/24/2024 7:12 AM SURGERY AIDE) Only the most recent of3 resultswithin the time period is included. Potassium, S 4.4 3.6 - 5.2 mmol/L 03/24/2024 8:21 AM SURGERY AIDE DTL Sodium, S 138 135 - 145 mmol/L 03/24/2024 8:21 AM SURGERY AIDE DTL Chloride, S 103 98 - 107 mmol/L 03/24/2024 8:21 AM SURGERY AIDE DTL Bicarbonate, S 27 22 - 29 mmol/L 03/24/2024 8:21 AM SURGERY AIDE DTL Anion Gap 8 7 - 15 03/24/2024 8:21 AM SURGERY AIDE DTL BUN (Blood Urea Nitrogen), S 17 6 - 21 mg/dL 03/24/2024 8:21 AM SURGERY AIDE DTL Creatinine 1.28(H) 0.59 - 1.04 mg/dL 03/24/2024 8:21 AM SURGERY AIDE DTL Estimated GFR (eGFR) 46(L) >=60 mL/min/BSA 03/24/2024 8:21 AM SURGERY AIDE DTL Comment: Estimated GFR calculated using the 2020 CKD_EPI creatinine equation. Calcium, Total, S 9.3 8.8 - 10.2 mg/dL 03/24/2024 8:21 AM SURGERY AIDE DTL Glucose, S 103 70 - 140 mg/dL 03/24/2024 8:21 AM SURGERY AIDE DTL Blood (Blood, Venous) 03/24/2024 7:12 AM SURGERY AIDE 03/24/2024 8:03 AM SURGERY AIDE Cher Rodriguez APRN, C.N.P. LAB BLOOD ADD-ON Fin al Result [facility] [place] [address] [place] [address], [facility] DTL [facility] [address] [place] [address] * CORONARY ANGIOGRAPHY, PERCUTANEOUS CORONARY ANGIOPLASTY, STENT PLACEMENT (03/23/2024 1:49 PM SURGERY AIDE) Anatomical Region Laterality Modality X-Ray Angiograph y 03/23/2024 12:5 0 PM SURGERY AIDE Narrative 03/26/2024 8:50 AM SURGERY AIDE For the complete report, see the Order-Level [...] common femoral artery using a short 6 Slovak sheath.?Angiography demonstrated severe stenosis in the mid [...] right commonfemoral artery using a short 6 [place] sheath.?Angiography demonstratedsevere stenosis in the mid left [...] the complete report, see the Order-Level Documents. Mary Conway APRN, C.N.P. CV CARDIAC CATH PRO CEDURES Final Result * (ABNORMAL) ACT (Activated Clotting Time), POCT (03/23/2024 1:36 PM SURGERY AIDE) Activated Clotting Time, POCT 303(H) 84 - 139 sec 03/23/2024 1:37 PM SURGERY AIDE PCS Blood 03/23/2024 1:36 PM SURGERY AIDE 03/23/2024 1:37 PM SURGERY AIDE Unknown Provider LAB POCT ORDERABLES - DEVICE Fi nal Result POC RST [facility] [address] [place], [place] [id number] [place] [address] [facility] POC [address] [place] [address] * Heparin Anti-Xa Assay (03/23/2024 11:52 AM SURGERY AIDE) Only the most recent of2 resultswithin the time period is included. Pathologist [facility] Heparin Anti-Xa, P 0.59 IU/mL 2023 12:45 PM SURGERY AIDE DTL Comment: UFH therapeutic range: 0.30-0.70 IU/mL LMWH therapeutic range: 0.50-1.00 IU/mL 0.50-1.00 IU/mL for twice daily dosing 1.00-2.00 IU/mL for once daily dosing (sample obtained 4-6 hours following subcutaneous injection) LMWH prophylactic range:0.10-0.30 IU/mL ----ADDITIONAL INFORMATION---- Heparin Anti-Xa is used to measure heparin concentrations in patients receiving low molecular weight heparin (LMWH) or unfractionated heparin (UFH). Blood (Blood, Venous) 03/23/2024 11:52 AM SURGERY AIDE 03/23/2024 12:18 PM SURGERY AIDE Alfred Zuniga M.D. LAB BLOOD NON ADD-ON Eliane l Result [facility] [place] [address] [place] [address], [facility] DTL [facility] [address] [place] [address] * (ABNORMAL) CRP (C-Reactive Protein) (03/23/2024 4:32 AM SURGERY AIDE) C-Reactive Protein (CRP), S 14.0(H) <5.0 mg/L 03/23/2024 5:36 AM SURGERY AIDE DTL Blood (Blood, Venous) 03/23/2024 4:32 AM SURGERY AIDE 03/23/2024 4:51 AM SURGERY AIDE Mary Conway APRN, C.N.P. LAB BLOOD ADD-ON Fi nal Result [facility] [place] [address] [place] [address], [facility] DTL [facility] [address] [place] [address] * Troponin T, 5th Generation (03/23/2024 4:32 AM SURGERY AIDE) Pathologist [facility] Troponin T, 5th gen 10 <=10 ng/L 03/23/2024 4:55 AM SURGERY AIDE [facility] Blood (Blood, Venous) 03/23/2024 4:32 AM SURGERY AIDE 03/23/2024 4:39 AM SURGERY AIDE Mary Conway APRN, C.N.P. LAB BLOOD ADD-ON Fi nal Result Performing Organization Address City/State/[facility] Co de Phone Number [facility] [place] [address] [place] [address], [facility] STMA [facility] [address] [place] [address] * Troponin T, 2 Hour with 6 Hour Reflex, 5th Gen (03/22/2024 6:22 PM SURGERY AIDE) Troponin T, 2 hr, 5th gen 9 <=10 ng/L 03/22/2024 6:53 PM SURGERY AIDE [facility] 2H Delta -2 ng/L 03/22/2024 6:53 PM SURGERY AIDE [facility] Comment:6 hour collection no t indicated. 2H Delta Interp Not Changing 03/22/2024 6:53 PM SURGERY AIDE ST[facility] Blood 03/22/2024 6:22 PM SURGERY AIDE 03/22/2024 6:30 PM SURGERY AIDE Ismael Newell APRN, C.N.P. LAB BLOOD TROPONI N Final Result [facility] [place] [address] [place] [address], [facility] [address] [place] [address] * DX Chest AP or PA and Lateral 2 Views (03/22/2024 4:57 PM SURGERY AIDE) Only the most recent of2 resultswithin the time period is included. Anatomical Region Laterality Modality Chest, Thoracic RST LOS, Tho racic ARZ LOS, Thoracic FLA LOS N/A Digital Radiography Impressions 03/22/2024 5:20 PM SURGERY AIDE No significant change since 02/28/2024. Normal cardiomediastinal silhouette. No pneumothorax, significant pleural effusion, or consolidation. Coronary artery stenting. Calcified hilar lymph nodes. Mild aortic calcifications. Degenerative and hypertrophic changes of the spine. Surgical clips right upper quadrant. Narrative 03/22/2024 5:20 PM SURGERY AIDE EXAM: DX CHEST AP OR PA AND [...] Hour Reflex Biomarker Panel (03/22/2024 4:24 PM SURGERY AIDE) Troponin T, Baseline, 5th gen 11(H) <=10 ng/L 03/22/2024 4:56 PM SURGERY AIDE [facility] Blood (Blood, Venous) 03/22/2024 4:24 PM SURGERY AIDE 03/22/2024 4:29 PM SURGERY AIDE Ismael Newell APRN, C.N.P. LAB BLOOD TROPONI N Final Result Performing Organization Address [facility] Co de Phone Number [facility] [place] [address] [place], [place] [id number] [place] [address] [address] [place] [address] * NT-Pro B-Type Natriuretic Peptide (BNP) (03/22/2024 4:24 PM SURGERY AIDE) Pathologist [facility] NT-Pro BNP 236 <=540 pg/mL 03/22/2024 4:56 PM SURGERY AIDE [facility] Comment: NT-proBNP values less than 300 pg/mL [...] failure. Blood (Blood, Venous) 03/22/2024 4:24 PM SURGERY AIDE 03/22/2024 4:29 PM SURGERY AIDE Ismael Newell APRN, C.N.P. LAB BLOOD ADD-ON Final Result Performing Organization Address [facility] Co de Phone Number [facility] [place] [address] [place] [address], [facility] [address] [place] [address] * APTT (Activated Partial Thromboplastin Time) (03/22/2024 4:24 PM SURGERY AIDE) Pathologist [facility] Activated Partial Thrombopl Time, P 27 25 - 37 sec 03/22/2024 7:40 PM SURGERY AIDE [facility] Blood (Blood, Venous) 03/22/2024 4:24 PM SURGERY AIDE 03/22/2024 7:28 PM SURGERY AIDE Jarad Prescott M.D. LAB BLOOD ADD-ON Final Result Performing Organization Address [facility] Co de Phone Number [facility] [place] [address] [place] [address], [facility] [address] [place] [address] * Prothrombin Time (PT) (03/22/2024 4:24 PM SURGERY AIDE) Only the most recent of2 resultswithin the time period is included. Pathologist [facility] Prothrombin Time, P 10.9 9.4 - 12.5 sec 03/22/2024 4:47 PM SURGERY AIDE [facility] INR 1.0 0.9 - 1.1 03/22/2024 4:47 PM SURGERY AIDE [facility] Comment: ----ADDITIONAL INFORMATION---- Standard intensity warfarin therapeutic range: 2.0 to 3.0 High intensity warfarin therapeutic range: 2.5 to 3.5 Blood (Blood, Venous) 03/22/2024 4:24 PM SURGERY AIDE 03/22/2024 4:29 PM SURGERY AIDE Ismael Newell APRN C.N.P. LAB BLOOD ADD-ON Final Result Performing Organization Address [facility] de Phone Number [facility] [place] [address] [place] [address], [facility] [address] [place] [address] * (ABNORMAL) CBC with Differential, Blood (03/22/2024 4:24 PM SURGERY AIDE) Only the most recent of2 resultswithin the time period is included. Pathologist [facility] Hemoglobin 11.2(L) 11.6 - 15.0 g/dL 03/22/2024 4:34 PM SURGERY AIDE [facility] Hematocrit 35.7 35.5 - 44.9 % 03/22/2024 4:34 PM SURGERY AIDE [facility] Erythrocytes 4.07 3.92 - 5.13 x10(12)/L 03/22/2024 4:34 PM SURGERY AIDE [facility] MCV 87.7 78.2 - 97.9 fL 03/22/2024 4:34 PM SURGERY AIDE STMA RBC Distrib Width 13.8 12.2 - 16.1 % 03/22/2024 4:34 PM SURGERY AIDE STMA Platelet Count 286 157 - 371 x10(9)/L 03/22/2024 4:34 PM SURGERY AIDE STMA Leukocytes 9.5 3.4 - 9.6 x10(9)/L 03/22/2024 4:34 PM SURGERY AIDE STMA Neutrophils 5.55 1.56 - 6.45 x10(9)/L 03/22/2024 4:34 PM SURGERY AIDE DHPM Lymphocytes 2.76 0.95 - 3.07 x10(9)/L 03/22/2024 4:34 PM SURGERY AIDE STMA Monocytes 0.66 0.26 - 0.81 x10(9)/L 03/22/2024 4:34 PM SURGERY AIDE STMA Eosinophils 0.47 0.03 - 0.48 x10(9)/L 03/22/2024 4:34 PM SURGERY AIDE STMA Basophils 0.05 0.01 - 0.08 x10(9)/L 03/22/2024 4:34 PM SURGERY AIDE STMA Blood (Blood, Venous) 03/22/2024 4:24 PM SURGERY AIDE 03/22/2024 4:29 PM SURGERY AIDE Ismael Newell APRN, C.N.P. LAB BLOOD ADD-ON Final Result [facility] [place] [address] [place] [address], [facility] STMA [facility] [address] [place] [address] DHPM [facility] [address] [place] [address] * (ABNORMAL) Lipid Panel (02/29/2024 7:28 AM SURGERY AIDE) [facility] Triglycerides 167(H) mg/dL 02/29/2024 8:45 AM SURGERY AIDE DTL Comment: ----REFERENCE VALUE---- Normal: <150 mg/dL Borderline High: 150-199 mg/dL High: 200-499 mg/dL Very High: > or =500 mg/dL Cholesterol, Total 226(H) mg/dL 2023 8:45 AM SURGERY AIDE DTL Comment: ----REFERENCE VALUE---- Desirable: < 200 mg/dL Borderline High: 200 - 239 mg/dL High: > or = 240 mg/dL Cholesterol, LDL, Calculated 156(H) mg/dL 02/29/2024 8:45 AM SURGERY AIDE DTL Comment: ----REFERENCE VALUE---- Desirable: <100 mg/dL Above Desirable: 100-129 mg/dL Borderline High: 130-159 mg/dL High: 160-189 mg/dL Very High: >=190 mg/dL ----ADDITIONAL INFORMATION---- LDL cholesterol calculated using the Pineda/NIH equation. Cholesterol, HDL, S 39(L) >=50 mg/dL 02/29/2024 8:45 AM SURGERY AIDE DTL Cholesterol, Non-HDL, Calculated 187(H) mg/dL 02/29/2024 8:45 AM SURGERY AIDE DTL Comment: ----REFERENCE VALUE---- Desirable: <130 mg/dL Above Desirable: 130-159 mg/dL Borderline High: 160-189 mg/dL High: 190-219 mg/dL Very High: > or =220 mg/dL Fasting (8 HR or more) Yes 02/29/2024 7:28 AM SURGERY AIDE DTL Blood (Blood, Venous) 02/29/2024 7:28 AM SURGERY AIDE 02/29/2024 8:15 AM SURGERY AIDE Krishna Dia M.D. LAB BLOOD ADD-ON Final Re sult [facility] [address] [place] [address], [facility] [address] [place] [address] * BUN (Blood Urea Nitrogen) (02/29/2024 7:28 AM SURGERY AIDE) BUN (Blood Urea Nitrogen), S 19 6 - 21 mg/dL 02/29/2024 8:45 AM SURGERY AIDE DTL Blood (Blood, Venous) 02/29/2024 7:28 AM SURGERY AIDE 02/29/2024 8:15 AM SURGERY AIDE Krishna Dia M.D. LAB BLOOD ADD-ON Final Re sult Performing Organization Address City/[facility]/ZIP Co de Phone Number [facility] [place] [address] [place] [address] * ALT (Alanine Aminotransferase) (02/29/2024 7:28 AM SURGERY AIDE) Alanine Aminotransferase (ALT), S 13 7 - 45 U/L 02/29/2024 8:45 AM SURGERY AIDE DTL Blood (Blood, Venous) 02/29/2024 7:28 AM SURGERY AIDE 02/29/2024 8:15 AM SURGERY AIDE Krishna Dia M.D. LAB BLOOD ADD-ON Final Re sult Performing Organization Address City/[facility] Co de Phone Number [facility] [place] [address] [place] [address] * AST (Aspartate Aminotransferase) (02/29/2024 7:28 AM SURGERY AIDE) Aspartate Aminotransferase (AST), S 14 8 - 43 U/L 02/29/2024 8:45 AM SURGERY AIDE DTL Blood (Blood, Venous) 02/29/2024 7:28 AM SURGERY AIDE 02/29/2024 8:15 AM SURGERY AIDE Krishna Dia M.D. LAB BLOOD ADD-ON Final Re sult Performing Organization Address City/[facility]/ZIP Co de Phone Number [facility] [place] [address] [place] [address] * Sodium (02/29/2024 7:28 AM SURGERY AIDE) Sodium, S 141 135 - 145 mmol/L 02/29/2024 8:45 AM SURGERY AIDE DTL Blood (Blood, Venous) 02/29/2024 7:28 AM SURGERY AIDE 02/29/2024 8:15 AM SURGERY AIDE Krishna Dia M.D. LAB BLOOD ADD-ON Final Re sult [facility] [place] [address] [place] [address], [facility] [address] [place] [address] * Potassium (02/29/2024 7:28 AM SURGERY AIDE) Potassium, S 4.6 3.6 - 5.2 mmol/L 02/29/2024 8:45 AM SURGERY AIDE DT Blood (Blood, Venous) 02/29/2024 7:28 AM SURGERY AIDE 02/29/2024 8:15 AM SURGERY AIDE Krishna Dia M.D. LAB BLOOD ADD-ON Final Re sult Performing Organization Address [facility]/ZIP Co de Phone Number [facility] [place] [address] [place] [address], [facility] [address] [place] [address] * (ABNORMAL) Hemoglobin A1c (02/29/2024 7:28 AM SURGERY AIDE) Hemoglobin A1c, B 6.3(H) 4.0 - 5.6 % 02/29/2024 8:33 AM SURGERY AIDE DTL Comment: Hemoglobin A1c values of 5.7-6.4 percent indicate an increased risk for developing diabetes mellitus. In diabetic patients, HbA1c goals should be discussed with healthcare provider. Blood (Blood, Venous) 02/29/2024 7:28 AM SURGERY AIDE 02/29/2024 8:01 AM SURGERY AIDE Krishna Dia M.D. LAB BLOOD ADD-ON Final Re sult [facility] [place] [address] [place] [address], [facility] [address] [place] [address] * (ABNORMAL) Glucose, Fasting (02/29/2024 7:28 AM SURGERY AIDE) Glucose, P 115(H) 70 - 100 mg/dL 02/29/2024 8:44 AM SURGERY AIDE DTL Last Intake 16 hr 02/29/2024 8:17 AM SURGERY AIDE DTL Blood (Blood, Venous) 02/29/2024 7:28 AM SURGERY AIDE 02/29/2024 8:17 AM SURGERY AIDE us Krishna Dia M.D. LAB BLOOD NON ADD-ON Eliane l Result Performing Organization Address City/[facility]/ZIP Co de Phone Number [facility] [place] [address] [place] [address], [facility] [address] [place] [address] * (ABNORMAL) Creatinine with Estimated GFR (02/29/2024 7:28 AM SURGERY AIDE) Creatinine 1.24(H) 0.59 - 1.04 mg/dL 02/29/2024 8:45 AM SURGERY AIDE DTL Estimated GFR (eGFR) 48(L) >=60 mL/min/BSA 02/29/2024 8:45 AM SURGERY AIDE DTL Comment: Estimated GFR calculated using the 2020 CKD_EPI creatinine equation. Blood (Blood, Venous) 02/29/2024 7:28 AM SURGERY AIDE 02/29/2024 8:15 AM SURGERY AIDE us Krishna Dia M.D. LAB BLOOD ADD-ON Final Re sult [facility] [place] [address] [place] [address], [facility] [address] [place] [address] * Chloride (02/29/2024 7:28 AM SURGERY AIDE) Chloride, S 107 98 - 107 mmol/L 02/29/2024 8:45 AM SURGERY AIDE DTL Blood (Blood, Venous) 02/29/2024 7:28 AM SURGERY AIDE 02/29/2024 8:15 AM SURGERY AIDE Krishna Dia M.D. LAB BLOOD ADD-ON Final Re sult [facility] [place] [address] [place] [address], [facility] [address] [place] [address] * Bicarbonate (02/29/2024 7:28 AM SURGERY AIDE) Bicarbonate, S 25 22 - 29 mmol/L 02/29/2024 8:45 AM SURGERY AIDE DTL Blood (Blood, Venous) 02/29/2024 7:28 AM SURGERY AIDE 02/29/2024 8:15 AM SURGERY AIDE Krishna Dia M.D. LAB BLOOD ADD-ON Final Re sult Performing Organization Address City/[facility] Co de Phone Number [facility] [place] [address] [place] [address], [place] [facility] [address] [place] [address] from Last 3 Months [facility] Direct[facility] For more information, please contact: [phone] * Full Code (Latest Code Status on File) Date Activated Date Inactivated Comments 03/22/2024 9:51 PM 03/24/2024 5:10 PM Question Answer Comments Full Code: Discussed * Full Code Date Activated Date Inactivated Comments 03/03/2023 4:40 PM 03/04/2023 3:20 PM Question Answer Comments Full Code: Discussed Care Teams Public Information Relations Manager Relationship Specialty Start Date End Date Elsewhere, Pcp PCP - General Internal Medicine 03/22/24
--- OUTSIDE RECORDS SUMMARY | 2024-05-17 12:40 | XMS_ITS | Clinical Summary ---
Author Organization [facility] Address [place], [place] [address] Care Team Providers Care Butter Production Supervisor Name Role Phone Pcp, No Primary Care Provider Unavailabl e Allergies Active Allergy Reactions Criticality Noted Date Comments Lijpltp-Xfm-Iql Reductase Inhibitors *Unknown 07/11/2022 Sulfa (Sulfonamide Antibiotics) [...] Department Care Team Description 04/30/2024 9:00 AM LAUNDRY SUPERINTENDENT - 04/30/2024 11:59 PM LAUNDRY SUPERINTENDENT Hospital Encounter [facility] [address] [place] [address] Geremias Camp MD S/P drug eluting coronary stent placement 04/30/2024 Travel 04/18/2024 Orders Only [facility] [address] [place] [address] Blanquita Vidales RN <No scans attached> from Last 3 Months Social History Tobacco Use Types Packs/Day Years Used Date Smoking Tobacco: Never Assessed Comments Unknown Sex and Gender Information Value Date Recorded Sex Assigned at Not on file Legal Sex Female 5:52 AM LAUNDRY SUPERINTENDENT Gender Identity Not on file Sexual Orientation [...] HB ONLY [employer] Care Teams Butter Production Supervisor Relationship Specialty Start Date End Date Pcp, No . PCP - General 10/06/22
[2024-05-17 13:20] VITALS: BP 147/103; PULSE 56; RESP 18; TEMP 36.7; O2SAT 96; BMI 38.3
--- NOTE | 2024-05-17 14:28 | ED.GENADULT ---
HPI - General Adult General Date Seen: 05/17/24 Chief complaint: Shortness of Breath/Dyspnea Stated complaint: Pneumonia, Cough, Short of breath, Time Seen by Provider: 05/17/24 14:00 History of Present Illness HPI narrative: Patient is a 68-year-old woman with past medical history significant for coronary artery disease, stents, diabetes who was seen here couple of days ago and diagnosed with pneumonia based on exam. She had been sick for about 10 days prior to that with cough and flu symptoms, cough was worsening. At the time of her visit a couple days ago she declined additional testing. She says that she was told if she was not getting better she should call her primary clinic. She tells me that she called her clinic today and they told her she needed to come back to the ER. She says she is feeling more short of breath and more fatigued. She lives independently, here today with her daughter. She does not smoke or drink. She has not run fevers, has not had chest pain, has not had vomiting. Has had some diarrhea and feels that she is having difficulty keeping up with fluids because she does not have any appetite. Related Data Home Medications ?Medication ?Instructions ?Recorded ?Confirmed aspirin 81 mg tablet,delayed 81 mg PO DAILY 06/28/22 05/17/24 release (Adult Low Dose Aspirin) cholecalciferol (vitamin D3) 50 2,000 unit PO DAILY 06/28/22 05/17/24 mcg (2,000 unit) tablet (Vitamin D3) isosorbide mononitrate 120 mg 120 mg PO DAILY 10/17/22 05/17/24 tablet,extended release 24 hr metoprolol tartrate 100 mg tablet 100 mg PO BID 10/17/22 05/17/24 meloxicam 15 mg tablet 15 mg PO DAILY 06/05/23 05/17/24 isosorbide mononitrate 60 mg 60 mg PO DAILY 04/08/24 05/17/24 tablet,extended release 24 hr Previous Rx's ?Medication ?Instructions ?Recorded clopidogrel 75 mg tablet 75 mg PO QAM #90 tabs 01/03/24 nitroglycerin 0.4 mg sublingual 0.4 mg sublingual PRN angina #90 01/16/24 tablet tabs metformin 500 mg tablet,extended 500 mg PO QAM #90 tabs 02/16/24 release 24 hr esomeprazole magnesium 40 mg 40 mg PO DAILY #90 caps 03/18/24 capsule,delayed release losartan 50 mg tablet 50 mg PO QAM #90 tabs 04/05/24 spironolactone 25 mg tablet 25 mg PO DAILY #90 tabs 05/08/24 benzonatate 100 mg capsule 100 mg PO TID PRN cough #14 caps 05/14/24 doxycycline monohydrate 100 mg 100 mg PO BID #14 caps 05/14/24 capsule Allergies Allergy/AdvReac Type Severity Reaction Status Date / Time Iodinated Contrast Media Allergy Severe Anaphylaxis Verified 05/17/24 13:26 Sulfa (Sulfonamide Allergy Severe Anaphylaxis Verified 05/17/24 13:26 Antibiotics) ezetimibe Allergy Intermediate Verified 05/17/24 13:26 bee venom protein (honey bee) Allergy Unknown Swelling Verified 05/17/24 13:26 duloxetine Allergy Unknown Swelling Verified 05/17/24 13:26 rosuvastatin AdvReac Unknown Muscle Pain Verified 05/17/24 13:26 Review of Systems Status of ROS: Reports: 10 or more systems reviewed and unremarkable except as noted in History and below [facility] Medical History History of DVT of lower extremity ?Z86.718 - Personal history of other venous thrombosis and embolism (ICD-10) Surgical History History of total knee replacement ?Z96.659 - Presence of unspecified artificial knee joint (ICD-10) History of cholecystectomy (~2002) ?Z90.49 - Acquired absence of other specified parts of digestive tract (ICD-10) History of appendectomy (1995) ?Z90.49 - Acquired absence of other specified parts of digestive tract (ICD-10) History of coronary artery stent placement ?Z95.5 - Presence of coronary angioplasty implant and graft (ICD-10) History of surgery on right wrist ?Z98.890 - Other specified postprocedural states (ICD-10) History of total hysterectomy with bilateral salpingo-oophorectomy (BSO) (1995) ?Z90.710 - Acquired absence of both cervix and uterus (ICD-10) ?Z90.722 - Acquired absence of ovaries, bilateral (ICD-10) ?Z90.79 - Acquired absence of other genital organ(s) (ICD-10) History of tonsillectomy and adenoidectomy ?Z90.89 - Acquired absence of other organs (ICD-10) Family History Father Colon cancer Coronary artery disease Leukemia High blood pressure High cholesterol Diabetes Thyroid disease Kidney disease Clotting disorder Mother Colon cancer High cholesterol Thyroid disease Glaucoma Brother Coronary artery disease Thyroid disease High cholesterol High blood pressure Sister Coronary artery disease High blood pressure High cholesterol Thyroid disease Skin cancer Son Bicuspid aortic valve Aortic stenosis Daughter Alcohol dependence Social History What is your current living situation?: I presently have a place to live Problems where you live: no known problems In the past 12 months, utilities in danger of being shut off: no In past 12 months, lack of transportation kept you from medical appts, meetings, work, or getting things needed for daily living: no In the past 12 mos, have been you worried that your food would run out before you had money to buy more?: never true In the past 12 mos, the food you bought just didn't last and you didn't have money to buy more?: sometimes true Smoking Status: Never smoker Do you use any of these nicotine containing products: None Second hand tobacco smoke exposure: Yes How often do you have a drink containing alcohol: never AUDIT-C Alcohol total score: 0 Non-prescribed substance use: denies use How often does anyone, including family, friends and others, physically hurt you: never How often does anyone, including family, friends and others, insult or talk down to you: rarely How often does anyone, including family, friends and others, threaten you with harm: never How often does anyone, including family, friends and others, scream or curse at you: never service: No Health Related Social Needs: food insecurity (Z59.41) and Other personal risk factors, not elsewhere classified (Z91.89) Exam Narrative: Exam Narrative: Vital signs reviewed In general, alert, nontoxic addendum woman. She is breathing easily. Head: Normocephalic, atraumatic. Eyes: Sclera clear. Pupils equal and reactive. ENT: Mucous membranes moist. Neck: Supple without adenopathy. Heart: Regular rate and rhythm without murmur. Lungs: I hear some wheezes and rhonchi in the right anterior lung bruno less so in the back. Left lung seems to be clear. Abdomen: Soft, nontender to palpation. Extremities: Well perfused, pulses intact. No significant edema. Neurologic: Alert, conversant. Speech fluent, face symmetric. Moves all extremities equally. Skin: Warm, dry well perfused. Affect: Normal. Const: Vital Signs, click to edit/add: Vital Signs - 24 hr 05/17/24 13:20 Temperature 98.0 F Pulse Rate [Pulse Oximeter] 56 L Respiratory Rate 18 [facility]103 H Pulse Oximetry 96 Oxygen Delivery Me thod Room Air Course Course ED Course: She is okay with pursuing some evaluation today with an x-ray and labs. Her exam does suggest pneumonia and a. She is afebrile, O2 sats are 96% on room air but will have her walk a little bit on oximeter to make sure she is not dropping considerably. I do not hear significant bronchospasm. I do think it would be reasonable to add Augmentin to her antibiotic regimen based on age and comorbidities. She had 500 mL of normal saline here. Her labs are notable for normal white blood cell count, she is mildly anemic with a hemoglobin of 10.9. This is her baseline. Metabolic panel is unremarkable. Her magnesium is in the normal range at 1.5, CRP is 0.8, BNP is 545 troponin is 0. Chest x-ray by my review is negative, radiology read is likewise negative. However, given her exam and the somewhat low sensitivity of chest x-ray for pneumonia I do think it is reasonable to continue to treat her. Reviewed with her that symptoms may simply be viral. I would give this another 5 days or so and if she is not improving at that time she should be seen in clinic. Reviewed reasons to return to the ER such as in inability to manage ADLs, significant shortness of breath, high fevers, vomiting etcetera. She was ambulatory in the emergency department without difficulty, O2 sats 94-96% on room air. Vital Signs Vital signs: Initial Vital Signs Temperature 98.0 F 05/17/24 13:20 Temperature Source Temporal Artery Scan 05/17/24 13:20 Pulse Rate 56 L 05/17/24 13:20 Respiratory Rate 18 05/17/24 13:20 Blood Pressure 147/103 H 05/17/24 13:20 Blood Pressure Mean 117 H 05/17/24 13:20 Blood Pressure Position Sitting 05/17/24 13:20 Pulse Oximetry 96 05/17/24 13:20 Oxygen Delivery Method Room Air 05/17/24 13:20 Vital Signs Temperature 98.0 F 05/17/24 13:20 Pulse Rate 56 L 05/17/24 13:20 Respiratory Rate 18 05/17/24 13:20 Blood Pressure 147/103 H 05/17/24 13:20 Pulse Oximetry 96 05/17/24 13:20 Oxygen Delivery Method Room Air 05/17/24 13:20 Temperature 98.0 F 05/17/24 13:20 Pulse Rate 56 L 05/17/24 13:20 Respiratory Rate 18 05/17/24 13:20 Blood Pressure 147/103 H 05/17/24 13:20 Pulse Oximetry 96 05/17/24 13:20 Oxygen Delivery Method Room Air 05/17/24 13:20 Medications Administered Medications: Discontinued Medications Generic Name Dose Route Start Last Admin Trade Name Freq PRN Reason Stop Dose Admin Sodium Chloride 500 mls @ 500 mls/hr 05/17/24 14:07 05/17/24 14:44 0.9 % Sodium Chloride 500 Ml IV 05/17/24 15:06 500 mls/hr .Q1H ONE Administration Medical Decision Making Lab Data Labs: Lab Results 05/17/24 05/17/24 Range/Units 14:08 14:21 WBC 9.26 (4.50-11.00) K/uL RBC 3.97 L (4.00-5.20) m/uL Hgb 10.9 L (12.0-16.0) gm/dL Hct 34.1 (33.0-51.0) % MCV 86 (80-100) fL MCH 28 (26-34) pg MCHC 32 (32-36) gm/dL RDW Coeff of Felicia 13.7 (11.5-15.5) % Plt Count 298 (140-440) K/uL Neut % (Auto) 60.4 (42.0-72.0) % Lymph % (Auto) 26.8 (20-44) % Reeves % (Auto) 7.3 (0.0-11.0) % Eos % (Auto) 4.8 (0.0-7.0) % Baso % (Auto) 0.4 (0.0-3.0) % Neut # (Auto) 5.59 (1.7-7.0) K/uL Lymph # (Auto) 2.48 (0.90-2.90) K/uL Reeves # (Auto) 0.70 (0.00-0.90) K/UL Eos # (Auto) 0.44 (0.00-0.50) K/uL Baso # (Auto) 0.04 (0.00-0.30) K/uL Abs Immat Gran (auto) 0.03 (0.00-0.30) K/uL Imm/Tot Granulo (auto) 0.3 % Sodium 139 (135-149) mmol/L Potassium 3.6 (3.6-5.1) mmol/L Chloride 107 (96-114) mmol/L Carbon Dioxide 22 (20-32) mmol/L Anion Gap 10 (7-15) mEq/L BUN 14 (7-30) mg/dL Creatinine 0.9 (0.5-1.5) mg/dL Estimated Creat Clear 47.14 Estimated GFR 70 ml/min Glucose 87 (60-115) mg/dL Lactate 1.1 (0.5-1.9) mmol/L Calcium 9.2 (8.4-10.6) mg/dL Magnesium 1.5 (1.5-2.6) mg/dL C-Reactive Protein 0.8 (0.5-1.0) mg/dL NT-Pro-B Natriuret Pep 545 pg/mL POC Troponin I 0.00 L (0.01-0.04) ng/ml Imaging Data Chest x-ray: Attestation: I have reviewed the pertinent imaging results. Radiologist's impression: [place] [address] Diagnostic Imaging Report Patient: Yen Norris MR#: [id number] : 1955 Acct:[id number] Loc: ED Service Date: 05/17/[address]: Ordering Physician: Carlene Joseph M.D. Date of Service: 05/17/24 Procedure(s): XR chest 2V Accession Number(s): [id number] cc: Carlene Joseph M.D.; Sada Chun M.D.~ For Patients: As a result of the Century Cures Act, medical imaging exams and procedure reports are released immediately into your electronic medical record. You may view this report before your referring provider. If you have questions, please contact your health care provider. Indication: Cough Technique: Chest 2 views Comparison: Chest x-ray 06/28/2022 Findings/Impression: Cardiovascular and mediastinum: Mild cardiomegaly status post coronary stent placement. Aortic tortuosity with atherosclerotic calcification. Lungs and pleural spaces: Lungs are clear. No sign of infiltrate or mass. No sign of pleural effusion. No pneumothorax. Bones and soft tissues: Mild leftward curvature thoracolumbar junction. Right upper quadrant surgical clips. Dictated by Rick Villarreal MD @ 05/17/2024 2:46:38 PM Discharge Plan Discharge Clinical Impression: Right lower lobe pneumonia Patient Disposition: Home, Self-Care Condition: Stable Instructions: Community Acquired Pneumonia (DC) Additional Instructions: Continue with the doxycycline as prescribed. Today we have added a 2nd antibiotic, Augmentin. Lots of rest, maintain hydration. I would expect over the next 4-5 days you should feel improved. If not, please follow-up in the clinic. If at any time you feel significantly worse, have high fevers, significant shortness of breath, are not able to manage with activities of daily living,, or vomiting and cannot take your antibiotic etcetera return to the ER. Prescriptions: No Action metoprolol tartrate 100 mg tablet 100 mg PO BID isosorbide mononitrate 120 mg tablet extended release 24 hr 120 mg PO DAILY isosorbide mononitrate 60 mg tablet extended release 24 hr 60 mg PO DAILY meloxicam 15 mg tablet 15 mg PO DAILY nitroglycerin 0.4 mg tablet, sublingual 0.4 mg sublingual PRN Qty: 90 6RF aspirin [Adult Low Dose Aspirin] 81 mg tablet,delayed release (DR/EC) 81 mg PO DAILY cholecalciferol (vitamin D3) [Vitamin D3] 50 mcg (2,000 unit) tablet 2,000 unit PO DAILY doxycycline monohydrate 100 mg capsule 100 mg PO BID Qty: 14 0RF benzonatate 100 mg capsule 100 mg PO TID PRN (Reason: cough) Qty: 14 0RF clopidogrel 75 mg tablet 75 mg PO QAM Qty: 90 0RF metformin 500 mg tablet extended release 24 hr 500 mg PO QAM Qty: 90 0RF esomeprazole magnesium 40 mg capsule,delayed release(DR/EC) 40 mg PO DAILY Qty: 90 0RF losartan 50 mg tablet 50 mg PO QAM Qty: 90 0RF spironolactone 25 mg tablet 25 mg PO DAILY Qty: 90 1RF Follow Up/Referrals: Sada Chun MD [Primary Care Provider] - Stand Alone Forms: [employer] Info Instructions
[2024-05-17 14:31] LABS: Lactate Sepsis w/Reflex* 1.1 mmol/L (0.5-1.9)
[2024-05-17 14:32] LABS: Basophils Absolute Auto 0.04 K/uL (0.00-0.30); Basophils Percent Auto 0.4 % (0.0-3.0); Eosinophils Absolute Auto 0.44 K/uL (0.00-0.50); Eosinophils Percent Auto 4.8 % (0.0-7.0); Hematocrit 34.1 % (33.0-51.0); Hemoglobin* 10.9 gm/dL (12.0-16.0); Immature Granulocytes Abs Auto 0.03 K/uL (0.00-0.30); Immature Granulocytes Pct Auto 0.3 %; Lymphocytes Absolute Auto 2.48 K/uL (0.90-2.90); Lymphocytes Percent Auto 26.8 % (20-44); Mean Corpuscular HGB Conc 32 gm/dL (32-36); Mean Corpuscular Hemoglobin 28 pg (26-34); Mean Corpuscular Volume 86 fL (80-100); Monocytes Percent Auto 7.3 % (0.0-11.0); Neutrophils Absolute Auto 5.59 K/uL (1.7-7.0); Neutrophils Percent Auto 60.4 % (42.0-72.0); Platelet Count* 298 K/uL (140-440); RDW Coefficient of Variation % 13.7 % (11.5-15.5); Red Blood Count 3.97 m/uL (4.00-5.20); White Blood Count* 9.26 K/uL (4.50-11.00)
--- OUTSIDE RECORDS SUMMARY | 2024-05-17 14:34 | XMS_ITS | Encounter Summary ---
Author Organization [facility] Address [address] [place] [address] Care Team Providers Care Geothermal Sheet Metal Worker Name Role Phone Elsewhere, Pcp Primary Care Provider Unavailabl e Encounter Details Date Type Department Care Team (Latest Contact Info) Description 04/04/2024 8:00 AM PHOTOGRAPHIC PROCESS SCREEN MAKER Virtual Visit Department of Cardiovascular Medicine in [place], [place] [address] [place] [phone] Shayy Licona, CHUNG, C.N.P., D.N.P. [address] [place] [phone] Atherosclerotic Heart Disease Of [place] Coronary Artery Without Angina Pectoris (Primary Dx); Myocardial Infarction Old; Coronary Stent Status Post Social History Tobacco Use Types Packs/Day Years Used Date Smoking Tobacco: Never Smokeless Tobacco: Never Alcohol Use Standard Drinks/Week Comments Never 0 (1 standard drink = 0.6 oz pur e alcohol) [facility] Utilities Answer Date Recorded In the past 12 months has th e [employer], gas, oil, or water company threatened to [...] often do you attend chur ch or jewish services? More than 4 times per year 08/09/2022 Do you belong to any clubs o r organizations such as holiness groups, unions, fraternal or athletic groups, or [...] care, and heating? Somewhat hard 08/09/2022 [facility] [place] of Occupat ional Health - Occupational Stress [...] your living situation today? I have a [facility] to live 03/22/2024 Education Answer Date Recorded What is the highest level of school you have completed or the highest degree you have received? Associate degree: academic program 08/09/2022 Comments No Sex and Gender Information Value Date Recorded Sex Assigned at Female 08/09/2022 12:21 PM CDT Legal Sex Female 4:02 PM PHOTOGRAPHIC PROCESS SCREEN MAKER Gender Identity Female 08/09/2022 12:21 PM CDT Sexual Orientation Straight 08/09/2022 12 :21 PM CDT documented as of this encounter Progress Notes * Shayy Licona, CHUNG, C.N.P., D.N.P. - 04/04/2024 8:00 AM CST JAG-FDBO-YI-FACE PHONE VISIT A phone call care discussion in the setting of the national COVID19 pandemic was completed consistent with [facility] institutional direction. This visit was peformed by [...] / PLAN 1. Atherosclerotic Heart Disease Of [place] Coronary Artery Without Angina Pectoris (Primary) 2. [...] reviewing records, testing, discussion and follow up. OGRAPHIC PROCESS SCREEN MAKER documented in this encounter Plan of Treatment Scheduled Procedures Name Priority Associated Diagnoses Date/Ti me ARTHROPLASTY REPLACEMENT TOT AL KNEE Primary Osteoarthritis Knee Right documented as of this encounter Visit Diagnoses Diagnosis Atherosclerotic Heart Disease Of [place] Coronary Artery Without Angina Pectoris- Primary Myocardial Infarction Old Coronary Stent Status Post documented in this encounter Care Teams Geothermal Sheet Metal Worker Relationship Specialty Start Date End Date Elsewhere, Pcp PCP - General Internal Medicine 03/22/24 documented as of this encounter
--- OUTSIDE RECORDS SUMMARY | 2024-05-17 14:35 | XMS_ITS | Encounter Summary ---
Author Organization [facility] Address [address] [place] [address] Care Team Providers Care Care Companion Name Role Phone Elsewhere, Pcp Primary Care Provider Unavailabl e Reason for Visit * Reason Comments Med Refill Encounter Details Date Type Department Care Team (Late st Contact Info) Description 05/08/2024 Refill Department of Orthopedic Surgery in [place], [place] [address] [place] [phone] Fiona Durant M.D. [address] [place] [phone] Med Refill Social History Tobacco Use Types Packs/Day Years Used Date Smoking Tobacco: Never Smokeless Tobacco: Never Alcohol Use Standard Drinks/Week Comments Never 0 (1 standard drink = 0.6 oz pur e alcohol) [facility] Utilities Answer Date Recorded In the [...] How often do you attend chur or hoahaoism services? More than 4 times per year 08/09/2022 Do you belong to any clubs o r organizations such as hinduism groups, unions, fraternal or athletic groups, or [...] medical care, and heating? Somewhat hard 08/09/2022 [facility] [place] of Occupat ional Health - Occupational Stress [...] your living situation today? I have a [facility] place to live 03/22/2024 Education Answer Date Recorded What is the highest level of school you have completed or the highest degree you have received? 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
--- OUTSIDE RECORDS SUMMARY | 2024-05-17 14:35 | XMS_ITS | Encounter Summary ---
Author Organization [facility] Address [address] [place] [address] Care Team Providers Care Back Tender Cylinder Name Role Phone Elsewhere, Pcp Primary Care Provider Unavailabl e Reason for Visit * Reason Comments Med Refill Encounter Details Date Type Department Care Team (Late st Contact Info) Description 04/16/2024 Refill Division of Cardiovascular Diseases in [place], [place] [address] [place] [phone] Parul Oreilly M.B.B.S., Ph.D. [address] [place] [phone] Med Refill Social History Tobacco Use Types Packs/Day Years Used Date Smoking Tobacco: Never Smokeless Tobacco: Never Alcohol Use Standard Drinks/Week Comments Never 0 (1 standard drink = 0.6 oz pur e alcohol) [facility] Utilities Answer Date Recorded In the [...] How often do you attend chur or jew services? More than 4 times per year [...] medical care, and heating? Somewhat hard 08/09/2022 [facility] [place] of Occupat ional Health - Occupational Stress [...] living situation today? I have a [facility] place to live 03/22/2024 Education Answer Date Recorded What is the highest level of school you have completed or the highest degree you have received? 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
--- OUTSIDE RECORDS SUMMARY | 2024-05-17 14:35 | XMS_ITS | Encounter Summary ---
Author Organization [facility] Address [address] [place] [address] Care Team Providers Care Design Painter Name Role Phone Elsewhere, Pcp Primary Care Provider Unavailabl e Reason for Visit * Reason Comments Med Refill Encounter Details Date Type Department Care Team (Late st Contact Info) Description 05/12/2024 Refill Division of Cardiovascular Diseases in [place], [place] [address] [place] [phone] Parul Oreilly M.B.B.S., Ph.D. [address] [place] [phone] Med Refill Social History Tobacco Use Types Packs/Day Years Used Date Smoking Tobacco: Never Smokeless Tobacco: Never Alcohol Use Standard Drinks/Week Comments Never 0 (1 standard drink = 0.6 oz pur e alcohol) [facility] Utilities Answer Date Recorded In [...] How often do you attend chur or adventist services? More than 4 times per year 08/09/2022 Do you belong to any clubs o r organizations such as episcopalian groups, unions, fraternal or athletic groups, or [...] medical care, and heating? 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
--- OUTSIDE RECORDS SUMMARY | 2024-05-17 14:35 | XMS_ITS | Encounter Summary ---
Author Organization [facility] Address [address] [place] [address] Care Team Providers Care Acute Care Nursing Assistant Name Role Phone Elsewhere, Pcp Primary Care Provider Unavailabl e Reason for Referral * Outpatient (Routine) - Authorized Specialty Diagnoses / Procedures Referred By Jazzmine thompson Referred To Contact Diagnoses Coronary Stent Status Post Geremias Camp M.D., Ph.D. [address] [place] [phone] Phone: tel: fax: Referral ID Status Reason Start Date Expiration Date Visits Requested Visits Authorized [id number] Authorized Continuity of Care 03/25/2024 09/24/2025 [address] GRADE TEACHER Reason for Visit * Reason Onset Date Comments Cardiac Rehab Referral 03/25/2024 Encounter Details Date Type Department Care Team (Latest Contact Info) Description 03/25/2024 Clinical Communication Department of Cardiovascular Medicine in [place], [place] [address] [place] [phone] Katelin Peña, [facility] Cardiac Rehab Referral Social History Tobacco Use Types Packs/Day Years Used Date Smoking Tobacco: Never Smokeless Tobacco: Never Alcohol Use Standard Drinks/Week Comments Never 0 (1 standard drink = 0.6 oz pur e alcohol) [facility] Utilities Answer Date Recorded In the past [...] often do you attend chur ch or sikh services? More than 4 times per year 08/09/2022 Do you belong to any clubs o r organizations such as baptist groups, unions, fraternal or athletic groups, or [...] medical care, and heating? Somewhat hard 08/09/2022 [facility] [place] of Occupat ional Health - Occupational Stress [...] your living situation today? I have a [facility] place to live 03/22/2024 Education Answer Date Recorded What is the highest level of school you have completed or the highest degree you have received? 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 No further attempts to contact patient will be made at this time. 1ST GRADE TEACHER * Telephone Encounter - Gisel Rizo CEP - 04/16/2024 9:04 AM 1ST GRADE TEACHER Patient not seen. Telephone call to patient was to follow up on cardiac rehabilitation enrollment status. Left a message stating that this call was for a non-emergent follow up and that someone will try and call again within the next week. 1ST GRADE TEACHER * Telephone Encounter - Paola Houser - 04/15/2024 11:44 AM CST Patient not seen. Telephone call to patient was to follow up on cardiac rehabilitation enrollment status. Left a message stating that this call was for a non-emergent follow up and that someone will try and call again within the next week. 1ST GRADE TEACHER * Telephone Encounter - Katelin Peña - [...] the cardiac rehab program. Patient referred to: [facility] [address] [facility] [address] Recommend that the patient check with insurance company to verify coverage of the cost of cardiac rehabilitation program visits. 1ST GRADE TEACHER documented in this encounter Plan of Treatment Scheduled Procedures Name Priority Associated Diagnoses Date/Ti me ARTHROPLASTY REPLACEMENT TOT AL KNEE Primary Osteoarthritis Knee Right documented as of this encounter Visit Diagnoses Diagnosis Coronary Stent Status Post- Primary documented in this encounter Care Teams Acute Care Nursing Assistant Relationship Specialty Start Date End Date Elsewhere, Pcp PCP - General Internal Medicine 03/22/24 documented as of this encounter
--- OUTSIDE RECORDS SUMMARY | 2024-05-17 14:35 | XMS_ITS | Encounter Summary ---
Author Organization [facility] Address [address] [place] [address] Care Team Providers Care Spiral Winder Name Role Phone Elsewhere, Pcp Primary Care Provider Unavailabl e Reason for Visit * Reason Comments Med Refill Encounter Details Date Type Department Care Team (Late st Contact Info) Description 04/04/2024 Refill Department of Orthopedic Surgery in [place], [place] [address] [place] [phone] Fiona Durant M.D. [address] [place] [phone] Med Refill Social History Tobacco Use Types Packs/Day Years Used Date Smoking Tobacco: Never Smokeless Tobacco: Never Alcohol Use Standard Drinks/Week Comments Never 0 (1 standard drink = 0.6 oz pur e alcohol) [facility] Utilities Answer Date Recorded In [...] How often do you attend chur or catholic services? More than 4 times per year [...] medical care, and heating? Somewhat hard 08/09/2022 [facility] [place] of Occupat ional Health - Occupational Stress [...] your living situation today? I have a [facility] place to live 03/22/2024 Education Answer Date Recorded What is the highest level of school you have completed or the highest degree you have received? 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
--- OUTSIDE RECORDS SUMMARY | 2024-05-17 14:35 | XMS_ITS ---
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] 04/21/2022 [...] Resolved Condition Statu s Cholesterol screening (procedure) [381293436] Active Blood glucose abnormal (finding) [595216551] Active Vital Signs Description Result Charted Date/Time [facility] Blood Pressure - Systolic mm[Hg] 129 04/21/19 23 13:47 8480-6 Blood Pressure - Diastolic mm[Hg] 78 023 13:47 8462-4 MAP mm/Hg 95 04/21/2022 13:47 8478-0 Height/Length cm/in 162.56 / 64 04/21/2022 13:47 8302 -2 Weight kg/lb oz 105.23 / 232 04/21/2022 13:47 82830-2 BMI (Ratio) 39.82 04/21/2022 13:47 63115-6 Temperature deg F/Radha 96.7 / 35.9 04/21/2022 [...] GALVAN Entered By: GREG GALVAN <div><renderedtemplate templ cxm=[email or web address]><div style=text- align:center><strong>[facility]</strong></div><div style=text-align:center></div><div><customfilter class=healthlandplugin notefilterhistoryid=2><span><strong>Patient Name:</strong>MACIE VALERIO, <strong>:</strong>1955, <strong>Age:</strong>66 [...] Sulfa (Sulfonamide Antibiotics), Allergy CONTRASTDIAGNOSTIC CONTRAST, Allergy</span></customfilter><div></div><div><customfilter [facility] notefilterhistoryid=39><span><strong>Smoking Status:</strong>Never Smoker</span></customfilter></div><div></div><div><customfilter class=[facility] notefilterhistoryid=28><span><strong>Family History List</strong>: No Family History Available</span></customfilter><div></div><div><strong>REVIEW OF SYSTEMS:</strong></div><div>See HPI</div><div>Patient is independent with all ADLs.</div><div></div><div><strong>PHYSICAL EXAMINATION:</strong></div><div><customfilter class=[facility] notefilterhistoryid=23><table border=1> <thead> <tr> <th colspan=13 style=text-align: center;>Vital Signs: This Visit</th> </tr> <tr> <th style=width:61.83063876466400dj; text-align: center;>Date/Time</th> <th style=width:61.52885599403208iv; text-align: center;>Blood Pressure (mm/Hg)</th> <th style=width:61.31226434571737lb; text-align: center;>Heart Rate</th> <th style=width:61.96478578275106cc; text-align: center;>Respiration</th> <th style=width:61.24466602697747js; text-align: center;>Temperature</th> <th style=width:61.56765102758639kj; text-align: center;>SPO2%</th> <th style=width:61.98508874541860nk; text-align: center;>O2 Device</th> < style=width:61.73432093973316if; text-align: center;>Blood Sugar (mg/dL)<> < style=width:61.49162047780720qf; text-align: center;>Pain Score</> < style=width:61.65810945737795nb; text-align: center;>Height<> < style=width:61.03604914335695rr; text-align: center;>Weight</> < style=width:61.07141624276638uo; text-align: center;>BMI<> < style=width:61.25415333005850mh; text-align: center;>Head Circumference</th> </tr> </thead> <tbody> <tr> [...] preparation on day of service: 15</div><div></div><div><div><customfilter class=healthlandplugin lnoyklszqtvbzrejras=205><span><strong>ERD - A1C Results - Last 3</strong>: No Labs Available</span></customfilter><div></div><div><div><div><customfilter class=healthlandplugin dnfuderjoytcfksgrdf=635><span><strong>ERD - AST ALT Results - Last 3</strong>: No Labs Available</span></customfilter><div></div></div></div><div><customfilter class=healthlandplugin oacdefvbqzgcujpvgow=742><span><strong>ERD - BMP Results: Last 3</strong>: No Labs Available</span></customfilter><div></div><div><customfilter class=healthlandplugin zbwitbrflopsoidwdja=931><span><strong>ERD - Lipid Results - Last 3</strong>: No Labs Available</span></customfilter><div><div></div><div><customfilter class=healthlandplugin rtqirwcwwaskbgroyeb=369><span><strong>ERD - CBC Results - Last 3</strong>: No Labs Available</span></customfilter></div><div></div></div></div><div><div><div><cust omfilter class=healthlandplugin bvimzmdndhscuqccmke=827><span><strong>ERD - TSH Results - Last 3</strong>: No Labs Available</span></customfilter><div></div><div><customfilter class=healthlandplugin rbikqjohqdgxffuhcne=986><span><strong>ERD - Vitamin D Results - Last 3</strong>: No Labs Available</span></customfilter><div></div><div><customfilter class=healthlandplugin kvurahpxmqzehgycuoy=093><span><strong>PSA - Last 3</strong>: No Labs Available</span></customfilter><div></div><div></div></div></div></div></div> </div></div></div></div></div><div><customfilter class=[facility] notefilterhistoryid=41><span><span><strong>Immunization List</strong></span> influenza, injectable, quadrivalent, preservative, 01/22/2018 00:00 Tdap, 07/20/2011 00:00 Tdap, 05/27/2009 00:00</span></customfilter><div></div><div></div></div><div></div></div></div></ div></div></div></renderedtemplate></div> Transcribed Documents Name Date/Time Description No transcribed documents james ilable Care Team Members Primary Care Physician Name Contact Role Start of Care No Primary Care Physician av ailable Consulting Physicians Name Contact Role Start of Care GREG PEACE Specialty : Family Medicine tel:[phone] Physician Personal Care Team Name Address Relationship No Personal Care Team availa ble
--- OUTSIDE RECORDS SUMMARY | 2024-05-17 14:35 | XMS_ITS | Clinical Summary ---
Author Organization [facility] Address [address] [place] [address] Care Team Providers [facility] Name Role Phone Elsewhere, Pcp Primary Care Provider Unavailabl e Source Comments Patient records contain information from all sites at [facility]. For routine questions regarding patient records, call [phone] during business hours, M-F 8:00 AM - 5:00 PM Central Time. Record requests for emergency care only can be directed to [phone] at any time.[facility] Allergies Active Allergy Reactions Criticality Noted Date [...] 05/12/2024 Refill Division of Cardiovascular Diseases in [address] [phone] Parul Oreilly M.B.B.S., Ph.D. Med Refill 05/08/2024 Refill Department of Orthopedic Surgery in [address] [phone] Fiona Durant M.D. Med Refill 04/16/2024 Refill Division of Cardiovascular Diseases in [address] [phone] Parul Oreilly M.B.B.S., Ph.D. Med Refill 04/04/2024 8:00 AM DURALUMIN MECHANIC Virtual Visit Department of Cardiovascular Medicine in [address] [phone] Shayy Licona, CHUNG, C.N.P., D.N.P. Atherosclerotic Heart Disease Of [place] Coronary Artery Without Angina Pectoris (Primary Dx); Myocardial Infarction Old; Coronary Stent Status Post 04/04/2024 Refill Department of Orthopedic Surgery in [place], [place] [address] [place] [phone] Fiona Durant M.D. Med Refill 03/25/2024 Clinical Communication Department of Cardiovascular Medicine in [place], [place] [address] [place] [phone] Katelin Peña, BALJIT Cardiac Rehab Referral 03/23/2024 12:35 PM DURALUMIN MECHANIC - 03/23/2024 1:50 PM DURALUMIN MECHANIC Surgery Division of Cardiovascular Diseases in [address] [phone] Geremias Camp M.D., Ph.D. CORONARY ANGIOGRAPHY 03/22/2024 3:57 PM DURALUMIN MECHANIC - 03/24/2024 3:05 PM DURALUMIN MECHANIC Hospital Encounter [facility], [facility], Sixth Floor [address] [place] [phone] Jarad Prescott M.D. Alfred Zuniga M.D. Yaniv Powell M.D. Angina Unstable (HCC) (Primary Dx); Morbid Obesity Body Mass Index 40.0-44.9 Adult (HCC); Coronary Artery Disease Without Angina Pectoris Discharge Disposition: Home or Self Care 03/21/2024 Refill Department of Orthopedic Surgery in [place], [place] [address] [place] [phone] Fiona Durant M.D. Med Refill 03/21/2024 Refill Division of Cardiovascular Diseases in [place] [id number] [place] [phone] Parul Oreilly M.B.B.S., Ph.D. Med Refill 02/29/2024 8:30 AM DURALUMIN MECHANIC Comprehensive Visit Department of Cardiovascular Medicine in [place], [place] [address] [place] [phone] Shayy Licona, CHUNG, C.N.P., D.N.P. Atherosclerotic Heart Disease [place] Coronary Artery With Other Forms Angina Pectoris (Stable Angina/Angina Of Exertion) (HCC) (Primary Dx); Myocardial Infarction Old; Coronary Stent Status Post; Obesity Body Mass Index 30-39.9 Adult; Diabetes Mellitus Type 2 (HCC); Hyperlipidemia; Hypertension Essential Primary 02/29/2024 6:50 AM DURALUMIN MECHANIC - 02/29/2024 11:59 PM DURALUMIN MECHANIC Hospital Encounter Department of Laboratory Medicine and Pathology, [facility] in [place], [place] [address] [place] [phone] Krishna Dia M.D. Coronary Artery Disease With Stable Angina (HCC) Discharge Disposition: Home or Self Care 02/28/2024 3:42 PM DURALUMIN MECHANIC - 02/28/2024 11:59 PM DURALUMIN MECHANIC Hospital Encounter Department of Radiology, [facility] in [place], [place] [address] [place] [phone] Krishna Dia M.D. Coronary Artery Disease With Stable Angina (HCC) Discharge Disposition: Home or Self Care 02/26/2024 3:15 PM [facility] Clinical Communication Virtual Review in [place], [place] [address] [place] [address] Pre-visit Intake 02/23/2024 Refill Department of Orthopedic Surgery in [place], [place] [address] [place] [phone] Gustabo Lau M.D., M.B.A. Med Refill 02/23/2024 Refill Division of Cardiovascular Diseases in [place], [place] [address] [place] [phone] Parul Oreilly M.B.B.S., Ph.D. Med Refill from [...] 0.6 oz pur e alcohol) [facility] Utilities Answer Date Recorded In the past 12 months has [employer], gas, oil, or water [employer] threatened to shut off services in your [...] often do you attend chur ch or islam services? More than 4 times per year 08/09/2022 Do you belong to any clubs o r organizations such as spiritism groups, unions, fraternal or athletic groups, or [...] medical care, and heating? Somewhat hard 08/09/2022 [facility] - Occupational Stress [...] your living situation today? I [facility] a [facility] place to live 03/22/2024 Education Answer Date Recorded What is the highest level of school you have completed or the highest degree you have received? Associate degree: academic program 08/09/2022 Comments No Sex and Gender Information Value Date Recorded Sex Assigned at Female 08/09/2022 12:21 PM CDT Legal Sex Female 4:02 PM DURALUMIN MECHANIC Gender Identity Female 08/09/2022 12:21 PM CDT Sexual Orientation Straight 08/09/2022 12 :21 PM CDT Last Filed Vital Signs Vital Sign Reading Time Taken Comments Blood Pressure 120/63 03/24/2024 2:04 PM DURALUMIN MECHANIC Pulse 55 03/24/2024 2:04 PM DURALUMIN MECHANIC Temperature 37 C (98.6 F) 03/24/2024 2:04 PM DURALUMIN MECHANIC Respiratory Rate 15 03/24/2024 2:04 PM DURALUMIN MECHANIC Oxygen Saturation 96% 03/24/2024 2:04 PM DURALUMIN MECHANIC Inhaled Oxygen Concentration - - Weight 101 kg (222 lb 0.1 oz) 03/24/2024 3:42 AM DURALUMIN MECHANIC Height 163 cm (5' 4.17) 03/22/2024 11:51 PM DURALUMIN MECHANIC Body Mass Index 37.9 03/22/2024 11:51 PM DURALUMIN MECHANIC Plan of Treatment Scheduled Procedures Name Priority [...] this topic Medical Devices Implanted Type Area Electronic Masking System Operator Device Identifier Shelf Expiration Date Model / Serial / Lot Cardiac Stent Cardiac Stent Heart Description:EIGHT CARDIAC ST ENTS Stnt Synergy Xd De 2.50x16 - [id number] Implanted:Qty : 1 on 03/23/2024 by Geremias Camp M.D., Ph.D. at [facility] Cardiac Stent N/A: Coronary [employer] 08/28/2025 [id number] / / [id number] Description:Distal LAD Stnt Synergy Xd De 2.25x8 - [id number] Implanted:Qty : 1 on 03/23/2024 by Geremias Camp M.D., Ph.D. at [facility] Cardiac Stent N/A: Coronary [place] [employer] 07/31/2024 [id number] / / [id number] Bsplt Tib Trt Sz2 - [id number] Implanted:Qty : 1 on 03/03/2023 by Gustabo Lau M.D., M.B.A. at [facility] Knee Implant Right: Knee [place] 10/14/2027 5536-B-20 0 / / [id number] Kn Fem Trt Por Cr Bead Rt Sz3 - [id number] Implanted:Qty : 1 on 03/03/2023 by Gustabo Lau M.D., M.B.A. at [facility] Knee Implant Right: Knee [place] 09/08/2027 5517-F-30 2 / / [id number] Ins Tib Trt Cs Sz2 9 - [id number] Implanted:Qty : 1 on 03/03/2023 by Gustabo Lau M.D., M.B.A. at [facility] Knee Implant Right: Knee [place] 09/04/2027 5531-G-20 9-E / / [id number] Procedures Procedure Name Priority Date/Time Associated Diagnosis Comments ECG Routine 03/24/2024 8:04 AM DURALUMIN MECHANIC MAGNESIUM, S Routine 03/24/2024 7:12 AM DURALUMIN MECHANIC BASIC METABOLIC PANEL, S/P Routine 03/24/2024 7:12 AM DURALUMIN MECHANIC CBC WITHOUT DIFFERENTIAL, B Routine 03/24/2024 7:12 AM DURALUMIN MECHANIC CARDIAC CATHETERIZATION Routine 03/23/2024 1:49 PM DURALUMIN MECHANIC Angina Unstable (HCC) Morbid Obesity Body Mass Index 40.0-44.9 Adult (HCC) Coronary Artery Disease Without Angina Pectoris CARDIAC CATHETERIZATION Routine 03/23/2024 1:49 PM DURALUMIN MECHANIC Angina Unstable (HCC) Morbid Obesity Body Mass Index 40.0-44.9 Adult (HCC) Coronary Artery Disease Without Angina Pectoris CARDIAC CATHETERIZATION Routine 03/23/2024 1:49 PM DURALUMIN MECHANIC Angina Unstable (HCC) Morbid Obesity Body Mass Index 40.0-44.9 Adult (HCC) Coronary Artery Disease Without Angina Pectoris ACT, POCT, B Routine 03/23/2024 1:36 PM DURALUMIN MECHANIC HEPARIN LEVEL ANTI-XA ASSAY, P Timed 03/23/2024 11:52 AM DURALUMIN MECHANIC ADULT OXYGEN THERAPY Routine 03/23/2024 8:01 AM DURALUMIN MECHANIC TROPONIN T, 5TH GEN, P Timed 4:32 AM DURALUMIN MECHANIC C-REACTIVE PROTEIN (CRP), S/P Timed 03/23/2024 4:32 AM DURALUMIN MECHANIC CBC WITHOUT DIFFERENTIAL, B Timed 03/23/2024 4:32 AM DURALUMIN MECHANIC BASIC METABOLIC PANEL, S/P Timed 03/23/2024 4:32 AM DURALUMIN MECHANIC HEPARIN LEVEL ANTI-XA ASSAY, P Timed 03/23/2024 4:32 AM DURALUMIN MECHANIC ECG STAT 03/22/2024 10:04 PM DURALUMIN MECHANIC ADULT OXYGEN THERAPY Routine 03/22/2024 9:51 PM DURALUMIN MECHANIC ADULT OXYGEN THERAPY Routine 03/22/2024 9:51 PM DURALUMIN MECHANIC ADULT OXYGEN THERAPY Routine 03/22/2024 9:51 PM DURALUMIN MECHANIC TROPONIN T, 2H/6H REFLEX, 5TH GEN, P Timed 03/22/2024 6:22 PM DURALUMIN MECHANIC DX CHEST AP OR PA AND LATERAL 2 VIEWS RAD - Semiurgent (Fast; most ED patients; some inpatients) 03/22/2024 4:57 PM DURALUMIN MECHANIC ACTIVATED PARTIAL THROMBOPLASTIN TIME (APTT), P STAT 03/22/2024 4:24 PM DURALUMIN MECHANIC NT-PRO B-TYPE NATRIURETIC PEPTIDE (BNP), S STAT 03/22/2024 4:24 PM DURALUMIN MECHANIC PROTHROMBIN TIME (PT), P STAT 03/22/2024 4:24 PM DURALUMIN MECHANIC TROPONIN T, BASELINE, 5TH GEN, P STAT 03/22/2024 4:24 PM DURALUMIN MECHANIC BASIC METABOLIC PANEL, S/P STAT 03/22/2024 4:24 PM DURALUMIN MECHANIC CBC WITH DIFFERENTIAL, B STAT 03/22/2024 4:24 PM DURALUMIN MECHANIC ECG STAT 03/22/2024 4:05 PM DURALUMIN MECHANIC ALANINE AMINOTRANSFERASE (ALT), S/P Routine 02/29/2024 7:28 AM DURALUMIN MECHANIC Coronary Artery Disease With Stable Angina (HCC) ASPARTATE AMINOTRANSFERASE (AST), S/P Routine 02/29/2024 7:28 AM DURALUMIN MECHANIC Coronary Artery Disease With Stable Angina (HCC) LIPID PANEL, S Routine 02/29/2024 7:28 AM DURALUMIN MECHANIC Coronary Artery Disease With Stable Angina (HCC) PROTHROMBIN TIME (PT), P Routine 02/29/2024 7:28 AM DURALUMIN MECHANIC Coronary Artery Disease With Stable Angina (HCC) HEMOGLOBIN A1C, B Routine 02/29/2024 7:2 8 AM DURALUMIN MECHANIC Coronary Artery Disease With Stable Angina (HCC) GLUCOSE, FASTING, S/P Routine 02/29/2024 7:28 AM DURALUMIN MECHANIC Coronary Artery Disease With Stable Angina (HCC) SODIUM, S/P Routine 02/29/2024 7:28 AM DURALUMIN MECHANIC Coronary Artery Disease With Stable Angina (HCC) POTASSIUM, S/P Routine 02/29/2024 7:28 AM DURALUMIN MECHANIC Coronary Artery Disease With Stable Angina (HCC) CREATININE WITH EGFR, S/P Routine 02/29/2024 7:28 AM DURALUMIN MECHANIC Coronary Artery Disease With Stable Angina (HCC) CHLORIDE, S/P Routine 02/29/2024 7:28 AM DURALUMIN MECHANIC Coronary Artery Disease With Stable Angina (HCC) BUN (BLOOD UREA NITROGEN), S/P Routine 02/29/2024 7:28 AM DURALUMIN MECHANIC Coronary Artery Disease With Stable Angina (HCC) BICARBONATE, B/S/P Routine 02/29/2024 7: 28 AM DURALUMIN MECHANIC Coronary Artery Disease With Stable Angina (HCC) CBC WITH DIFFERENTIAL, B Routine 02/29/2024 7:28 AM DURALUMIN MECHANIC Coronary Artery Disease With Stable Angina (HCC) DX CHEST AP OR PA AND LATERAL 2 VIEWS RAD - Routine (most inpatients and all outpatients) 02/28/2024 3:55 PM DURALUMIN MECHANIC Coronary Artery Disease With Stable Angina (HCC) ECG Routine 02/28/2024 3:29 PM DURALUMIN MECHANIC Coronary Artery Disease With Stable Angina (HCC) from Last 3 Months Results * ECG 12 Lead (03/24/2024 8:04 AM [facility]) Only the most recent of4 resultswithin the time period is included. Ventricular Rate ECG/Min 61 BPM MUSE OK Interval 190 ms MUSE QRSD Interval 86 ms MUSE QT Interval 446 ms MUSE QTC Interval 448 ms MUSE P [place] 67 degrees MUSE R [place] 13 degrees MUSE T Wave [place] 30 degrees MUSE 03/24/2024 8:04 AM DURALUMIN MECHANIC 03/24/2024 8:16 AM DURALUMIN MECHANIC Impressions MUSE - 03/24/2024 8:16 AM [facility] Normal sinus rhythm Normal ECG When compared with ECG of 22-Mar-2024 22:04, No significant change was found Reviewed by WARREN Chakraborty Narrative Procedure Note Demetrius Negrete M.D. - 03/24/2024 IMPRESSION: Normal sinus rhythm Normal ECG When compared with ECG of 22-Mar-2024 22:04, No significant change was found Reviewed by WARREN Chakraborty us Francis Manzano M.D. ECG ORDERABLES Final Result Performing Organization Address [facility] Co de Phone Number MUSE NA * (ABNORMAL) CBC without Differential (03/24/2024 7:12 AM DURALUMIN MECHANIC) Only the most recent of2 resultswithin the time period is included. Hemoglobin 11.0(L) 11.6 - 15.0 g/dL 03/24/2024 8:02 AM DURALUMIN MECHANIC DTL Hematocrit 34.6(L) 35.5 - 44.9 % 03/24/2024 8:02 AM DURALUMIN MECHANIC DTL Erythrocytes 4.02 3.92 - 5.13 x10(12)/L 03/24/2024 8:02 AM DURALUMIN MECHANIC DTL MCV 86.1 78.2 - 97.9 fL 03/24/2024 8:02 AM DURALUMIN MECHANIC DTL RBC Distrib Width 13.8 12.2 - 16.1 % 03/24/2024 8:02 AM DURALUMIN MECHANIC DTL Platelet Count 261 157 - 371 x10(9)/L 03/24/2024 8:02 AM DURALUMIN MECHANIC DTL Leukocytes 10.7(H) 3.4 - 9.6 x10(9)/L 03/24/2024 8:02 AM DURALUMIN MECHANIC DTL Blood (Blood, Venous) 03/24/2024 7:12 AM DURALUMIN MECHANIC 03/24/2024 7:52 AM DURALUMIN MECHANIC us Cher Rodriguez APRN, C.N.P. LAB BLOOD ADD-ON Fin al Result Performing Organization Address [facility]/ZIP Co de Phone Number [facility] [address] [place] [address], [facility] DTL [facility] [address] [place] [address] * Magnesium (03/24/2024 7:12 AM DURALUMIN MECHANIC) Magnesium, S 2.1 1.7 - 2.3 mg/dL 03/24/2024 8:21 AM DURALUMIN MECHANIC DTL Blood (Blood, Venous) 03/24/2024 7:12 AM DURALUMIN MECHANIC 03/24/2024 8:03 AM DURALUMIN MECHANIC us Cher Rodriguez APRN, C.N.P. LAB BLOOD ADD-ON Fin al Result [address] [address], [facility] [address] [address] * (ABNORMAL) Basic Metabolic Panel (03/24/2024 7:12 AM DURALUMIN MECHANIC) Only the most recent of3 resultswithin the time period is included. Potassium, S 4.4 3.6 - 5.2 mmol/L 03/24/2024 8:21 AM DURALUMIN MECHANIC DTL Sodium, S 138 135 - 145 mmol/L 03/24/2024 8:21 AM DURALUMIN MECHANIC DTL Chloride, S 103 98 - 107 mmol/L 03/24/2024 8:21 AM DURALUMIN MECHANIC DTL Bicarbonate, S 27 22 - 29 mmol/L 03/24/2024 8:21 AM DURALUMIN MECHANIC DTL Anion Gap 8 7 - 15 03/24/2024 8:21 AM DURALUMIN MECHANIC DTL BUN (Blood Urea Nitrogen), S 17 6 - 21 mg/dL 03/24/2024 8:21 AM DURALUMIN MECHANIC DTL Creatinine 1.28(H) 0.59 - 1.04 mg/dL 03/24/2024 8:21 AM DURALUMIN MECHANIC DTL Estimated GFR (eGFR) 46(L) >=60 mL/min/BSA 03/24/2024 8:21 AM DURALUMIN MECHANIC DTL Comment: Estimated GFR calculated using the 2020 CKD_EPI creatinine equation. Calcium, Total, S 9.3 8.8 - 10.2 mg/dL 03/24/2024 8:21 AM DURALUMIN MECHANIC DTL Glucose, S 103 70 - 140 mg/dL 03/24/2024 8:21 AM DURALUMIN MECHANIC DTL Blood (Blood, Venous) 03/24/2024 7:12 AM DURALUMIN MECHANIC 03/24/2024 8:03 AM DURALUMIN MECHANIC Cher Rodriguez APRN, C.N.P. LAB BLOOD ADD-ON Fin al Result [facility] [address] [place] [address], [facility] DTL [facility] [address] [place] [address] * CORONARY ANGIOGRAPHY, PERCUTANEOUS CORONARY ANGIOPLASTY, STENT PLACEMENT (03/23/2024 1:49 PM DURALUMIN MECHANIC) Anatomical Region Laterality Modality X-Ray Angiograph y 03/23/2024 12:5 0 PM DURALUMIN MECHANIC Narrative 03/26/2024 8:50 AM DURALUMIN MECHANIC For the complete report, see the Order-Level [...] common femoral artery using a short 6 [place] sheath.?Angiography demonstrated severe stenosis in the mid [...] right commonfemoral artery using a short 6 [place] sheath.?Angiography demonstratedsevere stenosis in the mid left [...] (Activated Clotting Time), POCT (03/23/2024 1:36 PM DURALUMIN MECHANIC) Activated Clotting Time, POCT 303(H) 84 - 139 sec 03/23/2024 1:37 PM DURALUMIN MECHANIC PCS Blood 03/23/2024 1:36 PM DURALUMIN MECHANIC 03/23/2024 1:37 PM DURALUMIN MECHANIC Unknown Provider LAB POCT ORDERABLES - DEVICE Fi nal Result POC [facility] [address] [place], [place] [id number] [place] [address] [facility] POC [address] [place] [address] * Heparin Anti-Xa Assay (03/23/2024 11:52 AM DURALUMIN MECHANIC) Only the most recent of2 resultswithin the time period is included. Pathologist [facility] Heparin Anti-Xa, P 0.59 IU/mL 2023 12:45 PM DURALUMIN MECHANIC DTL Comment: UFH therapeutic range: 0.30-0.70 IU/mL LMWH therapeutic range: 0.50-1.00 IU/mL 0.50-1.00 IU/mL for twice daily dosing 1.00-2.00 IU/mL for once daily dosing (sample obtained 4-6 hours following subcutaneous injection) LMWH prophylactic range:0.10-0.30 IU/mL ----ADDITIONAL INFORMATION---- Heparin Anti-Xa is used to measure heparin concentrations in patients receiving low molecular weight heparin (LMWH) or unfractionated heparin (UFH). Blood (Blood, Venous) 03/23/2024 11:52 AM DURALUMIN MECHANIC 03/23/2024 12:18 PM DURALUMIN MECHANIC Alfred Zuniga M.D. LAB BLOOD NON ADD-ON Eliane l Result [facility] [address] [place] [address], [facility] DTL [facility] [address] [place] [address] * (ABNORMAL) CRP (C-Reactive Protein) (03/23/2024 4:32 AM DURALUMIN MECHANIC) C-Reactive Protein (CRP), S 14.0(H) <5.0 mg/L 03/23/2024 5:36 AM DURALUMIN MECHANIC DTL Blood (Blood, Venous) 03/23/2024 4:32 AM DURALUMIN MECHANIC 03/23/2024 4:51 AM DURALUMIN MECHANIC Mary Conway APRN, C.N.P. LAB BLOOD ADD-ON Fi nal Result [facility] [address] [place] [address], [facility] DTL [facility] [address] [place] [address] * Troponin T, 5th Generation (03/23/2024 4:32 AM DURALUMIN MECHANIC) Pathologist [facility] Troponin T, 5th gen 10 <=10 ng/L 03/23/2024 4:55 AM DURALUMIN MECHANIC STMA Blood (Blood, Venous) 03/23/2024 4:32 AM DURALUMIN MECHANIC 03/23/2024 4:39 AM DURALUMIN MECHANIC Mary Conway APRN, C.N.P. LAB BLOOD ADD-ON Fi nal Result Performing Organization Address City/State/[facility] Co de Phone Number [facility] [address] [place] [address], [facility] STMA [facility] [address] [place] [address] * Troponin T, 2 Hour with 6 Hour Reflex, 5th Gen (03/22/2024 6:22 PM DURALUMIN MECHANIC) Troponin T, 2 hr, 5th gen 9 <=10 ng/L 03/22/2024 6:53 PM DURALUMIN MECHANIC STMA 2H Delta -2 ng/L 03/22/2024 6:53 PM DURALUMIN MECHANIC ST[facility] Comment:6 hour collection no t indicated. 2H Delta Interp Not Changing 03/22/2024 6:53 PM DURALUMIN MECHANIC STMA Blood 03/22/2024 6:22 PM DURALUMIN MECHANIC 03/22/2024 6:30 PM DURALUMIN MECHANIC Ismael Newell APRN, C.N.P. LAB BLOOD TROPONI N Final Result [facility] [address] [place] [address], [facility] [address] [place] [address] * DX Chest AP or PA and Lateral 2 Views (03/22/2024 4:57 PM DURALUMIN MECHANIC) Only the most recent of2 resultswithin the time period is included. Anatomical Region Laterality Modality Chest, Thoracic RST LOS, Tho racic ARZ LOS, Thoracic FLA LOS N/A Digital Radiography Impressions 03/22/2024 5:20 PM DURALUMIN MECHANIC No significant change since 02/28/2024. Normal cardiomediastinal silhouette. No pneumothorax, significant pleural effusion, or consolidation. Coronary artery stenting. Calcified hilar lymph nodes. Mild aortic calcifications. Degenerative and hypertrophic changes of the spine. Surgical clips right upper quadrant. Narrative 03/22/2024 5:20 PM DURALUMIN MECHANIC EXAM: DX CHEST AP OR PA AND [...] Hour Reflex Biomarker Panel (03/22/2024 4:24 PM DURALUMIN MECHANIC) Troponin T, Baseline, 5th gen 11(H) <=10 ng/L 03/22/2024 4:56 PM DURALUMIN MECHANIC STMA Blood (Blood, Venous) 03/22/2024 4:24 PM DURALUMIN MECHANIC 03/22/2024 4:29 PM DURALUMIN MECHANIC Ismael Newell APRN, C.N.P. LAB BLOOD TROPONI N Final Result Performing Organization Address [facility] Co de Phone Number [facility] [address] [place], [place] [id number] [place] [address] [address] [place] [address] * NT-Pro B-Type Natriuretic Peptide (BNP) (03/22/2024 4:24 PM DURALUMIN MECHANIC) Pathologist [facility] NT-Pro BNP 236 <=540 pg/mL 03/22/2024 4:56 PM DURALUMIN MECHANIC [facility] Comment: NT-proBNP values less than 300 [...] failure. Blood (Blood, Venous) 03/22/2024 4:24 PM DURALUMIN MECHANIC 03/22/2024 4:29 PM DURALUMIN MECHANIC Ismael Newell APRN, C.N.P. LAB BLOOD ADD-ON Final Result Performing Organization Address [facility] Co de Phone Number [facility] [address] [place] [address], [facility] [address] [place] [address] * APTT (Activated Partial Thromboplastin Time) (03/22/2024 4:24 PM DURALUMIN MECHANIC) Pathologist [facility] Activated Partial Thrombopl Time, P 27 25 - 37 sec 03/22/2024 7:40 PM DURALUMIN MECHANIC [facility] Blood (Blood, Venous) 03/22/2024 4:24 PM DURALUMIN MECHANIC 03/22/2024 7:28 PM DURALUMIN MECHANIC Jarad Prescott M.D. LAB BLOOD ADD-ON Final Result Performing Organization Address [facility] Co de Phone Number [facility] [address] [place] [address], [facility] [address] [place] [address] * Prothrombin Time (PT) (03/22/2024 4:24 PM DURALUMIN MECHANIC) Only the most recent of2 resultswithin the time period is included. Pathologist [facility] Prothrombin Time, P 10.9 9.4 - 12.5 sec 03/22/2024 4:47 PM DURALUMIN MECHANIC [facility] INR 1.0 0.9 - 1.1 03/22/2024 4:47 PM DURALUMIN MECHANIC [facility] Comment: ----ADDITIONAL INFORMATION---- Standard intensity warfarin therapeutic range: 2.0 to 3.0 High intensity warfarin therapeutic range: 2.5 to 3.5 Blood (Blood, Venous) 03/22/2024 4:24 PM DURALUMIN MECHANIC 03/22/2024 4:29 PM DURALUMIN MECHANIC Ismael Newell APRN C.N.P. LAB BLOOD ADD-ON Final Result Performing Organization Address [facility] de Phone Number [facility] [address] [place] [address], [facility] [address] [place] [address] * (ABNORMAL) CBC with Differential, Blood (03/22/2024 4:24 PM DURALUMIN MECHANIC) Only the most recent of2 resultswithin the time period is included. Pathologist [facility] Hemoglobin 11.2(L) 11.6 - 15.0 g/dL 03/22/2024 4:34 PM DURALUMIN MECHANIC [facility] Hematocrit 35.7 35.5 - 44.9 % 03/22/2024 4:34 PM DURALUMIN MECHANIC [facility] Erythrocytes 4.07 3.92 - 5.13 x10(12)/L 03/22/2024 4:34 PM DURALUMIN MECHANIC [facility] MCV 87.7 78.2 - 97.9 fL 03/22/2024 4:34 PM DURALUMIN MECHANIC ST[facility] RBC Distrib Width 13.8 12.2 - 16.1 % 03/22/2024 4:34 PM DURALUMIN MECHANIC [facility] Platelet Count 286 157 - 371 x10(9)/L 03/22/2024 4:34 PM DURALUMIN MECHANIC [facility] Leukocytes 9.5 3.4 - 9.6 x10(9)/L 03/22/2024 4:34 PM DURALUMIN MECHANIC STMA Neutrophils 5.55 1.56 - 6.45 x10(9)/L 03/22/2024 4:34 PM DURALUMIN MECHANIC DHPM Lymphocytes 2.76 0.95 - 3.07 x10(9)/L 03/22/2024 4:34 PM DURALUMIN MECHANIC STMA Monocytes 0.66 0.26 - 0.81 x10(9)/L 03/22/2024 4:34 PM DURALUMIN MECHANIC STMA Eosinophils 0.47 0.03 - 0.48 x10(9)/L 03/22/2024 4:34 PM DURALUMIN MECHANIC STMA Basophils 0.05 0.01 - 0.08 x10(9)/L 03/22/2024 4:34 PM DURALUMIN MECHANIC STMA Blood (Blood, Venous) 03/22/2024 4:24 PM DURALUMIN MECHANIC 03/22/2024 4:29 PM DURALUMIN MECHANIC Ismael Newell APRN, C.N.P. LAB BLOOD ADD-ON Final Result [facility] [address] [place] [address], [facility] STMA [facility] [address] [place] [address] DHPM [facility] [address] [place] [address] * (ABNORMAL) Lipid Panel (02/29/2024 7:28 AM DURALUMIN MECHANIC) [facility] [facility] Triglycerides 167(H) mg/dL 02/29/2024 8:45 AM DURALUMIN MECHANIC DTL Comment: ----REFERENCE VALUE---- Normal: <150 mg/dL Borderline High: 150-199 mg/dL High: 200-499 mg/dL Very High: > or =500 mg/dL Cholesterol, Total 226(H) mg/dL 2023 8:45 AM DURALUMIN MECHANIC DTL Comment: ----REFERENCE VALUE---- Desirable: < 200 mg/dL Borderline High: 200 - 239 mg/dL High: > or = 240 mg/dL Cholesterol, LDL, Calculated 156(H) mg/dL 02/29/2024 8:45 AM DURALUMIN MECHANIC DTL Comment: ----REFERENCE VALUE---- Desirable: <100 mg/dL Above Desirable: 100-129 mg/dL Borderline High: 130-159 mg/dL High: 160-189 mg/dL Very High: >=190 mg/dL ----ADDITIONAL INFORMATION---- LDL cholesterol calculated using the Pineda/NIH equation. Cholesterol, HDL, S 39(L) >=50 mg/dL 02/29/2024 8:45 AM DURALUMIN MECHANIC DTL Cholesterol, Non-HDL, Calculated 187(H) mg/dL 02/29/2024 8:45 AM DURALUMIN MECHANIC DTL Comment: ----REFERENCE VALUE---- Desirable: <130 mg/dL Above Desirable: 130-159 mg/dL Borderline High: 160-189 mg/dL High: 190-219 mg/dL Very High: > or =220 mg/dL Fasting (8 HR or more) Yes 02/29/2024 7:28 AM DURALUMIN MECHANIC DTL Blood (Blood, Venous) 02/29/2024 7:28 AM DURALUMIN MECHANIC 02/29/2024 8:15 AM DURALUMIN MECHANIC Krishna Dia M.D. LAB BLOOD ADD-ON Final Re sult [facility] [address] [place] [address], [facility] [address] [place] [address] * BUN (Blood Urea Nitrogen) (02/29/2024 7:28 AM DURALUMIN MECHANIC) BUN (Blood Urea Nitrogen), S 19 6 - 21 mg/dL 02/29/2024 8:45 AM DURALUMIN MECHANIC DTL Blood (Blood, Venous) 02/29/2024 7:28 AM DURALUMIN MECHANIC 02/29/2024 8:15 AM DURALUMIN MECHANIC Krishna Dia M.D. LAB BLOOD ADD-ON Final Re sult Performing Organization Address City/[facility]/ZIP Co de Phone Number [facility] [address] [place] [address] * ALT (Alanine Aminotransferase) (02/29/2024 7:28 AM DURALUMIN MECHANIC) Alanine Aminotransferase (ALT), S 13 7 - 45 U/L 02/29/2024 8:45 AM DURALUMIN MECHANIC DTL Blood (Blood, Venous) 02/29/2024 7:28 AM DURALUMIN MECHANIC 02/29/2024 8:15 AM DURALUMIN MECHANIC Krishna Dia M.D. LAB BLOOD ADD-ON Final Re sult Performing Organization Address City/[facility] Co de Phone Number [facility] [address] [place] [address] * AST (Aspartate Aminotransferase) (02/29/2024 7:28 AM DURALUMIN MECHANIC) Aspartate Aminotransferase (AST), S 14 8 - 43 U/L 02/29/2024 8:45 AM DURALUMIN MECHANIC DTL Blood (Blood, Venous) 02/29/2024 7:28 AM DURALUMIN MECHANIC 02/29/2024 8:15 AM DURALUMIN MECHANIC Krishna Dia M.D. LAB BLOOD ADD-ON Final Re sult Performing Organization Address City/[facility]/ZIP Co de Phone Number [facility] [address] [place] [address] * Sodium (02/29/2024 7:28 AM DURALUMIN MECHANIC) Sodium, S 141 135 - 145 mmol/L 02/29/2024 8:45 AM DURALUMIN MECHANIC DTL Blood (Blood, Venous) 02/29/2024 7:28 AM DURALUMIN MECHANIC 02/29/2024 8:15 AM DURALUMIN MECHANIC Krishna Dia M.D. LAB BLOOD ADD-ON Final Re sult [facility] [address] [place] [address], [facility] [address] [place] [address] * Potassium (02/29/2024 7:28 AM DURALUMIN MECHANIC) Potassium, S 4.6 3.6 - 5.2 mmol/L 02/29/2024 8:45 AM DURALUMIN MECHANIC DT Blood (Blood, Venous) 02/29/2024 7:28 AM DURALUMIN MECHANIC 02/29/2024 8:15 AM DURALUMIN MECHANIC Krishna Dia M.D. LAB BLOOD ADD-ON Final Re sult Performing Organization Address [facility]/ZIP Co de Phone Number [facility] [address] [place] [address], [facility] [address] [place] [address] * (ABNORMAL) Hemoglobin A1c (02/29/2024 7:28 AM DURALUMIN MECHANIC) Hemoglobin A1c, B 6.3(H) 4.0 - 5.6 % 02/29/2024 8:33 AM DURALUMIN MECHANIC DTL Comment: Hemoglobin A1c values of 5.7-6.4 percent indicate an increased risk for developing diabetes mellitus. In diabetic patients, HbA1c goals should be discussed with healthcare provider. Blood (Blood, Venous) 02/29/2024 7:28 AM DURALUMIN MECHANIC 02/29/2024 8:01 AM DURALUMIN MECHANIC Krishna Dia M.D. LAB BLOOD ADD-ON Final Re sult [facility] [address] [place] [address], [facility] [address] [place] [address] * (ABNORMAL) Glucose, Fasting (02/29/2024 7:28 AM DURALUMIN MECHANIC) Glucose, P 115(H) 70 - 100 mg/dL 02/29/2024 8:44 AM DURALUMIN MECHANIC DTL Last Intake 16 hr 02/29/2024 8:17 AM DURALUMIN MECHANIC DTL Blood (Blood, Venous) 02/29/2024 7:28 AM DURALUMIN MECHANIC 02/29/2024 8:17 AM DURALUMIN MECHANIC us Krishna Dia M.D. LAB BLOOD NON ADD-ON Eliane l Result Performing Organization Address City/[facility]/ZIP Co de Phone Number [facility] [address] [place] [address], [facility] [address] [place] [address] * (ABNORMAL) Creatinine with Estimated GFR (02/29/2024 7:28 AM DURALUMIN MECHANIC) Creatinine 1.24(H) 0.59 - 1.04 mg/dL 02/29/2024 8:45 AM DURALUMIN MECHANIC DTL Estimated GFR (eGFR) 48(L) >=60 mL/min/BSA 02/29/2024 8:45 AM DURALUMIN MECHANIC DTL Comment: Estimated GFR calculated using the 2020 CKD_EPI creatinine equation. Blood (Blood, Venous) 02/29/2024 7:28 AM DURALUMIN MECHANIC 02/29/2024 8:15 AM DURALUMIN MECHANIC us Krishna Dia M.D. LAB BLOOD ADD-ON Final Re sult [facility] [address] [place] [address], [facility] [address] [place] [address] * Chloride (02/29/2024 7:28 AM DURALUMIN MECHANIC) Chloride, S 107 98 - 107 mmol/L 02/29/2024 8:45 AM DURALUMIN MECHANIC DTL Blood (Blood, Venous) 02/29/2024 7:28 AM DURALUMIN MECHANIC 02/29/2024 8:15 AM DURALUMIN MECHANIC Krishna Dia M.D. LAB BLOOD ADD-ON Final Re sult [facility] [address] [place] [address], [facility] [address] [place] [address] * Bicarbonate (02/29/2024 7:28 AM DURALUMIN MECHANIC) Bicarbonate, S 25 22 - 29 mmol/L 02/29/2024 8:45 AM DURALUMIN MECHANIC DTL Blood (Blood, Venous) 02/29/2024 7:28 AM DURALUMIN MECHANIC 02/29/2024 8:15 AM DURALUMIN MECHANIC Krishna Dia M.D. LAB BLOOD ADD-ON Final Re sult Performing Organization Address City/[facility] Co de Phone Number [facility] [address] [place] [address], [place] [facility] [address] [place] [address] from Last 3 Months Insurance [employer] Advance Directives For more information, please contact: [phone] * Full Code (Latest Code Status on File) Date Activated Date Inactivated Comments 03/22/2024 9:51 PM 03/24/2024 5:10 PM Question Answer Comments Full Code: Discussed * Full Code Date Activated Date Inactivated Comments 03/03/2023 4:40 PM 03/04/2023 3:20 PM Question Answer Comments Full Code: Discussed Care Teams [employer] Relationship Specialty Start Date End Date Elsewhere, Pcp PCP - General Internal Medicine 03/22/24
--- OUTSIDE RECORDS SUMMARY | 2024-05-17 14:36 | XMS_ITS | Clinical Summary ---
Author Organization [facility] Address [place], [place] [address] Care Team Providers Care Wedding Coordinator Name Role Phone Pcp, No Primary Care Provider Unavailabl e Allergies Active Allergy Reactions Criticality Noted Date Comments Rlpgyds-Cez-Sdt Reductase Inhibitors *Unknown 07/11/2022 Sulfa (Sulfonamide Antibiotics) [...] Department Care Team Description 04/30/2024 9:00 AM STEEL HANGER - 04/30/2024 11:59 PM STEEL HANGER Hospital Encounter [facility] [address] [place] [address] Geremias Camp MD S/P drug eluting coronary stent placement 04/30/2024 Travel 04/18/2024 Orders Only [facility] [address] [place] [address] Blanquita Vidales RN <No scans attached> from Last 3 Months Social History Tobacco Use Types Packs/Day Years Used Date Smoking Tobacco: Never Assessed Comments Unknown Sex and Gender Information Value Date Recorded Sex Assigned at Not on file Legal Sex Female 5:52 AM STEEL HANGER Gender Identity Not on file Sexual Orientation [...] HB ONLY [employer] Care Teams Wedding Coordinator Relationship Specialty Start Date End Date Pcp, No . PCP - General 10/06/22
[2024-05-17 14:39] LABS: Slide Review Reflex No
[2024-05-17] MEDS: 0.9 % SODIUM CHLORIDE 500 ML 500 ML IV (14:44)
[2024-05-17 14:52] LABS: Chloride* 107 mmol/L (96-114); Potassium* 3.6 mmol/L (3.6-5.1); Sodium* 139 mmol/L (135-149)
[2024-05-17 14:54] LABS: Creatinine* 0.9 mg/dL (0.5-1.5); Est. Creatinine Clearance* 47.14; Estimated Glomerular Filt Rate 70 ml/min
[2024-05-17 14:55] LABS: Anion Gap 10 mEq/L (7-15); Blood Urea Nitrogen* 14 mg/dL (7-30); Carbon Dioxide* 22 mmol/L (20-32); Glucose* 87 mg/dL (60-115)
[2024-05-17 14:56] LABS: Calcium* 9.2 mg/dL (8.4-10.6); Magnesium* 1.5 mg/dL (1.5-2.6)
[2024-05-17 14:58] LABS: C Reactive Protein* 0.8 mg/dL (0.5-1.0)
[2024-05-17 15:06] LABS: NT Pro B Type NatriureticPept* 545 pg/mL
== END 2024-05-17 15:51 | disposition home or self-care (01) ==
PROVIDERS: Emergency Provider Emergency Medicine; PCP Internal Medicine
DX: J18.9 Pneumonia, unspecified organism (principal)
CPT/HCPCS: 36415; 71046; 80048; 83605; 83735; 83880; 84484; 85025; 86140; 99283; 99284; J7030

== ENCOUNTER 2024-07-01 09:43 | Outpatient (CLI) | payer MEDICARE, SELFPAY | END 2024-07-01 09:44 | disposition home or self-care (01) | LOC: NFLDREF 09:44 | PROVIDERS: PCP Internal Medicine; Visit Provider Internal Medicine | DX: I10 Essential (primary) hypertension (principal); I25.10 Atherosclerotic heart disease of native coronary artery without angina pectoris; I25.83 Coronary atherosclerosis due to lipid rich plaque | CPT/HCPCS: 80048 ==

== ENCOUNTER 2024-08-26 17:04 | Emergency (ER) | payer MEDICARE, SELFPAY ==
--- OUTSIDE RECORDS SUMMARY | 2024-08-26 17:06 | XMS_ITS | Clinical Summary ---
Author Organization [facility] Address [address] [place] [address] Care Team Providers Care Felt Pad Cutter Name Role Phone Elsewhere, Pcp Primary Care Provider Unavailabl e Source Comments Patient records contain information from all sites at [facility]. For routine questions regarding patient records, call [phone] during business hours, M-F 8:00 AM - 5:00 PM Central Time. Record requests for emergency care only can be directed to [phone] at any time.[facility] Allergies Active Allergy Reactions Criticality [...] Take 50 mg by mouth every morning. 3 Active nitroglycerin (NITROSTAT) 0.[address] 0.4 mg under the tongue every 5 (five) minutes as needed. Do not exceed a total of 3 doses in 15 minutes. 3 Active spironolactone (ALDACTONE) 25 mg tablet Take 25 mg by mouth daily. 3 Active cyanocobalamin (vitamin B-12) 1,000 mcg tablet Take 1,000 mcg by mouth daily. Active isosorbide mononitrate (Imdur) 120 mg 24 hr tablet Take 1 tablet (120 mg total) by mouth daily. 90 tablet 3 4 02/29/20 25 Active isosorbide mononitrate (Imdur) 60 mg 24 hr tablet Take 1 tablet (60 mg total) by mouth daily. 90 tablet 3 4 02/29/20 25 Active ranolazine (Ranexa) 500 mg 12 hr tablet Take 1 tablet (500 mg total) by mouth 2 (two) times a day. 180 tablet 3 4 02/29/20 25 Active Additional Information Patient not taking.Reported on 08/14/2024 aspirin 81 mg chewable tablet Chew 1 tablet (81 mg total) daily. Indication: Coronary artery disease 4 03/19/20 25 Active clopidogreL (Plavix) 75 mg tablet Take 1 tablet (75 mg total) by mouth daily. Indication: Coronary artery disease with cardiac stents 90 tablet 3 4 03/22/20 25 Active metFORMIN XR (Glucophage-XR) 500 mg 24 hr tablet Take 1 tablet (500 mg total) by mouth daily. Indication: diabetes type 2 90 tablet 3 4 Active esomeprazole (NexIUM) [address] capsule Take 1 capsule (40 mg total) by mouth 2 (two) times a day before morning and evening meals. 180 capsule 3 5 Active amLODIPine (Norvasc) 2.5 mg tablet Take 3 tablets (7.5 mg total) by mouth daily. 270 tablet 3 5 Active metoprolol succinate (Toprol XL) 200 mg 24 hr tablet Take 1 tablet (200 mg total) by mouth daily. Do not crush or chew. 90 tablet 3 5 Active meloxicam (Mobic) 15 mg tablet Take 1 tablet by mouth once daily 30 tablet 5 Active Active Problems Problem Noted Date Diagnosed Date Pain Chest 06/20/2024 Morbid Obesity Body Mass Index 40.0-44.9 Adult [...] Encounters Date Type Department Care Team Description 08/14/2024 1:00 PM CDT Comprehensive Visit Department of Cardiovascular Medicine in [place], [place] [address] [place] [phone] Katie Billingsley APRN, C.N.P., M.S.N. Paola Rivera APRN, C.N.P. Hyperlipidemia (Primary Dx); Non-ST Elevation Myocardial Infarction (HCC); Coronary Artery Disease With Unstable Angina (HCC); Obstructive Sleep Apnea Adult; Coronary Artery Disease Without Angina Pectoris 07/15/2024 Episode Changes Department of Cardiac Rehabilitation in [place], [place] [address] [place] [phone] Katelin Peña CEP 07/05/2024 Refill Department of Orthopedic Surgery in [place], [place] [address] [place] [address] Gustabo Lau M.D., M.B.A. Med Refill 06/26/2024 Clinical Communication Department of Cardiovascular Medicine in [place], [place] [address] [place] [phone] Meghann Stahl APRN, C.N.P., D.N.P. 06/25/2024 10:15 AM CDT Anesthesia Event Division of Gastroenterology in [place], [place] [address] [place] [phone] Marlen Chahal CRNA, PACO 06/25/2024 10:05 AM CDT Ancillary Procedure Department of Gastroenterology 06/24/2024 Clinical Communication Department of Cardiovascular Medicine in [place], [place] [address] [place] [phone] Baltazar Leal P.A.-CAnuradha 06/21/2024 1:03 PM CASE SUPERVISOR - 06/21/2024 2:18 PM CASE SUPERVISOR Surgery Division of Cardiovascular Diseases in [place], [place] [address] [place] [phone] Blake Jensen M.D. Coronary Angiography 06/21/2024 Clinical Communication Department of Cardiovascular Medicine in [place], [place] [address] [place] [phone] Baltazar Leal P.A.-C. Order Request 06/20/2024 10:26 AM CASE SUPERVISOR - 06/26/2024 3:43 PM CDT Hospital Encounter [facility], [facility], [facility], Sixth Floor [address] [place] [phone] Eddie French M.D. Linda Rutledge M.D., Pharm.D. Paddy Cruz M.D. Carr, Brendan M, M.D., M.B.A. Angina Unstable (HCC) (Primary Dx); Pain Chest; Pain Neck; Coronary Artery Disease Without Angina Pectoris; Non-ST Elevation Myocardial Infarction (HCC) Discharge Disposition: Home or Self Care 06/08/2024 Refill Division of Cardiovascular Diseases in [address] [phone] Parul Oreilly M.Breezy.B.S., Ph.D. Med Refill 06/08/2024 Refill Department of Orthopedic Surgery in [place], [place] [address] [place] [phone] Gustabo Lau M.D., M.B.A. Med Refill from [...] Campos Markel Coronary artery disease Sister 1 Talisha Cross [...] Grandmother Marsha Jean Baptiste Sister 1 Talisha Ellerigt Sister 2 Holly Louie Social History Tobacco Use Types Packs/Day Years Used Date Smoking Tobacco: Never Smokeless Tobacco: Never Tobacco Cessation:Counseling Given: Not Answered Alcohol Use Standard Drinks/Week Comments Never 0 (1 standard drink = 0.6 oz pur e alcohol) [facility] Utilities Answer Date Recorded In the past 12 months has e [employer], gas, oil, or water [employer] threatened to shut off services in your home? No 06/24/2024 Humiliation, Afraid, Rape, and Kick questionnair e Answer Date Recorded Within the last year, have y ou been afraid of your partner or ex-partner? No 06/24/2024 Within the last year, have y ou been humiliated or emotionally abused in other ways by your partner or ex-partner? No 03 /01/2025 Within the last year, have y ou been kicked, hit, slapped, or otherwise physically hurt by your partner or ex-partner? No 06/24/2024 Within the last year, have y ou been raped or forced to have any kind of sexual activity by your partner or ex-partner? No 06/24/2024 Social Connection and Isolat ion Panel [NHANES] Answer Date Recorded In a typical week, how many times do you talk on the phone with family, friends, or neighbors? More than three times a week 08/09/2022 How often do you get togethe r with friends or relatives? Three times a week 08/09/2022 How often do you attend chur ch or sikhism services? More than 4 times per year [...] medical care, and heating? Somewhat hard 08/09/2022 PHQ-2 Answer Date Recorded PHQ-2 Score 2 06/22/2024 [facility] - [...] have money to get more. Sometimes true 01/2025 PRAPARE - Transportation Answer Date Re corded In the past 12 months, has l ack of transportation kept you from medical appointments or from getting medications? No 06/15 In the past 12 months, has l ack of transportation kept you from meetings, work, or from getting things needed for daily living? No 06/24/2024 Depression Answer Date Recor ded PHQ-9 Total Score (max 27) 13 06/22 Nutrition Answer Date Recorded On average, how [...] What is your living situation today? I h ave a place to live today, but I am worried about losing it in the future 06/24/2024 Education Answer Date Recorded What is the highest level of school you have completed or the highest degree you have received? Associate degree: academic program 08/09/2022 Comments No Sex and Gender Information Value Date Recorded Sex Assigned at Female 08/09/2022 12:21 PM CDT Legal Sex Female 4:02 PM CASE SUPERVISOR Gender Identity Female 08/09/2022 12:21 PM CDT Sexual Orientation Straight 08/09/2022 12 :21 PM CDT Last Filed Vital Signs Vital Sign Reading Time Taken Comments Blood Pressure 131/73 08/14/2024 12:57 PM CDT Pulse 62 08/14/2024 12:57 PM CDT Temperature 37 C (98.6 F) 06/26/2024 2:45 PM CDT Respiratory Rate 24 06/26/2024 3:00 PM CDT Oxygen Saturation 94% 06/26/2024 2:45 PM CDT Inhaled Oxygen Concentration - - Weight 102 kg (224 lb 13.9 oz) 08/14/2024 12:57 PM CDT Height 161 cm (5' 3.39) 08/14/2024 12:57 PM CDT Body Mass Index 39.35 08/14/2024 12:57 PM CDT Plan of Treatment Upcoming Encounters Date Type Department Care Team (Latest Contact Info) Description 09/10/2024 11:45 AM CDT Clinical Communication Virtual Review in [place], [place] 200 [place] [phone] 09/11/2024 8:00 AM CDT Comprehensive Visit [facility] in [place], [place] [address] [place] [phone] Slava Callahan APRN, C.N.P., M.S.N. [address] [place] [phone] 09/18/2024 8:40 AM CDT Ancillary Procedure Department of Cardiovascular Medicine in [place], [place] [address] [place] [phone] Meghann Stahl APRN, C.N.P., D.N.P. [address] [place] [phone] 09/18/2024 9:30 AM CDT Comprehensive Visit Department of Cardiovascular Medicine in [place], [place] [address] [place] [phone] Meghann Stahl APRN, C.N.P., D.N.P. [address] [place] [phone] 09/23/2024 10:00 AM CDT Appointment Department of Laboratory Medicine and Pathology, [facility], in [place], [place] [address] [place] [phone] Meghann Stahl APRN, C.N.P., D.N.P. [address] [place] [phone] Scheduled Procedures Name Priority Associated Diagnoses Date/Ti [...] 01/22/2018, 2005 Depression Screening (Annual PHQ-2) 04/17/2024 Hemoglobin A1C 12/22/2024 06/21/2024, 02/15, 02/24/2023, Additional history exists Lipid (Cholesterol) Screening 06/21/2025 06/21/2024, 02/29/2024, 08/12/2022 Creatinine Level (Kidney Function Test) 06/26/2025 06/26/2024, 06/25/2024, 06/24/2024, Additional history exists Potassium Level 06/26/2025 06/26/2024, 06/15, 06/24/2024, Additional history exists Sodium Level 06/26/2025 06/26/2024, 06/15, 06/24/2024, Additional history exists Office Visit for Blood Pressure Check / Re-check 08/14/2025 08/14/2024 Fall Risk Screen (Annual) Completed 08/14/2024 IPV Vaccines Aged Out No longer eligi ble based on patient's age to complete this topic Medical Devices Implanted Type Area Home Health Travel Pt Device Identifier Shelf Expiration Date Model / Serial / Lot Cardiac Stent Cardiac Stent Heart Description:EIGHT CARDIAC ST ENTS Stnt Synergy Xd De 2.50x16 - [id number] Implanted:Qty : 1 on 03/23/2024 by Geremias Camp M.D., Ph.D. at [facility] Cardiac Stent N/A: Coronary [employer] 08/28/2025 [id number] / / [id number] Description:Distal LAD Stnt Synergy Xd De 2.25x8 - [id number] Implanted:Qty : 1 on 03/23/2024 by Geremias Camp M.D., Ph.D. at [facility] Cardiac Stent N/A: Coronary [employer] 07/31/2024 [id number] / / [id number] Bsplt Tib Trt Sz2 - [id number] Implanted:Qty : 1 on 03/03/2023 by Gustabo Lau M.D., M.B.A. at [facility] Knee Implant Right: Knee [employer] 10/14/2027 5536-B-20 0 / / [id number] Kn Fem Trt Por Cr Bead Rt Sz3 - [id number] Implanted:Qty : 1 on 03/03/2023 by Gustabo Lau M.D., M.B.A. at [facility] Knee Implant Right: Knee [place] 09/08/2027 5517-F-30 2 / / [id number] Ins Tib Trt Cs Sz2 9 - [id number] Implanted:Qty : 1 on 03/03/2023 by Gustabo Lau M.D., M.B.A. at [facility] Knee Implant Right: Knee [place] 09/04/2027 5531-G-20 9-E / / [id number] Procedures Procedure Name Priority Date/Time Associated Diagnosis Comments REMOVE CENTRAL OR MIDLINE CATHETER Routine 06/26/2024 2:22 PM CDT REMOVE CENTRAL OR MIDLINE CATHETER Routine 06/26/2024 2:15 PM CDT GLUCOSE POCT, B Routine 06/26/2024 11:57 AM CDT GLUCOSE POCT, B Routine 06/26/2024 6:39 AM CDT BASIC METABOLIC PANEL, S/P STAT 06/26/2024 3:39 AM CDT MAGNESIUM, S STAT 06/26/2024 3:39 AM CDT CBC WITH DIFFERENTIAL, B Routine 06/26/2024 3:39 AM CDT GLUCOSE POCT, B Routine 06/25/2024 8:12 PM CDT GLUCOSE POCT, B Routine 06/25/2024 4:41 PM CDT GLUCOSE POCT, B Routine 06/25/2024 11:46 AM CDT GASTROENTEROLOGY IMAGE EXAM Routine 06/25/2024 10:05 AM CDT UPPER GI ENDOSCOPY Routine 06/25/2024 10:01 AM CDT EGD (ESOPHAGOGASTRODUODENO SCOPY) Routine 06/25/2024 10:01 AM CDT BASIC METABOLIC PANEL, S/P Routine 06/25/2024 8:12 AM CDT CBC WITH DIFFERENTIAL, B Routine 06/25/2024 8:12 AM CDT GLUCOSE POCT, B Routine 06/25/2024 7:27 AM CDT GLUCOSE POCT, B Routine 06/24/2024 9:11 PM CDT GLUCOSE POCT, B Routine 06/24/2024 12:[address] CHEST ANGIOGRAM WITH IV CONTRAST RAD - Routine (most inpatients and all outpatients) 06/24/2024 8:41 AM CDT HEPARIN LEVEL ANTI-XA ASSAY, P Routine 06/24/2024 6:53 AM CDT BASIC METABOLIC PANEL, S/P Routine 06/24/2024 6:53 AM CDT CBC WITHOUT DIFFERENTIAL, B Routine 06/24/2024 6:53 AM CDT GLUCOSE POCT, B Routine 06/24/2024 6:09 AM CDT GLUCOSE POCT, B Routine 06/23/2024 8:21 PM CDT PATIENT STATUS STAT 06/23/2024 7:32 PM CDT VENOUS BLOOD GAS W/O COOX STAT 06/23/2024 7:32 PM CDT HEPARIN LEVEL ANTI-XA ASSAY, P Timed 06/23/2024 7:[address] PERIPHERALLY INSERTED CENTRAL CATHETER (PICC) Routine 06/23/2024 7:23 PM CDT GLUCOSE POCT, B Routine 06/23/2024 5:09 PM CDT HEMOGLOBIN, B Timed 06/23/2024 12:21 PM CDT HEPARIN LEVEL ANTI-XA ASSAY, P Timed 06/23/2024 12:21 PM CDT GLUCOSE POCT, B Routine 06/23/2024 11:50 AM CDT GLUCOSE POCT, B Routine 06/23/2024 6:12 AM CDT HEPARIN LEVEL ANTI-XA ASSAY, P Timed 06/23/2024 5:31 AM CDT TROPONIN T, 5TH GEN, P Routine 5:31 AM CDT BASIC METABOLIC PANEL, S/P Routine 06/23/2024 5:31 AM CDT CBC WITHOUT DIFFERENTIAL, B Routine 06/23/2024 5:31 AM CDT HEPARIN LEVEL ANTI-XA ASSAY, P Timed 06/22/2024 10:49 PM CASE SUPERVISOR GLUCOSE POCT, B Routine 06/22/2024 8:40 PM CASE SUPERVISOR ECG STAT 06/22/2024 6:25 PM CASE SUPERVISOR GLUCOSE POCT, B Routine 06/22/2024 6:17 PM CASE SUPERVISOR GLUCOSE POCT, B Routine 06/22/2024 4:51 PM CASE SUPERVISOR TROPONIN T, 5TH GEN, P Timed 4:35 PM CASE SUPERVISOR HEPARIN LEVEL ANTI-XA ASSAY, P Timed 06/22/2024 4:35 PM CASE SUPERVISOR GLUCOSE POCT, B Routine 06/22/2024 11:42 AM CASE SUPERVISOR HEPARIN LEVEL ANTI-XA ASSAY, P Timed 06/22/2024 8:56 AM CASE SUPERVISOR GLUCOSE POCT, B Routine 06/22/2024 6:44 AM CASE SUPERVISOR HEPARIN LEVEL ANTI-XA ASSAY, P Timed 06/22/2024 3:09 AM CASE SUPERVISOR BASIC METABOLIC PANEL, S/P Routine 06/22/2024 3:09 AM CASE SUPERVISOR CBC WITHOUT DIFFERENTIAL, B Routine 06/22/2024 3:09 AM CASE SUPERVISOR GLUCOSE POCT, B Routine 06/21/2024 9:17 PM CASE SUPERVISOR GLUCOSE POCT, B Routine 06/21/2024 3:55 PM CASE SUPERVISOR CARDIAC CATHETERIZATION Routine 06/21/2024 1:52 PM CASE SUPERVISOR Pain Chest Angina Unstable (HCC) Coronary Artery Disease Without Angina Pectoris GLUCOSE POCT, B Routine 06/21/2024 12:02 PM CASE SUPERVISOR (TTE) 2D ECHO DOPPLER COLOR AND CONTRAST Routine 06/21/2024 11:17 AM CASE SUPERVISOR HEPARIN LEVEL ANTI-XA ASSAY, P Timed 06/21/2024 9:40 AM CASE SUPERVISOR GLUCOSE POCT, B Routine 06/21/2024 6:52 AM CASE SUPERVISOR HEPARIN LEVEL ANTI-XA ASSAY, P Timed 06/21/2024 1:25 AM CASE SUPERVISOR CBC WITHOUT DIFFERENTIAL, B Routine 06/21/2024 1:25 AM CASE SUPERVISOR THYROID-STIMULATING HORMONE-SENSITIVE (S-TSH) Routine 06/21/2024 1:25 AM CASE SUPERVISOR MAGNESIUM, S Routine 06/21/2024 1:25 AM CASE SUPERVISOR LIPID PANEL, S Routine 06/21/2024 1:25 AM CASE SUPERVISOR HEMOGLOBIN A1C, B Routine 06/21/2024 1:2 5 AM CASE SUPERVISOR COMPREHENSIVE METABOLIC PANEL, S/P Routine 06/21/2024 1:25 AM CASE SUPERVISOR GLUCOSE POCT, B Routine 06/20/2024 10:40 PM CASE SUPERVISOR GLUCOSE POCT, B Routine 06/20/2024 7:42 PM CASE SUPERVISOR ACTIVATED PARTIAL THROMBOPLASTIN TIME (APTT), P STAT 06/20/2024 6:40 PM CASE SUPERVISOR ADULT OXYGEN THERAPY Routine 06/20/2024 6:28 PM CASE SUPERVISOR ADULT OXYGEN THERAPY Routine 06/20/2024 6:28 PM CASE SUPERVISOR ADULT OXYGEN THERAPY Routine 06/20/2024 6:28 PM CASE SUPERVISOR TROPONIN T, 2H/6H REFLEX, 5TH GEN, P Timed 06/20/2024 1:[address] NECK ANGIOGRAM WITH IV CONTRAST RAD - Semiurgent (Fast; most ED patients; some inpatients) 06/20/2024 1:[address] CHEST ANGIOGRAM ACUTE CHEST PAIN WITH IV CONTRAST (ED ONLY) RAD - Semiurgent (Fast; most ED patients; some inpatients) 06/20/2024 1:48 PM CASE SUPERVISOR TROPONIN T, BASELINE, 5TH GEN, P STAT 06/20/2024 11:49 AM CASE SUPERVISOR LACTATE, B STAT 06/20/2024 11:49 AM CASE SUPERVISOR LIPASE, S/P STAT 06/20/2024 11:49 AM CASE SUPERVISOR HEPATIC FUNCTION PANEL, S STAT 06/20/2024 11:49 AM CASE SUPERVISOR CBC WITH DIFFERENTIAL, B STAT 06/20/2024 11:49 AM CASE SUPERVISOR BASIC METABOLIC PANEL, S/P STAT 06/20/2024 11:49 AM CASE SUPERVISOR ECG STAT 06/20/2024 10:32 AM CASE SUPERVISOR from Last 3 Months Results * Remove PICC (non-tunneled) or Midline Catheter (06/26/2024 2:22 PM CDT) Narrative [facility] - 06/26/2024 2:22 PM CDT Chuck Mariano, RAnuradhaNAnuradha 06/26/2024 2:25 PM Remove PICC (non-tunneled) or Midline Catheter Performed by: Chuck Mariano RAnuradhaNAnuradha Authorized by: Baltazar Leal PKojo Baltazar Leal P.A.-C. PROCEDURE/MINOR SURGICAL OR DERABLES Final Result Performing Organization Address [facility] Co de Phone Number [facility] NA * Remove PICC (non-tunneled) or Midline Catheter (06/26/2024 2:15 PM CDT) Narrative [facility] - 06/26/2024 2:15 PM CDT Chuck Mariano RAlida 06/26/2024 2:16 PM Remove PICC (non-tunneled) or Midline Catheter Performed by: Chuck Mariano R.N. Authorized by: Meghann Stahl APRN, C.N.PAnuradha, D.N.PAnuradha us Meghann Stahl APRN, C.N.PAnuradha, D.N.P. PROCEDURE/SLIME R SURGICAL ORDERABLES Final Result Performing Organization Address [facility] de Phone Number [facility] NA * Glucose, POCT (06/26/2024 11:57 AM CDT) Only the most recent of24 resultswithin the time period is included. [facility] Glucose, POCT, B 122 70 - 140 mg/dL 06/26/2024 12:00 PM CDT PCLX Site Capillary 06/26/2024 12:00 PM CDT PCLX Last Intake 3-4 hours 06/26/2024 12:00 PM CDT PCLX Blood 06/26/2024 11:5 7 AM CDT 06/26/2024 12:01 PM CDT us Unknown Provider LAB POCT ORDERABLES-MANUAL Eliane l Result Performing Organization Address [facility]/ZIP Co de Phone Number POC [facility] [address] [place] [address], [facility] PCLX [facility] POC [address] [place] [address] * (ABNORMAL) CBC with Differential, Blood (06/26/2024 3:39 AM CDT) Only the most recent of3 resultswithin the time period is included. Hemoglobin 10.3(L) 11.6 - 15.0 g/dL 06/26/2024 4:05 AM CDT DTL Hematocrit 32.8(L) 35.5 - 44.9 % 06/26/2024 4:05 AM CDT DTL Erythrocytes 3.81(L) 3.92 - 5.13 x10(12)/L 06/26/2024 4:05 AM CDT DTL MCV 86.1 78.2 - 97.9 fL 06/26/2024 4:05 AM CDT DTL RBC Distrib Width 14.0 12.2 - 16.1 % 06/26/2024 4:05 AM CDT DTL Platelet Count 226 157 - 371 x10(9)/L 06/26/2024 4:05 AM CDT DTL Leukocytes 12.7(H) 3.4 - 9.6 x10(9)/L 06/26/2024 4:05 AM CDT DTL Neutrophils 7.30(H) 1.56 - 6.45 x10(9)/L 06/26/2024 4:05 AM CDT DHPM Lymphocytes 4.16(H) 0.95 - 3.07 x10(9)/L 06/26/2024 4:05 AM CDT DTL Monocytes 0.98(H) 0.26 - 0.81 x10(9)/L 06/26/2024 4:05 AM CDT DTL Eosinophils 0.23 0.03 - 0.48 x10(9)/L 06/26/2024 4:05 AM CDT DTL Basophils 0.03 0.01 - 0.08 x10(9)/L 06/26/2024 4:05 AM CDT DTL Blood (Blood, Venous) 06/26/2024 3:39 AM CDT 06/26/2024 3:55 AM CDT us Baltazar Leal P.A.-C. LAB BLOOD ADD-ON Final Resu lt [facility] [address] [place] [address], [facility] [address] [place] [address] * Magnesium (06/26/2024 3:39 AM CDT) Only the most recent of2 resultswithin the time period is included. Pathologist [facility] Magnesium, P 1.9 1.7 - 2.3 mg/dL 06/26/2024 4:24 AM CDT DTL Blood (Blood, Venous) 06/26/2024 3:39 AM CDT 06/26/2024 3:52 AM CDT Sada Tsang P.A.-C. LAB BLOOD ADD-ON Fin al Result Performing Organization Address [facility] Co de Phone Number [facility] [address] [place] [address] * (ABNORMAL) Basic Metabolic Panel (06/26/2024 3:39 AM CDT) Only the most recent of6 resultswithin the time period is included. Potassium, P 4.1 3.6 - 5.2 mmol/L 06/26/2024 4:24 AM CDT DTL Sodium, P 140 135 - 145 mmol/L 06/26/2024 4:24 AM CDT DTL Chloride, P 104 98 - 107 mmol/L 06/26/2024 4:24 AM CDT DTL Bicarbonate, P 26 22 - 29 mmol/L 06/26/2024 4:24 AM CDT DTL Anion Gap, P 10 7 - 15 06/26/2024 4:24 AM CDT DTL BUN (Blood Urea Nitrogen), P 18 6 - 21 mg/dL 06/26/2024 4:24 AM CDT DTL Creatinine 1.11(H) 0.59 - 1.04 mg/dL 06/26/2024 4:24 AM CDT DTL Estimated GFR (eGFR) 54(L) >=60 mL/min/BSA 06/26/2024 4:24 AM CDT DTL Comment: Estimated GFR calculated using the 2020 CKD_EPI creatinine equation. Calcium, Total, P 9.2 8.8 - 10.2 mg/dL 06/26/2024 4:24 AM CDT DTL Glucose, P 127 70 - 140 mg/dL 06/26/2024 4:24 AM CDT DTL Blood (Blood, Venous) 06/26/2024 3:39 AM CDT 06/26/2024 3:52 AM CDT Sada Tsang P.A.-C. LAB BLOOD ADD-ON Fin al Result Performing Organization Address [facility]/[place] [address], [facility] [place] [address] * Upper GI endoscopy-Gastroenterology Image Exam (06/25/2024 10:05 AM CDT) 06/25/2024 10:0 1 AM CDT Narrative [facility] - 06/25/2024 10:58 AM CDT This order has been created and auto-finalized to support the import of images acquired without order. The clinical documentation to support these images can be found on the encounter that produced images. Provider Not In System IMG NON RAD IMAGING PROCE DURES Final Result Performing Organization Address [facility]/ZIP Co de Phone Number [facility] NA * Upper GI Endoscopy (06/25/2024 10:01 AM CDT) 06/25/2024 10:0 1 AM CDT Impressions [facility] - 06/25/2024 10:48 AM CDT Post-op Diagnoses: - Z-line regular, 35 cm from the incisors. The diaphragmatic hiatus was open at 39 cm from the incisors consistent with a 4 cm hernia - A few gastric polyps. - Normal examined duodenum. - No specimens collected. Narrative [facility] - 06/25/2024 10:48 AM CDT Kevyn 6 GI GI Patient Name: Yen Norris Date of : 1955 Age: 69 Procedure Date: 06/25/2024 Procedure: Upper GI endoscopy Providers: Naresh Lee MD Referring Provider: Baltazar Leal Pre-op Diagnoses: Abnormal CT of the GI tract, Unexplained chest pain, Chest pain (non cardiac) Recommendation: - [facility]. - Recommend considering / ruling out other causes of back/chest pain before referring to thoracic surgery, consider esophageal clinic consult if pain is related to eating/drinking Findings: The Z-line was regular and was found 35 cm from the incisors. The Z-line was variable in distance due to the sliding nature of the hiatal hernia A 4 cm hiatal hernia was present. There is no endoscopic evidence of Tan's esophagus, esophagitis or inflammation in the distal esophagus and at the gastroesophageal junction. A few small semi pedunculated polyps with no bleeding and no stigmata of recent bleeding were found in the gastric body suggestive of fundic gland polyps. The examined duodenum was normal. Procedural Details: The patient was seen, evaluated, history reviewed, airway and heart-lung exams were performed by licensed provider and were satisfactory for planned level of sedation care. The risks, benefits and alternatives for the procedure and sedation were discussed and informed consent was obtained. A procedural pause was conducted in the presence of assisting personnel to verify the correct patient identity and procedure to be performed. Throughout the procedure, the patient's blood pressure, pulse, and oxygen saturations were monitored continuously. The Gastroscope was introduced under direct vision through the mouth, and advanced to the second part of duodenum. The upper GI endoscopy was accomplished without difficulty. The patient tolerated the procedure well. Estimated Blood Loss: Estimated blood loss: none. Complications: No immediate complications. Sedation: Anesthesia was administered by an anesthesia professional. The following parameters were monitored: oxygen saturation, heart rate, blood pressure, respiratory rate, EKG, adequacy of pulmonary ventilation, and response to care. Attending Participation: I personally performed the entire procedure. Naresh Lee MD 06/25/2024 10:48:13 AM This report has been signed electronically. Number of Addenda: 0 us Baltazar SantaA.-C. GI PROCEDURE ORDERABLES Fin al Result [facility] NA * CT Chest Angiogram with IV Contrast (06/24/2024 8:41 AM CDT) Anatomical Region Laterality Modality Chest, Cardiovascular RST LO S, Thoracic ARZ LOS, Thoracic FLA LOS, Vascular Interventional ARZ LOS, Procedural, Vascular Interventional NWWI LOS N/A Computed Tomography, Computed Tomography 06/24/2024 8:37 AM CDT Impressions 06/24/2024 9:37 AM CDT No aortic dissection, penetrating ulcer, or intramural hematoma. Narrative 06/24/2024 9:37 AM CDT EXAM: CT CHEST ANGIOGRAM WITH IV CONTRAST Including 3D image post-processing with or without AI assistance. COMPARISON: CT chest angiogram 06/20/2024 FINDINGS: THORACIC AORTA: No thoracic aortic dissection, penetrating atherosclerotic ulcer, or intramural hematoma. Normal caliber thoracic aorta. Mild to moderate calcified plaque in distal aortic arch and descending thoracic aorta. Left aortic arch with conventional 3 vessel branching.. The visualized proximal aortic arch branch arteries are widely patent without stenosis. ADDITIONAL FINDINGS: CARDIAC: Severe coronary artery calcifications. Coronary artery stenting. Biatrial enlargement. LINES/DEVICES: Right upper extremity PICC with tip in the upper SVC. LUNGS: Multiple bilateral sub-6 mm pulmonary nodules are unchanged. For example, multiple 3 mm groundglass nodules in the anterior right upper lobe (series 10 image 120). Calcified granulomas. Unchanged scattered ill-defined groundglass opacities. OTHER: Moderate-sized hiatal hernia. Degenerative changes thoracic spine. Procedure Note Reymundo Rooney M.D. - 06/24/2024 EXAM: CT CHEST ANGIOGRAM WITH IV CONTRAST Including 3D image post-processing with or without AI assistance. COMPARISON: CT chest angiogram 06/20/2024 FINDINGS: THORACIC AORTA: No thoracic aortic dissection, penetrating atherosclerotic ulcer, orintramural hematoma. Normal caliber thoracic aorta. Mild to moderatecalcified plaque in distal aortic arch and descending thoracic aorta. Leftaortic arch with conventional 3 vessel branching.. The visualized proximal aortic arch branch arteries are widelypatent without stenosis. ADDITIONAL FINDINGS: CARDIAC: Severe coronary artery calcifications. Coronary artery stenting. Biatrialenlargement. LINES/DEVICES: Right upper extremity PICC with tip in the upper SVC. LUNGS: Multiple bilateral sub-6 mm pulmonary nodules are unchanged. For example,multiple 3 mm groundglass nodules in the anterior right upper lobe (extoys76 image 120). Calcified granulomas. Unchanged scattered ill-definedgroundglass opacities. OTHER: Moderate-sized hiatal hernia. Degenerative changes thoracic spine. IMPRESSION: No aortic dissection, penetrating ulcer, or intramural hematoma. Baltazar Leal P.A.-C. IMG CT PROCEDURES Final Res ult * Heparin Anti-Xa Assay (06/24/2024 6:53 AM CDT) Only the most recent of10 resultswithin the time period is included. Heparin Anti-Xa, P 0.39 IU/mL 2024 7:40 AM CDT DTL Comment: UFH therapeutic range: 0.30-0.70 IU/mL LMWH therapeutic range: 0.50-1.00 IU/mL 0.50-1.00 IU/mL for twice daily dosing 1.00-2.00 IU/mL for once daily dosing (sample obtained 4-6 hours following subcutaneous injection) LMWH prophylactic range:0.10-0.30 IU/mL ----ADDITIONAL INFORMATION---- Heparin Anti-Xa is used to measure heparin concentrations in patients receiving low molecular weight heparin (LMWH) or unfractionated heparin (UFH). Blood (Blood, Venous) 06/24/2024 6:53 AM CDT 06/24/2024 7:19 AM CDT Baltazar Leal P.A.-C. LAB BLOOD NON ADD-ON Final Result [facility] [address] [place] [address], [place] DTL [facility] [address] [place] [address] * (ABNORMAL) CBC without Differential (06/24/2024 6:53 AM CDT) Only the most recent of4 resultswithin the time period is included. Hemoglobin 11.0(L) 11.6 - 15.0 g/dL 06/24/2024 7:30 AM CDT DTL Hematocrit 36.1 35.5 - 44.9 % 06/24/2024 7:30 AM CDT DTL Erythrocytes 4.20 3.92 - 5.13 x10(12)/L 06/24/2024 7:30 AM CDT DTL MCV 86.0 78.2 - 97.9 fL 06/24/2024 7:30 AM CDT DTL RBC Distrib Width 13.6 12.2 - 16.1 % 06/24/2024 7:30 AM CDT DTL Platelet Count 257 157 - 371 x10(9)/L 06/24/2024 7:30 AM CDT DTL Leukocytes 8.8 3.4 - 9.6 x10(9)/L 06/24/2024 7:30 AM CDT DTL Blood (Blood, Venous) 06/24/2024 6:53 AM CDT 06/24/2024 7:20 AM CDT us Baltazar Leal P.A.-C. 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 breaths/min 11 06/23/2024 7:38 PM CDT STMA Blood 06/23/2024 7:32 PM CDT 06/23/2024 7:38 PM CDT us Paddy Cruz M.D. LAB BLOOD NON ADD-ON Final Re sult [facility] [address] [place] [address], [facility] STMA [facility] [address] [place] [address] * Blood Gas without Coox, Venous (06/23/2024 7:32 PM CDT) pO2, Venous, B 35 Not applicable mm Hg 06/23/2024 7:41 PM CDT STMA pCO2, Venous, B 48 41 - 51 mm Hg 06/23/2024 7:41 PM CDT STMA pH, Venous, B 7.36 7.32 - 7.43 pH 025 7:41 PM CDT STMA Base Excess, Venous, B 2 Not applicable mmol/L 06/23/2024 7:41 PM CDT STMA HCO3, Venous, B 27 Not applicable mmol/L 06/23/2024 7:41 PM CDT STMA Sample Site, Venous, B PICC 06/23/2024 7:38 PM CDT STMA Blood (Blood, Venous) 06/23/2024 7:32 PM CDT 06/23/2024 7:38 PM CDT Paddy Cruz M.D. LAB BLOOD NON ADD-ON Final Re sult Performing Organization Address [facility] Co de Phone Number [facility] [address] [place], [place] [id number] [place] [address] [address] [place] [address] * Place peripherally inserted central catheter (PICC) (06/23/2024 7:23 PM CDT) Narrative MMODAL - 06/23/2024 7:23 PM CDT Heike Ramos R.N. 06/23/2024 7:[address] peripherally inserted central catheter (PICC) Performed by: Heike Ramos R.N. Authorized by: Baltazar Leal P.AAnuradha-Trey Care team members present 1. Stephanie Laurent R.N. PROCEDURE DETAILS Select line: PICC Line type: temporary (non-tunneled, non-implanted) Line size: 4.0 FR Catheter to vein ratio less than 45%: yes Adult or Roni/Peds: adult # of lumens: double lumen Type of catheter: valved and power injectable Laterality: right IV location: other (comment) Optimal site selected: yes Number of insertion attempts: 2 Blood return: yes Placement assistance: ECG guidance and ultrasound guided Tip verification: ECG Catheter length (cm): 39 Initial exposed catheter (cm): 1 Mid upper arm circumference (cm): 35 All lumens flushed (Document volume in I/O): yes CONSENT Consent obtained: written (Risks, benefits and alternatives were discussed and a written Informed Consent was obtained. Please see Informed Consent form for further details.) UNIVERSAL PROTOCOL All relevant documentation and testing were reviewed and available. All required blood products, implants, devices and or special equipment were made available as applicable. Pre-procedure verification was conducted and the correct site was marked if required. A fire risk and smoke assessment were done as applicable. The procedural time-out to verify correct patient, correct side/site, and procedure was conducted prior to performing the procedure and confirmed in a procedural pause. PRE-PROCEDURE DETAILS Indications: Insufficient peripheral access and frequent lab draws Appropriate hand hygiene, gown, cap, mask, protective eyewear, sterile gloves, skin preparation, sterile drape, and strict aseptic technique were utilized as applicable for the procedure.: yes Site preparation: Chlorhexidine SEDATION / ANESTHESIA Anesthesia method: local infiltration Local infiltrate type: lidocaine POST-PROCEDURE DETAILS Procedure completed successfully: yes Complications: no apparent complications Comments Tissue adhesive has been applied to your catheter insertion site for securement, stabilization, and sealant. The purpose of the tissue adhesive is to reduce bleeding, reduce catheter movement/dislodgement, and protect the site from contamination. The tissue adhesive takes the place of a chlorhexidine gluconate (CHG) disk or dressing and also any other devices used for securement. Tissue adhesive will remain attached to the skin surface until natural cellular regeneration occurs (approx. 5-7 days). It is intended to be used with a transparent film dressing. Site care is recommended every 7 days. If tissue adhesive is not reapplied at the time of site care, please assess, clean, and dress the site per institutional guidelines. Residual tissue adhesive on the catheter tubing or skin during the dressing change does NOT need to be removed. If needed, any medical adhesive remover product may be used to release the adhesive from the skin. http://[employer]/products/secureportiv Baltazar Leal P.A.-C. PROCEDURE/MINOR SURGICAL OR DERABLES Final Result Performing Organization Address [facility] Co de Phone Number MMODAL NA * (ABNORMAL) Hemoglobin (06/23/2024 12:21 PM CDT) Hemoglobin 10.4(L) 11.6 - 15.0 g/dL 06/23/2024 12:59 PM CDT DTL Blood (Blood, Venous) 06/23/2024 12:21 PM CDT 06/23/2024 12:50 PM CDT Baltazar Leal P.A.-C. LAB BLOOD ADD-ON Final Resu lt Performing Organization Address [facility] de Phone Number [facility] [address] DTL [facility] [address] [place] [address] * (ABNORMAL) Troponin T, 5th Generation (06/23/2024 5:31 AM CDT) Only the most recent of2 resultswithin the time period is included. Troponin T, 5th gen 14(H) <=10 ng/L 06/23/2024 5:53 AM CDT STMA Blood (Blood, Venous) 06/23/2024 5:31 AM CDT 06/23/2024 5:37 AM CDT [facility] LAB BLOOD ADD-ON Final Resu lt Performing Organization Address [facility] Co de Phone Number [address] [place] [address] * ECG 12 Lead (06/22/2024 6:25 PM CASE SUPERVISOR) Only the most recent of2 resultswithin the time period is included. Ventricular Rate ECG/Min [address] Interval 172 ms MUSE QRSD Interval 82 ms MUSE QT Interval 440 ms MUSE QTC Interval 435 ms MUSE P Wesley 74 degrees MUSE R Wesley 28 degrees MUSE T Wave Wesley 44 degrees MUSE 06/22/2024 6:25 PM CASE SUPERVISOR 06/22/2024 6:31 PM CASE SUPERVISOR Impressions MUSE - 06/22/2024 6:31 PM CASE SUPERVISOR Sinus bradycardia Otherwise normal ECG When compared with ECG of 20-Jun-2024 10:32, CT interval has decreased Reviewed by WARREN Mcdaniel Narrative Procedure Note Demetrius Negrete M.D. - 06/22/2024 IMPRESSION: Sinus bradycardia Otherwise normal ECG When compared with ECG of 20-Jun-2024 10:32, CT interval has decreased Reviewed by WARREN Mcdaniel us Joyce Bethea APRN, C.N.P., M.S.N. ECG ORDERA BLES Final Result MUSE NA * CORONARY ANGIOGRAPHY (06/21/2024 1:52 PM CASE SUPERVISOR) Anatomical Region Laterality Modality X-Ray Angiograph y 06/21/2024 1:33 PM CASE SUPERVISOR Narrative 06/21/2024 1:57 PM CASE SUPERVISOR For the complete report, see the Order-Level Documents. PROCEDURE TYPES 1. CORONARY ANGIOGRAPHY FINAL DIAGNOSIS 1. Unstable Angina 2. Coronary artery atherosclerosis 3. Coronary artery collateral circulation PRE-PROCEDURE DIAGNOSIS 1. Pain Chest 2. Angina Unstable (HCC) 3. Coronary Artery Disease Without Angina Pectoris CORONARY DIAGNOSTIC SUMMARY Coronary artery dominance is right. The left main coronary artery is 20% obstructed by a discrete lesion. The proximal left anterior descending artery is 20% obstructed by a discrete lesion. The distal left anterior descending artery is 90% obstructed by a discrete lesion and 100% obstructed by a discrete lesion. Receives collaterals from the second septal tank setter. The proximal circumflex artery is 40% obstructed by a discrete lesion. The distal segment is normal size, diseased. The distal right coronary artery is 10% obstructed by a discrete lesion. The distal segment is normal size. Widely patent stents in the RCA, LAD, diagonal and OM. No significant change in angiographic appearance compared to 03/2024 with very severe diffuse disease in the very small apical LAD RADIATION DOSE DATA Procedure cumulative skin dose (mGy): 256.92 Procedure cumulative dose area product (Gy-cm2): 17.46 Fluoro Time (Min): 2.44 CONTRAST DOSE DATA iohexoL 350 mg iodine/mL solution (Omnipaque): 50mL For the complete report, see the Order-Level Documents. Procedure Note Blake Jensen M.D. - 06/21/2024 For the complete report, see the Order-Level Documents. PROCEDURE TYPES 1. CORONARY ANGIOGRAPHY FINAL DIAGNOSIS 1. Unstable Angina 2. Coronary artery atherosclerosis 3. Coronary artery collateral circulation PRE-PROCEDURE DIAGNOSIS 1. Pain Chest 2. Angina Unstable (HCC) 3. Coronary Artery Disease Without Angina Pectoris CORONARY DIAGNOSTIC SUMMARY Coronary artery dominance is right. The left main coronary artery is 20% obstructed by a discrete lesion. The proximal left anterior descending artery is 20% obstructed by adiscrete lesion. The distal left anterior descending artery is 90% obstructed by a discretelesion and 100% obstructed by a discrete lesion. Receives collaterals fromthe second septal tank setter. The proximal circumflex artery is 40% obstructed by a discrete lesion. Thedistal segment is normal size, diseased. The distal right coronary artery is 10% obstructed by a discrete lesion.The distal segment is normal size. Widely patent stents in the RCA, LAD, diagonal and OM. No significantchange in angiographic appearance compared to 03/2024 with very severediffuse disease in the very small apical LAD RADIATION DOSE DATA Procedure cumulative skin dose (mGy): 256.92 Procedure cumulative dose area product (Gy-cm2): 17.46 Fluoro Time (Min): 2.44 CONTRAST DOSE DATA iohexoL 350 mg iodine/mL solution (Omnipaque): 50mL For the complete report, see the Order-Level Documents. us Baltazar Leal P.A.-C. CV CARDIAC CATH PROCEDURES Final Result * (TTE) 2D ECHO DOPPLER COLOR AND CONTRAST (06/21/2024 11:17 AM CASE SUPERVISOR) [facility] Ejection Fraction 62 MC CV EIMS Sinus of Valsalva 36 MC CV EIMS Mid-Ascending Aorta 36 MC CV EIMS LV Mass Index 65 MC CV EIMS LV End-Diastolic Diameter 52 MC CV EIMS LV End-Systolic Diameter 32 MC CV EIMS LV End-Diastolic Volume 108 MC CV EIMS LV End-Systolic Volume 36 MC CV EIMS MV E Velocity 0.8 MC CV EIMS MV A Velocity 0.6 MC CV EIMS MV E/A 1.33 MC CV EIMS MV e' Velocity Medial 0.06 MC CV EIMS MV e' Velocity Lateral 0.08 MC CV EIMS MV E/e' Medial 13.3 MC CV EIMS MV E/e' Lateral 10 MC CV EIMS Left ventricular stroke volume index 41 MC CV EIMS Cardiac Output 4.11 MC CV EIMS Cardiac Index 2.01 MC CV EIMS LV Interventricular Septal Wall Thickness 8 MC CV EIMS LV Posterior Wall Thickness 7 MC CV EIMS LV Relative Wall Thickness 27 MC CV EIMS Tricuspid Annular S 0.14 MC CV EIMS TR Vmax 2.33 MC CV EIMS RA Pressure 5 MC CV EIMS RV Systolic Pressure 27 MC CV EIMS Estimated diastolic pulmonary artery pressure 7 MC CV EIMS IVC Diameter 16 MC CV EIMS AV mean gradient 7 MC CV EIMS Aortic valve area 2.1 MC CV EIMS Aortic Valve Dimensionless Index 0.61 MC CV EIMS LA Volume Index 35 MC CV EIMS Aortic Valve Systolic Peak Velocity 1.7 MC CV EIMS Anatomical Region Laterality Modality Echocardiography 06/21/2024 9:41 AM CASE SUPERVISOR Impressions 06/21/2024 1:04 PM CASE SUPERVISOR Echo performed at the patient's bedside. Intravenous Definity ultrasound enhancement agent(s) administered to enhance endocardial border definition. Agitated saline injection(s) performed. LEFT VENTRICLE:Normal left ventricular chamber size. Normal left ventricular geometry. Calculated 2-D linear left ventricular ejection fraction 62%. No regional wall motion abnormalities. Mildly elevated left ventricular filling pressure. RIGHT VENTRICLE:Borderline enlarged right ventricular chamber size. Normal right ventricular systolic function. Estimated right ventricular systolic pressure 27 mmHg (right atrial pressure of 5 mmHg). ATRIA:Mildly enlarged left atrial size. Left atrial volume index 35 ml/m2. Strain imaging examination performed to assess left atrial function. Global averaged left atrial biplane longitudinal peak systolic strain is abnormal at 13.0% (normal is greater than 35%). Borderline enlarged right atrial size by visual estimate. CARDIAC VALVES:Trileaflet aortic valve. Normal aortic valve. No aortic valve regurgitation. Thickened mitral valve. Mild mitral valve regurgitation. Normal pulmonary valve. Normal pulmonary valve systolic velocities. Trivial pulmonary valve regurgitation. Normal tricuspid valve. Trivial tricuspid valve regurgitation. OTHER ECHO FINDINGS:Normal inferior vena cava size with normal inspiratory collapse (>50%). Normal sinus of Valsalva diameter of 36 mm. Normal mid ascending aorta diameter of 36 mm. Abdominal aorta incompletely visualized. Normal abdominal aorta Doppler flow pattern. No atrial level shunt by color flow imaging and agitated saline contrast injection. No intracardiac mass or thrombus, but the left atrial appendage cannot be visualized adequately with transthoracic echo to exclude thrombus in this location. No pericardial effusion. Attempts were made to optimize the echocardiographic images and two or more left ventricular segments were not visualized adequately to evaluate cardiac structure. The patient's current allergies and medications have been screened. Imaging enhancement agent administered per Echocardiography Contrast Administration Protocol Reference Document [id number] Rev 07/29/2021. Patient met an inclusion criterion and did not have contraindications in screening sections. For the complete report, see the Order-Level Documents. Narrative 06/21/2024 1:04 PM CASE SUPERVISOR For the complete report, see the Order-Level Documents. Hemodynamics Heart Rate: 49 BPM Blood Pressure: 115 / 72 mmHg ECG: Sinus rhythm Final Impressions 1. Echo performed at the patient's bedside. 2. Normal left ventricular chamber size, no regional wall motion abnormalities, calculated 2-D linear ejection fraction 62%. 3. Normal left ventricular geometry, mildly elevated filling pressure. 4. Borderline enlarged right ventricular chamber size, normal systolic function, estimated right ventricular systolic pressure 27 mmHg (right atrial pressure of 5 mmHg). 5. No hemodynamically significant valvular heart disease. 6. No pericardial effusion. Procedure Note Roscoe Rivera M.D. - 06/21/2024 For the complete report, see the Order-Level Documents. Hemodynamics Heart Rate: 49 BPM Blood Pressure: 115 / 72 mmHg ECG: Sinus rhythm Final Impressions 1. Echo performed at the patient's bedside. 2. Normal left ventricular chamber size, no regional wall motionabnormalities, calculated 2-D linear ejection fraction 62%. 3. Normal left ventricular geometry, mildly elevated filling pressure. 4. Borderline enlarged right ventricular chamber size, normal systolicfunction, estimated right ventricular systolic pressure 27 mmHg (rightatrial pressure of 5 mmHg). 5. No hemodynamically significant valvular heart disease. 6. No pericardial effusion. Findings Echo performed at the patient's bedside. Intravenous Definity ultrasoundenhancement agent(s) administered to enhance endocardial borderdefinition. Agitated saline injection(s) performed. LEFT VENTRICLE:Normal left ventricular chamber size. Normal leftventricular geometry. Calculated 2-D linear left ventricular ejectionfraction 62%. No regional wall motion abnormalities. Mildly elevated leftventricular filling pressure. RIGHT VENTRICLE:Borderline enlarged right ventricular chamber size. Normalright ventricular systolic function. Estimated right ventricular systolicpressure 27 mmHg (right atrial pressure of 5 mmHg). ATRIA:Mildly enlarged left atrial size. Left atrial volume index 35 ml/m2.Strain imaging examination performed to assess left atrial function.Global averaged left atrial biplane longitudinal peak systolic strain isabnormal at 13.0% (normal is greater than 35%). Borderline enlarged rightatrial size by visual estimate. CARDIAC VALVES:Trileaflet aortic valve. Normal aortic valve. No aorticvalve regurgitation. Thickened mitral valve. Mild mitral valveregurgitation. Normal pulmonary valve. Normal pulmonary valve systolicvelocities. Trivial pulmonary valve regurgitation. Normal tricuspid valve.Trivial tricuspid valve regurgitation. OTHER ECHO FINDINGS:Normal inferior vena cava size with normal inspiratorycollapse (>50%). Normal sinus of Valsalva diameter of 36 mm. Normal midascending aorta diameter of 36 mm. Abdominal aorta incompletelyvisualized. Normal abdominal aorta Doppler flow pattern. No atrial levelshunt by color flow imaging and agitated saline contrast injection. Nointracardiac mass or thrombus, but the left atrial appendage cannot bevisualized adequately with transthoracic echo to exclude thrombus in thislocation. No pericardial effusion. Attempts were made to optimize theechocardiographic images and two or more left ventricular segments werenot visualized adequately to evaluate cardiac structure. The patient'scurrent allergies and medications have been screened. Imaging enhancementagent administered per Echocardiography Contrast Administration ProtocolReference Document [id number] Rev 07/29/2021. Patient met an inclusioncriterion and did not have contraindications in screening sections. For the complete report, see the Order-Level Documents. us Joyce Bethea APRN C.N.P., M.S.N. CV ECHO WILDA MORA Edited Result - Final * (ABNORMAL) Lipid Panel (06/21/2024 1:25 AM CASE SUPERVISOR) Triglycerides 111 mg/dL 06/21/2024 2:25 AM CASE SUPERVISOR DTL Comment: ----REFERENCE VALUE---- Normal: <150 mg/dL Borderline High: 150-199 mg/dL High: 200-499 mg/dL Very High: > or =500 mg/dL Cholesterol, Total 257(H) mg/dL 2024 2:25 AM CASE SUPERVISOR DTL Comment: ----REFERENCE VALUE---- Desirable: < 200 mg/dL Borderline High: 200 - 239 mg/dL High: > or = 240 mg/dL Cholesterol, LDL, Calculated 193(H) mg/dL 06/21/2024 2:25 AM CASE SUPERVISOR DTL Comment: The markedly elevated LDL level is suggestive of a genetic condition such as familial hypercholesterolemia (FH) or familial defective apolipoprotein B-100 (FDB). Family studies including biochemical testing for lipids (total cholesterol, triglycerides, LDL cholesterol and HDL cholesterol) are recommended. Genetic testing for hypercholesterolemia is available by ordering the Hypercholesterolemia Gene Panel (Test ID HCHLG). ----REFERENCE VALUE---- Desirable: <100 mg/dL Above Desirable: 100-129 mg/dL Borderline High: 130-159 mg/dL High: 160-189 mg/dL Very High: >=190 mg/dL ----ADDITIONAL INFORMATION---- LDL cholesterol calculated using the Pineda/NIH equation. Cholesterol, HDL, S 44(L) >=50 mg/dL 06/21/2024 2:25 AM CASE SUPERVISOR DTL Cholesterol, Non-HDL, Calculated 213(H) mg/dL 06/21/2024 2:25 AM CASE SUPERVISOR DTL Comment: ----REFERENCE VALUE---- Desirable: <130 mg/dL Above Desirable: 130-159 mg/dL Borderline High: 160-189 mg/dL High: 190-219 mg/dL Very High: > or =220 mg/dL Fasting (8 HR or more) Yes 1:25 AM CASE SUPERVISOR DTL Blood (Blood, Venous) 06/21/2024 1:25 AM CASE SUPERVISOR 06/21/2024 1:53 AM CASE SUPERVISOR Joyce Bethea APRN, C.N.P., M.S.N. LAB BLOOD ADD-ON Final Result Performing Organization Address [facility] Co de Phone Number [facility] [address] [place] [address] * S-TSH (Thyroid-Stimulating Hormone - Sensitive) (06/21/2024 1:25 AM CASE SUPERVISOR) TSH, Sensitive 1.7 0.3 - 4.2 mIU/L 06/21/2024 2:25 AM CASE SUPERVISOR DT Blood (Blood, Venous) 06/21/2024 1:25 AM CASE SUPERVISOR 06/21/2024 1:53 AM CASE SUPERVISOR Trey Harp APRNNAngie., M.S.N. LAB BLOOD ADD-ON Final Result Performing Organization Address [facility] de Phone Number [facility] [address] [facility] 200 [place] [address] * (ABNORMAL) Hemoglobin A1c (06/21/2024 1:25 AM CASE SUPERVISOR) Hemoglobin A1c, B 6.2(H) 4.0 - 5.6 % 06/21/2024 1:57 AM CASE SUPERVISOR DTL Comment: Hemoglobin A1c values of 5.7-6.4 percent indicate an increased risk for developing diabetes mellitus. In diabetic patients, HbA1c goals should be discussed with healthcare provider. Blood (Blood, Venous) 06/21/2024 1:25 AM CASE SUPERVISOR 06/21/2024 1:39 AM CASE SUPERVISOR Joyce Bethea APRN, C.N.P., M.S.N. LAB BLOOD ADD-ON Final Result [facility] [address] [place] [address], [facility] DTL [facility] [address] [place] [address] * (ABNORMAL) Comprehensive Metabolic Panel (06/21/2024 1:25 AM CASE SUPERVISOR) [facility] Potassium, S 3.6 3.6 - 5.2 mmol/L 06/21/2024 2:25 AM CASE SUPERVISOR DTL Sodium, S 134(L) 135 - 145 mmol/L 06/21/2024 2:25 AM CASE SUPERVISOR DTL Chloride, S 98 98 - 107 mmol/L 06/21/2024 2:25 AM CASE SUPERVISOR DTL Bicarbonate, S 22 22 - 29 mmol/L 06/21/2024 2:25 AM CASE SUPERVISOR DTL Anion Gap 14 7 - 15 06/21/2024 2:25 AM CASE SUPERVISOR DTL BUN (Blood Urea Nitrogen), S 14 6 - 21 mg/dL 06/21/2024 2:25 AM CASE SUPERVISOR DTL Creatinine 1.12(H) 0.59 - 1.04 mg/dL 06/21/2024 2:25 AM CASE SUPERVISOR DTL Estimated GFR (eGFR) 54(L) >=60 mL/min/BS A 06/21/2024 2:25 AM CASE SUPERVISOR DTL Comment: Estimated GFR calculated using the 2020 CKD_EPI creatinine equation. Calcium, Total, S 9.3 8.8 - 10.2 mg/dL 06/21/2024 2:25 AM CASE SUPERVISOR DTL Glucose, S 283(H) 70 - 140 mg/dL 06/21/2024 2:25 AM CASE SUPERVISOR DTL Protein, Total, S 6.7 6.3 - 7.9 g/dL 06/21/2024 2:25 AM CASE SUPERVISOR DTL Albumin, S 4.0 3.5 - 5.0 g/dL 06/21/2024 2:25 AM CASE SUPERVISOR DTL Aspartate Aminotransferase (AST), S 25 8 - 43 U/L 06/21/2024 2:25 AM CASE SUPERVISOR DTL Alkaline Phosphatase, S 80 35 - 104 U/L 06/21/2024 2:25 AM CASE SUPERVISOR DTL Alanine Aminotransferase (ALT), S 18 7 - 45 U/L 06/21/2024 2:25 AM CASE SUPERVISOR DTL Bilirubin, Total, S 0.3 0.0 - 1.2 mg/dL 06/21/2024 2:25 AM CASE SUPERVISOR DTL Blood (Blood, Venous) 06/21/2024 1:25 AM CASE SUPERVISOR 06/21/2024 1:53 AM CASE SUPERVISOR Andrea Harp APRN.N.P., M.S.N. LAB BLOOD ADD-ON Final Result Performing Organization Address City/[facility]/ZIP Co de Phone Number [facility] 200 [place] [address], [facility] DTL [address] [address] * APTT (Activated Partial Thromboplastin Time) (06/20/2024 6:40 PM CASE SUPERVISOR) [facility] Activated Partial Thrombopl Time, P 26 25 - 37 sec 06/20/2024 6:57 PM CASE SUPERVISOR STMA Blood (Blood, Venous) 06/20/2024 6:40 PM CASE SUPERVISOR 06/20/2024 6:47 PM CASE SUPERVISOR Andrea Harp APRN.N.P., M.S.N. LAB BLOOD ADD-ON Final Result [facility] [address] [place] [address], [facility] STMA [facility] [address] [place] [address] * (ABNORMAL) Troponin T, 2 Hour with 6 Hour Reflex, 5th Gen (06/20/2024 1:57 PM CASE SUPERVISOR) Troponin T, 2 hr, 5th gen 13(H) <=10 ng/L 06/20/2024 2:20 PM CASE SUPERVISOR STMA 2H Delta 0 ng/L 06/20/2024 2:20 PM CASE SUPERVISOR STMA Comment:6 hour collection no t indicated. 2H Delta Interp Not Changing 06/20/2024 2:20 PM CASE SUPERVISOR STMA Blood 06/20/2024 1:57 PM CASE SUPERVISOR 06/20/2024 2:02 PM CASE SUPERVISOR Eddie French M.D. LAB BLOOD TROPONIN Final Result [facility] [address] [place] [address], [facility] STMA [facility] [address] [place] [address] * CT Chest Angiogram Acute Chest Pain with IV Contrast (ED only) (06/20/2024 1:48 PM CASE SUPERVISOR) Anatomical Region Laterality Modality Chest, Cardiovascular RST LO S, Thoracic ARZ LOS, Cardiovascular FLA LOS Computed Tomography, C omputed Tomography 06/20/2024 1:30 PM CASE SUPERVISOR Impressions 06/20/2024 2:46 PM CASE SUPERVISOR 1. No pulmonary embolism. 2. No evidence of acute aortic syndrome. 3. Coronary arteries demonstrate extensive calcified plaque, which limits evaluation (i.e., multiple nonevaluable segments). Stents in mid LAD are probably patent. Mixed density plaque in LAD just proximal to stents causes severe stenosis. Calcified plaque causes 50% stenosis in distal left main coronary artery. Possible stents in right coronary artery (versus diffuse calcified plaque), correlate with history of PCI. 4. CAD-RADS category (based on most severe lesion): 4/P4/S/N. Narrative 06/20/2024 2:46 PM CASE SUPERVISOR EXAM: CT CHEST ANGIOGRAM ACUTE CHEST PAIN WITH IV CONTRAST (ED ONLY) Including 3D image post-processing with or without AI assistance performed on an independent workstation. COMPARISON: Outside CTPA chest 06/30/2022 PULMONARY ARTERY FINDINGS: No emboli. The main pulmonary artery is borderline dilated at 30 mm. THORACIC AORTIC FINDINGS: No thoracic aortic dissection, penetrating atherosclerotic ulcer, or intramural hematoma. Normal caliber thoracic aorta. Mild to moderate calcified plaque in distal aortic arch and descending thoracic aorta. Left aortic arch with conventional 3 vessel branching.. The visualized proximal aortic arch branch arteries are widely patent without stenosis. Visualized upper abdominal aorta is patent and normal caliber with mild calcified plaque. Celiac artery is patent. Mild ostial stenosis of SMA. CORONARY FINDINGS: Severe diffuse coronary artery calcification limits evaluation. Origins: Normal origin and course of the coronary arteries. Dominance: Right Left Main Coronary: Moderate calcified plaque causes 50% stenosis at distal left main. Left Anterior Descending System: Severe diffuse calcification of LAD and diagonal branches. Stents in mid LAD are probably patent. Mixed density plaque immediately proximal to stents causes severe stenosis. Left Circumflex System: Extensive calcified plaque in left circumflex and obtuse marginal branches limits evaluation. Right Coronary System: Extensive calcification and/or stents in proximal, mid and distal RCA. Stents (if present) appear patent OTHER CARDIOVASCULAR FINDINGS: Normal biventricular chamber sizes by visual estimate. Normal global left ventricular systolic function by visual estimate. No regional wall motion abnormalities. No resting first-pass myocardial perfusion defects. Normal right ventricular systolic function. Mild biatrial enlargement. Left atrial appendage is well opacified. No intra-cardiac mass or thrombus. Tricuspid aortic valve with good leaflet excursion. Normal-appearing pericardium. ADDITIONAL FINDINGS: Scattered sub-6 mm solid and groundglass nodules in both lungs, similar to prior study. 2 tiny nodules along right minor fissure, could be lymph nodes. Scattered calcified granulomas in the lungs. Mild bibasilar atelectasis. Nonspecific bilateral hilar and mediastinal lymph nodes, increased since prior study. Small calcified left hilar lymph nodes. Cholecystectomy. Scattered calcified granulomas in the spleen. Moderate-sized hiatal hernia. Hypertrophic degenerative changes in the spine.. CAD-RADS CATEGORIES: (based on most severe single lesion; applies to vessels >1.5 mm in diameter) 0: 0%, No stenosis 1: 1-24%, Minimal stenosis (or + remodeling without luminal stenosis) 2: 25-49%, Mild stenosis 3: 50-69%, Moderate stenosis 4A: 70-99%, Severe stenosis 4B: LM>49% or 3-vessel severe disease 5: 100%, Occluded N: Non-diagnostic study Plaque [place]: P1: Mild (CACS1-100/SIS1-2/1-2 vessels mild plaque) P2: Moderate ([id number]/SIS3-4/1-2 vessels moderate; 3 vessels mild plaque) P3: Severe ([id number]/SIS5-7/3 vessels moderate; 1 vessel severe plaque) P4: Extensive (CACS>999/SIS>7/2-3 vessels severe plaque) Modifiers: N: Non-diagnostic segment(s) HRP: High-Risk Plaque* S: Stent G: Graft (CAD-Rads applies to vessel segments distal to graft anastomosis) E: Exceptions *High-Risk Plaque = at least 2 of the following: + remodeling/<30 HU/spotty calcs/napkin-ring sign Procedure Note Pravin Lind M.D., Ph.D. - 06/20/2024 EXAM: CT CHEST ANGIOGRAM ACUTE CHEST PAIN WITH IV CONTRAST (ED ONLY) Including 3D image post-processing with or without AI assistance performedon an independent workstation. COMPARISON: Outside CTPA chest 06/30/2022 PULMONARY ARTERY FINDINGS: No emboli. The main pulmonary artery is borderline dilated at 30 mm. THORACIC AORTIC FINDINGS: No thoracic aortic dissection, penetrating atherosclerotic ulcer, orintramural hematoma. Normal caliber thoracic aorta. Mild to moderatecalcified plaque in distal aortic arch and descending thoracic aorta. Leftaortic arch with conventional 3 vessel branching.. The visualized proximal aortic arch branch arteries are widelypatent without stenosis. Visualized upper abdominal aorta is patent and normal caliber with mildcalcified plaque. Celiac artery is patent. Mild ostial stenosis of SMA. CORONARY FINDINGS: Severe diffuse coronary artery calcification limits evaluation. Origins: Normal origin and course of the coronary arteries. Dominance: Right Left Main Coronary: Moderate calcified plaque causes 50% stenosis atdistal left main. Left Anterior Descending System: Severe diffuse calcification of LAD anddiagonal branches. Stents in mid LAD are probably patent. Mixed densityplaque immediately proximal to stents causes severe stenosis. Left Circumflex System: Extensive calcified plaque in left circumflex andobtuse marginal branches limits evaluation. Right Coronary System: Extensive calcification and/or stents in proximal,mid and distal RCA. Stents (if present) appear patent OTHER CARDIOVASCULAR FINDINGS: Normal biventricular chamber sizes by visual estimate. Normal global leftventricular systolic function by visual estimate. No regional wall motionabnormalities. No resting first-pass myocardial perfusion defects. Normal right ventricular systolic function. Mild biatrial enlargement. Left atrial appendage is well opacified. No intra-cardiac mass or thrombus. Tricuspid aortic valve with good leaflet excursion. Normal-appearing pericardium. ADDITIONAL FINDINGS: Scattered sub-6 mm solid and groundglass nodules in both lungs, similar toprior study. 2 tiny nodules along right minor fissure, could be lymphnodes. Scattered calcified granulomas in the lungs. Mild bibasilar atelectasis. Nonspecific bilateral hilar and mediastinal lymph nodes, increased sinceprior study. Small calcified left hilar lymph nodes. Cholecystectomy. Scattered calcified granulomas in the spleen. Moderate-sized hiatal hernia. Hypertrophic degenerative changes in the spine.. CAD-RADS CATEGORIES: (based on most severe single lesion; applies tovessels >1.5 mm in diameter) 0: 0%, No stenosis 1: 1-24%, Minimal stenosis (or + remodeling without luminal stenosis) 2: 25-49%, Mild stenosis 3: 50-69%, Moderate stenosis 4A: 70-99%, Severe stenosis 4B: LM>49% or 3-vessel severe disease 5: 100%, Occluded N: Non-diagnostic study Plaque [place]: P1: Mild (CACS1-100/SIS1-2/1-2 vessels mild plaque) P2: Moderate ([id number]/SIS3-4/1-2 vessels moderate; 3 vessels mildplaque) P3: Severe ([id number]/SIS5-7/3 vessels moderate; 1 vessel severeplaque) P4: Extensive (CACS>999/SIS>7/2-3 vessels severe plaque) Modifiers: N: Non-diagnostic segment(s) HRP: High-Risk Plaque* S: Stent G: Graft (CAD-Rads applies to vessel segments distal to graftanastomosis) E: Exceptions *High-Risk Plaque = at least 2 of the following: + remodeling/<30HU/spotty calcs/napkin-ring sign IMPRESSION: 1. No pulmonary embolism. 2. No evidence of acute aortic syndrome. 3. Coronary arteries demonstrate extensive calcified plaque, which limitsevaluation (i.e., multiple nonevaluable segments). Stents in mid LAD areprobably patent. Mixed density plaque in LAD just proximal to stentscauses severe stenosis. Calcified plaque causes 50% stenosis in distal left main coronary artery. Possiblestents in right coronary artery (versus diffuse calcified plaque),correlate with history of PCI. 4. CAD-RADS category (based on most severe lesion): 4/P4/S/N. Eddie French M.D. IMEugenia CT PROCEDURES Final R esult * CT Neck Angiogram with IV Contrast (06/20/2024 1:48 PM CASE SUPERVISOR) Anatomical Region Laterality Modality Neck, Neuroradiology RST LOS , Neuroradiology ARZ LOS, Neuroradiology FLA LOS N/A Computed Tomography, Compute d Tomography 06/20/2024 1:15 PM CASE SUPERVISOR Impressions 06/20/2024 1:51 PM CASE SUPERVISOR 1. No large vessel occlusion, high-grade stenosis or dissection in the cervical arterial vasculature. 2. Apparent 2 mm outpouching at left [employer] P1/P2 junction, which may represent an infundibulum or a small aneurysm Narrative 06/20/2024 1:51 PM CASE SUPERVISOR EXAM: CT NECK ANGIOGRAM WITH IV CONTRAST Including 3D image post-processing with or without AI assistance. COMPARISON: None. FINDINGS: The bilateral cervical and intracranial vertebral arteries are patent without stenosis, occlusion or dissection. Codominant vertebral arteries. Minor calcified plaques at the bilateral carotid bulbs with mild luminal narrowing. The bilateral common carotid and cervical internal carotid arteries are otherwise patent. Retropharyngeal course of the internal carotid arteries. Mild plaque in the aortic arch with mild narrowing at the origin of the left subclavian artery. Conventional three-vessel left-sided aortic arch. Apparent 2 mm outpouching at left [employer] P1/P2 junction (series 10 image 604) which represent an infundibulum or a small aneurysm. No significant stenosis in the partially included inferior intracranial arterial vasculature Multilevel spondylotic changes in the cervical spine including multilevel facet arthropathy and atlantoaxial joint degenerative change. Exam was performed with CT chest which will be reported separately. Procedure Note Stew Alvarado M.D. - 06/20/2024 EXAM: CT NECK ANGIOGRAM WITH IV CONTRAST Including 3D image post-processing with or without AI assistance. COMPARISON: None. FINDINGS: The bilateral cervical and intracranial vertebral arteries arepatent without stenosis, occlusion or dissection. Codominant vertebralarteries. Minor calcified plaques at the bilateral carotid bulbs with mild luminalnarrowing. The bilateral common carotid and cervical internal carotidarteries are otherwise patent. Retropharyngeal course of the internalcarotid arteries. Mild plaque in the aortic arch with mild narrowing at the origin of the left subclavianartery. Conventional three-vessel left-sided aortic arch. Apparent 2 mm outpouching at left [employer] P1/P2 junction (series 10 image 604)which represent an infundibulum or a small aneurysm. No significantstenosis in the partially included inferior intracranial arterialvasculature Multilevel spondylotic changes in the cervical spine including multilevelfacet arthropathy and atlantoaxial joint degenerative change. Exam was performed with CT chest which will be reported separately. IMPRESSION: 1. No large vessel occlusion, high-grade stenosis or dissection in thecervical arterial vasculature. 2. Apparent 2 mm outpouching at left [employer] P1/P2 junction, which mayrepresent an infundibulum or a small aneurysm Eddie French M.D. IMG CT PROCEDURES Final R esult * Lactate, B (06/20/2024 11:49 AM CASE SUPERVISOR) [facility] Lactate, B 1.0 0.5 - 2.2 mmol/L 06/20/2024 11:58 AM CASE SUPERVISOR STMA Blood (Blood, Venous) 06/20/2024 11:49 AM CASE SUPERVISOR 06/20/2024 11:55 AM CASE SUPERVISOR Eddie French M.D. LAB BLOOD NON ADD-ON Eliane l Result [facility] [address] [place] [address] * (ABNORMAL) Troponin T, Baseline with 2 Hour/6 Hour Reflex Biomarker Panel (06/20/2024 11:49 AM CASE SUPERVISOR) [facility] Troponin T, Baseline, 5th gen 13(H) <=10 ng/L 06/20/2024 12:13 PM CASE SUPERVISOR STMA Blood (Blood, Venous) 06/20/2024 11:49 AM CASE SUPERVISOR 06/20/2024 11:55 AM CASE SUPERVISOR Eddie French M.D. LAB BLOOD TROPONIN Final Result Performing Organization Address City/[facility]/ZIP Co de Phone Number [facility] [address] [place] [address], [facility] STMA [facility] [address] [place] [address] * Hepatic Function Panel (06/20/2024 11:49 AM CASE SUPERVISOR) Bilirubin, Total, S 0.5 0.0 - 1.2 mg/dL 06/20/2024 12:48 PM CASE SUPERVISOR DTL Bilirubin, Direct, S <0.2 0.0 - 0.3 mg/dL 06/20/2024 12:48 PM CASE SUPERVISOR DTL Aspartate Aminotransferase (AST), S 23 8 - 43 U/L 06/20/2024 12:48 PM CASE SUPERVISOR DTL Alanine Aminotransferase (ALT), S 17 7 - 45 U/L 06/20/2024 12:48 PM CASE SUPERVISOR DTL Alkaline Phosphatase, S 76 35 - 104 U/L 06/20/2024 12:48 PM CASE SUPERVISOR DTL Albumin, S 3.9 3.5 - 5.0 g/dL 06/20/2024 12:48 PM CASE SUPERVISOR DTL Protein, Total, S 6.6 6.3 - 7.9 g/dL 06/20/2024 12:48 PM CASE SUPERVISOR DTL Blood (Blood, Venous) 06/20/2024 11:49 AM CASE SUPERVISOR 06/20/2024 12:27 PM CASE SUPERVISOR us Eddie French M.D. LAB BLOOD ADD-ON Final Re sult [facility] [address] [place] [address], [facility] DTL [facility] [address] [place] [address] * Lipase (06/20/2024 11:49 AM CASE SUPERVISOR) Lipase, S 22 13 - 60 U/L 06/20/2024 12:48 PM CASE SUPERVISOR DTL Blood (Blood, Venous) 06/20/2024 11:49 AM CASE SUPERVISOR 06/20/2024 12:27 PM CASE SUPERVISOR Eddie French M.D. LAB BLOOD ADD-ON Final Re sult [facility] [address] [place] [address], [place] DTL [facility] [address] [place] [address] from Last 3 Months Insurance [employer] Advance Directives For more information, please contact: [phone] * Full Code (Latest Code Status on File) Date Activated Date Inactivated Comments 06/20/2024 6:28 PM 06/26/2024 5:49 PM Question Answer Comments Full Code: Discussed * Full Code Date Activated Date Inactivated Comments 03/22/2024 9:51 PM 03/24/2024 5:10 PM Question Answer Comments Full Code: Discussed * Full Code Date Activated Date Inactivated Comments 03/03/2023 4:40 PM 03/04/2023 3:20 PM Question Answer Comments Full Code: Discussed Care Teams Felt Pad Cutter Relationship Specialty Start Date End Date Elsewhere, Pcp PCP - General Internal Medicine 03/22/24
--- OUTSIDE RECORDS SUMMARY | 2024-08-26 17:07 | XMS_ITS | Clinical Summary ---
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 PCP - General 10/06/22
--- OUTSIDE RECORDS SUMMARY | 2024-08-26 17:07 | XMS_ITS | Encounter Summary ---
Author Organization [facility] Address [address] [place] [id number] Care Team Providers Care Healthcare Consultant Name Role Phone Elsewhere, Pcp Primary Care Provider Unavailabl e Reason for Visit * Outpatient (Routine) - Closed Specialty Diagnoses / Procedures Referred By Contact Referred To Contact Cardiovascular Diseases / Cardiovascular Disease Diagnoses Non-ST Elevation Myocardial Infarction (HCC) Coronary Artery Disease With Unstable Angina (HCC) Obstructive Sleep Apnea Adult Baltazar Leal P.A.-C. [address] [place] [phone] Phone: tel: fax: [facility] Referral ID Status Reason Start Date Expiration Date Visits Re quested Visits Authorized [id number] Closed 06/21/2024 12/21/2025 1 1 Encounter Details Date Type Department Care Team (Latest Contact Info) Description 08/14/2024 1:00 PM CDT Comprehensive Visit Department of Cardiovascular Medicine in [place], [place] [address] [place] [phone] Katie Billingsley APRN, C.N.P., M.S.N. [address] [place] [phone] Paola Rivera APRN, C.N.PAnuradha [address] [place] [phone] Hyperlipidemia (Primary Dx); Non-ST Elevation Myocardial Infarction (HCC); Coronary Artery Disease With Unstable Angina (HCC); Obstructive Sleep Apnea Adult; Coronary Artery Disease Without Angina Pectoris Social History Tobacco Use Types Packs/Day Years Used Date Smoking Tobacco: Never Smokeless Tobacco: Never Tobacco Cessation:Counseling Given: Not Answered Alcohol Use Standard Drinks/Week Comments Never 0 (1 standard drink = 0.6 oz pur e alcohol) [facility] Utilities Answer Date Recorded In the past 12 months has e [employer], gas, oil, or water [employer] threatened to shut off services in your [...] any clubs o r organizations such as uatsdin groups, unions, fraternal or athletic groups, or [...] Answer Date Recorded PHQ-2 Score 2 06/22/2024 [facility] - Occupational [...] PM CDT 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 - 08/14/2024 1:00 PM CDT SUBJECTIVE CHIEF COMPLAINT/REASON FOR VISIT CAD with statin intolerance HISTORY OF PRESENT ILLNESS Yen Norris is a pleasant 69 y.o. female who is being seen today for lipid management . Mrs. Norris was seen by my colleague Anuradha Analilia in 2022. Please see her note for full details. Briefly, Mrs. Norris has a history of significant coronary artery disease and statin intolerance to atorvastatin, rosuvastatin, Zetia. When she saw Ms. Billingsley the decision was made to try Repatha. However, patient was very nervous to give herself injections and never started it. With her most recent hospitalization, it was decided that attempting Inclisiran would be next step. She presents today for review of this suggestion. The following portions of the patient's history were reviewed and updated as appropriate: allergies, current medications, family history, medical history, social history, surgical history, and problem list. REVIEW OF SYSTEMS REVIEW OF SYSTEMS OBJECTIVE Vitals: 08/14/24 1257 BP: 131/73 BP Location: Right arm Patient Position: Sitting Cuff Size: Regular Pulse: 62 Weight: 102 kg Height: 161 cm Body mass index is 39.35 kg/m??. PHYSICAL EXAMINATION Physical Exam DIAGNOSTICS Lipids: Lab Results Component Value Date/Time CHOL 257 (H) 06/21/2024 01:25 AM TRIG 111 06/21/2024 01:25 AM HDL 44 (L) 06/21/2024 01:25 AM LDLCALC 193 (H) 06/21/2024 01:25 AM Glucose, P Date Value Ref Range Status 06/26/2024 127 70 - 140 mg/dL Final Hemoglobin A1c, B Date Value Ref Range Status 06/21/2024 6.2 (H) 4.0 - 5.6 % Final Comment: Hemoglobin A1c values of 5.7-6.4 percent indicate an increased risk for developing diabetes mellitus. In diabetic patients, HbA1c goals should be discussed with healthcare provider. ASSESSMENT / PLAN #1 Hyperlipidemia #2 Coronary Artery Disease Without Angina Pectoris Mrs. Norris and I reviewed Repatha and Inclisiran in detail. In looking for an infusion center for Inclisiran administration close to her, she would need to go to the [facility] or come back here to [facility]. We then looked at utilizing Repatha but the co-pay cost is 290 dollars which she can not afford. After exploring both of these, we have decided to move forward with Inclisiran here at [facility]. I have written for the 1st year and final dates of injection we will be determined based upon finalinitiation of prior authorization. Our hope is that the 1st injection can be on September 18 when she is here for other appointments. Recheck of lipid profile should be in about 6 months. Moving forward, primary cardiology can take over prescription of Incliseran. She is encouraged to maintain a healthy diet and regular exercise regimen. Guidelines recommend a Mediterranean style diet with plenty of fruits and vegetables, lean proteins, healthy fats, and limited simple carbohydrates and sugars. Exercise recommendations include 150 minutes per week of moderate to intense level cardio and 30 minutes of strength training per week. It was my pleasure to participate in the care of Yen Norris. She verbalized understanding ofrecommendations and had no further questions. I spent approximately thirty minutes with patient, completing chart review, and documentation. Paola Rivera APRN, C.N.PAnuradha documented in this encounter Plan of Treatment Upcoming Encounters Date Type Department Care Team (Latest Contact Info) Description 09/10/2024 11:45 AM CDT Clinical Communication Virtual Review in [address] [phone] 09/11/2024 8:00 AM CDT Comprehensive Visit [facility] in [address] [phone] Slava Callahan APRN, C.N.P., M.S.N. [address] [place] [phone] 09/18/2024 8:40 AM CDT Ancillary Procedure Department of Cardiovascular Medicine in [address] [phone] Meghann Stahl APRN, C.N.P., D.N.P. [address] [place] [phone] 09/18/2024 9:30 AM CDT Comprehensive Visit Department of Cardiovascular Medicine in [address] [phone] Meghann Stahl APRN, C.N.P., D.N.P. [address] [place] [phone] 09/23/2024 10:00 AM CDT Appointment Department of Laboratory Medicine and Pathology, [facility], in [address] [phone] Meghann Stahl APRN, C.N.P., D.N.P. 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
--- OUTSIDE RECORDS SUMMARY | 2024-08-26 17:07 | XMS_ITS | Encounter Summary ---
Author Organization [facility] Address [address] [place] [address] Care Team Providers Care Booking Officer Name Role Phone Elsewhere, Pcp Primary Care Provider Unavailabl e Encounter Details Date Type Department Care Team (Late st Contact Info) Description 07/15/2024 Episode Changes Department of Cardiac Rehabilitation in [place], [place] [address] [place] [phone] Katelin Peña, [facility] Social History Tobacco Use Types Packs/Day Years Used Date Smoking Tobacco: Never Smokeless Tobacco: Never Alcohol Use Standard Drinks/Week Comments Never 0 (1 standard drink = 0.6 oz pur e alcohol) [facility] Utilities Answer Date Recorded In the past 12 months has [facility] [employer], gas, oil, or water [employer] threatened to shut off services in your [...] often do you attend chur ch or anabaptist services? 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 [address] [place] [phone] 09/18/2024 8:40 AM CDT Ancillary Procedure Department of Cardiovascular Medicine in [place], [place] [address] [place] [phone] Meghann Stahl APRN, C.N.P., D.N.P. [address] [place] [phone] 09/18/2024 9:30 AM CDT Comprehensive Visit Department of Cardiovascular Medicine in [place], [place] [address] [place] [phone] Meghann Stahl APRN, C.N.P., D.N.P. [address] [place] [phone] 09/23/2024 10:00 AM CDT Appointment Department of Laboratory Medicine and Pathology, [facility] in [place], [place] [address] [place] [phone] Meghann Stahl APRN, C.N.P., D.N.P. 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
[2024-08-26 17:12] VITALS: BP 136/79; PULSE 77; RESP 18; TEMP 36.8; O2SAT 98; BMI 39.1
--- NOTE | 2024-08-26 17:19 | CRLHL7_ITS ---
For Patients: As a result of the Century Cures Act, medical imaging exams and procedure reports are released immediately into your electronic medical record. You may view this report before your referring provider. If you have questions, please contact your health care provider. INDICATION: Left lower extremity pain and swelling there is noncompressibility with thrombus of the femoral vein, popliteal peroneal posterior tibial veins. The TECHNIQUE: A compression venous ultrasound exam was performed of the left lower extremity using parada-scale imaging, color Doppler and spectral Doppler analysis. FINDINGS: Sonographic imaging of the left lower extremity demonstrates normal compressibility and color Doppler venous blood flow within the common femoral vein, deep femoral vein, and the proximal greater saphenous vein. Within the thigh, posterior tibial vein is suboptimally visualized. Limited imaging of the contralateral groin demonstrates a normal spectral waveform and color Doppler venous blood flow within the right common femoral vein. IMPRESSION: DVT in the left femoral vein popliteal vein posterior tibial and peroneal veins. Results called to Dr. Hood on 08/26/24 at 6:46pm. Dictated by Latonya Noel MD @ 08/26/2024 6:44:36 PM (Electronically Signed)
--- NOTE | 2024-08-26 17:21 | ED.GENADULT ---
HPI - General Adult General Chief complaint: Extremity Pain/Injury, Lower Stated complaint: Swollen left leg, thinks she has a Blood Clot Time Seen by Provider: 08/26/24 17:06 History of Present Illness HPI narrative: This 69-year-old female comes in reporting diffuse pain in her left lower extremity from the calf down toward her ankle. This but is been present for the past couple weeks. She feels like her leg is also swollen compared to the right leg. She does not report any injury event to trigger these symptoms. She states that she has a history of DVT and is currently taking Plavix and baby aspirin. 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 He does not report any chest pain and arrives with normal vital signs. She states that she feels like she does have some shortness of breath at times. Related Data Home Medications ?Medication ?Instructions ?Recorded ?Confirmed aspirin 81 mg tablet,delayed 81 mg PO DAILY 06/28/22 08/26/24 release (Adult Low Dose Aspirin) cholecalciferol (vitamin D3) 50 2,000 unit PO DAILY 06/28/22 07/01/24 mcg (2,000 unit) tablet (Vitamin D3) isosorbide mononitrate 120 mg 120 mg PO DAILY 10/17/22 08/26/24 tablet,extended release 24 hr meloxicam 15 mg tablet 15 mg PO DAILY 06/05/23 07/01/24 isosorbide mononitrate 60 mg 60 mg PO DAILY 04/08/24 08/26/24 tablet,extended release 24 hr mecobalamin (vitamin B12) 1,000 1,000 mcg PO QDAY 07/01/24 07/01/24 mcg chewable tablet metoprolol succinate 200 mg 200 mg PO QDAY 07/01/24 08/26/24 tablet,extended release 24 hr ranolazine 500 mg tablet,extended 500 mg PO BID 07/01/24 07/01/24 release,12 hr Previous Rx's ?Medication ?Instructions ?Recorded clopidogrel 75 mg tablet 75 mg PO QAM #90 tabs 01/03/24 nitroglycerin 0.4 mg sublingual 0.4 mg sublingual PRN angina #90 01/16/24 tablet tabs metformin 500 mg tablet,extended 500 mg PO QAM #90 tabs 02/16/24 release 24 hr spironolactone 25 mg tablet 25 mg PO DAILY #90 tabs 05/08/24 benzonatate 100 mg capsule 100 mg PO TID PRN cough #30 caps 05/30/24 losartan 50 mg tablet 50 mg PO QAM #90 tabs 07/01/24 esomeprazole magnesium 40 mg 40 mg PO BID #90 caps 07/29/24 capsule,delayed release apixaban 5 mg (74 tabs) tablets in See Rx Instructions PO .COMPLEX 08/26/24 a dose pack ([employer] DVT-PE Treat #74 ea 30D Start) warfarin 5 mg tablet 5 mg PO DAILY #20 tabs 08/26/24 Allergies Allergy/AdvReac Type Severity Reaction Status Date / Time Iodinated Contrast Media Allergy Severe Anaphylaxis Verified 07/01/24 09:23 Sulfa (Sulfonamide Allergy Severe Anaphylaxis Verified 07/01/24 09:23 Antibiotics) ezetimibe Allergy Intermediate Verified 07/01/24 09:23 bee venom protein (honey bee) Allergy Unknown Swelling Verified 07/01/24 09:23 duloxetine Allergy Unknown Swelling Verified 07/01/24 09:23 rosuvastatin AdvReac Unknown Muscle Pain Verified 07/01/24 09:23 Review of Systems Status of ROS: Reports: 10 or more systems reviewed and unremarkable except as noted in History and below Narrative: Constitutional: No fevers, no weight gain or loss. Eyes: No discharge. No vision changes. HENT: No congestion, no sore throat, no ear pain. Cardiovascular: No chest pain, no palpitations. Respiratory: No wheezes, no cough. Gastrointestinal: No abdominal pain, no vomiting, no diarrhea. Genitourinary: No dysuria, no hematuria. Musculoskeletal: Normal range of motion. Skin: No rashes, no pruritis. Neurological: No dizziness, weakness, sensory change, speech change. Endo/Heme/Allergies: No bruising or bleeding. No polydipsia. Pysch: no suicidality, no anxiety, no insomnia. All other systems reviewed and are negative. [facility] Medical History History of DVT of lower extremity ?Z86.718 - Personal history of other venous thrombosis and embolism (ICD-10) Surgical History History of total knee replacement ?Z96.659 - Presence of unspecified artificial knee joint (ICD-10) History of cholecystectomy (~2002) ?Z90.49 - Acquired absence of other specified parts of digestive tract (ICD-10) History of appendectomy (1995) ?Z90.49 - Acquired absence of other specified parts of digestive tract (ICD-10) History of coronary artery stent placement ?Z95.5 - Presence of coronary angioplasty implant and graft (ICD-10) History of surgery on right wrist ?Z98.890 - Other specified postprocedural states (ICD-10) History of total hysterectomy with bilateral salpingo-oophorectomy (BSO) (1995) ?Z90.710 - Acquired absence of both cervix and uterus (ICD-10) ?Z90.722 - Acquired absence of ovaries, bilateral (ICD-10) ?Z90.79 - Acquired absence of other genital organ(s) (ICD-10) History of tonsillectomy and adenoidectomy ?Z90.89 - Acquired absence of other organs (ICD-10) Family History Father Colon cancer Coronary artery disease Leukemia High blood pressure High cholesterol Diabetes Thyroid disease Kidney disease Clotting disorder Mother Colon cancer High cholesterol Thyroid disease Glaucoma Brother Coronary artery disease Thyroid disease High cholesterol High blood pressure Sister Coronary artery disease High blood pressure High cholesterol Thyroid disease Skin cancer Son Bicuspid aortic valve Aortic stenosis Daughter Alcohol dependence Social History What is your current living situation?: I presently have a place to live Problems where you live: no known problems In the past 12 months, utilities in danger of being shut off: no In past 12 months, lack of transportation kept you from medical appts, meetings, work, or getting things needed for daily living: no In the past 12 mos, have been you worried that your food would run out before you had money to buy more?: never true In the past 12 mos, the food you bought just didn't last and you didn't have money to buy more?: sometimes true Smoking Status: Never smoker Do you use any of these nicotine containing products: None Second hand tobacco smoke exposure: Yes How often do you have a drink containing alcohol: never AUDIT-C Alcohol total score: 0 Non-prescribed substance use: denies use How often does anyone, including family, friends and others, physically hurt you: never How often does anyone, including family, friends and others, insult or talk down to you: rarely How often does anyone, including family, friends and others, threaten you with harm: never How often does anyone, including family, friends and others, scream or curse at you: never service: No Health Related Social Needs: food insecurity (Z59.41) and Other personal risk factors, not elsewhere classified (Z91.89) Exam Narrative: Exam Narrative: Constitutional: Well-developed, well-nourished, no acute distress. HEENT: Normocephalic, atraumatic. Neck: Normal range of motion. Nontender. Supple. Heart: Regular. No murmurs. Normal rate. Intact distal pulses. Lungs: Clear to auscultation. No chest discomfort. No wheezes, rhonchi, or rales. Abdomen: Normal bowel sounds. Nontender. No rebound tenderness. Genitalia: Deferred. Back: No midline tenderness. Normal range of motion. Extremities: Normal range of motion. No injury. Diffuse pain in the left lower leg. She reports swelling compared to the right but I do not see an obvious difference between the 2. Skin: Intact. No rash. Warm. No erythema or pallor. Neurologic: No altered sensation. No weakness. Alert and oriented. Psychiatric: No suicidality. No anxiety or depression. No insomnia. Nursing notes and vitals signs are reviewed. Const: Vital Signs, click to edit/add: Vital Signs - 24 hr 08/26/24 17:12 08/26/24 18:20 Temperature 98.3 F Pulse Rate [Pulse Oximeter] 77 59 L Respiratory Rate 18 14 Blood Pressure [Ri ght Upper Arm] 136/79 129/66 Pulse Oximetry 98 97 Oxygen Delivery Me thod Room Air Room Air Course Vital Signs Vital signs: Initial Vital Signs Temperature 98.3 F 08/26/24 17:12 Temperature Source Temporal Artery Scan 08/26/24 17:12 Pulse Rate 77 08/26/24 17:12 Respiratory Rate 18 08/26/24 17:12 Blood Pressure 136/79 08/26/24 17:12 Blood Pressure Mean 98 08/26/24 17:12 Pulse Oximetry 98 08/26/24 17:12 Oxygen Delivery Method Room Air 08/26/24 17:12 Vital Signs Temperature 98.3 F 08/26/24 17:12 Pulse Rate 77 08/26/24 17:12 Respiratory Rate 18 08/26/24 17:12 Blood Pressure 136/79 08/26/24 17:12 Pulse Oximetry 98 08/26/24 17:12 Oxygen Delivery Method Room Air 08/26/24 17:12 Temperature 98.3 F 08/26/24 17:12 Pulse Rate 59 L 08/26/24 18:20 Respiratory Rate 14 08/26/24 18:20 Blood Pressure 129/66 08/26/24 18:20 Pulse Oximetry 97 08/26/24 18:20 Oxygen Delivery Method Room Air 08/26/24 18:20 Medical Decision Making MDM Narrative Medical decision making narrative: This patient comes in with suspicion of a blood clot in her left lower extremity. An ultrasound is obtained and does show evidence of clot in the left lower leg that borders on the deep venous system. The patient has normal vital signs and does not report any other issues. She states that she is taking baby aspirin and Plavix because she has a history of DVT. I reported to her that she may very likely need to stay on something more aggressive going forward. She did receive an oral dose of Eliquis and a prescription for the same. She was concerned that her insurance may not adequately cover the cost for Eliquis. I recommended that she consult with her pharmacist in this regard and did provide a prescription for warfarin if she chooses that route instead with the understanding that it takes at least 5 days to become therapeutic on that medicine. Discharge Plan Discharge Clinical Impression: Deep venous thrombosis Patient Disposition: Home, Self-Care Condition: Stable Additional Instructions: Take medication as prescribed. Discontinue aspirin and Plavix. Also avoid taking NSAID including meloxicam as these will interact with Eliquis. Follow up with primary MD for ongoing management. Return if worsening. Prescriptions: New Eliquis DVT-PE Treat 30D Start 5 mg (74 tabs) tablets,dose pack See Rx Instructions PO .COMPLEX Qty: 74 0RF Rx Instructions: orally per package directions warfarin 5 mg tablet 5 mg PO DAILY Qty: 20 2RF No Action isosorbide mononitrate 120 mg tablet extended release 24 hr 120 mg PO DAILY isosorbide mononitrate 60 mg tablet extended release 24 hr 60 mg PO DAILY benzonatate 100 mg capsule 100 mg PO TID PRN (Reason: cough) Qty: 30 1RF mecobalamin (vitamin B12) 1,000 mcg tablet,chewable 1,000 mcg PO QDAY ranolazine 500 mg tablet extended release 12 hr 500 mg PO BID metoprolol succinate 200 mg tablet extended release 24 hr 200 mg PO QDAY meloxicam 15 mg tablet 15 mg PO DAILY nitroglycerin 0.4 mg tablet, sublingual 0.4 mg sublingual PRN Qty: 90 6RF aspirin [Adult Low Dose Aspirin] 81 mg tablet,delayed release (DR/EC) 81 mg PO DAILY cholecalciferol (vitamin D3) [Vitamin D3] 50 mcg (2,000 unit) tablet 2,000 unit PO DAILY clopidogrel 75 mg tablet 75 mg PO QAM Qty: 90 0RF metformin 500 mg tablet extended release 24 hr 500 mg PO QAM Qty: 90 0RF spironolactone 25 mg tablet 25 mg PO DAILY Qty: 90 1RF losartan 50 mg tablet 50 mg PO QAM Qty: 90 3RF esomeprazole magnesium 40 mg capsule,delayed release(DR/EC) 40 mg PO BID Qty: 90 3RF Follow Up/Referrals: Sada Chun MD [Primary Care Provider] - Stand Alone Forms: [employer] Info Instructions
--- OUTSIDE RECORDS SUMMARY | 2024-08-26 17:34 | XMS_ITS | Clinical Summary ---
Author Organization [facility] Address [address] [place] [address] Care Team Providers Care Composite Engineer Name Role Phone Elsewhere, Pcp Primary Care Provider Unavailabl e Source Comments Patient records contain information from all sites at [facility]. For routine questions regarding patient records, call [phone] during business hours, M-F 8:00 AM - 5:00 PM Central Time. Record requests for emergency care only can be directed to [phone] at any time.[facility] Allergies Active Allergy Reactions Criticality Noted Date [...] Comprehensive Visit Department of Cardiovascular Medicine in [place], [place] [address] [place] [phone] Katie Billingsley APRN, C.N.P., M.S.N. Paola Rivera APRN, C.N.P. Hyperlipidemia (Primary Dx); Non-ST Elevation Myocardial Infarction (HCC); Coronary Artery Disease With Unstable Angina (HCC); Obstructive Sleep Apnea Adult; Coronary Artery Disease Without Angina Pectoris 07/15/2024 Episode Changes Department of Cardiac Rehabilitation in [place], [place] [address] [place] [address] Katelin Peña CEP 07/05/2024 Refill Department of Orthopedic Surgery in [place], [place] [address] [place] [address] Gustabo Lau M.D., M.B.A. Med Refill 06/26/2024 Clinical Communication Department of Cardiovascular Medicine in [place], [place] [address] [place] [phone] Meghann Stahl APRN, C.N.P., D.N.P. 06/25/2024 10:15 AM CDT Anesthesia Event Division of Gastroenterology in [place], [place] [address] [place] [phone] Marlen Chahal CRNA, PACO 06/25/2024 10:05 AM CDT Ancillary Procedure Department of Gastroenterology 06/24/2024 Clinical Communication Department of Cardiovascular Medicine in [place], [place] [address] [place] [phone] Baltazar Leal P.A.-CAnuradha 06/21/2024 1:03 PM FAMILY NURSE - 06/21/2024 2:18 PM FAMILY NURSE Surgery Division of Cardiovascular Diseases in [place], [place] [address] [place] [phone] Blake Jensen M.D. Coronary Angiography 06/21/2024 Clinical Communication Department of Cardiovascular Medicine in [place], [place] [address] [place] [phone] Baltazar Leal P.A.-C. Order Request 06/20/2024 10:26 AM FAMILY NURSE - 06/26/2024 3:43 PM CDT Hospital Encounter [facility], [facility], [facility], Sixth Floor [address] [place] [phone] Eddie French M.D. Linda Rutledge M.D., Pharm.D. Paddy Cruz M.D. Carr, Brendan M, M.D., M.B.A. Angina Unstable (HCC) (Primary Dx); Pain Chest; Pain Neck; Coronary Artery Disease Without Angina Pectoris; Non-ST Elevation Myocardial Infarction (HCC) Discharge Disposition: Home or Self Care 06/08/2024 Refill Division of Cardiovascular Diseases in [address] [phone] Parul Oreilly M.Breezy.B.S., Ph.D. Med Refill 06/08/2024 Refill Department of Orthopedic Surgery in [place], [place] [address] [place] [phone] Gustabo Lau M.D., M.B.A. Med Refill from [...] drink = 0.6 oz pur e alcohol) [facility] Utilities Answer Date Recorded In the past 12 months has e [employer], gas, oil, or water [employer] threatened to shut off services in your [...] any clubs o r organizations such as restorationism groups, unions, fraternal or athletic groups, or [...] Answer Date Recorded PHQ-2 Score 2 06/22/2024 [facility] - Occupational Stress [...] PM CDT Legal Sex Female 4:02 PM FAMILY NURSE Gender Identity Female 08/09/2022 12:21 PM CDT [...] AM CDT Clinical Communication Virtual Review in [place], [place] 200 [place] [address] 09/11/2024 8:00 AM CDT Comprehensive Visit [facility] in [place], [place] [address] [place] [phone] Slava Callahan APRN, C.N.P., M.S.N. [address] [place] [phone] 09/18/2024 8:40 AM CDT Ancillary Procedure Department of Cardiovascular Medicine in [place], [place] [address] [place] [phone] Meghann Stahl APRN, C.N.P., D.N.P. [address] [place] [phone] 09/18/2024 9:30 AM CDT Comprehensive Visit Department of Cardiovascular Medicine in [place], [place] [address] [place] [phone] Meghann Stahl APRN, C.N.P., D.N.P. [address] [place] [phone] 09/23/2024 10:00 AM CDT Appointment Department of Laboratory Medicine and Pathology, [facility], in [place], [place] [address] [place] [phone] Meghann Stahl APRN, C.N.P., D.N.P. [address] [place] [phone] Scheduled Procedures Name Priority Associated Diagnoses Date/Ti [...] this topic Medical Devices Implanted Type Area Diabetes Physician Device Identifier Shelf Expiration Date Model / Serial / Lot Cardiac Stent Cardiac Stent Heart Description:EIGHT CARDIAC ST ENTS Stnt Synergy Xd De 2.50x16 - [id number] Implanted:Qty : 1 on 03/23/2024 by Geremias Camp M.D., Ph.D. at [facility] Cardiac Stent N/A: Coronary [employer] 08/28/2025 [id number] / / [id number] Description:Distal LAD Stnt Synergy Xd De 2.25x8 - [id number] Implanted:Qty : 1 on 03/23/2024 by Geremias Camp M.D., Ph.D. at [facility] Cardiac Stent N/A: Coronary [employer] 07/31/2024 [id number] / / [id number] Bsplt Tib Trt Sz2 - [id number] Implanted:Qty : 1 on 03/03/2023 by Gustabo Lau M.D., M.B.A. at [facility] Knee Implant Right: Knee Johnson 10/14/2027 5536-B-20 0 / / [id number] Kn Fem Trt Por Cr Bead Rt Sz3 - [id number] Implanted:Qty : 1 on 03/03/2023 by Gustabo Lau M.D., M.B.A. at [facility] Knee Implant Right: Knee Bannister 09/08/2027 5517-F-30 2 / / [id number] Ins Tib Trt Cs Sz2 9 - [id number] Implanted:Qty : 1 on 03/03/2023 by Gustabo Lau M.D., M.B.A. at [facility] Knee Implant Right: Knee Bannister 09/04/2027 5531-G-20 9-E / / [id number] Procedures [...] ANTI-XA ASSAY, P Timed 06/22/2024 10:49 PM FAMILY NURSE GLUCOSE POCT, B Routine 06/22/2024 8:40 PM FAMILY NURSE ECG STAT 06/22/2024 6:25 PM FAMILY NURSE GLUCOSE POCT, B Routine 06/22/2024 6:17 PM FAMILY NURSE GLUCOSE POCT, B Routine 06/22/2024 4:51 PM FAMILY NURSE TROPONIN T, 5TH GEN, P Timed 4:35 PM FAMILY NURSE HEPARIN LEVEL ANTI-XA ASSAY, P Timed 06/22/2024 4:35 PM FAMILY NURSE GLUCOSE POCT, B Routine 06/22/2024 11:42 AM FAMILY NURSE HEPARIN LEVEL ANTI-XA ASSAY, P Timed 06/22/2024 8:56 AM FAMILY NURSE GLUCOSE POCT, B Routine 06/22/2024 6:44 AM FAMILY NURSE HEPARIN LEVEL ANTI-XA ASSAY, P Timed 06/22/2024 3:09 AM FAMILY NURSE BASIC METABOLIC PANEL, S/P Routine 06/22/2024 3:09 AM FAMILY NURSE CBC WITHOUT DIFFERENTIAL, B Routine 06/22/2024 3:09 AM FAMILY NURSE GLUCOSE POCT, B Routine 06/21/2024 9:17 PM FAMILY NURSE GLUCOSE POCT, B Routine 06/21/2024 3:55 PM FAMILY NURSE CARDIAC CATHETERIZATION Routine 06/21/2024 1:52 PM FAMILY NURSE Pain Chest Angina Unstable (HCC) Coronary Artery Disease Without Angina Pectoris GLUCOSE POCT, B Routine 06/21/2024 12:02 PM FAMILY NURSE (TTE) 2D ECHO DOPPLER COLOR AND CONTRAST Routine 06/21/2024 11:17 AM FAMILY NURSE HEPARIN LEVEL ANTI-XA ASSAY, P Timed 06/21/2024 9:40 AM FAMILY NURSE GLUCOSE POCT, B Routine 06/21/2024 6:52 AM FAMILY NURSE HEPARIN LEVEL ANTI-XA ASSAY, P Timed 06/21/2024 1:25 AM FAMILY NURSE CBC WITHOUT DIFFERENTIAL, B Routine 06/21/2024 1:25 AM FAMILY NURSE THYROID-STIMULATING HORMONE-SENSITIVE (S-TSH) Routine 06/21/2024 1:25 AM FAMILY NURSE MAGNESIUM, S Routine 06/21/2024 1:25 AM FAMILY NURSE LIPID PANEL, S Routine 06/21/2024 1:25 AM FAMILY NURSE HEMOGLOBIN A1C, B Routine 06/21/2024 1:2 5 AM FAMILY NURSE COMPREHENSIVE METABOLIC PANEL, S/P Routine 06/21/2024 1:25 AM FAMILY NURSE GLUCOSE POCT, B Routine 06/20/2024 10:40 PM FAMILY NURSE GLUCOSE POCT, B Routine 06/20/2024 7:42 PM FAMILY NURSE ACTIVATED PARTIAL THROMBOPLASTIN TIME (APTT), P STAT 06/20/2024 6:40 PM FAMILY NURSE ADULT OXYGEN THERAPY Routine 06/20/2024 6:28 PM FAMILY NURSE ADULT OXYGEN THERAPY Routine 06/20/2024 6:28 PM FAMILY NURSE ADULT OXYGEN THERAPY Routine 06/20/2024 6:28 PM FAMILY NURSE TROPONIN T, 2H/6H REFLEX, 5TH GEN, P Timed 06/20/2024 1:[address] NECK ANGIOGRAM WITH IV CONTRAST RAD - Semiurgent (Fast; most ED patients; some inpatients) 06/20/2024 1:[address] CHEST ANGIOGRAM ACUTE CHEST PAIN WITH IV CONTRAST (ED ONLY) RAD - Semiurgent (Fast; most ED patients; some inpatients) 06/20/2024 1:48 PM FAMILY NURSE TROPONIN T, BASELINE, 5TH GEN, P STAT 06/20/2024 11:49 AM FAMILY NURSE LACTATE, B STAT 06/20/2024 11:49 AM FAMILY NURSE LIPASE, S/P STAT 06/20/2024 11:49 AM FAMILY NURSE HEPATIC FUNCTION PANEL, S STAT 06/20/2024 11:49 AM FAMILY NURSE CBC WITH DIFFERENTIAL, B STAT 06/20/2024 11:49 AM FAMILY NURSE BASIC METABOLIC PANEL, S/P STAT 06/20/2024 11:49 AM FAMILY NURSE ECG STAT 06/20/2024 10:32 AM FAMILY NURSE from Last 3 Months Results * Remove PICC (non-tunneled) or Midline Catheter (06/26/2024 2:22 PM CDT) Narrative MMODAL - 06/26/2024 2:22 PM CDT Chuck Mariano, RAnuradhaNAnuradha 06/26/2024 2:25 PM Remove PICC (non-tunneled) or Midline Catheter Performed by: Chuck Mariano RAnuradhaNAnuradha Authorized by: Baltazar Leal PKojo Baltazar Leal P.A.-C. PROCEDURE/MINOR SURGICAL OR DERABLES Final Result Performing Organization Address City/[facility] Co de Phone Number MMODAL NA [...] SURGICAL ORDERABLES Final Result Performing Organization Address [facility] de Phone Number [facility] NA * Glucose, POCT (06/26/2024 11:57 AM CDT) Only the most recent of24 resultswithin the time period is included. [facility] Glucose, POCT, B 122 70 - 140 mg/dL 06/26/2024 12:00 PM CDT PCLX Site Capillary 06/26/2024 12:00 PM CDT PCLX Last Intake 3-4 hours 06/26/2024 12:00 PM CDT PCLX Blood 06/26/2024 11:5 7 AM CDT 06/26/2024 12:01 PM CDT us Unknown Provider LAB POCT ORDERABLES-MANUAL Eliane l Result Performing Organization Address City/[facility]/ZIP Co de Phone Number POC [facility] [address] [place] [address], [facility] PCLX [facility] POC [address] [place] [address] * (ABNORMAL) CBC with Differential, Blood (06/26/2024 [...] P.A.-C. LAB BLOOD ADD-ON Final Resu lt [facility] [address] [place] [address], [facility] [address] [place] [address] * Magnesium (06/26/2024 3:39 AM CDT) Only the most recent of2 resultswithin the time period is included. Pathologist [facility] Magnesium, P 1.9 1.7 - 2.3 mg/dL 06/26/2024 4:24 AM CDT DTL Blood (Blood, Venous) 06/26/2024 3:39 AM CDT 06/26/2024 3:52 AM CDT Sada Tsang P.A.-C. LAB BLOOD ADD-ON Fin al Result Performing Organization Address City/[facility] Co de Phone Number [facility] [address] [place] [address] * (ABNORMAL) Basic Metabolic Panel (06/26/2024 3:39 [...] ADD-ON Fin al Result Performing Organization Address City/[facility]/ZIP [place] [address], [facility] [place] [address] * Upper GI endoscopy-Gastroenterology Image Exam (06/25/2024 10:05 AM CDT) 06/25/2024 10:0 1 AM CDT Narrative [facility] - 06/25/2024 10:58 AM CDT This order has been created and auto-finalized to support the import of images acquired without order. The clinical documentation to support these images can be found on the encounter that produced images. Provider Not In System IMG NON RAD IMAGING PROCE DURES Final Result Performing Organization Address City/[facility]/ZIP Co de Phone Number [facility] NA * Upper GI Endoscopy (06/25/2024 10:01 [...] SantaA.-C. GI PROCEDURE ORDERABLES Fin al Result [employer] NA * CT Chest Angiogram with [...] nodules in the anterior right upper lobe ( image 120). Calcified granulomas. Unchanged scattered ill-definedgroundglass [...] P.A.-C. LAB BLOOD NON ADD-ON Final Result [facility] [address] [place] [address], [place] DTL [facility] [address] [place] [address] * (ABNORMAL) CBC without Differential (06/24/2024 6:53 [...] P.A.-C. LAB BLOOD ADD-ON Final Resu lt [facility] [address] [place] [address], [facility] [place] [address] * Patient Status (06/23/2024 7:32 PM CDT) Pathologist [facility] FIO2 0.21 0.21=AIR 06/23/2024 7:38 PM CDT ST[facility] Spont. breaths/min 11 06/23/2024 7:38 PM CDT [facility] Blood 06/23/2024 7:32 PM CDT 06/23/2024 7:38 PM CDT us Paddy Cruz M.D. LAB BLOOD NON ADD-ON Final Re sult [facility] [address] [place] [address], [facility] STMA [facility] 200 [place] [address] * Blood Gas without Coox, Venous (06/23/2024 [...] ADD-ON Final Re sult Performing Organization Address [facility] Co de Phone Number [facility] [address] [place], [place] [address] [place] [address] 200 [place] [address] * Place peripherally inserted central catheter (PICC) [...] to release the adhesive from the skin. [email or web address]/products/[email or web address] Baltazar Leal P.A.-C. PROCEDURE/MINOR SURGICAL OR DERABLES Final Result Performing Organization Address [facility] Co de Phone Number MM[facility]AL NA * (ABNORMAL) Hemoglobin (06/23/2024 12:21 PM CDT) Hemoglobin 10.4(L) 11.6 - 15.0 g/dL 06/23/2024 12:59 PM CDT DTL Blood (Blood, Venous) 06/23/2024 12:21 PM CDT 06/23/2024 12:50 PM CDT Baltazar Leal P.A.-C. LAB BLOOD ADD-ON Final Resu lt Performing Organization Address [facility] de Phone Number [facility] [address] DTL [facility] [address] [place] [address] * (ABNORMAL) Troponin T, 5th Generation (06/23/2024 5:31 AM CDT) Only the most recent of2 resultswithin the time period is included. Troponin T, 5th gen 14(H) <=10 ng/L 06/23/2024 5:53 AM CDT STMA Blood (Blood, Venous) 06/23/2024 5:31 AM CDT 06/23/2024 5:37 AM CDT [facility] P.A.-C. LAB BLOOD ADD-ON Final Resu lt Performing Organization Address [facility] Co de Phone Number [address] [place] [address] * ECG 12 Lead (06/22/2024 6:25 PM FAMILY NURSE) Only the most recent of2 resultswithin the time period is included. Ventricular Rate ECG/Min 59 BPM MUSE OR Interval 172 ms MUSE QRSD Interval 82 ms MUSE QT Interval 440 ms MUSE QTC Interval 435 ms MUSE P Gray 74 degrees MUSE R Gray 28 degrees MUSE T Wave Gray 44 degrees MUSE 06/22/2024 6:25 PM FAMILY NURSE 06/22/2024 6:31 PM FAMILY NURSE Impressions MUSE - 06/22/2024 6:31 PM FAMILY NURSE Sinus bradycardia Otherwise normal ECG When compared with ECG of 20-Jun-2024 10:32, OR interval has decreased Reviewed by WARREN Mcdaniel Narrative Procedure Note Demetrius Negrete M.D. - 06/22/2024 IMPRESSION: Sinus bradycardia Otherwise normal ECG When compared with ECG of 20-Jun-2024 10:32, OR interval has decreased Reviewed by WARREN Mcdaniel us Joyce Bethea APRN, C.N.P., M.S.N. ECG ORDERA BLES Final Result MUSE NA * CORONARY ANGIOGRAPHY (06/21/2024 1:52 PM FAMILY NURSE) Anatomical Region Laterality Modality X-Ray Angiograph y 06/21/2024 1:33 PM FAMILY NURSE Narrative 06/21/2024 1:57 PM FAMILY NURSE For the complete report, see the Order-Level [...] lesion. Receives collaterals from the second septal senior water/wastewater engineer. The proximal circumflex artery is 40% obstructed [...] discrete lesion. Receives collaterals fromthe second septal senior water/wastewater engineer. The proximal circumflex artery is 40% obstructed [...] DOPPLER COLOR AND CONTRAST (06/21/2024 11:17 AM FAMILY NURSE) [facility] Ejection Fraction 62 MC CV EIMS Sinus [...] Region Laterality Modality Echocardiography 06/21/2024 9:41 AM FAMILY NURSE Impressions 06/21/2024 1:04 PM FAMILY NURSE Echo performed at the patient's bedside. Intravenous [...] per Echocardiography Contrast Administration Protocol Reference Document [id number] Rev 07/29/2021. Patient met an inclusion criterion and did not have contraindications in screening sections. For the complete report, see the Order-Level Documents. Narrative 06/21/2024 1:04 PM FAMILY NURSE For the complete report, see the Order-Level [...] administered per Echocardiography Contrast Administration ProtocolReference Document [id number] Rev 07/29/2021. Patient met an inclusioncriterion and did not have contraindications in screening sections. For the complete report, see the Order-Level Documents. us Joyce Bethea APRN C.N.P., M.S.N. CV ECHO WILDA MORA Edited Result - Final * (ABNORMAL) Lipid Panel (06/21/2024 1:25 AM FAMILY NURSE) Triglycerides 111 mg/dL 06/21/2024 2:25 AM FAMILY NURSE DTL Comment: ----REFERENCE VALUE---- Normal: <150 mg/dL Borderline High: 150-199 mg/dL High: 200-499 mg/dL Very High: > or =500 mg/dL Cholesterol, Total 257(H) mg/dL 2024 2:25 AM FAMILY NURSE DTL Comment: ----REFERENCE VALUE---- Desirable: < 200 mg/dL Borderline High: 200 - 239 mg/dL High: > or = 240 mg/dL Cholesterol, LDL, Calculated 193(H) mg/dL 06/21/2024 2:25 AM FAMILY NURSE DTL Comment: The markedly elevated LDL level [...] S 44(L) >=50 mg/dL 06/21/2024 2:25 AM FAMILY NURSE DTL Cholesterol, Non-HDL, Calculated 213(H) mg/dL 06/21/2024 2:25 AM FAMILY NURSE DTL Comment: ----REFERENCE VALUE---- Desirable: <130 mg/dL Above Desirable: 130-159 mg/dL Borderline High: 160-189 mg/dL High: 190-219 mg/dL Very High: > or =220 mg/dL Fasting (8 HR or more) Yes 1:25 AM FAMILY NURSE DTL Blood (Blood, Venous) 06/21/2024 1:25 AM FAMILY NURSE 06/21/2024 1:53 AM FAMILY NURSE Joyce Bethea APRN, C.N.P., M.S.N. LAB BLOOD ADD-ON Final Result Performing Organization Address City/[facility] Co de Phone Number [facility] 200 [place] [address] * S-TSH (Thyroid-Stimulating Hormone - Sensitive) (06/21/2024 1:25 AM FAMILY NURSE) TSH, Sensitive 1.7 0.3 - 4.2 mIU/L 06/21/2024 2:25 AM FAMILY NURSE DT Blood (Blood, Venous) 06/21/2024 1:25 AM FAMILY NURSE 06/21/2024 1:53 AM FAMILY NURSE Trey Harp APRNNAngie., M.S.N. LAB BLOOD ADD-ON Final Result Performing Organization Address [facility] de Phone Number [facility] [address] [facility] 200 [place] [address] * (ABNORMAL) Hemoglobin A1c (06/21/2024 1:25 AM FAMILY NURSE) Hemoglobin A1c, B 6.2(H) 4.0 - 5.6 % 06/21/2024 1:57 AM FAMILY NURSE DTL Comment: Hemoglobin A1c values of 5.7-6.4 percent indicate an increased risk for developing diabetes mellitus. In diabetic patients, HbA1c goals should be discussed with healthcare provider. Blood (Blood, Venous) 06/21/2024 1:25 AM FAMILY NURSE 06/21/2024 1:39 AM FAMILY NURSE Joyce Bethea APRN, C.N.P., M.S.N. LAB BLOOD ADD-ON Final Result [facility] [address] [place] [address], [facility] DTL [facility] [address] [place] [address] * (ABNORMAL) Comprehensive Metabolic Panel (06/21/2024 1:25 AM FAMILY NURSE) [facility] Potassium, S 3.6 3.6 - 5.2 mmol/L 06/21/2024 2:25 AM FAMILY NURSE DTL Sodium, S 134(L) 135 - 145 mmol/L 06/21/2024 2:25 AM FAMILY NURSE DTL Chloride, S 98 98 - 107 mmol/L 06/21/2024 2:25 AM FAMILY NURSE DTL Bicarbonate, S 22 22 - 29 mmol/L 06/21/2024 2:25 AM FAMILY NURSE DTL Anion Gap 14 7 - 15 06/21/2024 2:25 AM FAMILY NURSE DTL BUN (Blood Urea Nitrogen), S 14 6 - 21 mg/dL 06/21/2024 2:25 AM FAMILY NURSE DTL Creatinine 1.12(H) 0.59 - 1.04 mg/dL 06/21/2024 2:25 AM FAMILY NURSE DTL Estimated GFR (eGFR) 54(L) >=60 mL/min/BS A 06/21/2024 2:25 AM FAMILY NURSE DTL Comment: Estimated GFR calculated using the 2020 CKD_EPI creatinine equation. Calcium, Total, S 9.3 8.8 - 10.2 mg/dL 06/21/2024 2:25 AM FAMILY NURSE DTL Glucose, S 283(H) 70 - 140 mg/dL 06/21/2024 2:25 AM FAMILY NURSE DTL Protein, Total, S 6.7 6.3 - 7.9 g/dL 06/21/2024 2:25 AM FAMILY NURSE DTL Albumin, S 4.0 3.5 - 5.0 g/dL 06/21/2024 2:25 AM FAMILY NURSE DTL Aspartate Aminotransferase (AST), S 25 8 - 43 U/L 06/21/2024 2:25 AM FAMILY NURSE DTL Alkaline Phosphatase, S 80 35 - 104 U/L 06/21/2024 2:25 AM FAMILY NURSE DTL Alanine Aminotransferase (ALT), S 18 7 - 45 U/L 06/21/2024 2:25 AM FAMILY NURSE DTL Bilirubin, Total, S 0.3 0.0 - 1.2 mg/dL 06/21/2024 2:25 AM FAMILY NURSE DTL Blood (Blood, Venous) 06/21/2024 1:25 AM FAMILY NURSE 06/21/2024 1:53 AM FAMILY NURSE Andrea Harp APRN.N.P., M.S.N. LAB BLOOD ADD-ON Final Result Performing Organization Address City/[facility]/ZIP Co de Phone Number [facility] [address] [place] [address], [facility] DTL [address] [address] * APTT (Activated Partial Thromboplastin Time) (06/20/2024 6:40 PM FAMILY NURSE) [facility] Activated Partial Thrombopl Time, P 26 25 - 37 sec 06/20/2024 6:57 PM FAMILY NURSE STMA Blood (Blood, Venous) 06/20/2024 6:40 PM FAMILY NURSE 06/20/2024 6:47 PM FAMILY NURSE Andrea Harp APRN.N.P., M.S.N. LAB BLOOD ADD-ON Final Result [facility] [address] [place] [address], [facility] STMA [facility] 200 [place] [address] * (ABNORMAL) Troponin T, 2 Hour with 6 Hour Reflex, 5th Gen (06/20/2024 1:57 PM FAMILY NURSE) Troponin T, 2 hr, 5th gen 13(H) <=10 ng/L 06/20/2024 2:20 PM FAMILY NURSE STMA 2H Delta 0 ng/L 06/20/2024 2:20 PM FAMILY NURSE STMA Comment:6 hour collection no t indicated. 2H Delta Interp Not Changing 06/20/2024 2:20 PM FAMILY NURSE STMA Blood 06/20/2024 1:57 PM FAMILY NURSE 06/20/2024 2:02 PM FAMILY NURSE Eddie French M.D. LAB BLOOD TROPONIN Final Result [facility] [address] [place] [address], [facility] STMA [facility] [address] [place] [address] * CT Chest Angiogram Acute Chest Pain with IV Contrast (ED only) (06/20/2024 1:48 PM FAMILY NURSE) Anatomical Region Laterality Modality Chest, Cardiovascular RST LO S, Thoracic ARZ LOS, Cardiovascular FLA LOS Computed Tomography, C omputed Tomography 06/20/2024 1:30 PM FAMILY NURSE Impressions 06/20/2024 2:46 PM FAMILY NURSE 1. No pulmonary embolism. 2. No evidence [...] severe lesion): 4/P4/S/N. Narrative 06/20/2024 2:46 PM FAMILY NURSE EXAM: CT CHEST ANGIOGRAM ACUTE CHEST PAIN [...] 5: 100%, Occluded N: Non-diagnostic study Plaque [place]: P1: Mild (CACS1-100/SIS1-2/1-2 vessels mild plaque) P2: Moderate ([id number]/SIS3-4/1-2 vessels moderate; 3 vessels mild plaque) P3: Severe ([id number]/SIS5-7/3 vessels moderate; 1 vessel severe plaque) P4: [...] 5: 100%, Occluded N: Non-diagnostic study Plaque [place]: P1: Mild (CACS1-100/SIS1-2/1-2 vessels mild plaque) P2: Moderate ([id number]/SIS3-4/1-2 vessels moderate; 3 vessels mildplaque) P3: Severe ([id number]/SIS5-7/3 vessels moderate; 1 vessel severeplaque) P4: Extensive [...] Angiogram with IV Contrast (06/20/2024 1:48 PM FAMILY NURSE) Anatomical Region Laterality Modality Neck, Neuroradiology RST LOS , Neuroradiology ARZ LOS, Neuroradiology FLA LOS N/A Computed Tomography, Compute d Tomography 06/20/2024 1:15 PM FAMILY NURSE Impressions 06/20/2024 1:51 PM FAMILY NURSE 1. No large vessel occlusion, high-grade stenosis or dissection in the cervical arterial vasculature. 2. Apparent 2 mm outpouching at left [employer] P1/P2 junction, which may represent an infundibulum or a small aneurysm Narrative 06/20/2024 1:51 PM FAMILY NURSE EXAM: CT NECK ANGIOGRAM WITH IV CONTRAST [...] arch. Apparent 2 mm outpouching at left MERCHANDISE ASSOCIATE P1/P2 junction (series 10 image 604) which [...] arch. Apparent 2 mm outpouching at left MERCHANDISE ASSOCIATE P1/P2 junction (series 10 image 604)which represent [...] 2. Apparent 2 mm outpouching at left MERCHANDISE ASSOCIATE P1/P2 junction, which mayrepresent an infundibulum or a small aneurysm Eddie French M.D. IMG CT PROCEDURES Final R esult * Lactate, B (06/20/2024 11:49 AM FAMILY NURSE) [facility] Lactate, B 1.0 0.5 - 2.2 mmol/L 06/20/2024 11:58 AM FAMILY NURSE STMA Blood (Blood, Venous) 06/20/2024 11:49 AM FAMILY NURSE 06/20/2024 11:55 AM FAMILY NURSE Eddie French M.D. LAB BLOOD NON ADD-ON Eliane l Result [facility] [address] [place] [address] * (ABNORMAL) Troponin T, Baseline with 2 Hour/6 Hour Reflex Biomarker Panel (06/20/2024 11:49 AM FAMILY NURSE) [facility] Troponin T, Baseline, 5th gen 13(H) <=10 ng/L 06/20/2024 12:13 PM FAMILY NURSE STMA Blood (Blood, Venous) 06/20/2024 11:49 AM FAMILY NURSE 06/20/2024 11:55 AM FAMILY NURSE Eddie French M.D. LAB BLOOD TROPONIN Final Result Performing Organization Address City/[facility]/ZIP Co de Phone Number [facility] [address] [place] [address], [facility] STMA [facility] [address] [place] [address] * Hepatic Function Panel (06/20/2024 11:49 AM FAMILY NURSE) Bilirubin, Total, S 0.5 0.0 - 1.2 mg/dL 06/20/2024 12:48 PM FAMILY NURSE DTL Bilirubin, Direct, S <0.2 0.0 - 0.3 mg/dL 06/20/2024 12:48 PM FAMILY NURSE DTL Aspartate Aminotransferase (AST), S 23 8 - 43 U/L 06/20/2024 12:48 PM FAMILY NURSE DTL Alanine Aminotransferase (ALT), S 17 7 - 45 U/L 06/20/2024 12:48 PM FAMILY NURSE DTL Alkaline Phosphatase, S 76 35 - 104 U/L 06/20/2024 12:48 PM FAMILY NURSE DTL Albumin, S 3.9 3.5 - 5.0 g/dL 06/20/2024 12:48 PM FAMILY NURSE DTL Protein, Total, S 6.6 6.3 - 7.9 g/dL 06/20/2024 12:48 PM FAMILY NURSE DTL Blood (Blood, Venous) 06/20/2024 11:49 AM FAMILY NURSE 06/20/2024 12:27 PM FAMILY NURSE us Eddie French M.D. LAB BLOOD ADD-ON Final Re sult [facility] [address] [place] [address], [facility] DTL [facility] [address] [place] [address] * Lipase (06/20/2024 11:49 AM FAMILY NURSE) Lipase, S 22 13 - 60 U/L 06/20/2024 12:48 PM FAMILY NURSE DTL Blood (Blood, Venous) 06/20/2024 11:49 AM FAMILY NURSE 06/20/2024 12:27 PM FAMILY NURSE Eddie French M.D. LAB BLOOD ADD-ON Final Re sult [facility] [address] [place] [address], [place] DTL [facility] [address] [place] [address] from Last 3 Months Insurance [facility] Advance Directives For more information, please contact: [phone] * Full Code (Latest Code Status on [...] Answer Comments Full Code: Discussed Care Teams Composite Engineer Relationship Specialty Start Date End Date Elsewhere, Pcp PCP - General Internal Medicine 03/22/24
--- OUTSIDE RECORDS SUMMARY | 2024-08-26 17:34 | XMS_ITS | Clinical Summary ---
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 PCP - General 10/06/22
--- OUTSIDE RECORDS SUMMARY | 2024-08-26 17:34 | XMS_ITS | Encounter Summary ---
Author Organization [facility] Address [address] [place] [address] Care Team Providers Care Sports Equipment Supervisor Name Role Phone Elsewhere, Pcp Primary Care Provider Unavailabl e Reason for Visit * Outpatient (Routine) - Closed Specialty Diagnoses / Procedures Referred By Contact Referred To Contact Cardiovascular Diseases / Cardiovascular Disease Diagnoses Non-ST Elevation Myocardial Infarction (HCC) Coronary Artery Disease With Unstable Angina (HCC) Obstructive Sleep Apnea Adult Baltazar Leal P.A.-C. [address] [place] [phone] Phone: tel: fax: [facility] Referral ID Status Reason Start Date Expiration Date Visits Re quested Visits Authorized [id number] Closed 06/21/2024 12/21/2025 1 1 Encounter Details Date Type Department Care Team (Latest Contact Info) Description 08/14/2024 1:00 PM CDT Comprehensive Visit Department of Cardiovascular Medicine in [place], [place] [address] [place] [phone] Katie Billingsley APRN, C.N.P., M.S.N. [address] [place] [phone] Paola Rivera APRN, C.N.PAnuradha [address] [place] [phone] Hyperlipidemia (Primary Dx); Non-ST Elevation Myocardial Infarction (HCC); Coronary Artery Disease With Unstable Angina (HCC); Obstructive Sleep Apnea Adult; Coronary Artery Disease Without Angina Pectoris Social History Tobacco Use Types Packs/Day Years Used Date Smoking Tobacco: Never Smokeless Tobacco: Never Tobacco Cessation:Counseling Given: Not Answered Alcohol Use Standard Drinks/Week Comments Never 0 (1 standard drink = 0.6 oz pur e alcohol) [facility] Utilities Answer Date Recorded In the past 12 months has e [employer], gas, oil, or water [employer] threatened to shut off services in your [...] often do you attend chur ch or spiritism services? 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 We then looked at utilizing [employer] but the co-pay cost is 290 dollars which she can not afford. After exploring both of these, we have decided to move forward with Inclisiran here at [facility]. I have written for the 1st year [...] AM CDT Clinical Communication Virtual Review in [address] [phone] 09/11/2024 8:00 AM CDT Comprehensive Visit [facility] in [address] [phone] Slava Callahan APRN, C.N.P., M.S.N. [address] [place] [phone] 09/18/2024 8:40 AM CDT Ancillary Procedure Department of Cardiovascular Medicine in [address] [phone] Meghann Stahl APRN, C.N.P., D.N.P. [address] [place] [phone] 09/18/2024 9:30 AM CDT Comprehensive Visit Department of Cardiovascular Medicine in [address] [phone] Meghann Stahl APRN, C.N.P., D.N.P. [address] [place] [phone] 09/23/2024 10:00 AM CDT Appointment Department of Laboratory Medicine and Pathology, [facility], in [address] [phone] Meghann Stahl APRN, C.N.P., D.N.P. [address] [place] [phone] Scheduled Procedures Name Priority Associated Diagnoses Date/Ti [...] Total Score: 13 06/22/ 025 5:00 PM YEAST CULTURE OPERATOR documented as of this encounter Care Teams Sports Equipment Supervisor Relationship Specialty Start Date End Date Elsewhere, Pcp PCP - General Internal Medicine 03/22/24 documented as of this encounter
--- OUTSIDE RECORDS SUMMARY | 2024-08-26 17:34 | XMS_ITS | Encounter Summary ---
Author Organization [facility] Address [address] [place] [address] Care Team Providers Care Building Maintenance Custodian Name Role Phone Elsewhere, Pcp Primary Care Provider Unavailabl e Encounter Details Date Type Department Care Team (Late st Contact Info) Description 07/15/2024 Episode Changes Department of Cardiac Rehabilitation in [place], [place] [address] [place] [phone] Katelin Peña, [facility] Social History Tobacco Use Types Packs/Day Years Used Date Smoking Tobacco: Never Smokeless Tobacco: Never Alcohol Use Standard Drinks/Week Comments Never 0 (1 standard drink = 0.6 oz pur e alcohol) [facility] Utilities Answer Date Recorded In the past 12 months has [facility] [employer], gas, oil, or water [employer] threatened to shut off services in your [...] often do you attend chur ch or worship services? 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 [address] [place] [phone] 09/18/2024 8:40 AM CDT Ancillary Procedure Department of Cardiovascular Medicine in [place], [place] [address] [place] [phone] Meghann Stahl APRN, C.N.P., D.N.P. [address] [place] [phone] 09/18/2024 9:30 AM CDT Comprehensive Visit Department of Cardiovascular Medicine in [place], [place] [address] [place] [phone] Meghann Stahl APRN, C.N.P., D.N.P. [address] [place] [phone] 09/23/2024 10:00 AM CDT Appointment Department of Laboratory Medicine and Pathology, [facility] in [place], [place] [address] [place] [phone] Meghann Stahl APRN, C.N.P., D.N.P. [address] [place] [phone] Scheduled Procedures Name Priority Associated Diagnoses Date/Ti me ARTHROPLASTY REPLACEMENT TOT AL KNEE Primary Osteoarthritis Knee Right documented as of this encounter Visit Diagnoses Not on filedocumented in this encounter Additional Health Concerns Assessment Noted Time PHQ-9 Depression Total Score: 13 06/22/ 025 5:00 PM LAW FIRM CONSULTANT documented as of this encounter Care Teams Building Maintenance Custodian Relationship Specialty Start Date End Date Elsewhere, Pcp PCP - General Internal Medicine 03/22/24 documented as of this encounter
[2024-08-26 18:20] VITALS: BP 129/66; PULSE 59; RESP 14; O2SAT 97
[2024-08-26] MEDS: APIXABAN 5 MG TABLET 10 MG PO (18:35)
== END 2024-08-26 18:49 | disposition home or self-care (01) ==
PROVIDERS: Emergency Provider Emergency Medicine Emergency Medical Services; PCP Internal Medicine
DX: I82.402 Acute embolism and thrombosis of unspecified deep veins of left lower extremity (principal); M79.662 Pain in left lower leg; Z79.02 Long term (current) use of antithrombotics/antiplatelets; Z79.01 Long term (current) use of anticoagulants
CPT/HCPCS: 93971; 99284; A9270

== ENCOUNTER 2024-10-07 08:07 | Outpatient (CLI) | payer MEDICARE, SELFPAY | END 2024-10-07 08:08 | disposition home or self-care (01) | LOC: NFLDREF 10-09 03:10 | PROVIDERS: PCP Internal Medicine; Referring Provider Internal Medicine; Visit Provider Internal Medicine | DX: I25.10 Atherosclerotic heart disease of native coronary artery without angina pectoris (principal); I25.83 Coronary atherosclerosis due to lipid rich plaque; E78.5 Hyperlipidemia, unspecified; E11.9 Type 2 diabetes mellitus without complications; I10 Essential (primary) hypertension | CPT/HCPCS: 80053; 80061; 82043; 82570 ==